=== PATIENT | female | born 1935 | race African-American/Black ===

== ENCOUNTER 2017-06-07 11:17 | Observation (INO) | payer OTHER ==
--- NOTE | 2017-06-07 11:45 | PDOC ---
History of Present Illness - General Stated Complaint: Weakness Time Seen by Provider: 06/07/17 11:44 - History of Present Illness Initial Comments: 80 year old female with PMH of HTN, dementia, and HLD presenting to the ED after a questionable syncopal episode. The patient was at a senior center and was standing for approximately two minutes from her chair then states that she missed her chair when she went to sit back into her seat. However, per the care center (after a phone call) she actually fell out of her chair after a seemingly unprovoked syncopal episode after which she was apparently disoriented. Denies any palpitations, SOB, LOC, head trauma or other symptoms. She states the she recalls the entire event as well. She was sent to the ED for evaluation by the [facility] because they believed she was slightly altered at the time of the incident. She personally has no current complaints. She was last admitted from 09/27/15-09/29/15 for a similar episode but with noted syncope. Carotid dopplers and echo were performed without notable findings that would cause hemodynamic change. Her PCP is Dr. Waddell. 06/07/17 12:41 Past History - Past Medical History Allergies/Adverse Reactions: Allergies Allergy/AdvReac Type Severity Reaction Status Date / Time No Known Allergies Allergy Verified 04/20/15 11:53 Home Medications: Ambulatory Orders Ezetimibe [Zetia -] 10 mg PO DAILY #0 tablet 03/20/12 Donepezil HCl [Aricept -] 5 mg PO DAILY 11/08/13 Esomeprazole Mag Trihydrate [Nexium] 40 mg PO DAILY 02/02/14 Atorvastatin Ca [Lipitor] 40 mg PO DAILY 09/27/15 Insulin NPH Hum/Reg Insulin Hm [Humulin 70-30 Vial] 20 unit SQ BID #0 09/30/15 Aspirin [ASA -] 81 mg PO DAILY 11/09/16 Atorvastatin Ca [Lipitor] 40 mg PO HS 11/09/16 Donepezil HCl [Aricept -] 5 mg PO DAILY 11/09/16 Esomeprazole Magnesium [Nexium 24Hr] 40 mg PO DAILY 11/09/16 Ezetimibe [Zetia] 10 mg PO DAILY 11/09/16 Insulin (Novolog 70/30) [Novolog Mix 70/30 Flexpen -] 20 units SQ BIDAC Lisinopril [Prinivil] 10 mg PO DAILY 11/09/16 Valsartan [Diovan] 160 mg PO DAILY 11/09/16 Metoprolol Tartrate 100 mg PO DAILY 06/07/17 Metoprolol Tartrate [Lopressor -] 50 mg PO DAILY 06/07/17 Montelukast Na [Singulair -] 10 mg PO HS 06/07/17 Valsartan [Diovan] 160 mg PO DAILY 06/07/17 Anemia: No Asthma: No Cancer: No Cardiac Disorders: No CVA: No COPD: No CHF: No Dementia: Yes Diabetes: Yes GI Disorders: Yes (DIARRHEA) Disorders: No HTN: Yes Hypercholesterolemia: Yes Liver Disease: No Seizures: No Thyroid Disease: No - Surgical History Abdominal Surgery: Yes Appendectomy: No Cardiac Surgery: No Cholecystectomy: No Lung Surgery: No Neurologic Surgery: No Orthopedic Surgery: No - Immunization History Td Vaccination: No TDAP Vaccination: No Immunization Up to Date: No - Suicide/Smoking/Psychosocial Hx Smoking Status: Yes Smoking History: Current every day smoker Years of Tobacco Use: 58 Have you smoked in the past 12 months: Yes Number of Cigarettes Smoked Daily: 3 Cigars Per Day: 0 'Breaking Loose' booklet given: 04/20/15 Hx Alcohol Use: No Drug/Substance Use Hx: No Substance Use Type: None Review of Systems - Review of Systems Constitutional: No: Chills, Diaphoresis, Night Sweats HEENTM: No: Eye Pain, Blurred Vision Respiratory: No: Cough, Shortness of Breath, Productive cough Cardiac (ROS): No: Chest Pain, Lightheadedness ABD/GI: No: Diarrhea, Nausea, Vomiting : No: Burning, Dysuria Musculoskeletal: No: Back Pain, Muscle Pain Integumentary: No: Bruising, Change in Color Neurological: No: Headache, Numbness, Weakness *Physical Exam - Physical Exam General Appearance: Yes: Nourished, Appropriately Dressed. No: Apparent Distress HEENT: positive: EOMI, NAVEEN, Normal Voice Neck: positive: Trachea midline, Normal Thyroid, Supple. negative: Tender, Rigid Respiratory/Chest: positive: Lungs Clear, Normal Breath Sounds. negative: Chest Tender, Respiratory Distress, Accessory Muscle Use Cardiovascular: positive: Regular Rhythm, Regular Rate Gastrointestinal/Abdominal: positive: Normal Bowel Sounds, Flat, Soft. negative : Tender Musculoskeletal: positive: Normal Inspection. negative: CVA Tenderness Extremity: positive: Normal Capillary Refill, Normal Inspection, Normal Range of Motion. negative: Tender Integumentary: positive: Normal Color, Dry, Warm Neurologic: positive: aluminum pourer II-XII NML intact, Fully Oriented, Alert, Normal Mood/ Affect, Normal Response, Motor Strength 11/03 ED Treatment Course - LABORATORY CBC & Chemistry Diagram: 06/09/17 05:45 06/09/17 05:45 Medical Decision Making - Medical Decision Making 82 year old female with questionable seizure vs. syncopal episode at her [facility]. Although patient is fully alert and AOx4 upon presentation to the ED, the report from the [facility] was concerning. Given her age, further workup is needed. 06/07/17 12:[address] unremarkable. However, Labs significant for elevated TSH (4.26) and elevated BNP (1200) with leukocytosis. Patient discussed with hospital [employer] ( Rojas) and she will be admitted for further syncopal workup including carotid dopplers, echo, and possible further cranial imaging. 06/07/17 14:41 *DC/Admit/Observation/Transfer Diagnosis at time of Disposition: Syncope Qualifiers: Syncope type: unspecified Qualified Code(s): R55 - Syncope and collapse - Discharge Dispostion Admit: Yes - Referrals - Patient Instructions - Post Discharge Activity
[2017-06-07] MEDS ORDERED: SODIUM CHLORIDE 0.9% 1000 ML INFUS.BAG IV ONE (12:24)
--- NOTE | 2017-06-07 14:05 | PDOC ---
Attending Attestation - Resident Resident Name: Stephen Rodriguez - ED Attending Attestation I have performed the following: I have examined & evaluated the patient, The case was reviewed & discussed with the resident, I agree w/resident's findings & plan, Exceptions are as noted - HPI HPI: 06/07/17 13:56 82 F with h/o HTN, HLD, DM presenting to ED with syncope. Per witness report, pt was seated in a chair and suddenly went unresponsive, falling out of the chair to the ground. She was picked up and helped back into her chair, where she was noted to be dozing off intermittently afterwards. Currently, pt denies any complaints. Daughter states that she appears back to baseline. The pt denies any recollection of fainting and states that she simply "fell out of her chair". However, daughter reports that she is not reliable due to her dementia. Pt denies KUMARI/N/V. Denies CP/SOB. Denies lightheadedness/palpitations. Denies F/ C. Denies abd pain/diarrhea. - Physicial Exam PE: 06/07/17 14:05 "GENERAL: Awake, alert, and fully oriented, in no acute distress HEAD: No signs of trauma EYES: PERRLA, EOMI, sclera anicteric, conjunctiva clear ENT: Auricles normal inspection, hearing grossly normal, nares patent, oropharynx clear without exudates. Moist mucosa NECK: Nontender, no stepoffs, Normal ROM, supple, no lymphadenopathy, JVD, or masses LUNGS: Breath sounds equal, clear to auscultation bilaterally. No wheezes, and no crackles HEART: Regular rate and rhythm, normal S1 and S2, no murmurs, rubs or gallops ABDOMEN: Soft, nontender, normoactive bowel sounds. No guarding, no rebound. No masses EXTREMITIES: Normal range of motion, no edema. No clubbing or cyanosis. No cords, erythema, or tenderness NEUROLOGICAL: Cranial nerves II through XII intact. 5/5 strength and sensation in all extremities, Normal speech, normal gait SKIN: Warm, Dry, normal turgor, no rashes or lesions noted. " - Medical Decision Making 06/07/17 14:05 82 F with likely syncopal episode. Concerning for cardiac syncope as pt was seated at the time. - Labs, trop, BNP - EKG - Admit tele
[2017-06-07 14:11] LABS: BASOPHIL 0.7 % (0-2.0); EOSINOPHIL 1.7 % (0-4.5); MCH 28.9 pg (25.7-33.7); MEAN CELL VOLUME 87.6 fl (80-96); MEAN PLT VOLUME 12.7 fl (7.5-11.1); NEUTROPHILS 82.9 % (42.8-82.8); PLATELET COUNT 168 K/MM3 (134-434); RDW 14.5 % (11.6-15.6); WHITE BLOOD COUNT 11.9 K/mm3 (4.0-10.0)
[2017-06-07 15:28] LABS: ALBUMIN 3.1 g/dl (3.4-5.0); ANION GAP 8 (8-16); BILIRUBIN,TOTAL 0.3 mg/dL (0.2-1.0); CALCIUM 8.6 mg/dL (8.5-10.1); CO2 29 mmol/L (21-32); CREATININE 1.3 mg/dL (0.55-1.02); GLUCOSE,RANDOM 251 mg/dL (74-106); SGOT/AST 10 U/L (15-37); SGPT/ALT 18 U/L (12-78); TOT PROT 6.4 g/dl (6.4-8.2)
[2017-06-07 15:37] LABS: ALK PHOS 132 U/L (45-117); CPK 44 IU/L (26-192); THYROID STIMULATING HORMONE 4.26 uIU/ml (0.358-3.74); TROPONIN I < 0.02 ng/ml (0.00-0.05)
[2017-06-07 15:42] LABS: URINE APPEARANCE CLOUDY; URINE BILIRUBIN NEGATIVE (NEGATIVE); URINE BLOOD 1+ (NEGATIVE); URINE COLOR YELLOW; URINE GLUCOSE (UA) 3+ (NEGATIVE); URINE KETONE TRACE (NEGATIVE); URINE NITRITE NEGATIVE (NEGATIVE); URINE UROBILINOGEN NEGATIVE mg/dL (0.2-1.0)
[2017-06-07 15:54] LABS: URINE LEUK ESTERASE 2+ (NEGATIVE); URINE PROTEIN 2+ (NEGATIVE)
[2017-06-07 16:32] LABS: URINE BACTERIA MODERATE /hpf (NONE SEEN); URINE MUCUS RARE; URINE RBC 3 /hpf (0-3); URINE WBC 71 /hpf (3-5)
--- NOTE | 2017-06-07 17:44 | HP ---
Admitting History and Physical - Admission Chief Complaint: syncope History of Present Illness: HPI: This 82 year old female with PMH of HTN, dementia, and HLD presented to the ED after syncopal episode. The patient said she was standing over her chair and then hit the ground and did not hit her head. She did no have an prodromal symptoms, came to and was at her baseline. Her daughter at the bedside. said the detention noted she fell out of her chair and was disoriented and mental status was altered after episode. Previous admissions for the same complaints. CD and echo without remarkable findings. Currently denies, cp, sob, abd pain, changes in urinary and bowel regimen, n/v, dizziness, kendall, blurry vision. 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 Cardiovascular: Yes: HTN, Hyperlipdemia Pulmonary: Yes: Asthma Endocrine: Yes: Diabetes Mellitus - Past Surgical History Past Surgical History: Yes: Hysterectomy - Smoking History Smoking history: Current every day smoker Have you smoked in the past 12 months: Yes Aproximately how many cigarettes per day: 3 - Alcohol/Substance Use Hx Alcohol Use: No History of Substance Use: reports: None - Social History Usual Living Arrangement: Yes: Assisted Living ADL: Support Services Home Medications - Allergies Allergies/Adverse Reactions: Allergies Allergy/AdvReac Type Severity Reaction Status Date / Time No Known Allergies Allergy Verified 04/20/15 11:53 - Home Medications Home Medications: Ambulatory Orders Ezetimibe [Zetia -] 10 mg PO DAILY #0 tablet 03/20/12 Donepezil HCl [Aricept -] 5 mg PO DAILY 11/08/13 Esomeprazole Mag Trihydrate [Nexium] 40 mg PO DAILY 02/02/14 Atorvastatin Ca [Lipitor] 40 mg PO DAILY 09/27/15 Insulin NPH Hum/Reg Insulin Hm [Humulin 70-30 Vial] 20 unit SQ BID #0 09/30/15 Metoprolol Tartrate 100 mg PO DAILY 06/07/17 Metoprolol Tartrate [Lopressor -] 50 mg PO DAILY 06/07/17 Montelukast Na [Singulair -] 10 mg PO HS 06/07/17 Valsartan [Diovan] 160 mg PO DAILY 06/07/17 Review of Systems - Review of Systems Constitutional: reports: No Symptoms Eyes: reports: No Symptoms HENT: reports: No Symptoms Neck: reports: No Symptoms Cardiovascular: reports: No Symptoms Respiratory: reports: No Symptoms Gastrointestinal: reports: No Symptoms Genitourinary: reports: No Symptoms Musculoskeletal: reports: No Symptoms Integumentary: reports: No Symptoms Neurological: reports: Change in LOC, Syncope Endocrine: reports: No Symptoms Hematology/Lymphatic: reports: No Symptoms Physical Examination Vital Signs: Vital Signs Temperature 98.7 F 06/07/17 11:45 Pulse Rate 61 06/07/17 11:45 Respiratory Rate 16 06/07/17 11:45 Blood Pressure 128/54 06/07/17 11:45 O2 Sat by Pulse Oximetry (%) 97 06/07/17 11:45 Constitutional: Yes: Calm Eyes: Yes: Other (R eye strabismus) HENT: Yes: WNL Neck: Yes: Supple Cardiovascular: Yes: Regular Rate and Rhythm, S1, S2 Respiratory: Yes: Regular, CTA Bilaterally Gastrointestinal: Yes: Normal Bowel Sounds, Soft Extremities: Yes: WNL Edema: No Neurological: Yes: Alert, Oriented, Cran Nerves II-XII Intact Psychiatric: Yes: Alert, Oriented Labs: CBC, BMP 06/07/17 11:54 06/07/17 14:17 Imaging - Results Cat Scan: Report Reviewed (Head CT: no acute pathology) Problem List - Problems (1) Diabetes mellitus Code(s): E11.9 - TYPE 2 DIABETES MELLITUS WITHOUT COMPLICATIONS (2) Hypertension Code(s): I10 - ESSENTIAL (PRIMARY) HYPERTENSION Qualifiers: Hypertension type: essential hypertension (3) Syncope Code(s): R55 - SYNCOPE AND COLLAPSE Qualifiers: Syncope type: vasovagal syncope Qualified Code(s): R55 - Syncope and collapse (4) Syncope and collapse Code(s): R55 - SYNCOPE AND COLLAPSE (5) Type 2 diabetes mellitus Code(s): E11.9 - TYPE 2 DIABETES MELLITUS WITHOUT COMPLICATIONS Qualifiers: Diabetes mellitus complication status: with kidney complications Diabetes mellitus complication detail: with chronic kidney disease Assessment/Plan Assessment: 80 year old female with DM II, HTN, HLD, CKD admitted with recurrent syncope. Plan: 1. Syncope, recurrent - ? vasovagal vs neuro vs cardiogenic - UA negative - Trops x1 negative, trend in AM - Check orthostatics - ECHO ordered - Previous CD unremarkable, no need to redo at this time - Telemetry monitoring - Neurology consulted 2. DM II - Continue novolog 70/30 15units BID before meals with sliding scale ACHS 3. HTN - Continue metoprolol 150mg daily - Continue Diovan 4. CKD - Cr at baseline - Does have proteinuria likely due to HTN/DM II, now +2 5. Hyperlipidemia - Lipitor 40mg 6. PPX - PT eval - DVT: Heparin q8h Visit type - Emergency Visit Emergency Visit: Yes ED Registration Date: 06/07/17 Care time: The patient presented to the Emergency Department on the above date and was hospitalized for further evaluation of their emergent condition. - New Patient This patient is new to me today: Yes Date on this admission: 06/07/17 - Critical Care Critical Care patient: No
[2017-06-07] MEDS ORDERED: INSULIN (NOVOLOG) ASPART 100 UNITS/ML 10ML VIAL SQ ONE ×2 (19:15→23:45)
[2017-06-07 19:32] LABS: URINE LEUK ESTERASE TRACE (NEGATIVE)
[2017-06-07] MEDS: DONEPEZIL HCL 5 MG TABLET (FP) PO SCH (21:38)
[2017-06-07] MEDS: ATORVASTATIN CA 40 MG TABLET (FP) PO SCH (21:38)
[2017-06-07] MEDS: METOPROLOL TARTRATE 50 MG TABLET (FP) PO SCH (21:38)
[2017-06-07] MEDS: MONTELUKAST NA 10 MG TABLET PO SCH (21:38)
[2017-06-07] MEDS: HEPARIN NA (PORCINE) 5,000 UNITS/ML 1ML VIAL SQ SCH (21:38)
[2017-06-07 21:46] VITALS: BMI 23.2
[2017-06-07] MEDS: INSULIN SLIDING SCALE (NOVOLOG) 1 VIAL SQ SCH (21:54)
[2017-06-08] MEDS: INSULIN (NOVOLOG MIX 70/30) 100 UNITS/ML MDV SQ SCH ×2 (06:45→17:19)
[2017-06-08] MEDS: HEPARIN NA (PORCINE) 5,000 UNITS/ML 1ML VIAL SQ SCH ×3 (06:45→21:11)
[2017-06-08] MEDS: INSULIN SLIDING SCALE (NOVOLOG) 1 VIAL SQ SCH ×4 (06:46→21:09)
[2017-06-08 07:25] LABS: BASOPHIL 0.6 % (0-2.0); EOSINOPHIL 3.2 % (0-4.5); MCH 28.7 pg (25.7-33.7); MCHC 33.1 g/dl (32.0-36.0); MEAN CELL VOLUME 86.8 fl (80-96); MEAN PLT VOLUME 12.9 fl (7.5-11.1); NEUTROPHILS 69.4 % (42.8-82.8); PLATELET COUNT 133 K/MM3 (134-434); RDW 14.1 % (11.6-15.6)
[2017-06-08 07:49] LABS: ALBUMIN 2.6 g/dl (3.4-5.0); ALK PHOS 112 U/L (45-117); ANION GAP 11 (8-16); BILIRUBIN,TOTAL 0.5 mg/dL (0.2-1.0); CALCIUM 8.2 mg/dL (8.5-10.1); CO2 24 mmol/L (21-32); CPK 72 IU/L (26-192); CREATININE 1.1 mg/dL (0.55-1.02); GLUCOSE,RANDOM 258 mg/dL (74-106); MAGNESIUM 1.8 mg/dL (1.8-2.4); PHOSPHOROUS 3.4 mg/dL (2.5-4.9); SGOT/AST 10 U/L (15-37); SGPT/ALT 14 U/L (12-78); TOT PROT 5.5 g/dl (6.4-8.2); TROPONIN I < 0.02 ng/ml (0.00-0.05)
--- NOTE | 2017-06-08 09:06 | CON.NEURO ---
Consult - History of Present Illness History of Present Illness: 82 year old female history of HTN, HLD, DM Presenting with syncope. Patient was at seniors living facility and collapsed and lost consiouness. It was very brief , there was no aura. No tonic clonic activity, no incontinence . She has similar episode in past and work up was negative in past. 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 Cardio/Vascular: Yes: HTN, Hyperlipdemia Pulmonary: Yes: Asthma Endocrine: Yes: Diabetes Mellitus - Past Surgical History Past Surgical History: Yes: Hysterectomy - Alcohol/Substance Use Hx Alcohol Use: No History of Substance Use: reports: None - Smoking History Smoking history: Current every day smoker Have you smoked in the past 12 months: Yes Aproximately how many cigarettes per day: 3 - Social History Usual Living Arrangement: With Child ADL: Support Services Home Medications - Allergies Allergies/Adverse Reactions: Allergies Allergy/AdvReac Type Severity Reaction Status Date / Time No Known Allergies Allergy Verified 04/20/15 11:53 - Home Medications Home Medications: Ambulatory Orders Ezetimibe [Zetia -] 10 mg PO DAILY #0 tablet 03/20/12 Donepezil HCl [Aricept -] 5 mg PO DAILY 11/08/13 Esomeprazole Mag Trihydrate [Nexium] 40 mg PO DAILY 02/02/14 Atorvastatin Ca [Lipitor] 40 mg PO DAILY 09/27/15 Insulin NPH Hum/Reg Insulin Hm [Humulin 70-30 Vial] 20 unit SQ BID #0 09/30/15 Metoprolol Tartrate 100 mg PO DAILY 06/07/17 Metoprolol Tartrate [Lopressor -] 50 mg PO DAILY 06/07/17 Montelukast Na [Singulair -] 10 mg PO HS 06/07/17 Valsartan [Diovan] 160 mg PO DAILY 06/07/17 Physical Exam-Neuro Vital Signs: Vital Signs Temperature 98.5 F 06/08/17 06:00 Pulse Rate 65 06/08/17 06:00 Respiratory Rate 20 06/08/17 06:00 Blood Pressure 151/76 06/08/17 06:00 O2 Sat by Pulse Oximetry (%) 97 06/07/17 19:40 Labs: CBC, BMP 06/08/17 05:05 06/08/17 05:05 Assessment/Plan cc episode of syncope HPI 82 year old female history of HTN, HLD, DM Presenting with syncope. Patient was at seniors living facility and collapsed and lost consiouness. It was very brief, there was no aura. No tonic clonic activity, no incontinence . She has similar episode in past and work up was negative in past. 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
[2017-06-08] MEDS ORDERED: PATIENT'S OWN MEDICATION (NON-FORMULARY) (Metoprolol Tartrate [Metoprolol Tartrate] 100 MG PO SCH (10:00)
[2017-06-08] MEDS ORDERED: METOPROLOL TARTRATE 50 MG TABLET (FP) PO SCH ×2 (10:00)
[2017-06-08] MEDS: METOPROLOL TARTRATE 50 MG TABLET (FP) PO SCH ×2 (10:37→21:09)
[2017-06-08] MEDS: EZETIMIBE 10 MG TABLET (FP) PO SCH (10:37)
[2017-06-08] MEDS: VALSARTAN 160 MG TABLET (UD) PO SCH (10:37)
--- NOTE | 2017-06-08 10:47 | EKG ---
Test Reason : Blood Pressure : / mmHG Vent. Rate : 070 BPM Atrial Rate : 070 BPM P-R Int : 144 ms QRS Dur : 076 ms QT Int : 406 ms P-R-T Axes : 062 053 090 degrees QTc Int : 438 ms NORMAL SINUS RHYTHM POSSIBLE LEFT ATRIAL ENLARGEMENT NONSPECIFIC T WAVE ABNORMALITY ABNORMAL ECG Confirmed by MD SEGUN, LAVERNE ([id number]) on 06/08/2017 10:46:47 AM Referred By: Confirmed By:LAVERNE CAST MD
[2017-06-08] MEDS: CEFTRIAXONE 1 G/50 ML PREMIX 50 ML IVPB SCH (14:14)
--- NOTE | 2017-06-08 14:39 | CON.CARD ---
Cardiology Consult (text) - Consultation Consultation Note: CC: presyncope/syncope History of Present Illness: 82 yo with PMH of HTN, HL, dm, asthma, dementia p/w syncope. Per report, patient fell out of her chair or fell while trying to get out of chair. Per report, patient was disoriented/altered after episode. Unclear if she had LOC. However, patient states that she simply lost her balance and fell and denies dizziness, confusion or other symptoms. States the same thing happened to her last year. s/p IVF Previous admissions in 2014 and 2016 for similar episodes. Work up unremarkable. denies chest pain, sob, palpitations, diaphoresis, orthopnea, PND or LE edema. pmhx/pshx: per hpi, additionally Hysterectomy social hx: Current every day smoker. lives in residential fam hx: no h/o premature cad. ros: per hpi. denies abd pain, recent decrease in po intake, f/c/s, n/v/d, cough, congestion, f/c/s, kendall, blurry vision. Ambulatory Orders Ezetimibe [Zetia -] 10 mg PO DAILY #0 tablet 03/20/12 Donepezil HCl [Aricept -] 5 mg PO DAILY 11/08/13 Esomeprazole Mag Trihydrate [Nexium] 40 mg PO DAILY 02/02/14 Atorvastatin Ca [Lipitor] 40 mg PO DAILY 09/27/15 Insulin NPH Hum/Reg Insulin Hm [Humulin 70-30 Vial] 20 unit SQ BID #0 09/30/15 Aspirin [ASA -] 81 mg PO DAILY 11/09/16 Atorvastatin Ca [Lipitor] 40 mg PO HS 11/09/16 Donepezil HCl [Aricept -] 5 mg PO DAILY 11/09/16 Esomeprazole Magnesium [Nexium 24Hr] 40 mg PO DAILY 11/09/16 Ezetimibe [Zetia] 10 mg PO DAILY 11/09/16 Insulin (Novolog 70/30) [Novolog Mix 70/30 Flexpen -] 20 units SQ BIDAC Lisinopril [Prinivil] 10 mg PO DAILY 11/09/16 Valsartan [Diovan] 160 mg PO DAILY 11/09/16 Metoprolol Tartrate 100 mg PO DAILY 06/07/17 Metoprolol Tartrate [Lopressor -] 50 mg PO DAILY 06/07/17 Montelukast Na [Singulair -] 10 mg PO HS 06/07/17 Valsartan [Diovan] 160 mg PO DAILY 06/07/17 Current Medications Atorvastatin Calcium (Lipitor -) 40 mg PO HS [facility] Last Admin: 06/07/17 21:38 Dose: 40 mg Donepezil HCl (Aricept -) 5 mg PO HS [facility] Last Admin: 06/07/17 21:38 Dose: 5 mg Ezetimibe (Zetia -) 10 mg PO DAILY [facility] Last Admin: 06/08/17 10:37 Dose: 10 mg Heparin Sodium (Porcine) (Heparin -) 5,000 unit SQ TID [facility] Last Admin: 06/08/17 14:14 Dose: 5,000 unit CEFTRIAXONE 1 G/50 ML PREMIX (Ceftriaxone 1 Gm-D5w Bag) 50 mls @ 100 mls/hr IVPB DAILY [facility] Last Admin: 06/08/17 14:14 Dose: 100 mls/hr Insulin Aspart (Novolog Mix 70/30 Vial) 20 units SQ BIDAC [facility] Last Admin: 06/08/17 06:45 Dose: 20 units Insulin Aspart (Novolog Vial Sliding Scale -) 1 vial SQ ACHS [facility] PRN Reason: Protocol Last Admin: 06/08/17 11:43 Dose: 10 units Metoprolol Tartrate (Lopressor -) 100 mg PO DAILY [facility] Last Admin: 06/08/17 10:37 Dose: 100 mg Metoprolol Tartrate (Lopressor -) 50 mg PO HS [facility] Last Admin: 06/07/17 21:38 Dose: 50 mg Montelukast Sodium (Singulair -) 10 mg PO HS [facility] Last Admin: 06/07/17 21:38 Dose: 10 mg Valsartan (Diovan -) 160 mg PO DAILY [facility] Last Admin: 06/08/17 10:37 Dose: 160 mg Vital Signs - 24 hr 06/07/17 06/07/17 06/07/17 18:17 18:50 19:40 Temperature 98.2 F 98.0 F 98.1 F Pulse Rate 84 75 Pulse Rate [ 69 Apical] Respiratory 16 18 18 Rate Blood Pressure 142/78 184/69 Blood Pressure 143/61 [Right] O2 Sat by Pulse 97 97 Oximetry (%) 06/07/17 06/08/17 06/08/17 23:00 02:00 06:00 Temperature 98.4 F 98.5 F Pulse Rate 66 67 65 Pulse Rate [ Apical] Respiratory 18 20 20 Rate Blood Pressure 148/68 143/76 151/76 Blood Pressure [Right] O2 Sat by Pulse Oximetry (%) 06/08/17 10:00 Temperature 97.8 F Pulse Rate 66 Pulse Rate [ Apical] Respiratory 22 Rate Blood Pressure 143/65 Blood Pressure [Right] O2 Sat by Pulse Oximetry (%) Intake & Output 06/06/17 06/07/17 06/08/17 06/09/17 07:59 07:59 07:59 07:59 Intake Total 360 Balance 360 Weight 139 lb 3.2 oz nad, calm jvd flat, neck supple ctab, nl effort RRR nl s1, s2 2/6 soft sys murmur at usb. 2/6 sys murmur at apex. + bs soft nt nd ext without e/c/c + dp/pt no carotid bruits no jaundice, diaphoresis. alert and oriented. CBC, BMP 06/08/17 05:05 06/08/17 05:05 Laboratory Tests 06/07/17 06/07/17 06/08/17 14:17 15:15 05:05 Creatinine 1.3 H Total Bilirubin 0.5 D AST 10 L ALT 14 D Alkaline Phosphatase 112 Troponin I < 0.02 < 0.02 B-Natriuretic Peptide 1209.07 H Albumin 2.6 L TSH 4.26 H Urine Ketones Trace H EKG: nsr, lateral twi (slightly more prominent than on priors) tele: wandering atrial pacemaker echo 06/2017: nl lv size/fn. 1+ lae. mod mac. mild-mod functional ms. 1+ mr/ tr. rvsp 40-50. head ct: moderate ventricular dilation. moderate to severe chronic microvascular changes. no infarct. calc of carotids. similar to priors. prior carotid u/s with moderate plaque 2015 and 50-70% rt common carotid stenosis in 2014. A/P 82 yo smoker with PMH of HTN, HL, dm, asthma, dementia p/w possible syncope. presyncope/syncope - echo without sig ab. ce's neg x 2. ekg with lateral twi (slighly more prom than on priors), but no acute ischemic changes - con't tele monitoring - repeat carotid u/s. (h/o plaque +/- stenosis). con't asa, statin, zetia. repeat lipid panel. - orthostatic vitals - h/o dementia and ventricular dilation on imaging. neuro following. - tsh elevated, eval/mgm't per pmd. infecitious work up per pmd. htn - reasonable control for age on current regimen. hl - plan as above. + tobacco - smoking cessation.
--- NOTE | 2017-06-08 15:39 | PN ---
Physical Exam: SUBJECTIVE: Patient seen and examined at bedside. Voices no complaints. OBJECTIVE: Vital Signs Period Temp Pulse Resp BP Sys/Richardson Pulse Ox Last 24 Hr 97.8 F-98.5 F 65-84 16-22 142-184/61-78 97-97 GENERAL: The patient is awake, alert, and fully oriented, in no acute distress. LUNGS: CTA HEART: RRR, S1, S2 ABDOMEN: Soft, nontender, nondistended, normoactive bowel sounds EXTREMITIES: 2+ pulses, warm, well-perfused, no edema. NEUROLOGICAL: Cranial nerves II through XII grossly intact. Normal speech, gait not observed. Laboratory Results - last 24 hr 06/07/17 06/07/17 06/07/17 14:17 15:15 15:50 WBC RBC Hgb Hct MCV MCH MCHC RDW Plt Count MPV Neutrophils % Lymphocytes % Monocytes % Eosinophils % Basophils % Sodium 138 Potassium 4.0 Chloride 101 Carbon Dioxide 29 Anion Gap 8 BUN 19 H D Creatinine 1.3 H Creat Clearance w eGFR 39.02 POC Glucometer Random Glucose 251 H Calcium 8.6 Phosphorus Magnesium Total Bilirubin 0.3 AST 10 L D ALT 18 D Alkaline Phosphatase 132 H D Creatine Kinase 44 Troponin I < 0.02 B-Natriuretic Peptide 1209.07 H Total Protein 6.4 Albumin 3.1 L D TSH 4.26 H Urine Color Yellow Urine Appearance Cloudy Urine pH 5.0 Ur Specific [place] 1.023 Urine Protein 2+ H Urine Glucose (UA) 3+ H Urine Ketones Trace H Urine Blood 1+ H Urine Nitrite Negative Urine Bilirubin Negative Urine Urobilinogen Negative Ur Leukocyte Esterase Trace H Urine WBC (Auto) 71 Urine RBC (Auto) 3 Ur Epithelial Cells Rare Urine Bacteria Moderate Urine Mucus Rare Acetone, Qual Negative L 06/07/17 06/07/17 06/07/17 18:40 21:32 23:12 WBC RBC Hgb Hct MCV MCH MCHC RDW Plt Count MPV Neutrophils % Lymphocytes % Monocytes % Eosinophils % Basophils % Sodium Potassium Chloride Carbon Dioxide Anion Gap BUN Creatinine Creat Clearance w eGFR POC Glucometer 583 494 360 Random Glucose Calcium Phosphorus Magnesium Total Bilirubin AST ALT Alkaline Phosphatase Creatine Kinase Troponin I B-Natriuretic Peptide Total Protein Albumin TSH Urine Color Urine Appearance Urine pH Ur Specific [place] Urine Protein Urine Glucose (UA) Urine Ketones Urine Blood Urine Nitrite Urine Bilirubin Urine Urobilinogen Ur Leukocyte Esterase Urine WBC (Auto) Urine RBC (Auto) Ur Epithelial Cells Urine Bacteria Urine Mucus Acetone, Qual 06/08/17 06/08/17 06/08/17 01:25 05:05 05:05 WBC 12.0 H RBC 4.02 Hgb 11.5 D Hct 34.9 MCV 86.8 MCH 28.7 MCHC 33.1 RDW 14.1 Plt Count 133 L D MPV 12.9 H Neutrophils % 69.4 Lymphocytes % 20.1 D Monocytes % 6.7 Eosinophils % 3.2 D Basophils % 0.6 Sodium 136 Potassium 3.8 Chloride 101 Carbon Dioxide 24 Anion Gap 11 BUN 22 H Creatinine 1.1 H Creat Clearance w eGFR 47.32 POC Glucometer 277 Random Glucose 258 H Calcium 8.2 L Phosphorus 3.4 Magnesium 1.8 Total Bilirubin 0.5 D AST 10 L ALT 14 D Alkaline Phosphatase 112 Creatine Kinase 72 Troponin I < 0.02 B-Natriuretic Peptide Total Protein 5.5 L Albumin 2.6 L TSH Urine Color Urine Appearance Urine pH Ur Specific [place] Urine Protein Urine Glucose (UA) Urine Ketones Urine Blood Urine Nitrite Urine Bilirubin Urine Urobilinogen Ur Leukocyte Esterase Urine WBC (Auto) Urine RBC (Auto) Ur Epithelial Cells Urine Bacteria Urine Mucus Acetone, Qual 06/08/17 06/08/17 06/08/17 05:05 06:23 11:36 WBC RBC Hgb Hct MCV MCH MCHC RDW Plt Count MPV Neutrophils % Lymphocytes % Monocytes % Eosinophils % Basophils % Sodium Potassium Chloride Carbon Dioxide Anion Gap BUN Creatinine Creat Clearance w eGFR POC Glucometer 267 357 Random Glucose Calcium Phosphorus Magnesium Total Bilirubin AST ALT Alkaline Phosphatase Creatine Kinase Cancelled Troponin I Cancelled B-Natriuretic Peptide Total Protein Albumin TSH Urine Color Urine Appearance Urine pH Ur Specific [place] Urine Protein Urine Glucose (UA) Urine Ketones Urine Blood Urine Nitrite Urine Bilirubin Urine Urobilinogen Ur Leukocyte Esterase Urine WBC (Auto) Urine RBC (Auto) Ur Epithelial Cells Urine Bacteria Urine Mucus Acetone, Qual Active Medications Generic Name Dose Route Start Last Admin Trade Name Freq PRN Reason Stop Dose Admin Atorvastatin Calcium 40 mg 06/07/17 22:00 06/07/17 21:38 Lipitor - PO 40 mg HS CROW Administration Donepezil HCl 5 mg 06/07/17 22:00 06/07/17 21:38 Aricept - PO 5 mg HS CROW Administration Ezetimibe 10 mg 06/08/17 10:00 06/08/17 10:37 Zetia - PO 10 mg DAILY CROW Administration Heparin Sodium (Porcine) 5,000 unit 06/07/17 22:00 06/08/17 14:14 Heparin - SQ 5,000 unit TID CROW Administration CEFTRIAXONE 1 G/50 ML PREMIX 50 mls @ 100 mls/hr 06/08/17 12:00 06/08/17 14: 14 Ceftriaxone 1 Gm-D5w Bag IVPB 100 mls/hr DAILY CROW Administration Insulin Aspart 20 units 06/08/17 07:00 06/08/17 06:45 Novolog Mix 70/30 Vial SQ 20 units BIDAC CROW Administration Insulin Aspart 1 vial 06/07/17 22:00 06/08/17 11:43 Novolog Vial Sliding Scale - SQ 10 units ACHS CROW Administration Protocol Metoprolol Tartrate 100 mg 06/08/17 10:00 06/08/17 10:37 Lopressor - PO 100 mg DAILY CROW Administration Metoprolol Tartrate 50 mg 06/07/17 22:00 06/07/17 21:38 Lopressor - PO 50 mg HS CROW Administration Montelukast Sodium 10 mg 06/07/17 22:00 06/07/17 21:38 Singulair - PO 10 mg HS CROW Administration Valsartan 160 mg 06/08/17 10:00 06/08/17 10:37 Diovan - PO 160 mg DAILY CROW Administration ASSESSMENT/PLAN: 82 year-old woman with a PMH significant for HTN, HLD, IDDM, and mild dementia. Placed on observation for a syncopal episode. Syncope --r/o neuro: ----CT head: no acute intracranial pathology; calcification of the cavernous carotid arteries ----US carotids in 08/2015 showed moderate bilateral plaques with no hemodynamically significant stenosis; repeat pending ----seen and evaluated by neuro, EEG ordered ----continue Lipitor --r/o cardiac ----troponins neg x 2 ----ECG not suggestive of ischemic event ----06/08 echo: LV systolic function normal; poor LV compliance (also seen on previous echo 09/28/15); RV normal; LAE; mild MR; mild TR, pHTN ----get orthostatics ----cardiology following UTI --UA with trace leuks, 71 WBCs --mild leukocytosis, afebrile --patient denies symptoms --start empiric ceftriaxone pending culture, if negative stop antibiotics Diastolic heart dysfunction --echo as above --appears euvolemic, not on diuretics --will get CXR NIDDM --serum glucose and fingersticks >200, no indication of hypoglycemia --continue Novolog 70/30 and sliding scale coverage Asthma --current everyday smoker --CXR pending Hypertension --BP controlled for age --continue Valsartan,metoprolol Hyperlipidemia --continue Lipitor Mild dementia --continue Aricept FEN Fluids: PO intake adequate Electrolytes: replete as indicated Nutrition: low sodium, diabetic DVT prophylaxis: subq heparin, oob, ambulation PT evaluation Dispo: continues to require observation. Full code. Visit type - Emergency Visit Emergency Visit: Yes ED Registration Date: 06/07/17 Care time: The patient presented to the Emergency Department on the above date and was hospitalized for further evaluation of their emergent condition. - New Patient This patient is new to me today: Yes Date on this admission: 06/08/17 - Critical Care Critical Care patient: No
[2017-06-08] MEDS: MONTELUKAST NA 10 MG TABLET PO SCH (21:09)
[2017-06-08] MEDS: ATORVASTATIN CA 40 MG TABLET (FP) PO SCH (21:09)
[2017-06-08] MEDS: DONEPEZIL HCL 5 MG TABLET (FP) PO SCH (21:09)
[2017-06-09] MEDS: HEPARIN NA (PORCINE) 5,000 UNITS/ML 1ML VIAL SQ SCH ×3 (06:35→22:00)
[2017-06-09] MEDS: INSULIN (NOVOLOG MIX 70/30) 100 UNITS/ML MDV SQ SCH ×2 (06:35→17:45)
[2017-06-09] MEDS: INSULIN SLIDING SCALE (NOVOLOG) 1 VIAL SQ SCH ×4 (06:35→22:00)
[2017-06-09 07:59] LABS: BASOPHIL 0.8 % (0-2.0); EOSINOPHIL 4.2 % (0-4.5); MCHC 33.4 g/dl (32.0-36.0); MEAN CELL VOLUME 86.9 fl (80-96); MEAN PLT VOLUME 13.1 fl (7.5-11.1); PLATELET COUNT 131 K/MM3 (134-434); WHITE BLOOD COUNT 10.9 K/mm3 (4.0-10.0)
[2017-06-09 08:50] LABS: ANION GAP 10 (8-16); CALCIUM 9.1 mg/dL (8.5-10.1); CHOLESTEROL 133 mg/dL (50-200); CO2 27 mmol/L (21-32); GLUCOSE,RANDOM 258 mg/dL (74-106); MAGNESIUM 1.7 mg/dL (1.8-2.4)
[2017-06-09] MEDS: EZETIMIBE 10 MG TABLET (FP) PO SCH (09:45)
[2017-06-09] MEDS: VALSARTAN 160 MG TABLET (UD) PO SCH (09:45)
[2017-06-09] MEDS: ASPIRIN 81 MG CHEWABLE TABLETS PO SCH (09:48)
[2017-06-09] MEDS: CEFTRIAXONE 1 G/50 ML PREMIX 50 ML IVPB SCH (09:48)
[2017-06-09] MEDS: METOPROLOL TARTRATE 50 MG TABLET (FP) PO SCH ×2 (09:48→22:00)
--- NOTE | 2017-06-09 12:56 | PN ---
Progress Note (short form) - Note Progress Note: cc episode of syncope HPI 82 year old female history of HTN, HLD, DM Presenting with syncope. [facility] at [facility] and collapsed and lost consiouness. It was very brief, there was no aura. No tonic clonic activity, no incontinence . She has similar episode in past and work up was negative in past. 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
[2017-06-09] MEDS ORDERED: MAGNESIUM SULF 50% (8.12 MEQ/2 ML-1 GM VIAL) IVPB ONE ×2 (18:10→23:00)
--- NOTE | 2017-06-09 18:10 | PN ---
Progress Note (short form) - Note Progress Note: CC: presyncope/syncope S: no cp, palps, dizziness, sob. patient ambulating without sx's. Current Medications Aspirin (Asa -) 81 mg PO DAILY [facility] Last Admin: 06/09/17 09:48 Dose: 81 mg Atorvastatin Calcium (Lipitor -) 40 mg PO HS [facility] Last Admin: 06/08/17 21:09 Dose: 40 mg Donepezil HCl (Aricept -) 5 mg PO HS [facility] Last Admin: 06/08/17 21:09 Dose: 5 mg Ezetimibe (Zetia -) 10 mg PO DAILY [facility] Last Admin: 06/09/17 09:45 Dose: 10 mg Heparin Sodium (Porcine) (Heparin -) 5,000 unit SQ TID [facility] Last Admin: 06/09/17 14:52 Dose: 5,000 unit CEFTRIAXONE 1 G/50 ML PREMIX (Ceftriaxone 1 Gm-D5w Bag) 50 mls @ 100 mls/hr IVPB DAILY [facility] Last Admin: 06/09/17 09:48 Dose: 100 mls/hr Insulin Aspart (Novolog Mix 70/30 Vial) 20 units SQ BIDAC [facility] Last Admin: 06/09/17 17:45 Dose: 20 units Insulin Aspart (Novolog Vial Sliding Scale -) 1 vial SQ ACHS [facility] PRN Reason: Protocol Last Admin: 06/09/17 17:45 Dose: 12 units Metoprolol Tartrate (Lopressor -) 100 mg PO DAILY [facility] Last Admin: 06/09/17 09:48 Dose: 100 mg Metoprolol Tartrate (Lopressor -) 50 mg PO HS [facility] Last Admin: 06/08/17 21:09 Dose: 50 mg Montelukast Sodium (Singulair -) 10 mg PO HS [facility] Last Admin: 06/08/17 21:09 Dose: 10 mg Valsartan (Diovan -) 160 mg PO DAILY [facility] Last Admin: 06/09/17 09:45 Dose: 160 mg Vital Signs - 24 hr 06/08/17 06/09/17 06/09/17 22:00 01:00 02:00 Temperature 98.9 F 98.9 F Pulse Rate 71 67 Respiratory 18 18 Rate Blood Pressure 154/52 138/61 O2 Sat by Pulse 96 Oximetry (%) 06/09/17 06/09/17 06/09/17 06:00 09:00 09:43 Temperature 97.6 F 98.8 F Pulse Rate 70 65 Respiratory 18 22 22 Rate Blood Pressure 153/76 126/54 O2 Sat by Pulse 97 Oximetry (%) 06/09/17 06/09/17 09:44 14:00 Temperature 98.4 F Pulse Rate 74 66 Respiratory 22 Rate Blood Pressure 150/59 136/78 O2 Sat by Pulse Oximetry (%) Intake & Output 06/07/17 06/08/17 06/09/17 06/10/17 07:59 07:59 07:59 07:59 Intake Total 360 1220 240 Balance 360 1220 240 Weight 139 lb 3.2 oz 139 lb 6.4 oz nad, calm jvd flat, neck supple ctab, nl effort RRR nl s1, s2 2/6 soft sys murmur at usb. 2/6 sys murmur at apex. + bs soft nt nd ext without e/c/c + dp/pt no carotid bruits no jaundice, diaphoresis. alert and oriented. CBC, BMP 06/09/17 05:45 06/09/17 05:45 Laboratory Tests 06/09/17 05:45 Magnesium 1.7 L Triglycerides 100 D Cholesterol 133 Total LDL Cholesterol 56 HDL Cholesterol 59 EKG: nsr, lateral twi (slightly more prominent than on priors) tele: wandering atrial pacemaker echo 06/2017: nl lv size/fn. 1+ lae. mod mac. mild-mod functional ms. 1+ mr/ tr. rvsp 40-50. head ct: moderate ventricular dilation. moderate to severe chronic microvascular changes. no infarct. calc of carotids. similar to priors. carotid u/s: no high grade stenosis. mod plaque. lt vert patent. rt vert not well visualized. Can consider further imaging. prior carotid u/s with moderate plaque 2015 and 50-70% rt common carotid stenosis in 2014. A/P 82 yo smoker with PMH of HTN, HL, dm, asthma, possible dementia p/w possible syncope. presyncope/syncope - History unclear. patient denies presyncope at the time of event (states she fell getting out of chair). per report, patient appeared confused. - echo without sig ab. ce's neg x 2. ekg with lateral twi (slighly more prom than on priors), but no acute ischemic changes - con't tele monitoring - repeat carotid u/s as above. plan for repeat head cta. con't asa, statin, zetia. - orthostatic vitals negative - h/o dementia and ventricular dilation on imaging. neuro following. - tsh elevated, eval/mgm't per pmd. infecitious work up per pmd. htn - reasonable control for age on current regimen. hl - plan as above. + tobacco - smoking cessation.
--- NOTE | 2017-06-09 20:10 | PN ---
Physical Exam: SUBJECTIVE: Patient seen and examined at bedside. Feels well. Voices no complaints. OBJECTIVE: Vital Signs Period Temp Pulse Resp BP Sys/Richardson Pulse Ox Last 24 Hr 97.6 F-98.9 F 65-74 18-22 126-154/52-78 96-97 GENERAL: The patient is awake, alert, and fully oriented, in no acute distress. LUNGS: CTA HEART: RRR, S1, S2 ABDOMEN: Soft, nontender, nondistended, normoactive bowel sounds EXTREMITIES: 2+ pulses, warm, well-perfused, no edema. NEUROLOGICAL: Cranial nerves II through XII grossly intact. Normal speech, gait not observed. Laboratory Results - last 24 hr 06/08/17 06/09/17 06/09/17 21:07 05:45 05:45 WBC 10.9 H RBC 4.08 Hgb 11.8 Hct 35.5 MCV 86.9 MCH 29.0 MCHC 33.4 RDW 14.0 Plt Count 131 L MPV 13.1 H Neutrophils % 63.0 Lymphocytes % 25.3 D Monocytes % 6.7 Eosinophils % 4.2 Basophils % 0.8 Sodium 141 Potassium 4.1 Chloride 104 Carbon Dioxide 27 Anion Gap 10 BUN 22 H Creatinine 1.0 POC Glucometer 355 Random Glucose 258 H Calcium 9.1 Magnesium 1.7 L Triglycerides 100 D Cholesterol 133 Total LDL Cholesterol 56 HDL Cholesterol 59 06/09/17 06/09/17 06:27 17:37 WBC RBC Hgb Hct MCV MCH MCHC RDW Plt Count MPV Neutrophils % Lymphocytes % Monocytes % Eosinophils % Basophils % Sodium Potassium Chloride Carbon Dioxide Anion Gap BUN Creatinine POC Glucometer 249 422 Random Glucose Calcium Magnesium Triglycerides Cholesterol Total LDL Cholesterol HDL Cholesterol Active Medications Generic Name Dose Route Start Last Admin Trade Name Otilioq PRN Reason Stop Dose Admin Aspirin 81 mg 06/09/17 10:00 06/09/17 09:48 Asa - PO 81 mg DAILY CROW Administration Atorvastatin Calcium 40 mg 06/07/17 22:00 06/08/17 21:09 Lipitor - PO 40 mg HS CROW Administration Donepezil HCl 5 mg 06/07/17 22:00 06/08/17 21:09 Aricept - PO 5 mg HS CROW Administration Ezetimibe 10 mg 06/08/17 10:00 06/09/17 09:45 Zetia - PO 10 mg DAILY CROW Administration Heparin Sodium (Porcine) 5,000 unit 06/07/17 22:00 06/09/17 14:52 Heparin - SQ 5,000 unit TID CROW Administration CEFTRIAXONE 1 G/50 ML PREMIX 50 mls @ 100 mls/hr 06/08/17 12:00 06/09/17 09: 48 Ceftriaxone 1 Gm-D5w Bag IVPB 100 mls/hr DAILY CROW Administration Insulin Aspart 20 units 06/08/17 07:00 06/09/17 17:45 Novolog Mix 70/30 Vial SQ 20 units BIDAC CROW Administration Insulin Aspart 1 vial 06/07/17 22:00 06/09/17 17:45 Novolog Vial Sliding Scale - SQ 12 units ACHS CROW Administration Protocol Metoprolol Tartrate 100 mg 06/08/17 10:00 06/09/17 09:48 Lopressor - PO 100 mg DAILY CROW Administration Metoprolol Tartrate 50 mg 06/07/17 22:00 06/08/17 21:09 Lopressor - PO 50 mg HS CROW Administration Montelukast Sodium 10 mg 06/07/17 22:00 06/08/17 21:09 Singulair - PO 10 mg HS CROW Administration Valsartan 160 mg 06/08/17 10:00 06/09/17 09:45 Diovan - PO 160 mg DAILY CROW Administration ASSESSMENT/PLAN: 82 year-old woman with a PMH significant for HTN, HLD, IDDM, and mild dementia. Placed on observation for a syncopal episode. Syncope --r/o neuro: ----CT head: no acute intracranial pathology; calcification of the cavernous carotid arteries ----US carotids: no evidence of high-grade carotid artery disease; right vertebral artery not well seen; CTA done pending read --r/o cardiac ----troponins neg x 2 ----ECG not suggestive of ischemic event ----06/08 echo: LV systolic function normal; poor LV compliance (also seen on previous echo 09/28/15); RV normal; LAE; mild MR; mild TR, pHTN ----cardiology following LFGNB UTI --continue ceftriaxone Diastolic heart dysfunction --Echo: LV normal; RV normal; LAE; mild MR; mild TR; pHTN --appears euvolemic, not on diuretics --CXR: borderline cardiomegaly NIDDM --serum glucose and fingersticks >200, no indication of hypoglycemia --continue Novolog 70/30 and sliding scale coverage Asthma --continue singulair Hypertension --BP controlled for age --continue Valsartan, metoprolol Hyperlipidemia --continue Lipitor Mild dementia --continue Aricept FEN Fluids: PO intake adequate Electrolytes: replete as indicated Nutrition: low sodium, diabetic DVT prophylaxis: subq heparin, oob, ambulation PT evaluation Dispo: continues to require observation. Full code. Visit type - Emergency Visit Emergency Visit: Yes ED Registration Date: 06/07/17 Care time: The patient presented to the Emergency Department on the above date and was hospitalized for further evaluation of their emergent condition. - New Patient This patient is new to me today: No - Critical Care Critical Care patient: No
[2017-06-09] MEDS: MONTELUKAST NA 10 MG TABLET PO SCH (22:00)
[2017-06-09] MEDS: DONEPEZIL HCL 5 MG TABLET (FP) PO SCH (22:00)
[2017-06-09] MEDS: ATORVASTATIN CA 40 MG TABLET (FP) PO SCH (22:00)
[2017-06-10] MEDS: INSULIN (NOVOLOG MIX 70/30) 100 UNITS/ML MDV SQ SCH (06:09)
[2017-06-10] MEDS: INSULIN SLIDING SCALE (NOVOLOG) 1 VIAL SQ SCH (06:09)
[2017-06-10] MEDS: HEPARIN NA (PORCINE) 5,000 UNITS/ML 1ML VIAL SQ SCH (06:09)
[2017-06-10 06:24] VITALS: BP 147/61; PULSE 85; TEMP 98
--- NOTE | 2017-06-10 08:31 | DS ---
Physical Exam: SUBJECTIVE: Patient seen and examined OBJECTIVE: Vital Signs Period Temp Pulse Resp BP Sys/Richardson Pulse Ox Last 24 Hr 98 F-98.9 F 65-85 17-22 126-150/54-78 97-97 PHYSICAL EXAM GENERAL: The patient is awake, alert, and fully oriented, in no acute distress. HEAD: Normal with no signs of trauma. EYES: PERRL, extraocular movements intact, sclera anicteric, conjunctiva clear. ENT: Ears normal, nares patent, oropharynx clear without exudates, moist mucous membranes. NECK: Trachea midline, full range of motion, supple. LUNGS: Breath sounds equal, clear to auscultation bilaterally, no wheezes, no crackles, no accessory muscle use. HEART: Regular rate and rhythm, S1, S2 without murmur, rub or gallop. ABDOMEN: Soft, nontender, nondistended, normoactive bowel sounds, no guarding, no rebound, no hepatosplenomegaly, no masses. EXTREMITIES: 2+ pulses, warm, well-perfused, no edema. NEUROLOGICAL: Cranial nerves II through XII grossly intact. Normal speech, gait not observed. PSYCH: Normal mood, normal affect. SKIN: Warm, dry, normal turgor, no rashes or lesions noted. LABS Laboratory Results - last 24 hr 06/09/17 06/09/17 06/09/17 05:45 17:37 21:05 Sodium 141 Potassium 4.1 Chloride 104 Carbon Dioxide 27 Anion Gap 10 BUN 22 H Creatinine 1.0 POC Glucometer 422 324 Random Glucose 258 H Calcium 9.1 Magnesium 1.7 L Triglycerides 100 D Cholesterol 133 Total LDL Cholesterol 56 HDL Cholesterol 59 06/10/17 05:38 Sodium Potassium Chloride Carbon Dioxide Anion Gap BUN Creatinine POC Glucometer 175 Random Glucose Calcium Magnesium Triglycerides Cholesterol Total LDL Cholesterol HDL Cholesterol HOSPITAL COURSE: Date of Admission:06/07/17 Date of Discharge: 06/10/17 Minutes to complete discharge: 35 Discharge Summary Reason For Visit: ELEVATED BRAIN NATRIURETIC PEPTIDE,SYNCOPE Current Active Problems Syncope (Acute) Condition: Improved - Instructions Diet, Activity, Other Instructions: A prescription has been sent to your pharmacy for augmentin which is an antibiotic to treat your urinary tract infection. Take this medication as directed and be sure to FINISH all the medication. You should follow up with your primary care provider in 2 weeks to have your urine checked to make sure you cleared the infection. ou should follo It is important that you take your insulin every day as prescribed. If you choose, you can receive outpatient care at the [facility] at [address] [place] [address], . Return to the emergency department for any new or worsening symptoms. Referrals: Johnna West MD [Primary Care Provider] - Disposition: HOME - Home Medications Comprehensive Discharge Medication List: Ambulatory Orders Donepezil HCl [Aricept -] 5 mg PO DAILY 11/08/13 Esomeprazole Mag Trihydrate [Nexium] 40 mg PO DAILY 02/02/14 Atorvastatin Ca [Lipitor] 40 mg PO DAILY 09/27/15 Insulin NPH Hum/Reg Insulin Hm [Humulin 70-30 Vial] 20 unit SQ BID #0 09/30/15 Aspirin [ASA -] 81 mg PO DAILY 11/09/16 Atorvastatin Ca [Lipitor] 40 mg PO HS 11/09/16 Donepezil HCl [Aricept -] 5 mg PO DAILY 11/09/16 Ezetimibe [Zetia] 10 mg PO DAILY 11/09/16 Insulin (Novolog 70/30) [Novolog Mix 70/30 Flexpen -] 20 units SQ BIDAC Lisinopril [Prinivil] 10 mg PO DAILY 11/09/16 Valsartan [Diovan] 160 mg PO DAILY 11/09/16 Metoprolol Tartrate 100 mg PO DAILY 06/07/17 Montelukast Na [Singulair -] 10 mg PO HS 06/07/17 Valsartan [Diovan] 160 mg PO DAILY 06/07/17 Amoxicillin/Potassium Clav [Augmentin 875-125 Tablet] 1 each PO BID #16 tablet 06/10/17 This patient is new to me today: No Emergency Visit: Yes ED Registration Date: 06/07/17 Care time: The patient presented to the Emergency Department on the above date and was hospitalized for further evaluation of their emergent condition. Critical Care patient: No - Discharge Referral Referred to [facility] Med P.C.: No
--- NOTE | 2017-06-10 08:40 | PN ---
Progress Note, Physician - Current Medication List Current Medications: Active Medications Aspirin (Asa -) 81 mg PO DAILY [facility] Last Admin: 06/09/17 09:48 Dose: 81 mg Atorvastatin Calcium (Lipitor -) 40 mg PO HS [facility] Last Admin: 06/09/17 22:00 Dose: 40 mg Donepezil HCl (Aricept -) 5 mg PO HS [facility] Last Admin: 06/09/17 22:00 Dose: 5 mg Ezetimibe (Zetia -) 10 mg PO DAILY [facility] Last Admin: 06/09/17 09:45 Dose: 10 mg Heparin Sodium (Porcine) (Heparin -) 5,000 unit SQ TID [facility] Last Admin: 06/10/17 06:09 Dose: 5,000 unit CEFTRIAXONE 1 G/50 ML PREMIX (Ceftriaxone 1 Gm-D5w Bag) 50 mls @ 100 mls/hr IVPB DAILY [facility] Last Admin: 06/09/17 09:48 Dose: 100 mls/hr Insulin Aspart (Novolog Mix 70/30 Vial) 20 units SQ BIDAC [facility] Last Admin: 06/10/17 06:09 Dose: 20 units Insulin Aspart (Novolog Vial Sliding Scale -) 1 vial SQ ACHS [facility] PRN Reason: Protocol Last Admin: 06/10/17 06:09 Dose: 2 units Metoprolol Tartrate (Lopressor -) 100 mg PO DAILY [facility] Last Admin: 06/09/17 09:48 Dose: 100 mg Metoprolol Tartrate (Lopressor -) 50 mg PO HS [facility] Last Admin: 06/09/17 22:00 Dose: 50 mg Montelukast Sodium (Singulair -) 10 mg PO [facility] Last Admin: 06/09/17 22:00 Dose: 10 mg Valsartan (Diovan -) 160 mg PO DAILY [facility] Last Admin: 06/09/17 09:45 Dose: 160 mg - Objective Vital Signs: Vital Signs Temperature 98 F 06/10/17 06:00 Pulse Rate 85 06/10/17 06:00 Respiratory Rate 17 06/10/17 06:00 Blood Pressure 147/61 06/10/17 06:00 O2 Sat by Pulse Oximetry (%) 97 06/10/17 01:00 Labs: CBC, BMP 06/09/17 05:45 06/09/17 05:45 Assessment/Plan echo 06/2017: nl lv size/fn. 1+ lae. mod mac. mild-mod functional ms. 1+ mr/ tr. rvsp 40-50. head ct: moderate ventricular dilation. moderate to severe chronic microvascular changes. no infarct. calc of carotids. similar to priors. carotid u/s: no high grade stenosis. mod plaque. lt vert patent. rt vert not well visualized. prior carotid u/s with moderate plaque 2015 and 50-70% rt common carotid stenosis in 2014. A/P 82 yo smoker with PMH of HTN, HL, dm, asthma, possible dementia p/w possible syncope. presyncope/syncope - History unclear. patient denies presyncope at the time of event (states she fell getting out of chair). per report, patient appeared confused. - echo without sig abn. ce's neg x 2. ekg with lateral twi slighly more prom than on priors--not c/w acute ischemia - carotid dopplers without signif stenosis - orthostatic vitals negative - h/o dementia and ventricular dilation on imaging. neuro following. - cont telemetry - tsh elevated, eval/mgm't per pmd. htn - reasonable control for age on current regimen. - same meds hl - plan as above. - con't statin, zetia per prior outpt regimen + tobacco - smoking cessation.
[2017-06-10] MEDS: METOPROLOL TARTRATE 50 MG TABLET (FP) PO SCH (09:30)
[2017-06-10] MEDS: ASPIRIN 81 MG CHEWABLE TABLETS PO SCH (09:30)
[2017-06-10] MEDS: VALSARTAN 160 MG TABLET (UD) PO SCH (09:30)
[2017-06-10] MEDS: EZETIMIBE 10 MG TABLET (FP) PO SCH (09:30)
[2017-06-10] MEDS: CEFTRIAXONE 1 G/50 ML PREMIX 50 ML IVPB SCH (09:30)
== END 2017-06-10 11:25 | disposition home or self-care (01) ==
LOC: JER 11:17 → JERBED 16:09 → J4W 18:20
PROVIDERS: ADMIT Hospitalist; ATTEND Nurse Practitioner Acute Care
PROC: 3E013VG Introduction of Insulin into Subcutaneous Tissue, Percutaneous Approach (ICD-10-PCS; principal; 2017-06-07)
PROC: 3E013VG Introduction of Insulin into Subcutaneous Tissue, Percutaneous Approach (ICD-10-PCS; 2017-06-07)
PROC: 3E013GC Introduction of Other Therapeutic Substance into Subcutaneous Tissue, Percutaneous Approach (ICD-10-PCS; 2017-06-07)
PROC: 3E013VG Introduction of Insulin into Subcutaneous Tissue, Percutaneous Approach (ICD-10-PCS; 2017-06-08)
DX: R55 Syncope and collapse (principal); R74.8 Abnormal levels of other serum enzymes; N39.0 Urinary tract infection, site not specified; B96.20 Unspecified Escherichia coli [E. coli] as the cause of diseases classified elsewhere; I10 Essential (primary) hypertension; E11.9 Type 2 diabetes mellitus without complications; Z79.4 Long term (current) use of insulin; F03.90 Unspecified dementia, unspecified severity, without behavioral disturbance, psychotic disturbance, mood disturbance, and anxiety; F17.210 Nicotine dependence, cigarettes, uncomplicated
CPT/HCPCS: 36415; 70450-TC; 70496-TC; 71010-TC; 80048; 80053; 80061; 81003; 81015; 82009; 82550; 83721; 83735; 83880; 84100; 84443; 84484; 85025; 87086; 87186; 93005; 93010; 93306-TC; 93880-TC; 95816; 96372; 97116-GP; 97161-GP; 99282-25; G0378; J1644

== ENCOUNTER 2017-09-14 20:04 | Inpatient (IN) | payer OTHER ==
--- NOTE | 2017-09-14 20:14 | PDOC ---
Rapid Medical Evaluation Time Seen by Provider: 09/14/17 20:13 Medical Evaluation: Allergies Allergy/AdvReac Type Severity Reaction Status Date / Time No Known Allergies Allergy Verified 04/20/15 11:53 09/14/17 20:14 I have performed a brief in-person evaluation of this patient. The patient presents with a chief complaint of:n/v/d w/ weakness x 2 days. Pt found on ground at @7am today, was on floor since 3am per daughter. No abd pain , f/c. H/o dementia, NIDDM, HTN, HLD. Pt resides alone Pertinent physical exam findings:Stable w/ clear chest/lungs and benign abd I have ordered the following:labs/ua/ekg/cxr The patient will proceed to the ED for further evaluation.
[2017-09-14 20:43] LABS: HEMATOCRIT 43.7 % (32.4-45.2); HEMOGLOBIN 14.5 GM/dL (10.7-15.3); MCH 29.1 pg (25.7-33.7); MCHC 33.2 g/dl (32.0-36.0); MEAN CELL VOLUME 87.5 fl (80-96); MEAN PLT VOLUME 13.5 fl (7.5-11.1); PLATELET COUNT 211 K/MM3 (134-434); RDW 14.1 % (11.6-15.6); WHITE BLOOD COUNT 24.4 K/mm3 (4.0-10.0)
[2017-09-14 21:06] LABS: ALBUMIN 2.9 g/dl (3.4-5.0); ALK PHOS 123 U/L (45-117); ANION GAP 22 (8-16); BILIRUBIN,TOTAL 0.5 mg/dL (0.2-1.0); BLOOD UREA NITROGEN 40 mg/dL (7-18); CALCIUM 9.5 mg/dL (8.5-10.1); CHLORIDE 97 mmol/L (98-107); CO2 18 mmol/L (21-32); CREATININE 3.1 mg/dL (0.55-1.02); POTASSIUM 3.5 mmol/L (3.5-5.1); SGOT/AST 25 U/L (15-37); SGPT/ALT 20 U/L (12-78); SODIUM 137 mmol/L (136-145); TOT PROT 7.3 g/dl (6.4-8.2)
[2017-09-14 21:07] LABS: LIPASE 206 U/L (73-393)
[2017-09-14 21:08] LABS: GLUCOSE,RANDOM 487 mg/dL (74-106)
[2017-09-14] MEDS ORDERED: INSULIN REGULAR HUMAN 100 UNITS/ML *VIAL IVPUSH ONE (21:08)
[2017-09-14] MEDS ORDERED: INSULIN REGULAR HUMAN 100 UNITS/ML *VIAL ONE (21:34)
[2017-09-14] MEDS ORDERED: SODIUM CHLORIDE 0.9% 500 ML INFUS.BAG IV ONE (21:40)
[2017-09-14] MEDS ORDERED: POTASSIUM CHLORIDE TABS 20 MEQ TABLET.ER (FP) PO ONE ×2 (21:41→22:02)
[2017-09-14] MEDS ORDERED: MAGNESIUM SULF 50% (8.12 MEQ/2 ML-1 GM VIAL) IVPB ONE (21:41)
[2017-09-14 21:43] LABS: PLATELET ESTIMATE ADEQUATE; SMUDGE CELLS FEW
[2017-09-14] MEDS ORDERED: MAGNESIUM SULF 50% (8.12 MEQ/2 ML-1 GM VIAL) ONE (22:03)
--- NOTE | 2017-09-14 22:07 | PDOC ---
History of Present Illness - General History Source: Family Exam Limitations: No Limitations - History of Present Illness Initial Comments: 09/14/17 22:21 The patient is an 82-year-old female, living alone at home, accompanied by daughter, with a significant past medical history of dementia, HTN, hyperlipidemia, who presents to the ED with 2 days of nausea, vomiting, diarrhea , and weakness. As per daughter, the patient has not been able to hold anything down for the past two days. Daughter states that she visits her mom in the morning to feed her breakfast and visits her at night to feed her dinner; the patient does not have a home health aide and daughter is unsure if her mother is preparing food for herself when she is not there. Patient began to vomit after drinking a glass of milk before dinner, which prompted her daughter to bring her into the ED. Daughter reports that there was a recent change made to the dosage of her mother's blood sugar medication, from 20 mg twice a day to 50 mg twice a day, however she gives the patient 20 mg twice a day. Daughter monitors the patient's blood sugar daily and noted it to be high over the past few weeks. The patient denies any fever, chills, or abdominal pain. Denies any chest pain or shortness of breath. Denies any recent travel or sick contacts. <Christiana Toney - Last Filed: 09/14/17 23:58> <Sara Galeano - Last Filed: 09/16/17 19:52> - General Chief Complaint: Nausea/Vomiting Stated Complaint: VOMITING Time Seen by Provider: 09/14/17 20:13 Past History <Christiana Toney - Last Filed: 09/14/17 23:58> - Past Medical History Anemia: No Asthma: No Cancer: No Cardiac Disorders: No CVA: No COPD: No CHF: No Dementia: Yes Diabetes: Yes GI Disorders: Yes (gerd) Disorders: No HTN: Yes Hypercholesterolemia: Yes Liver Disease: No Psychiatric Problems: Yes (dementia) Seizures: No Thyroid Disease: No - Surgical History Abdominal Surgery: Yes Appendectomy: No Cardiac Surgery: No Cholecystectomy: No Lung Surgery: No Neurologic Surgery: No Orthopedic Surgery: No - Immunization History Td Vaccination: No TDAP Vaccination: No Immunization Up to Date: No - Suicide/Smoking/Psychosocial Hx Smoking Status: Yes Smoking History: Never smoked Years of Tobacco Use: 60 Have you smoked in the past 12 months: No Number of Cigarettes Smoked Daily: 3 Cigars Per Day: 0 'Breaking Loose' booklet given: 04/20/15 Hx Alcohol Use: No Drug/Substance Use Hx: No Substance Use Type: None <Sara Galeano - Last Filed: 09/16/17 19:52> - Past Medical History Allergies/Adverse Reactions: Allergies Allergy/AdvReac Type Severity Reaction Status Date / Time No Known Allergies Allergy Verified 09/14/17 20:17 Home Medications: Ambulatory Orders Donepezil HCl [Aricept -] 5 mg PO DAILY 11/08/13 Esomeprazole Mag Trihydrate [Nexium] 40 mg PO DAILY 02/02/14 Atorvastatin Ca [Lipitor] 40 mg PO DAILY 09/27/15 Insulin NPH Hum/Reg Insulin Hm [Humulin 70-30 Vial] 20 unit SQ BID #0 09/30/15 Aspirin [ASA -] 81 mg PO DAILY 11/09/16 Ezetimibe [Zetia] 10 mg PO DAILY 11/09/16 Lisinopril [Prinivil] 10 mg PO DAILY 11/09/16 Metoprolol Tartrate 100 mg PO DAILY 06/07/17 Montelukast Na [Singulair -] 10 mg PO HS 06/07/17 Valsartan [Diovan] 160 mg PO DAILY 06/07/17 Review of Systems - Review of Systems Able to Perform ROS?: Yes Comments:: 09/14/17 22:23 CONSTITUTIONAL: Present: generalized weakness Absent: fever, chills, diaphoresis, malaise, loss of appetite HEENT: Absent: rhinorrhea, nasal congestion, throat pain, throat swelling, difficulty swallowing, mouth swelling, ear pain, eye pain, visual Changes CARDIOVASCULAR: Absent: chest pain, syncope, palpitations, irregular heart rate, lightheadedness , peripheral edema RESPIRATORY: Absent: cough, shortness of breath, dyspnea with exertion, orthopnea, wheezing, stridor, hemoptysis GASTROINTESTINAL: Present: nausea, vomiting, diarrhea Absent: abdominal pain, abdominal distension, constipation, melena, hematochezia GENITOURINARY: Absent: dysuria, frequency, urgency, hesitancy, hematuria, flank pain, genital pain MUSCULOSKELETAL: Absent: myalgia, arthralgia, joint swelling SKIN: Absent: rash, itching, pallor HEMATOLOGIC/IMMUNOLOGIC: Absent: easy bleeding, easy bruising, lymphadenopathy, frequent infections ENDOCRINE: Absent: unexplained weight gain, unexplained weight loss, heat intolerance, cold intolerance NEUROLOGIC: Absent: headache, focal weakness or paresthesias, dizziness, unsteady gait, seizure, mental status changes, bladder or bowel incontinence PSYCHIATRIC: Absent: anxiety, depression, suicidal or homicidal ideation, hallucinations. <Christiana Toney - Last Filed: 09/14/17 23:58> *Physical Exam - Vital Signs Last Vital Signs Temp Pulse Resp BP Pulse Ox 91 H 15 104/45 100 09/14/17 20:17 09/14/17 20:17 09/14/17 20:17 09/14/17 20:17 - Physical Exam Comments: 09/14/17 22:24 GENERAL: Well developed, well nourished. Awake and alert. No acute distress. HEENT: Normocephalic, atraumatic. PERRLA, EOMI. No conjunctival pallor. Sclera are non- icteric. Moist mucous membranes. Oropharynx is clear. NECK: Supple. Full ROM. No JVD. Carotid pulses 2+ and symmetric, without bruits. No thyromegaly. No lymphadenopathy. CARDIOVASCULAR: Regular rate and rhythm. No murmurs, rubs, or gallops. Distal pulses are 2+ and symmetric. PULMONARY: No evidence of respiratory distress. Lungs clear to auscultation bilaterally. No wheezing, rales or rhonchi. ABDOMINAL: Soft. Non-tender. Non-distended. No rebound or guarding. No organomegaly. Normoactive bowel sounds. MUSCULOSKELETAL Normal range of motion at all joints. No bony deformities or tenderness. No CVA tenderness. EXTREMITIES: No cyanosis. No clubbing. No edema. No calf tenderness. SKIN: Warm and dry. Normal capillary refill. No rashes. No jaundice. NEUROLOGICAL: Alert, awake, appropriate. Alert and oriented x3. Moving all extremities and following commands. PSYCHIATRIC: Cooperative. Good eye contact. Appropriate mood and affect. <Christiana Toney - Last Filed: 09/14/17 23:58> - Vital Signs Last Vital Signs Temp Pulse Resp BP Pulse Ox 91 H 15 104/45 100 09/14/17 20:17 09/14/17 20:17 09/14/17 20:17 09/14/17 20:17 <Sara Galeano - Last Filed: 09/16/17 19:52> ED Treatment Course - LABORATORY CBC & Chemistry Diagram: 09/14/17 20:30 09/14/17 20:30 - ADDITIONAL ORDERS Additional order review: Laboratory Results 09/14/17 09/14/17 20:30 20:26 Sodium 137 Potassium 3.5 Chloride 97 L Carbon Dioxide 18 L Anion Gap 22 H BUN 40 H Creatinine 3.1 H Creat Clearance w eGFR 14.31 Random Glucose 487 H* Calcium 9.5 Total Bilirubin 0.5 AST 25 ALT 20 Alkaline Phosphatase 123 H Creatine Kinase 544 H Creatine Kinase Index 0.9 CK-MB (CK-2) 5.027 H Total Protein 7.3 Albumin 2.9 L Lipase 206 09/14/17 20:30 RBC 5.00 D MCV 87.5 MCHC 33.2 RDW 14.1 MPV 13.5 H Neutrophils % No Result Required. Lymphocytes % No Result Required. - Medications Given in the ED: ED Medications Discontinued Medications Generic Name Dose Route Start Last Admin Trade Name Freq PRN Reason Stop Dose Admin Insulin Human Regular 6 units 09/14/17 21:08 09/14/17 21:54 Novolin R Vial *For Ivpush Or Iv Drip Only* IVPUSH 09/14/17 21:09 6 units ONCE ONE Administration Magnesium Sulfate 2 gm 09/14/17 21:41 09/14/17 22:12 Magnesium Sulfate IVPB 09/14/17 21:42 2 gm ONCE ONE Administration Potassium Chloride 40 meq 09/14/17 21:41 09/14/17 22:12 K-Dur - PO 09/14/17 21:42 40 meq ONCE ONE Administration Sodium Chloride 1,000 ml 09/14/17 21:40 09/14/17 21:55 Normal Saline - IV 09/14/17 21:41 1,000 ml ONCE ONE Administration <Christiana Toney - Last Filed: 09/14/17 23:58> - LABORATORY CBC & Chemistry Diagram: 09/16/17 07:20 09/16/17 07:20 - ADDITIONAL ORDERS Additional order review: Laboratory Results 09/14/17 09/14/17 20:30 20:26 Sodium 137 Potassium 3.5 Chloride 97 L Carbon Dioxide 18 L Anion Gap 22 H BUN 40 H Creatinine 3.1 H Creat Clearance w eGFR 14.31 Random Glucose 487 H* Calcium 9.5 Total Bilirubin 0.5 AST 25 ALT 20 Alkaline Phosphatase 123 H Creatine Kinase 544 H Creatine Kinase Index 0.9 CK-MB (CK-2) 5.027 H Total Protein 7.3 Albumin 2.9 L Lipase 206 09/14/17 20:30 RBC 5.00 D MCV 87.5 MCHC 33.2 RDW 14.1 MPV 13.5 H Neutrophils % No Result Required. Lymphocytes % No Result Required. - Medications Given in the ED: ED Medications Discontinued Medications Generic Name Dose Route Start Last Admin Trade Name Tana PRN Reason Stop Dose Admin Insulin Human Regular 6 units 09/14/17 21:08 09/14/17 21:54 Novolin R Vial *For Ivpush Or Iv Drip Only* IVPUSH 09/14/17 21:09 6 units ONCE ONE Administration Sodium Chloride 1,000 ml 09/14/17 21:40 09/14/17 21:55 Normal Saline - IV 09/14/17 21:41 1,000 ml ONCE ONE Administration <Sara Galeano - Last Filed: 09/16/17 19:52> Medical Decision Making - Medical Decision Making 09/16/17 19:49 Pt is elderly early dementia, lives with her daughter who works firmware test engineer and attempts to care for mom before and after work. Pt spends the whole workday on her own, and she rarely eats and cares for herself properly. Pt's PMD altered her dose of insulin, changed thge brand and the dose to acheive better control, however daughter insists on using up the old insulin, despite the fact that mom's blood glc has been running 300s to 500s. Pt comes today with increased weakness, elevated blood sugar, weakness, dehydration. Labs reveal many abnormalities. She was hydrated and treated in the ER, and she will be admitted for further treatment. <Sara Galeano - Last Filed: 09/16/17 19:52> *DC/Admit/Observation/Transfer - Attestations Scribe Attestion: 09/14/17 22:25 Documentation prepared by Christiana Toney, acting as durable medical equipment technician for Sara Galeano MD. <Christiana Toney - Last Filed: 09/14/17 23:58> - Discharge Dispostion Admit: Yes <Sara Galeano - Last Filed: 09/16/17 19:52> Diagnosis at time of Disposition: Hyperglycemia, Type 2 diabetes mellitus, Diarrhea in adult patient, Vomiting, Dementia - Discharge Dispostion Condition at time of disposition: Guarded
[2017-09-15] MEDS ORDERED: INSULIN REGULAR HUMAN 100 UNITS/ML *VIAL IVPUSH ONE (00:58)
--- NOTE | 2017-09-15 01:05 | HP ---
CHIEF COMPLAINT: n/v/d PCP: Dr. Randhawa? HISTORY OF PRESENT ILLNESS: This is a 82 year old female with a medical history of DM, dementia, presents to the emergency room with complaints of nausea, vomiting, diarrhea for the past few days. Patient states that she vomited 2 times yesterday, NBNB. She denies fever,chills, sick contact, change in diet, melena, hematochezia. She lives alone at home. Her daughter calls her daily to check in on her and told her she needed to go to ER today. As per ER, patient had change in diabetes medication (increase) and was not taking insulin properly as per daughter. ER course was notable for: (1)glucose >400; bicarb 18; (2)leukocytosis; tachy (3)DEEP; Cr 3.1 Recent Travel: no PAST MEDICAL HISTORY: Dementia, HTN, HL PAST SURGICAL HISTORY: Social History: Smokin cigs per day since age 15 Alcohol:no Drugs: no Family History: Allergies No Known Allergies Allergy (Verified 09/14/17 20:17) HOME MEDICATIONS: Home Medications Medication Instructions Recorded Donepezil HCl [Aricept -] 5 mg PO DAILY 11/08/13 Esomeprazole Mag Trihydrate 40 mg PO DAILY 02/02/14 [Nexium] Atorvastatin Ca [Lipitor] 40 mg PO DAILY 09/27/15 Insulin NPH Hum/Reg Insulin Hm 20 unit SQ BID #0 09/30/15 [Humulin 70-30 Vial] Aspirin [ASA -] 81 mg PO DAILY 11/09/16 Ezetimibe [Zetia] 10 mg PO DAILY 11/09/16 Lisinopril [Prinivil] 10 mg PO DAILY 11/09/16 Metoprolol Tartrate 100 mg PO DAILY 06/07/17 Montelukast Na [Singulair -] 10 mg PO HS 06/07/17 Valsartan [Diovan] 160 mg PO DAILY 06/07/17 REVIEW OF SYSTEMS As above PHYSICAL EXAMINATION Vital Signs - 24 hr 09/14/17 20:17 Pulse Rate 91 H Respiratory 15 Rate Blood Pressure 104/45 O2 Sat by Pulse 100 Oximetry (%) GENERAL: Awake, alert, and fully oriented, in no acute distress. LUNGS: Breath sounds equal, clear to auscultation bilaterally. No wheezes, and no crackles. No accessory muscle use. HEART: Regular rate and rhythm, normal S1 and S2 without murmur, rub or gallop. ABDOMEN: Soft, nontender, not distended, normoactive bowel sounds, no guarding, no rebound, no masses. No hepatomegaly or splenomegaly. MUSCULOSKELETAL: Normal range of motion at all joints. No bony deformities or tenderness. No CVA tenderness. UPPER EXTREMITIES: 2+ pulses, warm, well-perfused. No cyanosis. No clubbing. No peripheral edema. LOWER EXTREMITIES: 2+ pulses, warm, well-perfused. No calf tenderness. No peripheral edema. NEUROLOGICAL: Cranial nerves II-XII intact. Normal speech.. no facial droop; Motor; deltoid//hand pillow agent 5/5; dorsi/plantar foot flex/ext 5/5; sensation upper /lower extremities intact to light touch; reflexes; triceps/kneww/ 2+ b/l Laboratory Results - last 24 hr 09/14/17 09/14/17 09/14/17 20:26 20:30 20:30 WBC 24.4 H D RBC 5.00 D Hgb 14.5 D Hct 43.7 D MCV 87.5 MCH 29.1 MCHC 33.2 RDW 14.1 Plt Count 211 D MPV 13.5 H Total Counted No Result Required. Neutrophils % No Result Required. Neutrophils % (Manual) 59.0 Band Neutrophils % 24.0 Lymphocytes % No Result Required. Lymphocytes % (Manual) 8.0 Monocytes % (Manual) 5 Metamyelocytes 4 H Smudge Cells Few Platelet Estimate Adequate Platelet Comment No clumping noted Sodium 137 Potassium 3.5 Chloride 97 L Carbon Dioxide 18 L Anion Gap 22 H BUN 40 H Creatinine 3.1 H Creat Clearance w eGFR 14.31 Random Glucose 487 H* Calcium 9.5 Total Bilirubin 0.5 AST 25 ALT 20 Alkaline Phosphatase 123 H Creatine Kinase 544 H Creatine Kinase Index 0.9 CK-MB (CK-2) 5.027 H Troponin I 0.03 Total Protein 7.3 Albumin 2.9 L Lipase 206 ASSESSMENT/PLAN: This is a 82 year old female with a medical history of dementia, DM, HTN, HLD, presents with n/v/d/ hyperglycemia with recent changes to diabetes medication; according to family she was not taking the increase insulin dose. #N/V/D; leukocytosis ; may be related to gastroenteritis (bacterial/viral) vs leukemia (+ metamyelocytes on cbc); -afebrile; normotensive; normal HR; sating well on RA -IVF hydration; s/p 2 bolus in ER; now on 125mls NS -UA; UC; BC; CXR -zofran prn for nausea -cdiff if diarrhea persists; -flu swab -appreciate ID ; will hold off antibiotic until ID eval -heme/consult -ID consult #hyperglycemia; vs DKA -initial lab work with with elevated anion gap; improved with fluids and IV insulin -BGM/insulin SS -borderline bicarb; no urine or ABG -repeat bmp q2h; monitor gap; bicarb; f/u pH; if gap rise; monitor for DKA; if so will need transfer to ICU for fluids and insulin drip -monitor potassium; #DEEP: -Cr 3.1; elevated from previous visits -kidney bladder US #leukocytosis with metamyelocytes; may be viral or bacterial etiology r/o leukemia -may be elevated from infection -appreciate heme/onc #elevated CK; r/o rambdomyolysis -unknown if was down at home; not eating/drinking -IVF -repeat CK Problem List - Problem (1) Dementia Code(s): F03.90 - UNSPECIFIED DEMENTIA WITHOUT BEHAVIORAL DISTURBANCE (2) Hyperglycemia Code(s): R73.9 - HYPERGLYCEMIA, UNSPECIFIED (3) Type 2 diabetes mellitus Code(s): E11.9 - TYPE 2 DIABETES MELLITUS WITHOUT COMPLICATIONS (4) Vomiting Code(s): R11.10 - VOMITING, UNSPECIFIED (5) Acute renal failure Code(s): N17.9 - ACUTE KIDNEY FAILURE, UNSPECIFIED Qualifiers: Acute renal failure type: unspecified Qualified Code(s): N17.9 - Acute kidney failure, unspecified Visit type - Emergency Visit Emergency Visit: Yes ED Registration Date: 09/15/17 Care time: The patient presented to the Emergency Department on the above date and was hospitalized for further evaluation of their emergent condition. - New Patient This patient is new to me today: Yes Date on this admission: 09/15/17 - Critical Care Critical Care patient: No Hospitalist Screening - Colonoscopy Questionnaire Colonoscopy Questionnaire: Colonoscopy Questionnaire - Patient: 50 - 75 years old and never had a screening colonoscopy: No History of colon or rectal polyps, or CA: Unknown History of IBD, Crohn's disease or UC: Unknown History of abdominal radiation therapy as a child: Unknown - Relative: 1 with colon or rectal CA, or polyps at age 60 or younger: Unknown Colon or rectal CA diagnosed at age 45 or younger: Unknown Multiple relatives with colon or rectal CA: Unknown - Outcome: Screening Result: Negative Screen
[2017-09-15] MEDS ORDERED: SODIUM CHLORIDE 0.9% 500 ML INFUS.BAG IV ONE (01:06)
[2017-09-15] MEDS ORDERED: SODIUM CHLORIDE 1,000 ML with POTASSIUM CHLORIDE 40 MEQ IVPB STA (01:30)
[2017-09-15] MEDS ORDERED: POTASSIUM CHLORIDE 40 MEQ in SODIUM CHLORIDE 1,000 ML IVPB STA (01:41)
[2017-09-15 03:09] LABS: BASO % 0.2 % (0-2.0); EOS % 0.1 % (0-4.5); HEMATOCRIT 38.6 % (32.4-45.2); HEMOGLOBIN 12.8 GM/dL (10.7-15.3); LYMPH % 1.9 % (8-40); MCH 28.7 pg (25.7-33.7); MCHC 33.1 g/dl (32.0-36.0); MEAN CELL VOLUME 86.9 fl (80-96); MEAN PLT VOLUME 12.9 fl (7.5-11.1); MONO % 6.7 % (3.8-10.2); NEUT % 91.1 % (42.8-82.8); PLATELET COUNT 178 K/MM3 (134-434); RBC 4.44 M/mm3 (3.60-5.2); RDW 13.8 % (11.6-15.6); WHITE BLOOD COUNT 23.9 K/mm3 (4.0-10.0)
[2017-09-15 03:32] LABS: ANION GAP 17 (8-16); BLOOD UREA NITROGEN 42 mg/dL (7-18); CALCIUM 8.8 mg/dL (8.5-10.1); CHLORIDE 107 mmol/L (98-107); CO2 19 mmol/L (21-32); CREATININE 2.9 mg/dL (0.55-1.02); GLUCOSE,RANDOM 214 mg/dL (74-106); POTASSIUM 3.5 mmol/L (3.5-5.1); SODIUM 143 mmol/L (136-145)
[2017-09-15 04:03] VITALS: BMI 22.7
[2017-09-15] MEDS: SODIUM CHLORIDE 1,000 ML IV SCH ×2 (05:30→14:43)
[2017-09-15] MEDS: HEPARIN NA (PORCINE) 5,000 UNITS/ML 1ML VIAL SQ SCH ×3 (05:31→21:54)
--- NOTE | 2017-09-15 05:46 | PN ---
Teaching Attending Note Name of Resident: Kendra Roy ATTENDING PHYSICIAN STATEMENT I saw and evaluated the patient. I reviewed the resident's note and discussed the case with the resident. I agree with the resident's findings and plan as documented. SUBJECTIVE: OBJECTIVE: ASSESSMENT AND PLAN: This is a 82 year old female with a medical history of dementia, DM, HTN, HLD, presents with n/v/d/ hyperglycemia with recent changes to diabetes medication; according to family she was not taking the increase insulin dose. #N/V/D; 2/2 acidosis vs gastroenteritis with leukocytosis ; may be related to gastroenteritis (bacterial/viral) vs leukemia (+ metamyelocytes on cbc); -afebrile; normotensive; normal HR; sating well on RA -IVF hydration; s/p 2 bolus in ER; now on 125mls NS -UA; UC; BC; CXR -zofran prn for nausea -cdiff if diarrhea persists; -flu swab -appreciate ID ; will hold off antibiotic until ID eval -heme/consult -ID consult #hyperglycemia; vs DKA -initial lab work with with elevated anion gap; improved with fluids and IV insulin -BGM/insulin SS -borderline bicarb; no urine or ABG -repeat bmp q2h; monitor gap; bicarb; f/u pH; if gap rise; monitor for DKA; if so will need transfer to ICU for fluids and insulin drip -monitor potassium; #DEEP 2/2 to dehydration pre-renal picture due to decreased PO intake and diarrhea + vomiting : -Cr 3.1; elevated from previous visits -kidney bladder US - repeat after fluid hydration #leukocytosis with metamyelocytes; may be viral or bacterial etiology r/o leukemia -may be elevated from infection -appreciate heme/onc #elevated CK; r/o rambdomyolysis -unknown if was down at home; not eating/drinking -IVF -repeat CK
[2017-09-15] MEDS ORDERED: ONDANSETRON 4 MG/2 ML VIAL IVPUSH PRN (06:00)
[2017-09-15] MEDS: INSULIN SLIDING SCALE (NOVOLOG) 1 VIAL SQ SCH ×4 (06:05→21:54)
[2017-09-15 07:46] LABS: BASO % 0.2 % (0-2.0); EOS % 0.4 % (0-4.5); HEMATOCRIT 36.6 % (32.4-45.2); HEMOGLOBIN 12.1 GM/dL (10.7-15.3); LYMPH % 4.4 % (8-40); MCH 28.8 pg (25.7-33.7); MCHC 32.9 g/dl (32.0-36.0); MEAN CELL VOLUME 87.5 fl (80-96); MEAN PLT VOLUME 13.1 fl (7.5-11.1); MONO % 5.8 % (3.8-10.2); NEUT % 89.2 % (42.8-82.8); PLATELET COUNT 159 K/MM3 (134-434); RBC 4.18 M/mm3 (3.60-5.2); RDW 13.9 % (11.6-15.6); WHITE BLOOD COUNT 24.4 K/mm3 (4.0-10.0)
[2017-09-15 07:54] LABS: ALBUMIN 2.4 g/dl (3.4-5.0); ANION GAP 18 (8-16); BLOOD UREA NITROGEN 40 mg/dL (7-18); CALCIUM 8.4 mg/dL (8.5-10.1); CHLORIDE 109 mmol/L (98-107); CO2 16 mmol/L (21-32); CREATININE 2.7 mg/dL (0.55-1.02); GLUCOSE,RANDOM 200 mg/dL (74-106); MAGNESIUM 2.7 mg/dL (1.8-2.4); PHOSPHOROUS 3.4 mg/dL (2.5-4.9); POTASSIUM 3.7 mmol/L (3.5-5.1); SGOT/AST 24 U/L (15-37); SGPT/ALT 16 U/L (12-78); SODIUM 143 mmol/L (136-145)
[2017-09-15 07:55] LABS: ALK PHOS 96 U/L (45-117); BILIRUBIN,TOTAL 0.4 mg/dL (0.2-1.0); TOT PROT 5.8 g/dl (6.4-8.2)
--- NOTE | 2017-09-15 10:09 | HOSP ---
Subjective - Review of Symptoms Events since last encounter: Patient feels better with no acute distress. No chills, No fver. Vital Signs Temperature 99.4 F 09/15/17 06:46 Pulse Rate 80 09/15/17 06:46 Respiratory Rate 18 09/15/17 06:46 Blood Pressure 123/49 09/15/17 06:46 O2 Sat by Pulse Oximetry (%) 100 09/15/17 01:46 GENERAL: Awake, alert, and fully oriented, in no acute distress. LUNGS: Breath sounds equal, clear to auscultation bilaterally. No wheezes, and no crackles. No accessory muscle use. HEART: Regular rate and rhythm, normal S1 and S2 without murmur, rub or gallop. ABDOMEN: Soft, nontender, not distended, normoactive bowel sounds, no guarding, no rebound, no masses. No hepatomegaly or splenomegaly. MUSCULOSKELETAL: Normal range of motion at all joints. No bony deformities or tenderness. No CVA tenderness. EXTREMITIES: 2+ pulses, warm, well-perfused. No cyanosis. No clubbing. No peripheral edema. NEUROLOGICAL: Cranial nerves II-XII intact. Normal speech.. no facial droop CBCD WBC 24.4 K/mm3 (4.0-10.0) H 09/15/17 06:00 RBC 4.18 M/mm3 (3.60-5.2) 09/15/17 06:00 Hgb 12.1 GM/dL (10.7-15.3) 09/15/17 06:00 Hct 36.6 % (32.4-45.2) 09/15/17 06:00 MCV 87.5 fl (80-96) 09/15/17 06:00 MCHC 32.9 g/dl (32.0-36.0) 09/15/17 06:00 RDW 13.9 % (11.6-15.6) 09/15/17 06:00 Plt Count 159 K/MM3 (134-434) 09/15/17 06:00 MPV 13.1 fl (7.5-11.1) H 09/15/17 06:00 CMP Sodium 143 mmol/L (136-145) 09/15/17 06:00 Potassium 3.7 mmol/L (3.5-5.1) 09/15/17 06:00 Chloride 109 mmol/L (98-107) H 09/15/17 06:00 Carbon Dioxide 16 mmol/L (21-32) L 09/15/17 06:00 Anion Gap 18 (8-16) H 09/15/17 06:00 BUN 40 mg/dL (7-18) H 09/15/17 06:00 Creatinine 2.7 mg/dL (0.55-1.02) H 09/15/17 06:00 Creat Clearance w eGFR 16.79 (>60) 09/15/17 06:00 Random Glucose 200 mg/dL (74-106) H 09/15/17 06:00 Calcium 8.4 mg/dL (8.5-10.1) L 09/15/17 06:00 Total Bilirubin 0.4 mg/dL (0.2-1.0) 09/15/17 06:00 AST 24 U/L (15-37) 09/15/17 06:00 ALT 16 U/L (12-78) 09/15/17 06:00 Alkaline Phosphatase 96 U/L (45-117) 09/15/17 06:00 Total Protein 5.8 g/dl (6.4-8.2) L 09/15/17 06:00 Albumin 2.4 g/dl (3.4-5.0) L 09/15/17 06:00 CARDIAC ENZYMES Creatine Kinase 544 IU/L (26-192) H 09/14/17 20:26 Troponin I 0.03 ng/ml (0.00-0.05) 09/14/17 20:26 Current Medications Generic Name Dose Route Start Last Admin Trade Name Freq PRN Reason Stop Dose Admin Heparin Sodium (Porcine) 5,000 unit 09/15/17 06:00 09/15/17 05:31 Heparin - SQ 5,000 unit TID CROW Administration Sodium Chloride 1,000 mls @ 125 mls/hr 09/15/17 04:15 09/15/17 05:30 Normal Saline - IV Not Given ASDIR CROW Insulin Aspart 1 vial 09/15/17 07:00 09/15/17 06:05 Novolog Vial Sliding Scale - SQ 6 units ACHS CROW Administration Protocol Ondansetron HCl 4 mg 09/15/17 06:00 Zofran Injection IVPUSH Q6H PRN NAUSEA Home Medications Medication Instructions Recorded Donepezil HCl [Aricept -] 5 mg PO DAILY 11/08/13 Esomeprazole Mag Trihydrate 40 mg PO DAILY 02/02/14 [Nexium] Atorvastatin Ca [Lipitor] 40 mg PO DAILY 09/27/15 Insulin NPH Hum/Reg Insulin Hm 20 unit SQ BID #0 09/30/15 [Humulin 70-30 Vial] Aspirin [ASA -] 81 mg PO DAILY 11/09/16 Ezetimibe [Zetia] 10 mg PO DAILY 11/09/16 Lisinopril [Prinivil] 10 mg PO DAILY 11/09/16 Metoprolol Tartrate 100 mg PO DAILY 06/07/17 Montelukast Na [Singulair -] 10 mg PO HS 06/07/17 Valsartan [Diovan] 160 mg PO DAILY 06/07/17 A/P: This is a 82 year old female with a medical history of dementia, DM, HTN, HLD, presents with n/v/d/ hyperglycemia with recent changes to diabetes medication; according to family she was not taking the increase insulin dose. # Acute UTI with Leukocytosis urine growing E.coli sensitive to IV Rocephin , will give her 2gm now and continue wih 1gm daily , repeat CBC in am #elevated CK; urine for RBCs and myoglobin. r/o rambdomyolysis, patient is s/p fall and does not remember. #Acute Leukocytosis due to UTI on IV antibiotics #hyperglycemia;continue IVF #DEEP: with Cr 3.1--> 2.7 improving continue IVF , check kidney bladder US DVt Px: Heparin Physical Examination Vital Signs: Vital Signs Temperature 99.4 F 09/15/17 06:46 Pulse Rate 80 09/15/17 06:46 Respiratory Rate 18 09/15/17 06:46 Blood Pressure 123/49 09/15/17 06:46 O2 Sat by Pulse Oximetry (%) 100 09/15/17 01:46 Labs: CBC, BMP 09/15/17 06:00 09/15/17 06:00
[2017-09-15] MEDS ORDERED: CEFTRIAXONE IN IS-OSM DEXTROSE 2 GM/50 ML BAG IVPB ONE (10:15)
--- NOTE | 2017-09-15 11:55 | CONSULT ---
Consult - text type - Consultation Consultation Note: Renal Consult for DEEP This is a 82 year old woman with PMhx of Dementia, Hypertension, HLD, DM who presented from home with fall at home, Diarrhea and found to have DEEP with BUN/ Cr of 44/3.1. Pt with no acute complaints at this time. Had 1 episode of diarrhea this am. No fever, chills. Making uirne. Med list reports both FELICIANO and ARB but pt cannot recall any medications from home. No hx of kidney stones, flank pain. No CP, SOB, Abd pian. PMhx: as above Allergies: NDKA Family hx: NC Social hx: No T/A/D ROS: as per HPI, all other pertinent ros negative Home Medications Medication Instructions Recorded Donepezil HCl [Aricept -] 5 mg PO DAILY 11/08/13 Esomeprazole Mag Trihydrate 40 mg PO DAILY 02/02/14 [Nexium] Atorvastatin Ca [Lipitor] 40 mg PO DAILY 09/27/15 Insulin NPH Hum/Reg Insulin Hm 20 unit SQ BID #0 09/30/15 [Humulin 70-30 Vial] Aspirin [ASA -] 81 mg PO DAILY 11/09/16 Ezetimibe [Zetia] 10 mg PO DAILY 11/09/16 Lisinopril [Prinivil] 10 mg PO DAILY 11/09/16 Metoprolol Tartrate 100 mg PO DAILY 06/07/17 Montelukast Na [Singulair -] 10 mg PO HS 06/07/17 Valsartan [Diovan] 160 mg PO DAILY 06/07/17 Vital Signs Temperature 99.4 F 09/15/17 06:46 Pulse Rate 80 09/15/17 06:46 Respiratory Rate 18 09/15/17 06:46 Blood Pressure 123/49 09/15/17 06:46 O2 Sat by Pulse Oximetry (%) 100 09/15/17 01:46 Intake & Output 09/12/17 09/13/17 09/14/17 09/15/17 23:59 23:59 23:59 23:59 Intake Total 2199 Balance 220 Weight 68.039 kg 60.016 kg NAD awake and alert RRR, no M/R CTA, no rales or wheeze soft NT/ND No LE edema, clubbing or cyanosis CBC, BMP 09/15/17 06:00 09/15/17 06:00 Laboratory Tests 09/15/17 06:00 Calcium 8.4 L Phosphorus 3.4 Magnesium 2.7 H Albumin 2.4 L Current Medications Heparin Sodium (Porcine) (Heparin -) 5,000 unit SQ TID [facility] Last Admin: 09/15/17 05:31 Dose: 5,000 unit Sodium Chloride (Normal Saline -) 1,000 mls @ 125 mls/hr IV ASDIR CROW Last Admin: 09/15/17 05:30 Dose: Not Given Ceftriaxone Sodium 1 gm/ (Dextrose) 100 mls @ 200 mls/hr IVPB DAILY CROW Insulin Aspart (Novolog Vial Sliding Scale -) 1 vial SQ ACHS CROW PRN Reason: Protocol Last Admin: 09/15/17 06:05 Dose: 6 units Ondansetron HCl (Zofran Injection) 4 mg IVPUSH Q6H PRN PRN Reason: NAUSEA A/P 82 year old woman with PMhx of Dementia, Hypertension, HLD, DM who presented from home with fall at home, Diarrhea and found to have DEEP with BUN/Cr of 44/ 3.1. #Acute Kidney Injury secondary to volume depletion +/- ATN in setting of FELICIANO/ ARB and less likely pigment injury elevated CK Check urine studies for FeNa, UPCR, UA Kidney Us showed no obstruction agree with aggressive IVF hydration with monitoring of respiratory status Hold FELICIANO and ARB (pt ideally should not be on dual therapy because it is a higher risk for DEEP and hyperkalemia) No indication for MANAGER OF INTERNAL Trend Renal function daily #Leukocytosis continue empiric abx f/u cultures #Diarrhea supportive care continue IVF #Metabolic acidosis start oral sodium bicab 650mg Daily Thank you Will follow Miguel Angel Núñez DO
[2017-09-15 13:21] LABS: URINE APPEARANCE CLOUDY; URINE BILIRUBIN NEGATIVE (NEGATIVE); URINE BLOOD NEGATIVE (NEGATIVE); URINE COLOR DKYELLOW; URINE GLUCOSE (UA) 2+ (NEGATIVE); URINE KETONE NEGATIVE (NEGATIVE); URINE NITRITE NEGATIVE (NEGATIVE); URINE UROBILINOGEN NEGATIVE mg/dL (0.2-1.0)
[2017-09-15 13:25] LABS: URINE LEUK ESTERASE 3+ (NEGATIVE); URINE PROTEIN 2+ (NEGATIVE)
[2017-09-15 13:32] LABS: EPI CELLS MODERATE /HPF (FEW); URINE BACTERIA FEW /hpf (NONE SEEN); URINE HYALINE CAST 29 /lpf; URINE MUCUS RARE
--- NOTE | 2017-09-15 14:14 | CONSULT ---
Consult Consult Specialty:: Hematology Referred by:: Medicine Reason for Consultation:: Leukocytosis with metamyelocytes - History of Present Illness Chief Complaint: Patient admitted following fall at home. Noted to have WCC circa 24, with metamyelocytes noted on diff. History of Present Illness: As above. Prior CBCs reviewed - normal WCC in June 2017, but similarly elevated WCCs noted on prior occasions intermittently. Patient has no recollection of prior hematological issues, or prior abnormal CBCs. 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 Cardio/Vascular: Yes: HTN, Hyperlipdemia Pulmonary: Yes: Asthma Endocrine: Yes: Diabetes Mellitus - Past Surgical History Past Surgical History: Yes: Hysterectomy - Alcohol/Substance Use Hx Alcohol Use: No History of Substance Use: reports: None - Smoking History Smoking history: Never smoked Have you smoked in the past 12 months: No Aproximately how many cigarettes per day: 3 - Social History Usual Living Arrangement: With Child ADL: Support Services Home Medications - Allergies Allergies/Adverse Reactions: Allergies Allergy/AdvReac Type Severity Reaction Status Date / Time No Known Allergies Allergy Verified 09/14/17 20:17 - Home Medications Home Medications: Ambulatory Orders Donepezil HCl [Aricept -] 5 mg PO DAILY 11/08/13 Esomeprazole Mag Trihydrate [Nexium] 40 mg PO DAILY 02/02/14 Atorvastatin Ca [Lipitor] 40 mg PO DAILY 09/27/15 Insulin NPH Hum/Reg Insulin Hm [Humulin 70-30 Vial] 20 unit SQ BID #0 09/30/15 Aspirin [ASA -] 81 mg PO DAILY 11/09/16 Ezetimibe [Zetia] 10 mg PO DAILY 11/09/16 Lisinopril [Prinivil] 10 mg PO DAILY 11/09/16 Metoprolol Tartrate 100 mg PO DAILY 06/07/17 Montelukast Na [Singulair -] 10 mg PO HS 06/07/17 Valsartan [Diovan] 160 mg PO DAILY 06/07/17 Review of Systems - Review of Systems Constitutional: denies: Fever, Lethargy, Unintentional Wgt. Loss Eyes: denies: Blurred Vision HENT: denies: Epistaxis Neck: denies: Lumps, Swollen Glands Cardiovascular: denies: Chest Pain, Shortness of Breath Respiratory: denies: Cough, Exercise Intolerance, SOB Gastrointestinal: denies: Abdominal Pain, Constipation, Diarrhea, Vomiting Genitourinary: denies: Burning, Hematuria Musculoskeletal: denies: Back Pain Integumentary: denies: Rash Neurological: denies: Change in Speech, Confusion, Headache, Weakness Hematology/Lymphatic: denies: Easily Bruised, Excessive Bleeding, Swollen Glands Physical Exam Vital Signs: Vital Signs Temperature 98.8 F 09/15/17 10:00 Pulse Rate 83 09/15/17 10:00 Respiratory Rate 18 09/15/17 10:00 Blood Pressure 132/45 09/15/17 10:00 O2 Sat by Pulse Oximetry (%) 98 09/15/17 09:00 Constitutional: Yes: Well Nourished, No Distress HENT: No: Atraumatic, Normocephalic Neck: Yes: Trachea Midline. No: Decreased ROM, Lymphadenopathy Cardiovascular: Yes: Regular Rate and Rhythm, Murmur (Ejection systolic - outflow tract), S1, S2 Respiratory: Yes: Regular, CTA Bilaterally. No: Cough Gastrointestinal: Yes: Normal Bowel Sounds. No: Abdomen, Obese, Ascites, Hepatomegaly, Palpable Mass, Splenomegaly, Tenderness Extremities: Yes: WNL Edema: No Neurological: Yes: Alert, Oriented ...Motor Strength: WNL Psychiatric: Yes: WNL Labs: CBC, BMP 09/15/17 06:00 09/15/17 06:00 Assessment/Plan Elderly patient, apparently with mild dementia, admitted following fall (?LOC), noted to have leukocytosis (neutrophilia) with metamyelocytes. Review of records reveals similar presentations in the past with spontaneous resolution, which suggests that this is a non-specific secondary reactive leukocytosis that does not warrant further investigation at this time. No other cytopenias noted. If leukocytosis does not resolve during admission then may consider further workup. Will review peripheral smear to screen for atypical or unexpected morphology.
--- NOTE | 2017-09-15 18:44 | EKG ---
Test Reason : Blood Pressure : / mmHG Vent. Rate : 080 BPM Atrial Rate : 080 BPM P-R Int : 128 ms QRS Dur : 072 ms QT Int : 406 ms P-R-T Axes : 062 043 097 degrees QTc Int : 468 ms SINUS RHYTHM WITH PREMATURE ATRIAL COMPLEXES BIATRIAL ENLARGEMENT ABNORMAL ECG WHEN COMPARED WITH ECG OF 07-JUN-2017 14:24, PREMATURE ATRIAL COMPLEXES ARE NOW PRESENT NONSPECIFIC T WAVE ABNORMALITY, IMPROVED IN LATERAL LEADS Confirmed by VERNON RODRIGUEZ MD ([id number]) on 09/15/2017 6:43:43 PM Referred By: Confirmed By:VERNON RODRIGUEZ MD
[2017-09-15 19:45] LABS: URINE APPEARANCE SLCLOUDY; URINE BILIRUBIN NEGATIVE (NEGATIVE); URINE BLOOD 1+ (NEGATIVE); URINE COLOR YELLOW; URINE GLUCOSE (UA) 3+ (NEGATIVE); URINE KETONE NEGATIVE (NEGATIVE); URINE NITRITE NEGATIVE (NEGATIVE); URINE UROBILINOGEN NEGATIVE mg/dL (0.2-1.0)
[2017-09-15 19:57] LABS: URINE LEUK ESTERASE 2+ (NEGATIVE); URINE PROTEIN 2+ (NEGATIVE)
[2017-09-15 20:01] LABS: EPI CELLS RARE /HPF (FEW); URINE BACTERIA MANY /hpf (NONE SEEN); URINE HYALINE CAST 25 /lpf; URINE MUCUS RARE
[2017-09-16] MEDS: SODIUM CHLORIDE 1,000 ML IV SCH ×3 (00:55→22:20)
[2017-09-16] MEDS: HEPARIN NA (PORCINE) 5,000 UNITS/ML 1ML VIAL SQ SCH ×3 (06:32→22:19)
[2017-09-16] MEDS: INSULIN SLIDING SCALE (NOVOLOG) 1 VIAL SQ SCH ×4 (06:32→22:19)
[2017-09-16 08:19] LABS: BASO % 0.2 % (0-2.0); EOS % 1.5 % (0-4.5); HEMATOCRIT 32.8 % (32.4-45.2); HEMOGLOBIN 10.8 GM/dL (10.7-15.3); LYMPH % 8.6 % (8-40); MCH 28.8 pg (25.7-33.7); MCHC 32.9 g/dl (32.0-36.0); MEAN CELL VOLUME 87.4 fl (80-96); MEAN PLT VOLUME 13.1 fl (7.5-11.1); MONO % 4.6 % (3.8-10.2); NEUT % 85.1 % (42.8-82.8); PLATELET COUNT 133 K/MM3 (134-434); RBC 3.76 M/mm3 (3.60-5.2); RDW 13.9 % (11.6-15.6); WHITE BLOOD COUNT 18.6 K/mm3 (4.0-10.0)
[2017-09-16 08:36] LABS: ANION GAP 11 (8-16); BILIRUBIN,TOTAL 0.2 mg/dL (0.2-1.0); BLOOD UREA NITROGEN 33 mg/dL (7-18); CALCIUM 7.8 mg/dL (8.5-10.1); CHLORIDE 113 mmol/L (98-107); CO2 17 mmol/L (21-32); CREATININE 1.8 mg/dL (0.55-1.02); GLUCOSE,RANDOM 252 mg/dL (74-106); MAGNESIUM 2.1 mg/dL (1.8-2.4); PHOSPHOROUS 2.4 mg/dL (2.5-4.9); POTASSIUM 3.8 mmol/L (3.5-5.1); SGOT/AST 15 U/L (15-37); SGPT/ALT 15 U/L (12-78); SODIUM 141 mmol/L (136-145); TOT PROT 5.1 g/dl (6.4-8.2)
[2017-09-16 08:39] LABS: ALK PHOS 94 U/L (45-117)
[2017-09-16] MEDS ORDERED: PT OWN MED DRAWER 7, Y5N ONE ×3 (09:56→21:39)
[2017-09-16] MEDS: CEFTRIAXONE 1 GM in DEXTROSE 5%-WATER - 100 ML IVPB SCH (09:59)
--- NOTE | 2017-09-16 11:14 | PN ---
Progress Note (short form) - Note Progress Note: Renal Follow up for DEEP Pt seen and examined at the bedside awake and alert no acute complaints no sob, chest pain making urine on IVF Vital Signs Temperature 98.9 F 09/16/17 09:45 Pulse Rate 82 09/16/17 09:45 Respiratory Rate 20 09/16/17 09:45 Blood Pressure 110/40 09/16/17 09:45 O2 Sat by Pulse Oximetry (%) 95 09/15/17 21:00 Intake & Output 09/13/17 09/14/17 09/15/17 09/16/17 23:59 23:59 23:59 23:59 Intake Total 4310 1400 Output Total 15 Balance 4295 1400 Weight 68.039 kg 60.016 kg NAD awake and alert RRR no murmur or rub CTA soft NT/ND no LE edema CBC, BMP 09/16/17 07:20 09/16/17 07:20 Current Medications Heparin Sodium (Porcine) (Heparin -) 5,000 unit SQ TID CROW Last Admin: 09/16/17 06:32 Dose: 5,000 unit Sodium Chloride (Normal Saline -) 1,000 mls @ 125 mls/hr IV ASDIR CROW Last Admin: 09/16/17 09:58 Dose: 125 mls/hr Ceftriaxone Sodium 1 gm/ (Dextrose) 100 mls @ 200 mls/hr IVPB DAILY [facility] Last Admin: 09/16/17 09:59 Dose: 200 mls/hr Insulin Aspart (Novolog Vial Sliding Scale -) 1 vial SQ ACHS CROW PRN Reason: Protocol Last Admin: 09/16/17 06:32 Dose: 8 units Ondansetron HCl (Zofran Injection) 4 mg IVPUSH Q6H PRN PRN Reason: NAUSEA A/P 82 year old woman with PMhx of Dementia, Hypertension, HLD, DM who presented from home with fall at home, Diarrhea and found to have DEEP with BUN/Cr of 44/ 3.1. #Acute Kidney Injury secondary to volume depletion +/- ATN in setting of FELICIANO/ ARB and less likely pigment injury elevated CK Renal function improving with IVF would continue for additional 24 hours #Leukocytosis continue empiric abx f/u cultures #Diarrhea supportive care continue IVF #Metabolic acidosis start oral sodium bicab 650mg Daily Thank you Will follow Miguel Angel Núñez DO
[2017-09-16] MEDS ORDERED: INSULIN (NOVOLOG) ASPART 100 UNITS/ML 10ML VIAL ONE ×4 (11:41→21:38)
[2017-09-16] MEDS: SODIUM BICARBONATE 650 MG TABLET PO SCH (12:52)
--- NOTE | 2017-09-16 13:10 | PN ---
Progress Note (short form) - Note Progress Note: Seen in followup. [facility] ISQ. Meds reviewed. Current Medications Generic Name Dose Route Start Last Admin Trade Name Freq PRN Reason Stop Dose Admin Heparin Sodium (Porcine) 5,000 unit 09/15/17 06:00 09/16/17 06:32 Heparin - SQ 5,000 unit TID CROW Administration Sodium Chloride 1,000 mls @ 125 mls/hr 09/15/17 04:15 09/16/17 09:58 Normal Saline - IV 125 mls/hr ASDIR CROW Administration Ceftriaxone Sodium 1 gm/ 100 mls @ 200 mls/hr 09/16/17 10:00 09/16/17 09:59 Dextrose IVPB 200 mls/hr DAILY CROW Administration Insulin Aspart 1 vial 09/15/17 07:00 09/16/17 12:01 Novolog Vial Sliding Scale - SQ 8 units ACHS CROW Administration Protocol Ondansetron HCl 4 mg 09/15/17 06:00 Zofran Injection IVPUSH Q6H PRN NAUSEA Sodium Bicarbonate 650 mg 09/16/17 11:15 09/16/17 12:52 Sodium Bicarbonate - PO 650 mg DAILY CROW Administration Last Vital Signs Temp Pulse Resp BP Pulse Ox 98.9 F 82 20 110/40 95 09/16/17 09:45 09/16/17 09:45 09/16/17 09:45 09/16/17 09:45 09/15/17 21:00 CBC, BMP 09/16/17 07:20 09/16/17 07:20 Assessment: Elderly patient, apparently with mild dementia, admitted following fall (?LOC), noted to have leukocytosis (neutrophilia) with metamyelocytes. Review of records reveals similar presentations in the past with spontaneous resolution, which suggests that this is a non-specific secondary reactive leukocytosis that does not warrant further investigation at this time. No other cytopenias noted. Today WCC lower than yesterday, although may be a component of hemodilution. Peripheral smear reviewed, unremarkable, significant for significantly L shifted neutrophilia, with multiple bands, occasional metamyelocytes, and neutrophil vacuolization. No atypical or unexpected morphology.
--- NOTE | 2017-09-16 15:13 | PN ---
Physical Exam: SUBJECTIVE: Patient seen and examined. feels well, denies chest pain or SOB OBJECTIVE: Vital Signs Period Temp Pulse Resp BP Sys/Richardson Pulse Ox Last 24 Hr 97.9 F-99.2 F 82-96 18-20 110-133/40-74 95 GENERAL: The patient is awake, alert, and fully oriented, in no acute distress. HEAD: Normal with no signs of trauma. LUNGS: Breath sounds equal, clear to auscultation bilaterally, no wheezes, no crackles, no accessory muscle use. HEART: Regular rate and rhythm, S1, S2 without murmur, rub or gallop. ABDOMEN: Soft, nontender, nondistended, normoactive bowel sounds, no guarding, no rebound, no hepatosplenomegaly, no masses. EXTREMITIES: 2+ pulses, warm, well-perfused, no edema. NEUROLOGICAL: Cranial nerves II through XII grossly intact. Normal speech, gait not observed. PSYCH: Normal mood, normal affect. SKIN: Warm, dry, normal turgor, no rashes or lesions noted Laboratory Results - last 24 hr 09/15/17 09/15/17 09/15/17 16:38 19:20 19:20 WBC RBC Hgb Hct MCV MCH MCHC RDW Plt Count MPV Neutrophils % Lymphocytes % Monocytes % Eosinophils % Basophils % Sodium Potassium Chloride Carbon Dioxide Anion Gap BUN Creatinine Creat Clearance w eGFR POC Glucometer 313 Random Glucose Calcium Phosphorus Magnesium Total Bilirubin AST ALT Alkaline Phosphatase Creatine Kinase Creatine Kinase Index CK-MB (CK-2) Troponin I Total Protein Albumin Urine Color Yellow Urine Appearance Slcloudy Urine pH 5.0 Ur Specific [place] 1.014 Urine Protein 2+ H Urine Glucose (UA) 3+ H Urine Ketones Negative Urine Blood 1+ H Urine Nitrite Negative Urine Bilirubin Negative Urine Urobilinogen Negative Ur Leukocyte Esterase 2+ H Urine WBC (Auto) 9 Urine RBC (Auto) 6 Ur Epithelial Cells Rare Urine Bacteria Many Hyaline Casts 25 Urine Mucus Rare U Random Total Protein Ur Random Sodium 41 Urine Creatinine 09/15/17 09/15/17 09/15/17 19:20 19:20 21:13 WBC RBC Hgb Hct MCV MCH MCHC RDW Plt Count MPV Neutrophils % Lymphocytes % Monocytes % Eosinophils % Basophils % Sodium Potassium Chloride Carbon Dioxide Anion Gap BUN Creatinine Creat Clearance w eGFR POC Glucometer 380 Random Glucose Calcium Phosphorus Magnesium Total Bilirubin AST ALT Alkaline Phosphatase Creatine Kinase Creatine Kinase Index CK-MB (CK-2) Troponin I Total Protein Albumin Urine Color Urine Appearance Urine pH Ur Specific [place] Urine Protein Urine Glucose (UA) Urine Ketones Urine Blood Urine Nitrite Urine Bilirubin Urine Urobilinogen Ur Leukocyte Esterase Urine WBC (Auto) Urine RBC (Auto) Ur Epithelial Cells Urine Bacteria Hyaline Casts Urine Mucus U Random Total Protein 168 H Ur Random Sodium Urine Creatinine 158.0 09/16/17 09/16/17 09/16/17 06:11 07:20 07:20 WBC 18.6 H RBC 3.76 Hgb 10.8 D Hct 32.8 MCV 87.4 MCH 28.8 MCHC 32.9 RDW 13.9 Plt Count 133 L MPV 13.1 H Neutrophils % 85.1 H Lymphocytes % 8.6 D Monocytes % 4.6 Eosinophils % 1.5 D Basophils % 0.2 Sodium 141 Potassium 3.8 Chloride 113 H Carbon Dioxide 17 L Anion Gap 11 BUN 33 H Creatinine 1.8 H Creat Clearance w eGFR 26.81 POC Glucometer 330 Random Glucose 252 H Calcium 7.8 L Phosphorus 2.4 L Magnesium 2.1 Total Bilirubin 0.2 D AST 15 ALT 15 Alkaline Phosphatase 94 Creatine Kinase Creatine Kinase Index CK-MB (CK-2) Troponin I 0.36 H Total Protein 5.1 L Albumin 2.0 L Urine Color Urine Appearance Urine pH Ur Specific [place] Urine Protein Urine Glucose (UA) Urine Ketones Urine Blood Urine Nitrite Urine Bilirubin Urine Urobilinogen Ur Leukocyte Esterase Urine WBC (Auto) Urine RBC (Auto) Ur Epithelial Cells Urine Bacteria Hyaline Casts Urine Mucus U Random Total Protein Ur Random Sodium Urine Creatinine 09/16/17 09/16/17 07:20 11:47 WBC RBC Hgb Hct MCV MCH MCHC RDW Plt Count MPV Neutrophils % Lymphocytes % Monocytes % Eosinophils % Basophils % Sodium Potassium Chloride Carbon Dioxide Anion Gap BUN Creatinine Creat Clearance w eGFR POC Glucometer 329 Random Glucose Calcium Phosphorus Magnesium Total Bilirubin AST ALT Alkaline Phosphatase Creatine Kinase 232 H Creatine Kinase Index 1.7 CK-MB (CK-2) 3.951 H Troponin I Total Protein Albumin Urine Color Urine Appearance Urine pH Ur Specific [place] Urine Protein Urine Glucose (UA) Urine Ketones Urine Blood Urine Nitrite Urine Bilirubin Urine Urobilinogen Ur Leukocyte Esterase Urine WBC (Auto) Urine RBC (Auto) Ur Epithelial Cells Urine Bacteria Hyaline Casts Urine Mucus U Random Total Protein Ur Random Sodium Urine Creatinine Active Medications Generic Name Dose Route Start Last Admin Trade Name Freq PRN Reason Stop Dose Admin Heparin Sodium (Porcine) 5,000 unit 09/15/17 06:00 09/16/17 14:48 Heparin - SQ 5,000 unit TID CROW Administration Sodium Chloride 1,000 mls @ 125 mls/hr 09/15/17 04:15 09/16/17 09:58 Normal Saline - IV 125 mls/hr ASDIR CROW Administration Ceftriaxone Sodium 1 gm/ 100 mls @ 200 mls/hr 09/16/17 10:00 09/16/17 09:59 Dextrose IVPB 200 mls/hr DAILY CROW Administration Insulin Aspart 1 vial 09/15/17 07:00 09/16/17 12:01 Novolog Vial Sliding Scale - SQ 8 units ACHS CROW Administration Protocol Ondansetron HCl 4 mg 09/15/17 06:00 Zofran Injection IVPUSH Q6H PRN NAUSEA Sodium Bicarbonate 650 mg 09/16/17 11:15 09/16/17 12:52 Sodium Bicarbonate - PO 650 mg DAILY CROW Administration ASSESSMENT/PLAN: 82F with UTI sepsis, DEEP after intial presentation with a fall UTI: improving WBC with Abx DEEP also significant improvement, continue IVF, Kidney bladder US mild urinary retention but no hydronephrosis mild rhabdo - improving mild troponin elevation - without symptoms of an NE is likely from her dehydration and elevated CK, CKMB however will continue to trend, and have Cardiology evaluate Problem List - Problems (1) Acute renal failure Code(s): N17.9 - ACUTE KIDNEY FAILURE, UNSPECIFIED Qualifiers: Acute renal failure type: unspecified Qualified Code(s): N17.9 - Acute kidney failure, unspecified (2) Leukocytosis Code(s): D72.829 - ELEVATED WHITE BLOOD CELL COUNT, UNSPECIFIED Qualifiers: Qualified Code(s): D72.829 - Elevated white blood cell count, unspecified (3) Syncope Code(s): R55 - SYNCOPE AND COLLAPSE Qualifiers: Syncope type: unspecified Qualified Code(s): R55 - Syncope and collapse (4) UTI (urinary tract infection) Code(s): N39.0 - URINARY TRACT INFECTION, SITE NOT SPECIFIED Visit type - Emergency Visit Emergency Visit: Yes ED Registration Date: 09/15/17 Care time: The patient presented to the Emergency Department on the above date and was hospitalized for further evaluation of their emergent condition. - New Patient This patient is new to me today: Yes Date on this admission: 09/16/17 - Critical Care Critical Care patient: No
[2017-09-16] MEDS ORDERED: ASPIRIN 325 MG ENTERIC COATED TABLET (FP) PO ONE (16:25)
[2017-09-16] MEDS ORDERED: ATORVASTATIN CA 80 MG TABLET (FP) PO ONE (16:27)
--- NOTE | 2017-09-16 17:30 | EKG ---
Test Reason : Blood Pressure : / mmHG Vent. Rate : 074 BPM Atrial Rate : 074 BPM P-R Int : 120 ms QRS Dur : 082 ms QT Int : 402 ms P-R-T Axes : 067 056 114 degrees QTc Int : 446 ms SINUS RHYTHM WITH PREMATURE SUPRAVENTRICULAR COMPLEXES T WAVE ABNORMALITY, CONSIDER LATERAL ISCHEMIA ABNORMAL ECG WHEN COMPARED WITH ECG OF 14-SEP-2017 21:15, NONSPECIFIC T WAVE ABNORMALITY NOW EVIDENT IN INFERIOR LEADS T WAVE INVERSION NOW EVIDENT IN ANTEROLATERAL LEADS Confirmed by VERNON RODRIGUEZ MD ([id number]) on 09/16/2017 5:30:36 PM Referred By: Brenda JOLLY Confirmed By:VERNON RODRIGUEZ MD
[2017-09-17] MEDS: HEPARIN NA (PORCINE) 5,000 UNITS/ML 1ML VIAL SQ SCH ×3 (06:50→21:07)
[2017-09-17] MEDS: INSULIN SLIDING SCALE (NOVOLOG) 1 VIAL SQ SCH ×4 (06:50→21:13)
[2017-09-17 07:18] LABS: CHLORIDE 112 mmol/L (98-107); POTASSIUM 3.9 mmol/L (3.5-5.1); SODIUM 143 mmol/L (136-145)
[2017-09-17 07:34] LABS: BASO % 0.6 % (0-2.0); EOS % 2.7 % (0-4.5); HEMATOCRIT 34.5 % (32.4-45.2); HEMOGLOBIN 11.6 GM/dL (10.7-15.3); MCH 28.9 pg (25.7-33.7); MCHC 33.5 g/dl (32.0-36.0); MEAN CELL VOLUME 86.3 fl (80-96); MEAN PLT VOLUME 13.4 fl (7.5-11.1); MONO % 4.1 % (3.8-10.2); NEUT % 80.6 % (42.8-82.8); PLATELET COUNT 127 K/MM3 (134-434); RDW 14.2 % (11.6-15.6); WHITE BLOOD COUNT 14.3 K/mm3 (4.0-10.0)
[2017-09-17 07:46] LABS: ANION GAP 13 (8-16); BLOOD UREA NITROGEN 21 mg/dL (7-18); CALCIUM 8.2 mg/dL (8.5-10.1); CO2 18 mmol/L (21-32); CREATININE 1.2 mg/dL (0.55-1.02); GLUCOSE,RANDOM 222 mg/dL (74-106); MAGNESIUM 1.8 mg/dL (1.8-2.4); PHOSPHOROUS 2.1 mg/dL (2.5-4.9)
[2017-09-17] MEDS: ASPIRIN 81 MG CHEWABLE TABLETS PO SCH (10:31)
[2017-09-17] MEDS: SODIUM BICARBONATE 650 MG TABLET PO SCH ×2 (10:31→21:07)
[2017-09-17] MEDS: CEFTRIAXONE 1 GM in DEXTROSE 5%-WATER - 100 ML IVPB SCH (10:31)
[2017-09-17] MEDS ORDERED: MAGNESIUM OXIDE 400 MG TABLET (FP) PO ONE (11:19)
--- NOTE | 2017-09-17 11:25 | CON.CARD ---
Cardiology Consult (text) - Consultation Consultation Note: CC: presyncope/syncope/fall. History of Present Illness: 82 yo with PMH of HTN, HL, iddm, asthma, dementia presents with n/v, weakness/ fall and found to have DEEP with elevated CK to 500's. Hospital course complicated by elevated cardiac enzymes. Prior admissions for presyncopal/syncopal episodes/fall. Now with recurrence of fall in setting of n/v, weakness. States she does not remember falling, woke up on the floor. Does not know how long she was down. Was able to crawl to another room and call family to come and help her. Has been treated with IVF and abx with consistent improvement in Cr and normalization of ck --> troponin with slight bump to 1.01. BP has been stable off her anti-htn until today when her bp has increased up to the 190's. states that her daughter fills her pill bottles. home med list has both valsartan and lisinopril (unclear if she was actually taking both) denies chest pain, sob, palpitations, diaphoresis, orthopnea, PND or LE edema. denies abd pain, f/c/s, cough, congestion, kendall, blurry vision. pmhx/pshx: per hpi, additionally Hysterectomy social hx: . lives at home fam hx: no h/o premature cad. ros: per hpi. Ambulatory Orders Donepezil HCl [Aricept -] 5 mg PO DAILY 11/08/13 Esomeprazole Mag Trihydrate [Nexium] 40 mg PO DAILY 02/02/14 Atorvastatin Ca [Lipitor] 40 mg PO DAILY 09/27/15 Insulin NPH Hum/Reg Insulin Hm [Humulin 70-30 Vial] 20 unit SQ BID #0 09/30/15 Aspirin [ASA -] 81 mg PO DAILY 11/09/16 Ezetimibe [Zetia] 10 mg PO DAILY 11/09/16 Lisinopril [Prinivil] 10 mg PO DAILY 11/09/16 Metoprolol Tartrate 100 mg PO DAILY 06/07/17 Montelukast Na [Singulair -] 10 mg PO HS 06/07/17 Valsartan [Diovan] 160 mg PO DAILY 06/07/17 Current Medications Aspirin (Asa -) 81 mg PO DAILY [facility] Last Admin: 09/17/17 10:31 Dose: 81 mg Atorvastatin Calcium (Lipitor -) 80 mg PO HS [facility] Heparin Sodium (Porcine) (Heparin -) 5,000 unit SQ TID [facility] Last Admin: 09/17/17 06:50 Dose: 5,000 unit Sodium Chloride (Normal Saline -) 1,000 mls @ 125 mls/hr IV ASDIR [facility] Last Admin: 09/16/17 22:20 Dose: 125 mls/hr Ceftriaxone Sodium 1 gm/ (Dextrose) 100 mls @ 200 mls/hr IVPB DAILY [facility] Last Admin: 09/17/17 10:31 Dose: 200 mls/hr Insulin Aspart (Novolog Vial Sliding Scale -) 1 vial SQ ACHS [facility] PRN Reason: Protocol Last Admin: 09/17/17 06:50 Dose: 4 units Ondansetron HCl (Zofran Injection) 4 mg IVPUSH Q6H PRN PRN Reason: NAUSEA Sodium Bicarbonate (Sodium Bicarbonate -) 650 mg PO DAILY [facility] Last Admin: 09/17/17 10:31 Dose: 650 mg Vital Signs - 24 hr 09/16/17 09/16/17 09/16/17 14:42 18:31 21:00 Temperature 98.3 F 98.6 F Pulse Rate 76 88 Respiratory 20 20 Rate Blood Pressure 130/56 140/82 O2 Sat by Pulse 95 Oximetry (%) 09/16/17 09/17/17 09/17/17 22:00 02:00 04:00 Temperature 99 F 98.5 F Pulse Rate 83 81 Respiratory 16 20 Rate Blood Pressure 142/60 189/67 190/77 O2 Sat by Pulse Oximetry (%) 09/17/17 09/17/17 06:00 10:00 Temperature 98.5 F 98.8 F Pulse Rate 82 82 Respiratory 17 22 Rate Blood Pressure 197/87 185/92 O2 Sat by Pulse Oximetry (%) Intake & Output 09/15/17 09/16/17 09/17/17 09/18/17 07:59 07:59 07:59 07:59 Intake Total 2200 3410 3100 Output Total 15 Balance 2200 3395 3100 Weight 132 lb 5 oz nad, calm jvd flat, neck supple ctab, nl effort RRR nl s1, s2 2/6 soft sys murmur at usb. 2/6 sys murmur at apex. + bs soft nt nd ext without e/c/c + dp/pt no carotid bruits no jaundice, diaphoresis. alert and oriented. CBC, BMP 09/17/17 06:30 09/17/17 06:30 Laboratory Tests 09/14/17 09/14/17 09/16/17 20:26 20:30 07:20 Plt Count 133 L Creatinine 3.1 H Magnesium Total Bilirubin 0.5 AST 25 ALT 20 Alkaline Phosphatase 123 H Creatine Kinase 544 H Creatine Kinase Index 0.9 CK-MB (CK-2) 5.027 H Troponin I 0.03 Albumin 09/16/17 09/16/17 09/16/17 07:20 07:20 15:30 Plt Count Creatinine Magnesium Total Bilirubin AST ALT Alkaline Phosphatase Creatine Kinase 232 H 174 Creatine Kinase Index 1.7 CK-MB (CK-2) 3.951 H 5.654 H Troponin I 0.36 H 0.96 H* Albumin 2.0 L 09/16/17 09/17/17 21:05 06:30 Plt Count Creatinine Magnesium 1.8 Total Bilirubin AST ALT Alkaline Phosphatase Creatine Kinase 131 Creatine Kinase Index CK-MB (CK-2) Troponin I 1.01 H* 0.94 H* Albumin 06/09/17 05:45 Triglycerides 100 D Cholesterol 133 Total LDL Cholesterol 56 HDL Cholesterol 59 EKG: NSR, borderline short pr interval. inferolateral t wave flattening/ inversions. (new from 09/14, but present on prior 06/2017 ekg) tele: sr. echo 08/2017: nl lv/rv size/fn. impaired diastolic function (E/E' increased). 1 + lae. 1+ as. mod ms (mg 7 mmHg), 1+ mr. mod tr. echo 06/2017: nl lv size/fn. 1+ lae. mod mac. mild-mod functional ms. 1+ mr/ tr. rvsp 40-50. cxr: wnl A/P 82 yo with PMH of HTN, HL, iddm, asthma, dementia presents with n/v, weakness/ fall and found to have DEEP with elevated CK to 500's. Hospital course complicated by elevated cardiac enzymes. Troponin elevation/hl - mild troponin bump in setting of DEEP (cr up to 3.1 on presentation). EKG without acute ischemic changes. subtle changes in t wave morphology have been present on prior ekg's. low suspicion for ACS, likely demand in the setting of underlying cad. Echo without rwma. Already on medical management with asa, statin. - monitor thrombocytopenia on asa. 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 LDL 56 in June. HTN - Resume anti-htn regimen. Will restart toprol 100 mg/day to start and observe bp response. Unclear if patient was on both valsartan and lisinopril as listed in home med regimen. Will not resume acei or arb given recent deep. - CK normalized, Cr improved and no longer hypertensive. Will stop IVF. possible syncope - will check orthostatics tomorrow morning. - check tsh - infectious work up per pmd - echo wnl. con't tele monitoring, can consider event monitor as outpatient. - PT per pmd.
--- NOTE | 2017-09-17 12:26 | PN ---
Teaching Attending Note Name of Resident: Doug Berry ATTENDING PHYSICIAN STATEMENT I saw and evaluated the patient. I reviewed the resident's note and discussed the case with the resident. I agree with the resident's findings and plan as documented. SUBJECTIVE: Patient has no complaints. She denies CP, SOB. OBJECTIVE: Vital Signs Period Temp Pulse Resp BP Sys/Richardson Pulse Ox Last 24 Hr 98.3 F-99 F 76-88 16-22 130-197/56-92 95 HEART: S1S2, RRR, (+) 2/6 SM LUNGS: Clear ABDOMEN: Soft, non-tender, non-distended, normal BS EXTREMITIES: No edema Laboratory Results - last 24 hr 09/16/17 09/16/17 09/16/17 07:20 15:30 17:44 WBC RBC Hgb Hct MCV MCH MCHC RDW Plt Count MPV Neutrophils % Lymphocytes % Monocytes % Eosinophils % Basophils % Sodium Potassium Chloride Carbon Dioxide Anion Gap BUN Creatinine POC Glucometer 262 Random Glucose Calcium Phosphorus Magnesium Creatine Kinase 174 Creatine Kinase Index 1.7 3.2 CK-MB (CK-2) 3.951 H 5.654 H Troponin I 0.96 H* 09/16/17 09/16/17 09/17/17 21:05 22:18 05:47 WBC RBC Hgb Hct MCV MCH MCHC RDW Plt Count MPV Neutrophils % Lymphocytes % Monocytes % Eosinophils % Basophils % Sodium Potassium Chloride Carbon Dioxide Anion Gap BUN Creatinine POC Glucometer 244 227 Random Glucose Calcium Phosphorus Magnesium Creatine Kinase Creatine Kinase Index CK-MB (CK-2) Troponin I 1.01 H* 09/17/17 09/17/17 09/17/17 06:30 06:30 06:30 WBC 14.3 H RBC 4.00 Hgb 11.6 Hct 34.5 MCV 86.3 MCH 28.9 MCHC 33.5 RDW 14.2 Plt Count 127 L MPV 13.4 H Neutrophils % 80.6 Lymphocytes % 12.0 D Monocytes % 4.1 Eosinophils % 2.7 Basophils % 0.6 Sodium 143 Potassium 3.9 Chloride 112 H Carbon Dioxide 18 L Anion Gap 13 BUN 21 H Creatinine 1.2 H POC Glucometer Random Glucose 222 H Calcium 8.2 L Phosphorus 2.1 L Magnesium 1.8 Creatine Kinase 131 Cancelled Creatine Kinase Index CK-MB (CK-2) Troponin I 0.94 H* Cancelled 09/17/17 12:08 WBC RBC Hgb Hct MCV MCH MCHC RDW Plt Count MPV Neutrophils % Lymphocytes % Monocytes % Eosinophils % Basophils % Sodium Potassium Chloride Carbon Dioxide Anion Gap BUN Creatinine POC Glucometer 310 Random Glucose Calcium Phosphorus Magnesium Creatine Kinase Creatine Kinase Index CK-MB (CK-2) Troponin I Current Medications Generic Name Dose Route Start Last Admin Trade Name Freq PRN Reason Stop Dose Admin Aspirin 81 mg 09/17/17 10:00 09/17/17 10:31 Asa - PO 81 mg DAILY [facility] Administration Atorvastatin Calcium 40 mg 09/17/17 22:00 Lipitor - PO HS [facility] Heparin Sodium (Porcine) 5,000 unit 09/15/17 06:00 09/17/17 06:50 Heparin - SQ 5,000 unit TID [facility] Administration Ceftriaxone Sodium 1 gm/ 100 mls @ 200 mls/hr 09/16/17 10:00 09/17/17 10:31 Dextrose IVPB 200 mls/hr DAILY [facility] Administration Insulin Aspart 1 vial 09/15/17 07:00 09/17/17 12:16 Novolog Vial Sliding Scale - SQ 8 units ACHS [facility] Administration Protocol Metoprolol Succinate 100 mg 09/17/17 11:30 09/17/17 12:17 Toprol Xl - PO 100 mg DAILY [facility] Administration Ondansetron HCl 4 mg 09/15/17 06:00 Zofran Injection IVPUSH Q6H PRN NAUSEA Sodium Bicarbonate 650 mg 09/16/17 11:15 09/17/17 10:31 Sodium Bicarbonate - PO 650 mg DAILY [facility] Administration ASSESSMENT AND PLAN: This is an 82 year old woman with a history of dementia, type 2 DM, HTN, hyperlipidemia who presented to the ED with nausea, vomiting and diarrhea. 1. Possible UTI - On Rocephin - Afebrile, WBC improving - Urine culture was not done 2. Acute kidney injury secondary to dehydration, medication - Resolved with IV fluid and holding Lisinopril, Diovan 3. Stage 3 CKD 4. Possible rhabdomyolysis - CK improved with IV fluid 5. Demand ischemia 6. Type 2 DM - Continue Novolog sliding scale 7. HTN - Continue Toprol XL - Lisinopril, Diovan held secondary to DEEP 8. Hyperlipidemia - Continue Lipitor 9. Dementia
[2017-09-17 13:37] LABS: ALBUMIN 2.4 g/dl (3.4-5.0); BILIRUBIN,DIRECT < 0.2 mg/dL (0.0-0.2); BILIRUBIN,TOTAL 0.1 mg/dL (0.2-1.0); SGOT/AST 11 U/L (15-37); SGPT/ALT 15 U/L (12-78); TOT PROT 5.6 g/dl (6.4-8.2)
[2017-09-17 13:50] LABS: ALK PHOS 97 U/L (45-117)
--- NOTE | 2017-09-17 18:29 | PN ---
Physical Exam: SUBJECTIVE: Patient seen and examined at bedside. Patient feels better today. no new complaints. OBJECTIVE: Vital Signs Period Temp Pulse Resp BP Sys/Richardson Pulse Ox Last 24 Hr 98.4 F-99 F 75-88 16-22 140-197/60-92 95-97 GENERAL: The patient is awake, alert, and fully oriented, in no acute distress. HEAD: Normal with no signs of trauma. LUNGS: Breath sounds equal, crackles at the bases, no accessory muscle use. HEART: Regular rate and rhythm, S1, S2. Systolic ejection murmur heard at the right sternal border w/ radiation to the carotids. ABDOMEN: Soft, nontender, nondistended, normoactive bowel sounds, no guarding, no rebound, no hepatosplenomegaly, no masses. EXTREMITIES: 2+ pulses, warm, well-perfused, no edema. NEUROLOGICAL: Cranial nerves II through X grossly intact. Normal speech, gait not observed. Laboratory Results - last 24 hr 09/16/17 09/16/17 09/16/17 15:30 21:05 22:18 WBC RBC Hgb Hct MCV MCH MCHC RDW Plt Count MPV Neutrophils % Lymphocytes % Monocytes % Eosinophils % Basophils % Sodium Potassium Chloride Carbon Dioxide Anion Gap BUN Creatinine POC Glucometer 244 Random Glucose Calcium Phosphorus Magnesium Total Bilirubin Direct Bilirubin AST ALT Alkaline Phosphatase Creatine Kinase Creatine Kinase Index 3.2 CK-MB (CK-2) 5.654 H Troponin I 1.01 H* Total Protein Albumin [facility] 09/17/17 09/17/17 09/17/17 05:47 06:30 06:30 WBC 14.3 H RBC 4.00 Hgb 11.6 Hct 34.5 MCV 86.3 MCH 28.9 MCHC 33.5 RDW 14.2 Plt Count 127 L MPV 13.4 H Neutrophils % 80.6 Lymphocytes % 12.0 D Monocytes % 4.1 Eosinophils % 2.7 Basophils % 0.6 Sodium 143 Potassium 3.9 Chloride 112 H Carbon Dioxide 18 L Anion Gap 13 BUN 21 H Creatinine 1.2 H POC Glucometer 227 Random Glucose 222 H Calcium 8.2 L Phosphorus 2.1 L Magnesium 1.8 Total Bilirubin Direct Bilirubin AST ALT Alkaline Phosphatase Creatine Kinase 131 Creatine Kinase Index CK-MB (CK-2) Troponin I 0.94 H* Total Protein Albumin [facility] 09/17/17 09/17/17 09/17/17 06:30 12:08 12:50 WBC RBC Hgb Hct MCV MCH MCHC RDW Plt Count MPV Neutrophils % Lymphocytes % Monocytes % Eosinophils % Basophils % Sodium Potassium Chloride Carbon Dioxide Anion Gap BUN Creatinine POC Glucometer 310 Random Glucose Calcium Phosphorus Magnesium Total Bilirubin 0.1 L D Direct Bilirubin < 0.2 AST 11 L ALT 15 Alkaline Phosphatase 97 Creatine Kinase Cancelled 118 Creatine Kinase Index CK-MB (CK-2) Troponin I Cancelled 0.59 H Total Protein 5.6 L Albumin 2.4 L TSH 2.57 09/17/17 16:23 WBC RBC Hgb Hct MCV MCH MCHC RDW Plt Count MPV Neutrophils % Lymphocytes % Monocytes % Eosinophils % Basophils % Sodium Potassium Chloride Carbon Dioxide Anion Gap BUN Creatinine POC Glucometer 237 Random Glucose Calcium Phosphorus Magnesium Total Bilirubin Direct Bilirubin AST ALT Alkaline Phosphatase Creatine Kinase Creatine Kinase Index CK-MB (CK-2) Troponin I Total Protein Albumin TSH Active Medications Generic Name Dose Route Start Last Admin Trade Name Freq PRN Reason Stop Dose Admin Aspirin 81 mg 09/17/17 10:00 09/17/17 10:31 Asa - PO 81 mg DAILY [facility] Administration Atorvastatin Calcium 40 mg 09/17/17 22:00 Lipitor - PO HS [facility] Heparin Sodium (Porcine) 5,000 unit 09/15/17 06:00 09/17/17 14:04 Heparin - SQ 5,000 unit TID [facility] Administration Ceftriaxone Sodium 1 gm/ 100 mls @ 200 mls/hr 09/16/17 10:00 09/17/17 10:31 Dextrose IVPB 200 mls/hr DAILY [facility] Administration Insulin Aspart 1 vial 09/15/17 07:00 09/17/17 17:04 Novolog Vial Sliding Scale - SQ 4 units ACHS [facility] Administration Protocol Insulin Detemir 15 units 09/17/17 22:00 Levemir Vial SQ HS [facility] Metoprolol Succinate 100 mg 09/17/17 11:30 09/17/17 12:17 Toprol Xl - PO 100 mg DAILY [facility] Administration Ondansetron HCl 4 mg 09/15/17 06:00 Zofran Injection IVPUSH Q6H PRN NAUSEA Sodium Bicarbonate 650 mg 09/16/17 11:15 09/17/17 10:31 Sodium Bicarbonate - PO 650 mg DAILY [facility] Administration ASSESSMENT/PLAN: This is a 82 year old female with a medical history of dementia, DM, HTN, HLD, presents with n/v/d/ hyperglycemia with recent changes to diabetes medication; according to family she was not taking the increase insulin dose. #systolic ejection murmur likely 2/2 -echo #Troponemia w/ new nonspecific EKG changes -peak at 1.01 documented -downtrending -per cardio likely demand; no intervention at this time #hyperglycemia -anion gap closed -BGM ACHS -ISS ACHS -Patient required 34 u of coverage over last 24hrs; will begin 15u levemir HS #DEEP: -Cr 3.1 on admission -kidney bladder US shows kidney cysts and urinary retention -Cr. Improved to 1.2 today -crackles heard at lung bases + HTN over the weekend = holding IVF -monitor Creatinine #elevated CK r/o rambdomyolysis- resolved -RPT CK WNL #Leukocytosis w/ metamyelocyes -likely 2/2 infection -Heme/onc onboard -no investigation or intervention at this time #Nausea, vomiting, diarrhea likely 2/2 viral gastroenteritis- resolved -zofran prn for nausea -ID onboard #FEN -no fluids indicated -lytes WNL -diabetic diet #prophy -Hep SQ 5ku TID #Dispo -admit to tele -Discharge planning once sugars controlled, echo comes back and cardio in agreement Visit type - Emergency Visit Emergency Visit: Yes ED Registration Date: 09/15/17 Care time: The patient presented to the Emergency Department on the above date and was hospitalized for further evaluation of their emergent condition. - New Patient This patient is new to me today: Yes Date on this admission: 09/17/17 - Critical Care Critical Care patient: No
--- NOTE | 2017-09-17 18:35 | PN ---
Progress Note (short form) - Note Progress Note: Renal Follow up for DEEP Pt seen and examined at the bedside no acute complaints no sob, chest pain, abd pain no further diarrhea making urine tolerating oral diet Vital Signs Temperature 98.4 F 09/17/17 13:55 Pulse Rate 75 09/17/17 13:55 Respiratory Rate 18 09/17/17 13:55 Blood Pressure 160/73 09/17/17 13:55 O2 Sat by Pulse Oximetry (%) 97 09/17/17 09:00 Intake & Output 09/14/17 09/15/17 09/16/17 09/17/17 23:59 23:59 23:59 23:59 Intake Total 4310 3675 725 Output Total 15 Balance 4295 3675 725 Weight 68.039 kg 60.016 kg NAD awake and alert RRR no murmur or rub CTA soft NT/ND no LE edema CBC, BMP 09/17/17 06:30 09/17/17 06:30 Current Medications Aspirin (Asa -) 81 mg PO DAILY [facility] Last Admin: 09/17/17 10:31 Dose: 81 mg Atorvastatin Calcium (Lipitor -) 40 mg PO HS [facility] Heparin Sodium (Porcine) (Heparin -) 5,000 unit SQ TID [facility] Last Admin: 09/17/17 14:04 Dose: 5,000 unit Ceftriaxone Sodium 1 gm/ (Dextrose) 100 mls @ 200 mls/hr IVPB DAILY [facility] Last Admin: 09/17/17 10:31 Dose: 200 mls/hr Insulin Aspart (Novolog Vial Sliding Scale -) 1 vial SQ ACHS [facility] PRN Reason: Protocol Last Admin: 09/17/17 17:04 Dose: 4 units Insulin Detemir (Levemir Vial) 15 units SQ HS [facility] Metoprolol Succinate (Toprol Xl -) 100 mg PO DAILY [facility] Last Admin: 09/17/17 12:17 Dose: 100 mg Ondansetron HCl (Zofran Injection) 4 mg IVPUSH Q6H PRN PRN Reason: NAUSEA Sodium Bicarbonate (Sodium Bicarbonate -) 650 mg PO DAILY [facility] Last Admin: 09/17/17 10:31 Dose: 650 mg A/P 82 year old woman with PMhx of Dementia, Hypertension, HLD, DM who presented from home with fall at home, Diarrhea and found to have DEEP with BUN/Cr of 44/ 3.1. #Acute Kidney Injury secondary to volume depletion +/- ATN in setting of FELICIANO/ ARB and less likely pigment injury elevated CK Renal function is improved and stable continue to trend BUN/Cr as inpatient oral intake as tolerated #Leukocytosis continue empiric abx f/u cultures #Diarrhea improved #Metabolic acidosis Continue sodium bicarb, increase to BID goal bicarb is 22 #Hypertension BP is above goal add Amlodipine 5mg daily and titrate as needed Miguel Angel Núñez DO
[2017-09-17] MEDS: amLODIPine BESYLATE 5 MG TABLET (FP) PO SCH (20:39)
[2017-09-17] MEDS: ATORVASTATIN CA 40 MG TABLET (FP) PO SCH (21:07)
[2017-09-17] MEDS ORDERED: INSULIN DETEMIR 100 UNITS/ML MDV SQ SCH (22:00)
[2017-09-17] MEDS ORDERED: ATORVASTATIN CA 80 MG TABLET (FP) PO SCH (22:00)
--- NOTE | 2017-09-17 22:33 | PN ---
Progress Note (short form) - Note Progress Note: Patient seen and examined Feels better Last Vital Signs Temp Pulse Resp BP Pulse Ox 97.7 F 80 18 143/66 99 09/17/17 20:44 09/17/17 20:44 09/17/17 20:44 09/17/17 20:44 09/17/17 20:44 Cor: RSR, No murmurs, No gallops Lungs: Clear to P&A Abd: Soft, Normal bowel sounds, No organomegaly Ext:No significant edema Abnormal Lab Results 09/17/17 09/17/17 09/17/17 06:30 06:30 12:50 WBC 14.3 H Plt Count 127 L MPV 13.4 H Chloride 112 H Carbon Dioxide 18 L BUN 21 H Creatinine 1.2 H Random Glucose 222 H Calcium 8.2 L Phosphorus 2.1 L Total Bilirubin 0.1 L D AST 11 L Troponin I 0.94 H* 0.59 H Total Protein 5.6 L Albumin 2.4 L Active Medications Generic Name Dose Route Start Last Admin Trade Name Otilioq PRN Reason Stop Dose Admin Amlodipine Besylate 5 mg 09/17/17 18:45 09/17/17 20:39 Norvasc - PO 5 mg DAILY [facility] Administration Aspirin 81 mg 09/17/17 10:00 09/17/17 10:31 Asa - PO 81 mg DAILY [facility] Administration Atorvastatin Calcium 40 mg 09/17/17 22:00 09/17/17 21:07 Lipitor - PO 40 mg HS [facility] Administration Heparin Sodium (Porcine) 5,000 unit 09/15/17 06:00 09/17/17 21:07 Heparin - SQ 5,000 unit TID [facility] Administration Ceftriaxone Sodium 1 gm/ 100 mls @ 200 mls/hr 09/16/17 10:00 09/17/17 10:31 Dextrose IVPB 200 mls/hr DAILY [facility] Administration Insulin Aspart 1 vial 09/15/17 07:00 09/17/17 21:13 Novolog Vial Sliding Scale - SQ 8 units ACHS [facility] Administration Protocol Insulin Detemir 15 units 09/17/17 22:00 09/17/17 21:42 Levemir Vial SQ 15 units HS [facility] Administration Metoprolol Succinate 100 mg 09/17/17 11:30 09/17/17 12:17 Toprol Xl - PO 100 mg DAILY [facility] Administration Ondansetron HCl 4 mg 09/15/17 06:00 Zofran Injection IVPUSH Q6H PRN NAUSEA Sodium Bicarbonate 650 mg 09/17/17 22:00 09/17/17 21:07 Sodium Bicarbonate - PO 650 mg BID [facility] Administration A/P Elderly patient, apparently with mild dementia, admitted following fall (?LOC), noted to have leukocytosis (neutrophilia) with metamyelocytes. Review of records reveals similar presentations in the past with spontaneous resolution, No other cytopenias noted. On antibiotics for ?UTI WBC trending down
[2017-09-18] MEDS: HEPARIN NA (PORCINE) 5,000 UNITS/ML 1ML VIAL SQ SCH ×3 (05:03→21:26)
[2017-09-18] MEDS: INSULIN SLIDING SCALE (NOVOLOG) 1 VIAL SQ SCH ×4 (06:08→21:52)
[2017-09-18 07:12] LABS: BASO % 0.7 % (0-2.0); EOS % 3.4 % (0-4.5); HEMATOCRIT 37.1 % (32.4-45.2); HEMOGLOBIN 12.6 GM/dL (10.7-15.3); LYMPH % 25.2 % (8-40); MCHC 33.9 g/dl (32.0-36.0); MEAN CELL VOLUME 85.5 fl (80-96); MEAN PLT VOLUME 12.2 fl (7.5-11.1); MONO % 7.7 % (3.8-10.2); PLATELET COUNT 138 K/MM3 (134-434); RBC 4.34 M/mm3 (3.60-5.2); RDW 13.8 % (11.6-15.6)
[2017-09-18 07:31] LABS: ANION GAP 8 (8-16); BLOOD UREA NITROGEN 16 mg/dL (7-18); CHLORIDE 107 mmol/L (98-107); CO2 28 mmol/L (21-32); CREATININE 0.9 mg/dL (0.55-1.02); GLUCOSE,RANDOM 113 mg/dL (74-106); MAGNESIUM 1.3 mg/dL (1.8-2.4); PHOSPHOROUS 2.2 mg/dL (2.5-4.9); POTASSIUM 3.3 mmol/L (3.5-5.1); SODIUM 143 mmol/L (136-145)
[2017-09-18] MEDS: SODIUM BICARBONATE 650 MG TABLET PO SCH ×2 (09:28→21:27)
[2017-09-18] MEDS: ASPIRIN 81 MG CHEWABLE TABLETS PO SCH (09:28)
[2017-09-18] MEDS: amLODIPine BESYLATE 5 MG TABLET (FP) PO SCH (09:28)
[2017-09-18] MEDS ORDERED: PT OWN MED DRAWER 7, Y5N ONE (10:44)
[2017-09-18] MEDS: CEFTRIAXONE 1 GM in DEXTROSE 5%-WATER - 100 ML IVPB SCH (10:45)
[2017-09-18] MEDS ORDERED: POTASSIUM CHLORIDE TABS 10 MEQ TABLET.ER (FP) PO ONE (12:41)
[2017-09-18] MEDS ORDERED: MAGNESIUM 2GM/50ML STERILE WATER IVPB IVPB ONE (12:41)
--- NOTE | 2017-09-18 12:42 | PN ---
Progress Note (short form) - Note Progress Note: CC: presyncope/syncope/fall. S: + orthostatics this morning. confused this morning, improved by afternoon. no cp, palps, dizziness, sob. according to family, patient with very little po intake at home. Current Medications Amlodipine Besylate (Norvasc -) 5 mg PO DAILY [facility] Last Admin: 09/18/17 09:28 Dose: 5 mg Aspirin (Asa -) 81 mg PO DAILY [facility] Last Admin: 09/18/17 09:28 Dose: 81 mg Atorvastatin Calcium (Lipitor -) 40 mg PO HS [facility] Last Admin: 09/17/17 21:07 Dose: 40 mg Heparin Sodium (Porcine) (Heparin -) 5,000 unit SQ TID [facility] Last Admin: 09/18/17 05:03 Dose: 5,000 unit Ceftriaxone Sodium 1 gm/ (Dextrose) 100 mls @ 200 mls/hr IVPB DAILY [facility] Last Admin: 09/18/17 10:45 Dose: 200 mls/hr Insulin Aspart (Novolog Vial Sliding Scale -) 1 vial SQ ACHS [facility] PRN Reason: Protocol Last Admin: 09/18/17 12:30 Dose: 10 units Insulin Detemir (Levemir Vial) 15 units SQ HS [facility] Last Admin: 09/17/17 21:42 Dose: 15 units Metoprolol Succinate (Toprol Xl -) 100 mg PO DAILY [facility] Last Admin: 09/18/17 09:28 Dose: 100 mg Ondansetron HCl (Zofran Injection) 4 mg IVPUSH Q6H PRN PRN Reason: NAUSEA Sodium Bicarbonate (Sodium Bicarbonate -) 650 mg PO BID [facility] Last Admin: 09/18/17 09:28 Dose: 650 mg Vital Signs - 24 hr 09/17/17 09/17/17 09/17/17 13:55 17:00 20:44 Temperature 98.4 F 98.8 F 97.7 F Pulse Rate 75 76 80 Pulse Rate [ Right side Sitting] Pulse Rate [ Right side Standing] Pulse Rate [ Right side Supine] Respiratory 18 18 18 Rate Blood Pressure 160/73 157/93 143/66 Blood Pressure [Right side Sitting] Blood Pressure [Right side Standing] Blood Pressure [Right side Supine] O2 Sat by Pulse 99 Oximetry (%) 09/18/17 09/18/17 09/18/17 01:00 04:59 07:50 Temperature 98 F 97.8 F Pulse Rate 68 69 Pulse Rate [ 69 Right side Sitting] Pulse Rate [ 75 Right side Standing] Pulse Rate [ 68 Right side Supine] Respiratory 18 18 Rate Blood Pressure 139/87 159/71 Blood Pressure 160/79 [Right side Sitting] Blood Pressure 157/78 [Right side Standing] Blood Pressure 187/79 [Right side Supine] O2 Sat by Pulse Oximetry (%) Intake & Output 09/16/17 09/17/17 09/18/17 09/19/17 07:59 07:59 07:59 07:59 Intake Total 3410 3100 490 Output Total 15 Balance 3395 3100 490 Weight 135 lb 6 oz nad, calm jvd flat, neck supple ctab, nl effort RRR nl s1, s2 2/6 soft sys murmur at usb. 2/6 sys murmur at apex. + bs soft nt nd ext without e/c/c + dp/pt no carotid bruits no jaundice, diaphoresis. alert and oriented. CBC, BMP 09/18/17 06:45 09/18/17 06:45 Selected Entries 09/14/17 20:17 Blood Pressure 104/45 Laboratory Tests 09/17/17 09/18/17 12:50 06:45 Magnesium 1.3 L TSH 2.57 EKG: NSR, borderline short pr interval. inferolateral t wave flattening/ inversions. (new from 09/14, but present on prior 06/2017 ekg) tele: sr, occ pvc's. artifact. echo 08/2017: nl lv/rv size/fn. impaired diastolic function (E/E' increased). 1 + lae. 1+ as. mod ms (mg 7 mmHg), 1+ mr. mod tr. echo 06/2017: nl lv size/fn. 1+ lae. mod mac. mild-mod functional ms. 1+ mr/ tr. rvsp 40-50. cxr: wnl A/P 82 yo with PMH of HTN, HL, iddm, asthma, dementia presents with n/v, weakness/ fall and found to have DEEP with elevated CK to 500's. Hospital course complicated by elevated cardiac enzymes. Troponin elevation/hl - mild troponin bump in setting of DEEP (cr up to 3.1 on presentation). EKG without acute ischemic changes. subtle changes in t wave morphology have been present on prior ekg's. low suspicion for ACS, likely demand in the setting of underlying cad. Echo without rwma. Already on medical management with asa, statin. thrombocytopenia resolved. 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 LDL 56 in June. HTN - Resumed anti-htn regimen 09/17. restarted toprol 100 mg/day observe bp response. Unclear if patient was on both valsartan and lisinopril as listed in home med regimen. Will not resume acei or arb given recent deep. - Per renal norvasc added 09/17 as well. CK normalized, Cr improved and no longer hypotensive. Stopped IVF 09/17. - 09/18: con't toprol and norvasc. bp trending down but remains on higher end. monitor for need to uptitrate regimen. possible syncope/fall - PT per pmd. - tsh wnl. infectious work up per pmd - echo wnl. con't tele monitoring, can consider event monitor as outpatient, per outpatient process technician. - 09/18: Repeat orthostatics this morning still positive. Discussed with renal will give short course of IVF overnight after IV repletion completed. Monitor o2 sat/respiratory status carefully. aggressive lyte repletion. mg 1.3 and k 3.3 on 09/18. mod ms on echo here - con't toprol for HR control. remains asx. monitor with fluid repletion.
[2017-09-18] MEDS: POTASSIUM CHLORIDE 10 MEQ in SODIUM CHLORIDE 100 ML IVPB SCH ×3 (15:39→18:39)
--- NOTE | 2017-09-18 17:05 | PN ---
Teaching Attending Note Name of Resident: Doug Berry ATTENDING PHYSICIAN STATEMENT I saw and evaluated the patient. I reviewed the resident's note and discussed the case with the resident. I agree with the resident's findings and plan as documented. SUBJECTIVE: Patient has no complaints. OBJECTIVE: Vital Signs Period Temp Pulse Resp BP Sys/Richardson Pulse Ox Last 24 Hr 97.7 F-98.8 F 68-80 18-18 139-187/66-93 99 HEART: S1S2, RRR, (+) 2/6 SM LUNGS: Clear ABDOMEN: Soft, non-tender, non-distended, normal BS EXTREMITIES: No edema Laboratory Results - last 24 hr 09/17/17 09/18/17 09/18/17 21:08 05:03 06:45 WBC 11.0 H RBC 4.34 Hgb 12.6 Hct 37.1 MCV 85.5 MCH 29.0 MCHC 33.9 RDW 13.8 Plt Count 138 MPV 12.2 H Neutrophils % 63.0 D Lymphocytes % 25.2 D Monocytes % 7.7 D Eosinophils % 3.4 Basophils % 0.7 Sodium Potassium Chloride Carbon Dioxide Anion Gap BUN Creatinine POC Glucometer 345 124 Random Glucose Calcium Phosphorus Magnesium 09/18/17 09/18/17 09/18/17 06:45 11:46 14:57 WBC RBC Hgb Hct MCV MCH MCHC RDW Plt Count MPV Neutrophils % Lymphocytes % Monocytes % Eosinophils % Basophils % Sodium 143 Potassium 3.3 L Chloride 107 Carbon Dioxide 28 Anion Gap 8 BUN 16 Creatinine 0.9 POC Glucometer 391 299 Random Glucose 113 H Calcium 8.0 L Phosphorus 2.2 L Magnesium 1.3 L Current Medications Generic Name Dose Route Start Last Admin Trade Name Freq PRN Reason Stop Dose Admin Amlodipine Besylate 5 mg 09/17/17 18:45 09/18/17 09:28 Norvasc - PO 5 mg DAILY [facility] Administration Aspirin 81 mg 09/17/17 10:00 09/18/17 09:28 Asa - PO 81 mg DAILY [facility] Administration Atorvastatin Calcium 40 mg 09/17/17 22:00 09/17/17 21:07 Lipitor - PO 40 mg HS [facility] Administration Donepezil HCl 5 mg 09/19/17 22:00 Aricept - PO HS [facility] Heparin Sodium (Porcine) 5,000 unit 09/15/17 06:00 09/18/17 15:19 Heparin - SQ 5,000 unit TID [facility] Administration Ceftriaxone Sodium 1 gm/ 100 mls @ 200 mls/hr 09/16/17 10:00 09/18/17 10:45 Dextrose IVPB 200 mls/hr DAILY [facility] Administration Insulin Aspart 1 vial 09/15/17 07:00 09/18/17 12:30 Novolog Vial Sliding Scale - SQ 10 units ACHS [facility] Administration Protocol Insulin Detemir 15 units 09/18/17 16:30 Levemir Vial SQ BIDI [facility] Metoprolol Succinate 100 mg 09/17/17 11:30 09/18/17 09:28 Toprol Xl - PO 100 mg DAILY [facility] Administration Sodium Bicarbonate 650 mg 09/17/17 22:00 09/18/17 09:28 Sodium Bicarbonate - PO 650 mg BID [facility] Administration ASSESSMENT AND PLAN: This is an 82 year old woman with a history of dementia, type 2 DM, HTN, hyperlipidemia who presented to the ED with nausea, vomiting and diarrhea. 1. Possible UTI - On Rocephin (day 3) - Afebrile, WBC improving - Urine culture was not done 2. Acute kidney injury secondary to dehydration, medication - Resolved with IV fluid and holding Lisinopril, Diovan 3. Stage 3 CKD 4. Possible rhabdomyolysis - CK improved with IV fluid 5. Demand ischemia 6. Type 2 DM - Levemir started - Continue Novolog sliding scale 7. HTN - Continue Toprol XL - Lisinopril, Diovan held secondary to DEEP 8. Hyperlipidemia - Continue Lipitor 9. Dementia 10. Hypokalemia - Replete potassium 11. Hypomagnesemia - Supplement magnesium
[2017-09-18] MEDS: INSULIN DETEMIR 100 UNITS/ML MDV SQ SCH (17:29)
--- NOTE | 2017-09-18 17:46 | PN ---
Physical Exam: SUBJECTIVE: Patient seen and examined at bedside. Patient has no new complaints and wishes to go home. Was called by nurse this afternoon as patient was very confused. OBJECTIVE: Vital Signs Period Temp Pulse Resp BP Sys/Richardson Pulse Ox Last 24 Hr 97.7 F-98 F 68-80 18-18 139-187/66-87 99 GENERAL: The patient is awake, alert, and fully oriented, in no acute distress. HEAD: Normal with no signs of trauma. LUNGS: Breath sounds equal, clear to auscultation b/l, no accessory muscle use. HEART: Regular rate and rhythm, S1, S2. Systolic ejection murmur heard at the right sternal border w/ radiation to the carotids. ABDOMEN: Soft, nontender, nondistended, normoactive bowel sounds, no guarding, no rebound, no hepatosplenomegaly, no masses. EXTREMITIES: 2+ pulses, warm, well-perfused, no edema. NEUROLOGICAL: Cranial nerves II through X grossly intact. Normal speech, gait not observed. Laboratory Results - last 24 hr 09/17/17 09/18/17 09/18/17 21:08 05:03 06:45 WBC 11.0 H RBC 4.34 Hgb 12.6 Hct 37.1 MCV 85.5 MCH 29.0 MCHC 33.9 RDW 13.8 Plt Count 138 MPV 12.2 H Neutrophils % 63.0 D Lymphocytes % 25.2 D Monocytes % 7.7 D Eosinophils % 3.4 Basophils % 0.7 Sodium Potassium Chloride Carbon Dioxide Anion Gap BUN Creatinine POC Glucometer 345 124 Random Glucose Calcium Phosphorus Magnesium 09/18/17 09/18/17 09/18/17 06:45 11:46 14:57 WBC RBC Hgb Hct MCV MCH MCHC RDW Plt Count MPV Neutrophils % Lymphocytes % Monocytes % Eosinophils % Basophils % Sodium 143 Potassium 3.3 L Chloride 107 Carbon Dioxide 28 Anion Gap 8 BUN 16 Creatinine 0.9 POC Glucometer 391 299 Random Glucose 113 H Calcium 8.0 L Phosphorus 2.2 L Magnesium 1.3 L 09/18/17 17:21 WBC RBC Hgb Hct MCV MCH MCHC RDW Plt Count MPV Neutrophils % Lymphocytes % Monocytes % Eosinophils % Basophils % Sodium Potassium Chloride Carbon Dioxide Anion Gap BUN Creatinine POC Glucometer 280 Random Glucose Calcium Phosphorus Magnesium Active Medications Generic Name Dose Route Start Last Admin Trade Name Freq PRN Reason Stop Dose Admin Amlodipine Besylate 5 mg 09/17/17 18:45 09/18/17 09:28 Norvasc - PO 5 mg DAILY [facility] Administration Aspirin 81 mg 09/19/17 10:00 Asa - PO DAILY [facility] Atorvastatin Calcium 40 mg 09/17/17 22:00 09/17/17 21:07 Lipitor - PO 40 mg HS [facility] Administration Donepezil HCl 5 mg 09/19/17 22:00 Aricept - PO HS [facility] Ezetimibe 10 mg 09/19/17 10:00 Zetia - PO DAILY [facility] Heparin Sodium (Porcine) 5,000 unit 09/15/17 06:00 09/18/17 15:19 Heparin - SQ 5,000 unit TID [facility] Administration Insulin Aspart 1 vial 09/15/17 07:00 09/18/17 17:30 Novolog Vial Sliding Scale - SQ 6 units ACHS [facility] Administration Protocol Insulin Detemir 15 units 09/18/17 16:30 09/18/17 17:29 Levemir Vial SQ 15 units BIDI [facility] Administration Metoprolol Succinate 100 mg 09/17/17 11:30 09/18/17 09:28 Toprol Xl - PO 100 mg DAILY [facility] Administration Montelukast Sodium 10 mg 09/18/17 22:00 Singulair - PO HS [facility] Sodium Bicarbonate 650 mg 09/17/17 22:00 09/18/17 09:28 Sodium Bicarbonate - PO 650 mg BID [facility] Administration ASSESSMENT/PLAN: This is a 82 year old female with a medical history of dementia, DM, HTN, HLD admitted for n/v/d/ and hyperglycemia. #altered mental status likely 2/2 dementia -per nurse, the patient has been exhibiting similar symptoms nightly during her stay -CT head from 06/09/17 WNL -Patient was seen by neurology during her last admission -Patient spontaneously moving all our limbs, walks well w/ assistance -Patient alert and oriented to self and time -Patient a&o x3 during pre rounds and morning rounds -will monitor closely -BGM at time of episode 299 #hyperglycemia -Sugars difficult to control -BGM ACHS -ISS ACHS -Levemir 15u BID #DEEP: -Cr 3.1 on admission -kidney bladder US shows kidney cysts and urinary retention -Cr. Improved to 0.9 today -monitor Creatinine #UA indicative of UTI- resolved -s/p ceftriaxone x 3 days -asymptomatic #systolic ejection murmur likely 2/2 -echo shows moderate aortic stenosis and is unchanged from previous study #Troponemia w/ new nonspecific EKG changes- resolved -per cardio likely demand; no intervention at this time #elevated CK r/o rambdomyolysis- resolved -RPT CK WNL #Nausea, vomiting, diarrhea likely 2/2 viral gastroenteritis- resolved -zofran prn for nausea -ID onboard #FEN -no fluids indicated -replete K+, Mag. will trend -diabetic diet #prophy -Hep SQ 5ku TID #Dispo -admit to tele -patient lives alone; will need ALMOND CUTTING MACHINE TENDER or change in housing to better care for the patient Visit type - Emergency Visit Emergency Visit: Yes ED Registration Date: 09/15/17 Care time: The patient presented to the Emergency Department on the above date and was hospitalized for further evaluation of their emergent condition. - New Patient This patient is new to me today: No - Critical Care Critical Care patient: No
[2017-09-18] MEDS ORDERED: SODIUM CHLORIDE 1,000 ML IV SCH (19:45)
[2017-09-18] MEDS: MONTELUKAST NA 10 MG TABLET PO SCH (21:26)
[2017-09-18] MEDS: ATORVASTATIN CA 40 MG TABLET (FP) PO SCH (21:26)
[2017-09-18] MEDS: DONEPEZIL HCL 5 MG TABLET (FP) PO SCH (21:52)
[2017-09-19] MEDS: HEPARIN NA (PORCINE) 5,000 UNITS/ML 1ML VIAL SQ SCH ×3 (06:05→21:29)
[2017-09-19] MEDS: INSULIN DETEMIR 100 UNITS/ML MDV SQ SCH ×2 (06:09→16:44)
[2017-09-19] MEDS: INSULIN SLIDING SCALE (NOVOLOG) 1 VIAL SQ SCH ×4 (06:09→21:48)
[2017-09-19 08:14] LABS: CHLORIDE 108 mmol/L (98-107); SODIUM 142 mmol/L (136-145)
[2017-09-19 08:24] LABS: ANION GAP 10 (8-16); BLOOD UREA NITROGEN 19 mg/dL (7-18); CO2 24 mmol/L (21-32); CREATININE 0.9 mg/dL (0.55-1.02); GLUCOSE,RANDOM 180 mg/dL (74-106)
[2017-09-19] MEDS: ASPIRIN 81 MG CHEWABLE TABLETS PO SCH (09:00)
[2017-09-19] MEDS: amLODIPine BESYLATE 5 MG TABLET (FP) PO SCH (09:00)
[2017-09-19] MEDS: SODIUM BICARBONATE 650 MG TABLET PO SCH (09:00)
[2017-09-19] MEDS: EZETIMIBE 10 MG TABLET (FP) PO SCH (09:01)
[2017-09-19] MEDS ORDERED: DONEPEZIL HCL 5 MG TABLET (FP) PO SCH ×2 (10:00→22:00)
[2017-09-19] MEDS ORDERED: amLODIPine BESYLATE 5 MG TABLET (FP) PO SCH ×2 (10:22→10:32)
--- NOTE | 2017-09-19 11:27 | PN ---
Progress Note (short form) - Note Progress Note: CC: presyncope/syncope/fall S: no cp, palps, dizziness, sob. Current Medications Generic Name Dose Route Start Last Admin Trade Name Tana PRN Reason Stop Dose Admin Amlodipine Besylate 5 mg 09/19/17 10:32 Norvasc - PO DAILY [facility] Aspirin 81 mg 09/19/17 10:00 09/19/17 09:00 Asa - PO 81 mg DAILY [facility] Administration Atorvastatin Calcium 40 mg 09/17/17 22:00 09/18/17 21:26 Lipitor - PO 40 mg HS [facility] Administration Donepezil HCl 5 mg 09/18/17 22:00 09/18/17 21:52 Aricept - PO 5 mg HS [facility] Administration Ezetimibe 10 mg 09/19/17 10:00 09/19/17 09:01 Zetia - PO 10 mg DAILY [facility] Administration Heparin Sodium (Porcine) 5,000 unit 09/15/17 06:00 09/19/17 06:05 Heparin - SQ 5,000 unit TID [facility] Administration Insulin Aspart 1 vial 09/15/17 07:00 09/19/17 06:09 Novolog Vial Sliding Scale - SQ 2 units ACHS [facility] Administration Protocol Insulin Detemir 15 units 09/18/17 16:30 09/19/17 06:09 Levemir Vial SQ 15 units BIDI [facility] Administration Lisinopril 10 mg 09/19/17 10:45 Prinivil PO DAILY [facility] Metoprolol Succinate 100 mg 09/17/17 11:30 09/19/17 09:00 Toprol Xl - PO 100 mg DAILY [facility] Administration Montelukast Sodium 10 mg 09/18/17 22:00 09/18/17 21:26 Singulair - PO 10 mg HS [facility] Administration Vital Signs Period Temp Pulse Resp BP Sys/Richardson Pulse Ox Last 24 Hr 97.7 F-98.5 F 65-84 18-72 143-196/46-88 96-96 nad, calm jvd flat, neck supple ctab, nl effort RRR nl s1, s2 2/6 soft sys murmur at usb. 2/6 sys murmur at apex. + bs soft nt nd ext without e/c/c no jaundice, diaphoresis. alert and oriented. CBC, BMP 09/18/17 06:45 09/19/17 05:00 EKG: NSR, borderline short pr interval. inferolateral t wave flattening/ inversions. (new from 09/14, but present on prior 06/2017 ekg) tele: sr, occ pvc's echo 08/2017: nl lv/rv size/fn. impaired diastolic function (E/E' increased). 1 + lae. 1+ as. mod ms (mg 7 mmHg), 1+ mr. mod tr. echo 06/2017: nl lv size/fn. 1+ lae. mod mac. mild-mod functional ms. 1+ mr/ tr. rvsp 40-50. cxr: wnl A/P 82 yo with PMH of HTN, HL, iddm, asthma, dementia presents with n/v, weakness/ fall and found to have XIAO with elevated CK to 500's. Hospital course complicated by elevated cardiac enzymes. Troponin elevation - mild troponin bump in setting of XIAO (cr up to 3.1 on presentation). EKG without acute ischemic changes. subtle changes in t wave morphology have been present on prior ekg's. low suspicion for ACS, likely demand in the setting of underlying cad. Echo without rwma. Already on medical management with asa, statin. thrombocytopenia resolved. - can consider outpatient ischemic evaluation for risk stratification if it would price changer - decreased atorvastatin to outpatient dose of 40 mg/day. LDL 56 in June. HTN - Resumed anti-htn regimen 09/17. restarted toprol 100 mg/day observe bp response. Unclear if patient was on both valsartan and lisinopril as listed in home med regimen. Will not resume acei or arb given recent xiao. - Per renal norvasc added 09/17 as well. CK normalized, Cr improved and no longer hypotensive. Stopped IVF 09/17. - 09/18: con't toprol and norvasc. -09/19: increase norvasc to 10mg for better bp control possible syncope/fall - PT per pmd. - tsh wnl. infectious work up per pmd - echo wnl. tele benign. can consider event monitor as outpatient, per outpatient therapy assistant. mod ms on echo here - con't toprol for HR control. remains asx. monitor with fluid repletion.
[2017-09-19] MEDS ORDERED: amLODIPine BESYLATE 10 MG TABLET (FP) PO SCH (11:28)
[2017-09-19] MEDS: LISINOPRIL 10 MG TABLET (FP) PO SCH (12:10)
--- NOTE | 2017-09-19 12:59 | PN ---
Progress Note (short form) - Note Progress Note: Renal Follow up for DEEP Pt seen and examined at the bedside no acute complaints no sob, chest pain noted to be orthostatic yesterday, started on IVF making urine Vital Signs Temperature 98 F 09/19/17 12:00 Pulse Rate 64 09/19/17 12:00 Respiratory Rate 18 09/19/17 12:00 Blood Pressure 148/56 09/19/17 12:00 O2 Sat by Pulse Oximetry (%) 96 09/19/17 03:00 Intake & Output 09/16/17 09/17/17 09/18/17 09/19/17 23:59 23:59 23:59 23:59 Intake Total 3675 6661 702 8668 Balance 3675 1768 959 8497 Weight 61.405 kg 62.414 kg NAD awake and alert RRR no murmur or rub CTA soft NT/ND no LE edema CBC, BMP 09/18/17 06:45 09/19/17 05:00 Current Medications Amlodipine Besylate (Norvasc -) 10 mg PO DAILY [facility] Aspirin (Asa -) 81 mg PO DAILY [facility] Last Admin: 09/19/17 09:00 Dose: 81 mg Atorvastatin Calcium (Lipitor -) 40 mg PO HS [facility] Last Admin: 09/18/17 21:26 Dose: 40 mg Donepezil HCl (Aricept -) 5 mg PO HS [facility] Last Admin: 09/18/17 21:52 Dose: 5 mg Ezetimibe (Zetia -) 10 mg PO DAILY [facility] Last Admin: 09/19/17 09:01 Dose: 10 mg Heparin Sodium (Porcine) (Heparin -) 5,000 unit SQ TID [facility] Last Admin: 09/19/17 06:05 Dose: 5,000 unit Insulin Aspart (Novolog Vial Sliding Scale -) 1 vial SQ ACHS [facility] PRN Reason: Protocol Last Admin: 09/19/17 12:10 Dose: 4 units Insulin Detemir (Levemir Vial) 15 units SQ BIDI [facility] Last Admin: 09/19/17 06:09 Dose: 15 units Lisinopril (Prinivil) 10 mg PO DAILY [facility] Last Admin: 09/19/17 12:10 Dose: 10 mg Metoprolol Succinate (Toprol Xl -) 100 mg PO DAILY [facility] Last Admin: 09/19/17 09:00 Dose: 100 mg Montelukast Sodium (Singulair -) 10 mg PO HS [facility] Last Admin: 09/18/17 21:26 Dose: 10 mg A/P 82 year old woman with PMhx of Dementia, Hypertension, HLD, DM who presented from home with fall at home, Diarrhea and found to have DEEP with BUN/Cr of 44/ 3.1. #Acute Kidney Injury secondary to volume depletion +/- ATN in setting of FELICIANO/ ARB and less likely pigment injury elevated CK Renal function is stable pt appears evolemic can hold IVF trend labs and BP Miguel Angel Núñez DO
[2017-09-19] MEDS ORDERED: INSULIN (NOVOLOG) ASPART 100 UNITS/ML 10ML VIAL ONE ×2 (17:59→21:47)
--- NOTE | 2017-09-19 19:12 | PN ---
Teaching Attending Note Name of Resident: Doug Berry ATTENDING PHYSICIAN STATEMENT I saw and evaluated the patient. I reviewed the resident's note and discussed the case with the resident. I agree with the resident's findings and plan as documented. SUBJECTIVE: No fever or chills . No pain OBJECTIVE: NAD Cv: RRR, 3/6 SM at RUSB . 2/6 Sm at apex Lungs: CTAB ext : no edema ASSESSMENT AND PLAN: 82 y/o lady with h/o dementia, type 2 DM, HTN, hyperlipidemia who presented with N/V 1- Possible UTI: with leukocytosis, and positive urine. urine cx was not sent received 3 days of ceftriaxone and will cont with keflex to finish 7-10 day s 2- DEEP : resolved resume lisinopril due to uncontrolled HTN. monitor 3- uncontrolled HTN: no orthostatic drop today dc IVF resumed Lisinopril cont toprol norvasc increased 4- DM : cont SSI and levemir 5- elevated trop . ischemic w/u as out pt cont lipitor dispo : possible dc tomorrow
--- NOTE | 2017-09-19 19:16 | PN ---
Physical Exam: SUBJECTIVE: Patient seen and examined at bedside. NO further episodes of acute delerium. Patient feels well today. Episodes of hypertension this morning. OBJECTIVE: Vital Signs Period Temp Pulse Resp BP Sys/Richardson Pulse Ox Last 24 Hr 97.7 F-98.5 F 64-84 18-72 142-196/46-88 96-98 GENERAL: The patient is awake, alert, and fully oriented, in no acute distress. NECK: Trachea midline, full range of motion, supple. LUNGS: Breath sounds equal, clear to auscultation bilaterally, no wheezes, no crackles, no accessory muscle use. HEART: Regular rate and rhythm, S1, S2 heard. Systolic ejection murmur. ABDOMEN: Soft, nontender, nondistended, normoactive bowel sounds, no guarding, no rebound, no hepatosplenomegaly, no masses. EXTREMITIES: 2+ pulses, warm, well-perfused, no edema. NEUROLOGICAL: Cranial nerves II through X grossly intact. Normal speech, gait not observed. Laboratory Results - last 24 hr 09/18/17 09/19/17 09/19/17 21:21 05:00 05:59 Sodium 142 Potassium 4.0 Chloride 108 H Carbon Dioxide 24 Anion Gap 10 BUN 19 H Creatinine 0.9 POC Glucometer 328 170 Random Glucose 180 H Calcium 8.0 L Magnesium 2.0 09/19/17 09/19/17 12:08 16:40 Sodium Potassium Chloride Carbon Dioxide Anion Gap BUN Creatinine POC Glucometer 245 260 Random Glucose Calcium Magnesium Active Medications Generic Name Dose Route Start Last Admin Trade Name Freq PRN Reason Stop Dose Admin Amlodipine Besylate 10 mg 09/19/17 11:28 Norvasc - PO DAILY [facility] Aspirin 81 mg 09/19/17 10:00 09/19/17 09:00 Asa - PO 81 mg DAILY [facility] Administration Atorvastatin Calcium 40 mg 09/17/17 22:00 09/18/17 21:26 Lipitor - PO 40 mg HS [facility] Administration Donepezil HCl 5 mg 09/18/17 22:00 09/18/17 21:52 Aricept - PO 5 mg HS [facility] Administration Ezetimibe 10 mg 09/19/17 10:00 09/19/17 09:01 Zetia - PO 10 mg DAILY [facility] Administration Heparin Sodium (Porcine) 5,000 unit 09/15/17 06:00 09/19/17 13:54 Heparin - SQ 5,000 unit TID [facility] Administration Insulin Aspart 1 vial 09/15/17 07:00 09/19/17 16:44 Novolog Vial Sliding Scale - SQ 6 units ACHS [facility] Administration Protocol Insulin Detemir 15 units 09/18/17 16:30 09/19/17 16:44 Levemir Vial SQ 15 units BIDI [facility] Administration Lisinopril 10 mg 09/19/17 10:45 09/19/17 12:10 Prinivil PO 10 mg DAILY [facility] Administration Metoprolol Succinate 100 mg 09/17/17 11:30 09/19/17 09:00 Toprol Xl - PO 100 mg DAILY [facility] Administration Montelukast Sodium 10 mg 09/18/17 22:00 09/18/17 21:26 Singulair - PO 10 mg HS [facility] Administration ASSESSMENT/PLAN: This is a 82 year old female with a medical history of dementia, DM, HTN, HLD admitted for n/v/d/ and hyperglycemia. #hyperglycemia -Sugars difficult to control -BGM ACHS -ISS ACHS -Levemir 15u BID -will adjust regimen after observed a full 24hrs on current one. #HTN -increased norvasc 5mg to 10mg per cardio -resumed lisinopril to 10mg -d/c'd fluids #altered mental status likely 2/2 dementia -No further episodes overnight -CT head from 06/09/17 WNL -will monitor closely #DEEP- resolved -monitor Creatinine #UA indicative of UTI- resolved -s/p ceftriaxone x 3 days -asymptomatic #systolic ejection murmur 2/2 -echo shows moderate aortic stenosis and is unchanged from previous study #FEN -no fluids indicated -monitor lytes -diabetic diet #prophy -Hep SQ 5ku TID #Dispo -admit to tele -d/c planning to SNF in AM Visit type Visit type - Emergency Visit Emergency Visit: Yes ED Registration Date: 09/15/17 Care time: The patient presented to the Emergency Department on the above date and was hospitalized for further evaluation of their emergent condition. - New Patient This patient is new to me today: No - Critical Care Critical Care patient: No
[2017-09-19] MEDS: ATORVASTATIN CA 40 MG TABLET (FP) PO SCH (21:27)
[2017-09-19] MEDS: MONTELUKAST NA 10 MG TABLET PO SCH (21:28)
[2017-09-19] MEDS: CEPHALEXIN MONOHYDRATE 500 MG CAPSULE (UD) PO SCH (21:28)
[2017-09-19] MEDS: DONEPEZIL HCL 5 MG TABLET (FP) PO SCH (21:28)
[2017-09-20] MEDS: HEPARIN NA (PORCINE) 5,000 UNITS/ML 1ML VIAL SQ SCH ×2 (05:52→13:46)
[2017-09-20] MEDS: INSULIN SLIDING SCALE (NOVOLOG) 1 VIAL SQ SCH ×3 (06:07→17:41)
[2017-09-20 08:17] LABS: CHLORIDE 107 mmol/L (98-107); POTASSIUM 4.3 mmol/L (3.5-5.1); SODIUM 145 mmol/L (136-145)
[2017-09-20 08:28] LABS: ANION GAP 10 (8-16); BLOOD UREA NITROGEN 22 mg/dL (7-18); CALCIUM 8.8 mg/dL (8.5-10.1); CO2 28 mmol/L (21-32); CREATININE 1.1 mg/dL (0.55-1.02); GLUCOSE,RANDOM 137 mg/dL (74-106); PHOSPHOROUS 3.3 mg/dL (2.5-4.9)
[2017-09-20] MEDS: INSULIN DETEMIR 100 UNITS/ML MDV SQ SCH (08:33)
[2017-09-20] MEDS: ASPIRIN 81 MG CHEWABLE TABLETS PO SCH (09:29)
[2017-09-20] MEDS: CEPHALEXIN MONOHYDRATE 500 MG CAPSULE (UD) PO SCH (09:29)
[2017-09-20] MEDS: EZETIMIBE 10 MG TABLET (FP) PO SCH (09:30)
[2017-09-20] MEDS: LISINOPRIL 10 MG TABLET (FP) PO SCH (09:30)
--- NOTE | 2017-09-20 10:41 | PN ---
Progress Note (short form) - Note Progress Note: CC: presyncope/syncope/fall S: no cp, palps, dizziness, sob. Current Medications Generic Name Dose Route Start Last Admin Trade Name Tana PRN Reason Stop Dose Admin Amlodipine Besylate 10 mg 09/19/17 11:28 09/20/17 09:29 Norvasc - PO 10 mg DAILY [facility] Administration Aspirin 81 mg 09/19/17 10:00 09/20/17 09:29 Asa - PO 81 mg DAILY [facility] Administration Atorvastatin Calcium 40 mg 09/17/17 22:00 09/19/17 21:27 Lipitor - PO 40 mg HS [facility] Administration Cephalexin HCl 500 mg 09/19/17 22:00 09/20/17 09:29 Keflex - PO 500 mg BID [facility] Administration Donepezil HCl 5 mg 09/18/17 22:00 09/19/17 21:28 Aricept - PO 5 mg HS [facility] Administration Ezetimibe 10 mg 09/19/17 10:00 09/20/17 09:30 Zetia - PO 10 mg DAILY [facility] Administration Heparin Sodium (Porcine) 5,000 unit 09/15/17 06:00 09/20/17 05:52 Heparin - SQ 5,000 unit TID [facility] Administration Insulin Aspart 1 vial 09/15/17 07:00 09/20/17 06:07 Novolog Vial Sliding Scale - SQ Not Given [facility] Protocol Insulin Detemir 15 units 09/18/17 16:30 09/20/17 08:33 Levemir Vial SQ 15 units BIDI [facility] Administration Lisinopril 10 mg 09/19/17 10:45 09/20/17 09:30 Prinivil PO 10 mg DAILY [facility] Administration Metoprolol Succinate 100 mg 09/17/17 11:30 09/20/17 09:29 Toprol Xl - PO 100 mg DAILY [facility] Administration Montelukast Sodium 10 mg 09/18/17 22:00 09/19/17 21:28 Singulair - PO 10 mg HS [facility] Administration Vital Signs Period Temp Pulse Resp BP Sys/Richardson Pulse Ox Last 24 Hr 98 F-99.3 F 61-76 18-20 120-174/46-64 94-97 nad, calm jvd flat, neck supple ctab, nl effort RRR nl s1, s2 2/6 soft sys murmur at usb. 2/6 sys murmur at apex. + bs soft nt nd ext without e/c/c no jaundice, diaphoresis. alert and oriented. CBC, BMP 09/18/17 06:45 09/20/17 07:30 EKG: NSR, borderline short pr interval. inferolateral t wave flattening/ inversions. (new from 09/14, but present on prior 06/2017 ekg) tele: sr, occ pvc's echo 08/2017: nl lv/rv size/fn. impaired diastolic function (E/E' increased). 1 + lae. 1+ as. mod ms (mg 7 mmHg), 1+ mr. mod tr. echo 06/2017: nl lv size/fn. 1+ lae. mod mac. mild-mod functional ms. 1+ mr/ tr. rvsp 40-50. cxr: wnl A/P 82 yo with PMH of HTN, HL, iddm, asthma, dementia presents with n/v, weakness/ fall and found to have XIAO with elevated CK to 500's. Hospital course complicated by elevated cardiac enzymes. Troponin elevation - mild troponin bump in setting of XIAO (cr up to 3.1 on presentation). EKG without acute ischemic changes. subtle changes in t wave morphology have been present on prior ekg's. low suspicion for ACS, likely demand in the setting of underlying cad. Echo without rwma. Already on medical management with asa, statin. thrombocytopenia resolved. - can consider outpatient ischemic evaluation for risk stratification if it would project management analyst - decreased atorvastatin to outpatient dose of 40 mg/day. LDL 56 in June. HTN - Resumed anti-htn regimen 09/17. restarted toprol 100 mg/day observe bp response. Unclear if patient was on both valsartan and lisinopril as listed in home med regimen. Will not resume acei or arb given recent xiao. - Per renal norvasc added 09/17 as well. CK normalized, Cr improved and no longer hypotensive. Stopped IVF 09/17. - 09/18: con't toprol and norvasc. -09/19: increased norvasc to 10mg for better bp control possible syncope/fall - PT per pmd. - tsh wnl. infectious work up per pmd - echo wnl. tele benign. can consider event monitor as outpatient, per outpatient certified indoor environmentalist. mod ms on echo here - con't toprol for HR control. remains asx. monitor with fluid repletion.
--- NOTE | 2017-09-20 13:07 | PN ---
Teaching Attending Note Name of Resident: Doug Berry ATTENDING PHYSICIAN STATEMENT I saw and evaluated the patient. I reviewed the resident's note and discussed the case with the resident. I agree with the resident's findings and plan as documented. SUBJECTIVE: no pain, no SOB, feels better. OBJECTIVE: NAD CV: RRR, 3/6 SM at RUSB . 2/6 Sm at apex Lungs: CTAB Ext: no edema ASSESSMENT AND PLAN: 82 y/o lady with h/o dementia, type 2 DM, HTN, hyperlipidemia who presented with N/V 1- Possible complicated UTI: with leukocytosis, and positive urine. urine cx was not sent day 4 of Abx . will cont total of 10 days 2- DEEP : resolved cont lisinopril, monitor 3- uncontrolled HTN: Lisinopril resumed yesterday cont toprol norvasc at 10 mg 4- DM : cont SSI and levemir ( increae to 18 units BID ) 5- Elevated trop. ischemic w/u as out pt cont lipitor dispo : pending a bed at rehab
--- NOTE | 2017-09-20 15:58 | DS ---
Physical Exam: SUBJECTIVE: Patient seen and examined at bedside. She feels well and is eager to go home. OBJECTIVE: Vital Signs Period Temp Pulse Resp BP Sys/Richardson Pulse Ox Last 24 Hr 98.2 F-99.3 F 61-75 18-20 120-174/46-64 94-97 PHYSICAL EXAM GENERAL: The patient is awake, alert, and fully oriented, in no acute distress. NECK: Trachea midline, full range of motion, supple. LUNGS: Breath sounds equal, clear to auscultation bilaterally, no wheezes, no crackles, no accessory muscle use. HEART: Regular rate and rhythm, S1, S2. Systolic ejection murmur heard at the right sternal border. ABDOMEN: Soft, nontender, nondistended, normoactive bowel sounds, no guarding, no rebound, no hepatosplenomegaly, no masses. EXTREMITIES: 2+ pulses, warm, well-perfused, no edema. NEUROLOGICAL: Cranial nerves II through X grossly intact. Normal speech, gait not observed. SKIN: Warm, dry, normal turgor, no rashes or lesions noted. LABS Laboratory Results - last 24 hr 09/19/17 09/19/17 09/20/17 16:40 21:26 05:21 Sodium Potassium Chloride Carbon Dioxide Anion Gap BUN Creatinine POC Glucometer 260 307 87 Random Glucose Calcium Phosphorus Magnesium 09/20/17 09/20/17 07:30 11:43 Sodium 145 Potassium 4.3 Chloride 107 Carbon Dioxide 28 Anion Gap 10 BUN 22 H Creatinine 1.1 H POC Glucometer 278 Random Glucose 137 H Calcium 8.8 Phosphorus 3.3 Magnesium 2.0 HOSPITAL COURSE: Date of Admission:09/15/17 This is a 82 yo f w/ PMH of DM, dementia, HTN who presented to the ER c/o nausea, vomiting, diarrhea for the past few days. Patient stated that she vomited 2 times the day prior to admission. She denied fever,chills, sick contacts, change in diet, melena or hematochezia at the time. In the ED, the patient was found to have a glucose of 487, an anion gap of 22, leukocytosis to 24.4 and a creatinine of 3.1. She was also found to have a UA indicative of UTI. The patient was admitted for further management. A CXR was negative for acute processes. A renal and bladder ultrasound showed b/l renal cysts w/o hydronephrosis. The ultrasound also noted urinary retention. Nephrology was consulted. Hemotology-oncology was consulted. In light of previous elevated white counts and lack of overt infection, heme-onc viewed the leukocytosis to be reactive and non-specific. The patient was fond to be taking both and ACEI and ARB at home to control her HTN, which likely contributed to her elevated creatinine. The patient was treated with Levemir, a novolog sliding scale, zofran and ceftriaxone. The patient's hospital course was complaicted by troponemia to 1.01 and hypertension. Cardiology was consulted. A EKG showed sinus rhythm with PVCs and nonspecific t wave abnormalities. The troponemia was attributed to decreased clearance from the patient's DEEP. An echo showed mild aortic stenosis with no changes compared to previous studies. The patient was treated with norvasc and metoprolol. The patient improved clinically on the above treatment. Her blood sugar decreased into a safe range, her blood pressure stabilized, her creatinine normalized and her troponemia cleared. She was discharged to a rehab facility on Norvasc 10mg, Levemir 18units BID, a Novolog sliding scale, 100mg of Metoprolol XL daily, and a 1 week course of Cephalexin 500mg BID. She was advised to stop taking her home Losartan, but continue to take her home Lisinopril only. She was advised to follow up with her primary care physician as well as a manager search engine within 1 week of arriving home. Date of Discharge: 09/20/17 Minutes to complete discharge: 42 Discharge Summary Reason For Visit: ACUTE RENAL FAILURE , DEMENTIA, HYPERGLYCEMIA Current Active Problems Hyperglycemia (Acute) UTI (urinary tract infection) (Acute) Dementia (Chronic) Diabetes mellitus (Chronic) Hyperlipidemia (Chronic) Hypertension (Chronic) Leukocytosis (Chronic) Type 2 diabetes mellitus (Chronic) Condition: Improved - Instructions Diet, Activity, Other Instructions: You were admitted for the treatment of your high blood sugars. We are discharging you to a [facility] temporarily to help you exercise and get stronger. Please be advised, some of your medications have changed. Please STOP taking your valsartan (diovan). It is harmful to your kidneys. Your Norvasc (amlodipine) has been increased from 5mg to 10mg daily. Your metoprolol (toprol xl) has been increased from 50mg to 100mg daily. You may RESUME taking your lisinopril 10mg daily. We have changed your insulin regimen. Please take your blood sugars three times per day before meals and before going to bed. Keep these numbers in a book to show to your doctor. Please take 18 u of Levemir (long acting insulin) twice per day in the morning and at night. Please take novolog (short acting insulin) three times per day with meals. Use the following sliding scale to know how many units to inject: If your blood sugar is < 150, do NOT give yourself any insulin If your blood sugar is 150-200, give yourself 2 units of insulin If your blood sugar is 201-250, give yourself 4 units of insulin If your blood sugar is 251-300, give yourself 6 units of insulin If your blood sugar is 301-350, give yourself 8 units of insulin If your blood sugar is 351-400, give yourself 10 units of insulin If your blood sugar is > 400, give yourself 10 units of insulin and call your doctor. Please do NOT give yourself short acting insulin without eating. If you begin to experience symptoms of low blood sugar (sweating, dizziness, fatigue, trouble thinking straight) please drink some juice and call your doctor immediately. You are also being treated for a urinary tract infection; please take antibiotic as prescribed. You may resume taking your other home medications not listed above starting tonight. You should follow up with your primary care physician within one week of discharge home. You should also follow up with your manager search engine within 1 week of discharge home. If you begin to experience chest pain, shortness of breath, severe headaches or dizziness, please call your doctor or return to the emergency department. please visit cardiology dr. Boogie to get ischemic work up done ( rule out obstrucitve coronary artery disease ) you need BMP in 1 week . if renal functi is elevated then your doctor might consider stopping lisinopril and referring to a community outreach coordinator Dr. granados Referrals: Kami Boogie MD [Staff Physician] - 2 Weeks Miguel Angel Granados MD [Staff Physician] - Disposition: [facility] - Home Medications Comprehensive Discharge Medication List: Ambulatory Orders Donepezil HCl [Aricept -] 5 mg PO DAILY 11/08/13 Esomeprazole Mag Trihydrate [Nexium] 40 mg PO DAILY 02/02/14 Atorvastatin Ca [Lipitor] 40 mg PO DAILY 09/27/15 Aspirin [ASA -] 81 mg PO DAILY 11/09/16 Ezetimibe [Zetia] 10 mg PO DAILY 11/09/16 Lisinopril [Prinivil] 10 mg PO DAILY 11/09/16 Montelukast Na [Singulair -] 10 mg PO HS 06/07/17 Amlodipine Besylate [Norvasc -] 10 mg PO DAILY #30 tablet 09/20/17 Cephalexin Monohydrate [Keflex -] 500 mg PO BID #14 capsule 09/20/17 Insulin (Levemir) [Levemir Vial] 18 unit SQ BID #1 vial 09/20/17 Insulin (Novolog) [Novolog Flexpen] See Protocol SQ ACHS #2 pen 09/20/17 Metoprolol Succinate [Toprol XL -] 100 mg PO DAILY #30 tab.sr.24h 09/20/17 This patient is new to me today: No Emergency Visit: Yes ED Registration Date: 09/15/17 Care time: The patient presented to the Emergency Department on the above date and was hospitalized for further evaluation of their emergent condition. Critical Care patient: No - Discharge Referral Referred to [facility] No
[2017-09-20] MEDS ORDERED: INSULIN DETEMIR 100 UNITS/ML MDV SQ SCH (16:30)
[2017-09-20 20:00] VITALS: BP 136/60; PULSE 65; TEMP 98.8
== END 2017-09-20 19:22 | DRG 638 ==
LOC: JER 20:04 → JERBED 09-15 00:02 → J5S 09-15 01:50 → J4W 09-16 19:58
PROVIDERS: ADMIT Internal Medicine; ATTEND Internal Medicine
DX: E11.65 Type 2 diabetes mellitus with hyperglycemia (principal); N17.9 Acute kidney failure, unspecified; N39.0 Urinary tract infection, site not specified; E87.2 Acidosis; M62.82 Rhabdomyolysis; I24.8 Other forms of acute ischemic heart disease; B96.29 Other Escherichia coli [E. coli] as the cause of diseases classified elsewhere; N18.3 Chronic kidney disease, stage 3 (moderate); E11.22 Type 2 diabetes mellitus with diabetic chronic kidney disease; E87.5 Hyperkalemia; E83.42 Hypomagnesemia; E87.6 Hypokalemia; D72.829 Elevated white blood cell count, unspecified; E86.0 Dehydration; Z79.4 Long term (current) use of insulin; K21.9 Gastro-esophageal reflux disease without esophagitis; I34.2 Nonrheumatic mitral (valve) stenosis; F03.90 Unspecified dementia, unspecified severity, without behavioral disturbance, psychotic disturbance, mood disturbance, and anxiety; E78.5 Hyperlipidemia, unspecified; F17.210 Nicotine dependence, cigarettes, uncomplicated
CPT/HCPCS: 36415; 71045-TC-FY; 76775-TC; 76856-TC; 80048; 80053; 80076; 81003; 81015; 82550; 82553; 82570; 82962; 83690; 83735; 84100; 84156; 84300; 84443; 84484; 85025; 87324; 87449; 93005; 93010; 93306-TC; 94010; 97116-GP; 97161-GP; 99283-25; J1644; J7030

== ENCOUNTER 2019-01-08 19:19 | Inpatient (IN) | payer OTHER ==
--- NOTE | 2019-01-08 19:33 | PDOC ---
Rapid Medical Evaluation Time Seen by Provider: 01/08/19 19:31 Medical Evaluation: Allergies Allergy/AdvReac Type Severity Reaction Status Date / Time No Known Allergies Allergy Verified 09/14/17 20:17 01/08/19 19:32 HPI:diarrhea x4 days PE: no gross deficits ORDERS: Belly labs Discharge Disposition - Diagnosis Diarrhea - Referrals - Patient Instructions - Post Discharge Activity
[2019-01-08] MEDS ORDERED: SODIUM CHLORIDE 1,000 ML IV STA (21:26)
--- NOTE | 2019-01-08 21:32 | PDOC ---
History of Present Illness - General Chief Complaint: Diarrhea Stated Complaint: DIARRHEA Time Seen by Provider: 01/08/19 19:31 History Source: Patient, Family (daughter) Exam Limitations: No Limitations - History of Present Illness Initial Comments: 01/08/19 21:26 83yo F with PMH of DM, HTN, HLD, Dementia presenting to ED with daughter for diarrhea x1wk. Daughter states that when she visits pt in the morning and after work, she has to change the sheets every time bc pt does not seem to notice. Pt states she has the sensation that she is having a bowel movement or is urinating. She denies bloody or melenous stools, abdominal pain, nausea, vomiting, travel, antibiotic use, recent hospital admissions, fevers, decreased appetite, urinary symptoms, chest pain, sob. She goes to a [employer] [facility] during the day and does not know of anyone else having diarrhea. PMD: PMH: see hpi PSH: hysterectomy Meds: see med rec Allergies: nkda Past History - Past Medical History Allergies/Adverse Reactions: Allergies Allergy/AdvReac Type Severity Reaction Status Date / Time No Known Allergies Allergy Verified 09/14/17 20:17 Home Medications: Ambulatory Orders Donepezil HCl [Aricept -] 5 mg PO DAILY 11/08/13 Esomeprazole Mag Trihydrate [Nexium] 40 mg PO DAILY 02/02/14 Atorvastatin Ca [Lipitor] 40 mg PO DAILY 09/27/15 Aspirin [ASA -] 81 mg PO DAILY 11/09/16 Ezetimibe [Zetia] 10 mg PO DAILY 11/09/16 Lisinopril [Prinivil] 10 mg PO DAILY 11/09/16 Montelukast Na [Singulair -] 10 mg PO HS 06/07/17 Amlodipine Besylate [Norvasc -] 10 mg PO DAILY #30 tablet 09/20/17 Cephalexin Monohydrate [Keflex -] 500 mg PO BID #14 capsule 09/20/17 Insulin (Levemir) [Levemir Vial] 18 unit SQ BID #1 vial 09/20/17 Insulin (Novolog) [Novolog Flexpen] See Protocol SQ ACHS #2 pen 09/20/17 Metoprolol Succinate [Toprol XL -] 100 mg PO DAILY #30 tab.sr.24h 09/20/17 Anemia: No Asthma: No Cancer: No Cardiac Disorders: No CVA: No COPD: No CHF: No Dementia: Yes Diabetes: Yes GI Disorders: Yes (gerd) Disorders: No HTN: Yes Hypercholesterolemia: Yes Liver Disease: No Psychiatric Problems: Yes (dementia) Seizures: No Thyroid Disease: No - Surgical History Abdominal Surgery: Yes Appendectomy: No Cardiac Surgery: No Cholecystectomy: No Lung Surgery: No Neurologic Surgery: No Orthopedic Surgery: No - Immunization History Td Vaccination: No TDAP Vaccination: No Immunization Up to Date: No - Suicide/Smoking/Psychosocial Hx Smoking Status: Yes Smoking History: Unknown if ever smoked Years of Tobacco Use: 60 Have you smoked in the past 12 months: No Number of Cigarettes Smoked Daily: 3 Cigars Per Day: 0 Information on smoking cessation initiated: No 'Breaking Loose' booklet given: 04/20/15 Hx Alcohol Use: No Drug/Substance Use Hx: No Substance Use Type: None Review of Systems - Review of Systems Constitutional: No: Chills, Fever, Weakness HEENTM: No: Symptoms Reported Respiratory: No: Cough, Shortness of Breath Cardiac (ROS): No: Chest Pain, Lightheadedness, Palpitations, Syncope ABD/GI: Yes: Diarrhea. No: Abdominal Distended, Constipated, Nausea, Poor Appetite, Poor Fluid Intake, Rectal Bleeding, Vomiting, Abdominal cramping, Tarry Stools : No: Burning, Dysuria Musculoskeletal: No: Back Pain, Muscle Pain, Muscle Weakness Integumentary: No: Rash Neurological: No: Headache, Numbness, Tingling, Tremors, Weakness, Unsteady Gait , Ataxia, Dizziness *Physical Exam - Vital Signs Last Vital Signs Temp Pulse Resp BP Pulse Ox 98.8 F 68 16 138/41 L 100 01/08/19 19:34 01/08/19 19:34 01/08/19 19:34 01/08/19 19:34 01/08/19 19:34 - Physical Exam General Appearance: Yes: Nourished, Appropriately Dressed. No: Apparent Distress HEENT: positive: EOMI, NAVEEN, Pharynx Normal, Other (moist membranes) Neck: positive: Trachea midline, Supple Respiratory/Chest: positive: Lungs Clear, Normal Breath Sounds Cardiovascular: positive: Regular Rhythm, Regular Rate, S1, S2, Systolic Murmur. negative: Edema, JVD Vascular Pulses: Dorsalis-Pedis (R): 2+, Doralis-Pedis (L): 2+ Gastrointestinal/Abdominal: positive: Normal Bowel Sounds, Soft. negative: Tender, Distended, Guarding, Rebound, Tenderness Musculoskeletal: negative: CVA Tenderness Extremity: positive: Normal Capillary Refill. negative: Pedal Edema, Swelling Integumentary: positive: Normal Color, Dry, Warm. negative: Erythema, Cold, Clammy, Diaphoresis, Rash Neurologic: positive: ic designer gate arrays II-XII NML intact, Fully Oriented, Alert, Normal Mood/ Affect, Normal Response, Motor Strength 11/03 ED Treatment Course - LABORATORY CBC & Chemistry Diagram: 01/08/19 21:24 01/08/19 22:30 Medical Decision Making - Medical Decision Making 01/08/19 21:31 83yo F with PMH of DM, HTN, HLD, Dementia presenting to ED with daughter for diarrhea x1wk. Daughter states that when she visits pt in the morning and after work, she has to change the sheets every time bc pt does not seem to notice. Pt states she has the sensation that she is having a bowel movement or is urinating. She denies bloody or melenous stools, abdominal pain, nausea, vomiting, travel, antibiotic use, recent hospital admissions, fevers, decreased appetite, urinary symptoms, chest pain, sob. She goes to a senior center during the day and does not know of anyone else having diarrhea. Vitals: wnls PE: normal exam, no abdominal tenderness, heart murmur ddx includes but not limited to viral diarrhea, infectious diarrhea, ibd, malabsorption, uti labs ordered by rme will add fluids 01/09/19 00:43 labs significant for white count, elevated BUN in 40s, Cr 1.8 (above baseline), lipase elevated. UA shows 3+ LE with bacteria and wbc (could be contaminant from diarrhea). will hold off on abx for now given diarrhea. -c. diff, stool parasites and cultures ordered. -ctap with po contrast ordered. given diarrhea, white count, xiao, will admit pt. *DC/Admit/Observation/Transfer Diagnosis at time of Disposition: Diarrhea - Referrals Referrals: Johnna West MD [Primary Care Provider] - - Patient Instructions - Post Discharge Activity
[2019-01-08 21:49] LABS: BASO % 0.4 % (0-2.0); EOS % 1.9 % (0-4.5); HEMATOCRIT 31.5 % (32.4-45.2); HEMOGLOBIN 10.2 GM/dL (10.7-15.3); LYMPH % 8.2 % (8-40); MCH 28.1 pg (25.7-33.7); MCHC 32.5 g/dl (32.0-36.0); MEAN CELL VOLUME 86.6 fl (80-96); MEAN PLT VOLUME 12.6 fl (7.5-11.1); MONO % 9.1 % (3.8-10.2); NEUT % 80.4 % (42.8-82.8); PLATELET COUNT 328 K/MM3 (134-434); RBC 3.64 M/mm3 (3.60-5.2); RDW 14.7 % (11.6-15.6); WHITE BLOOD COUNT 17.5 K/mm3 (4.0-10.0)
[2019-01-08 22:06] LABS: URINE APPEARANCE TURBID; URINE BILIRUBIN NEGATIVE (NEGATIVE); URINE COLOR YELLOW; URINE GLUCOSE (UA) NEGATIVE (NEGATIVE); URINE KETONE NEGATIVE (NEGATIVE); URINE LEUK ESTERASE 3+ (NEGATIVE); URINE NITRITE NEGATIVE (NEGATIVE); URINE PROTEIN 2+ (NEGATIVE); URINE UROBILINOGEN 0.2 mg/dL (0.2-1.0)
[2019-01-08 22:48] LABS: EPI CELLS 3.6 /HPF (0-5/HPF); URINE BACTERIA 790 /hpf (NEGATIVE); URINE RBC 6.7 /hpf (0-4); URINE WBC 863.8 /hpf (0-5)
[2019-01-08 23:25] LABS: ALBUMIN 2.3 g/dl (3.4-5.0); BILIRUBIN,TOTAL 0.2 mg/dL (0.2-1); BLOOD UREA NITROGEN 45.5 mg/dL (7-18); CALCIUM 8.4 mg/dL (8.5-10.1); CREATININE 1.8 mg/dL (0.55-1.3); POTASSIUM 5.4 mmol/L (3.5-5.1); TOT PROT 6.4 g/dl (6.4-8.2)
[2019-01-09] MEDS ORDERED: CEFTRIAXONE 1 GM in DEXTROSE 5%-WATER - 100 ML IVPB ONE (01:07)
--- NOTE | 2019-01-09 01:17 | PDOC ---
Documentation entered by Christiana Toney SCRIBE, acting as scribe for Greg Cardona MD. Greg Cardona MD: This documentation has been prepared by the gloryibe, Christiana Toney SCRIBE, under my direction and personally reviewed by me in its entirety. I confirm that the documentation accurately reflects all work, treatment, procedures, and medical decision making performed by me. Attending Attestation - Resident Resident Name: Kayley Kemp - ED Attending Attestation I have performed the following: I have examined & evaluated the patient, The case was reviewed & discussed with the resident, I agree w/resident's findings & plan, Exceptions are as noted - HPI HPI: 01/08/19 21:44 The patient is an 83-year-old female, with a past medical history of HTN, HLD, DM, dementia, who presents to the ED for 1 week of diarrhea. Daughter states that she checks in on the patient in the morning and after work and has been needing to change the sheets more frequently because the patient does not notice that she is having bowel movements. No blood noted in the stool. - Physicial Exam PE: 01/09/19 01:14 Patient is awake and alert, well-nourished, in no distress Normocephalic, atraumatic PERRLA, EOMI Mucous membranes dry No JVD CTA RRR Abdomen is soft, nontender, nondistended - Medical Decision Making 01/09/19 01:15 Patient is an 83-year-old female with multiple comorbidities who presents with a beer motor numerous bouts of loose watery stools for the past week that has improved over the past several days and stopped shortly prior to presentation in the ER. On evaluation, patient is awake and alert, serial abdominal exams reveal no focal tenderness. CBC reveals leukocytosis of 17 with predominance of neutrophils. CMP reveals elevated BUN/creatinine consistent with acute renal insufficiency likely related to volume loss. Lipase is also noted to be mildly elevated. Urinalysis consistent with pyuria. Will fluid resuscitate patient at this time. Will obtain urine cultures. We'll also obtain stool studies for culture, ova and parasites and C. difficile. Will treat pyuria with IV ceftriaxone. Will admit
[2019-01-09] MEDS ORDERED: CEFTRIAXONE 1 GM/50 ML BAG ONE (01:25)
--- NOTE | 2019-01-09 01:35 | PN ---
Teaching Attending Note ATTENDING PHYSICIAN STATEMENT I saw and evaluated the patient. I reviewed the resident's note and discussed the case with the resident. I agree with the resident's findings and plan as documented. SUBJECTIVE: Seen and examined; please see resident note for HPI/PMH/PSH/FH/SH/ROS. Briefly , this is an 83 y/o female presenting with abdominal pain and 1 week of diarrhea and vague abdominal pain. OBJECTIVE: NAD, AAOx2, resting in bed Vague abd pain to palpation, slight distention, +BS Lungs CTAB, w/ sym exp RRR s1/2 no mgr CN2-12 wnl, no fnd Not agitated, some memory issues but responds appropriately and keenly EKG reviewed Echo 2018 reviewed; moderate MS (7mmHg) with normal LVEF and impaired diastolic function. ASSESSMENT AND PLAN: # Diarrhea/Abdominal Pain # Likely cystitis # DEEP on CKD # Elevated Lipase # Normocytic Anemia # Hx HTN # Hyperkalemia # Elevated Alk Phos # Hypoalbuminemia # Mod MS, mod TR # Diastolic Dysfunction # Diabetes # Dementia -Admit the patient to the medicine service; assuming possible infectious diarrhea vs. colitis given history (noted old + stool cx from 5 years ago, etc) . Trend CBC and followup CT abdomen/pelvis. Empiric levaquin/flagyl given concurrent cystitis (UA+, old cx's with ibarra-sn EColi) and followup urine, blood , and stool cultures. Checking lactoferrin and fecal WBC, as well. -Baseline Cr appears to be low 1's; assuming prerenal DEEP on CKD. Rechecking now after hydration (assuming hyperK resolves on repeat BMP no need for tele, etc-if still elevated can do insulin/d50). 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 Gaspar ensured she was off FELICIANO/ARB for her HTN management. Confirm home meds with pharmacy in AM. -Lipase isn't at pancreatitis levels but given suboptimal historian and clinical scenerio followup imaigng to insure no lisa-pancreatic inflammation. Bili and LFTs wnl; alk phos 120 but has been higher in past with GGT pending -Checking prealbumin and considering nutrition consult -Verify and continue home medications.
--- NOTE | 2019-01-09 02:38 | HP ---
CHIEF COMPLAINT: diarrhea PCP: Brett HISTORY OF PRESENT ILLNESS: Ms. Sapphire Vaughn is an 83yo female with HTN, HLD, DM, and dementia who presents with diarrhea x 5 days. She denies any abdominal pain, fecal incontinence, or hematochezia associated with it. The diarrhea began 4-5 times a day with watery stool, and it has gotten progressively firmer to a loose stool. She has not had a BM since arriving in the ED. She says she has not had any recent changes to her diet and has no decreased PO intake. She lives in an apartment by herself and attends a [employer] daycare during the day and no sick contacts are there. She denies nausea, vomiting, fever, chills, headache, and dizziness. She also denies any dysuria, frequency, or urinary incontinence. She was admitted in August 2017 after n/v/d and was negative for c. diff. History obtained by EMR and patient. ER course was notable for: (1) ceftriaxone (2) flagyl Recent Travel: none PAST MEDICAL HISTORY: 1. HTN 2. HLD 3. DM 4. dementia PAST SURGICAL HISTORY: denies Social History: Smokin-3 cigarettes a day since Alcohol: none Drugs: none Pt lives alone. Family History: denies Allergies No Known Allergies Allergy (Verified 09/14/17 20:17) HOME MEDICATIONS: Home Medications Medication Instructions Recorded Donepezil HCl [Aricept -] 5 mg PO DAILY 11/08/13 Esomeprazole Mag Trihydrate 40 mg PO DAILY 02/02/14 [Nexium] Atorvastatin Ca [Lipitor] 40 mg PO DAILY 09/27/15 Aspirin [ASA -] 81 mg PO DAILY 11/09/16 Ezetimibe [Zetia] 10 mg PO DAILY 11/09/16 Lisinopril [Prinivil] 10 mg PO DAILY 11/09/16 Montelukast Na [Singulair -] 10 mg PO HS 06/07/17 Amlodipine Besylate [Norvasc -] 10 mg PO DAILY #30 tablet 09/20/17 Cephalexin Monohydrate [Keflex -] 500 mg PO BID #14 capsule 09/20/17 Insulin (Levemir) [Levemir Vial] 18 unit SQ BID #1 vial 09/20/17 Insulin (Novolog) [Novolog Flexpen] See Protocol SQ ACHS #2 pen 09/20/17 Metoprolol Succinate [Toprol XL -] 100 mg PO DAILY #30 tab.sr.24h 09/20/17 *Not confirmed by pharmacy REVIEW OF SYSTEMS CONSTITUTIONAL: Absent: fever, chills, diaphoresis, generalized weakness, malaise, loss of appetite, weight change HEENT: Absent: rhinorrhea, nasal congestion, throat pain, visual changes CARDIOVASCULAR: Absent: chest pain, palpitations, irregular heart rate, peripheral edema RESPIRATORY: Absent: cough, shortness of breath GASTROINTESTINAL: Reports: diarrhea Absent: abdominal pain, abdominal distension, nausea, vomiting, constipation, melena, hematochezia GENITOURINARY: Absent: dysuria, frequency, urgency, hematuria MUSCULOSKELETAL: Absent: myalgia, arthralgia, joint swelling, back pain, neck pain SKIN: Absent: rash, itching, pallor HEMATOLOGIC/IMMUNOLOGIC: Absent: easy bleeding, easy bruising, lymphadenopathy, frequent infections ENDOCRINE: Absent: unexplained weight gain, unexplained weight loss, heat intolerance, cold intolerance NEUROLOGIC: Absent: headache, focal weakness or paresthesias, dizziness, bladder or bowel incontinence PSYCHIATRIC: Absent: anxiety, depression, suicidal or homicidal ideation, hallucinations. PHYSICAL EXAMINATION Vital Signs - 24 hr 01/08/19 19:34 Temperature 98.8 F Pulse Rate 68 Respiratory 16 Rate Blood Pressure 138/41 L O2 Sat by Pulse 100 Oximetry (%) GENERAL: Awake, alert, and fully oriented, in no acute distress. HEAD: Normal with no signs of trauma. EYES: Pupils equal, round and reactive to light, extraocular movements intact, sclera anicteric, conjunctiva clear. No lid lag. EARS, NOSE, THROAT: Ears normal, nares patent. Moist mucous membranes. NECK: Normal range of motion, supple without lymphadenopathy, JVD, or masses. LUNGS: Breath sounds equal, clear to auscultation bilaterally. No wheezes, and no crackles. No accessory muscle use. HEART: Regular rate and rhythm, 3/6 systolic murmur at left sternal border. ABDOMEN: Soft, nontender, not distended, hyperactive bowel sounds, no guarding, no rebound, no masses. No hepatomegaly or splenomegaly. MUSCULOSKELETAL: Normal range of motion at all joints. No bony deformities or tenderness. UPPER EXTREMITIES: warm, well-perfused. No cyanosis. No clubbing. No peripheral edema. LOWER EXTREMITIES: 2+ pulses, warm, well-perfused. No peripheral edema. NEUROLOGICAL: Cranial nerves II-XII intact. Normal speech. PSYCHIATRIC: Cooperative. Good eye contact. Appropriate mood and affect. SKIN: Warm, dry, normal turgor, no rashes or lesions noted, normal capillary refill. Laboratory Results - last 24 hr 01/08/19 01/08/19 01/08/19 21:24 21:24 21:45 WBC 17.5 H RBC 3.64 Hgb 10.2 L Hct 31.5 L D MCV 86.6 MCH 28.1 MCHC 32.5 RDW 14.7 Plt Count 328 D MPV 12.6 H Absolute Neuts (auto) 14.1 H Neutrophils % 80.4 D Lymphocytes % 8.2 D Monocytes % 9.1 Eosinophils % 1.9 Basophils % 0.4 Nucleated RBC % 0 Sodium Cancelled Potassium Cancelled Chloride Cancelled Carbon Dioxide Cancelled Anion Gap Cancelled BUN Cancelled Creatinine Cancelled Est GFR (CKD-EPI)AfAm Cancelled Est GFR (CKD-EPI)NonAf Cancelled Random Glucose Cancelled Calcium Cancelled Total Bilirubin Cancelled AST Cancelled ALT Cancelled Alkaline Phosphatase Cancelled Total Protein Cancelled Albumin Cancelled Lipase Cancelled Urine Color Yellow Urine Appearance Turbid Urine pH 5.0 Ur Specific [place] 1.009 L Urine Protein 2+ H Urine Glucose (UA) Negative Urine Ketones Negative Urine Blood 1+ H Urine Nitrite Negative Urine Bilirubin Negative Urine Urobilinogen 0.2 Ur Leukocyte Esterase 3+ H Urine WBC (Auto) 863.8 Urine RBC (Auto) 6.7 U Epithel Cells (Auto) 3.6 Urine Bacteria (Auto) 790 01/08/19 22:30 WBC RBC Hgb Hct MCV MCH MCHC RDW Plt Count MPV Absolute Neuts (auto) Neutrophils % Lymphocytes % Monocytes % Eosinophils % Basophils % Nucleated RBC % Sodium 141 Potassium 5.4 H Chloride 113 H Carbon Dioxide 21 Anion Gap 7 L BUN 45.5 H Creatinine 1.8 H Est GFR (CKD-EPI)AfAm 29.23 Est GFR (CKD-EPI)NonAf 25.22 Random Glucose 80 Calcium 8.4 L Total Bilirubin 0.2 AST 22 ALT 15 Alkaline Phosphatase 120 H Total Protein 6.4 Albumin 2.3 L Lipase 716 H Urine Color Urine Appearance Urine pH Ur Specific [place] Urine Protein Urine Glucose (UA) Urine Ketones Urine Blood Urine Nitrite Urine Bilirubin Urine Urobilinogen Ur Leukocyte Esterase Urine WBC (Auto) Urine RBC (Auto) U Epithel Cells (Auto) Urine Bacteria (Auto) ASSESSMENT/PLAN: The patient is an 83yo female with HTN, HLD, DM, and dementia who presents with diarrhea x 5 days. She is noted to have dementia in previous notes, and her daughter contributed to the interview. The patient denied any incontinence to me but it was reported by her daughter to have had bowel incontinence. 1. diarrhea The patient has had diarrhea for 5 days and has been improving each day. She was admitted in August 2017 for GI symptoms, UTI, and leukocytosis. She was c. diff negative at that time. She has had positive stool cultures in the past with diagnosis of colitis. She is not having any symptoms other than diarrhea today. She has leukocytosis 17.5. No sick contacts. No changes in food. It appears to be resolving. -stool studies ordered -CT abdomen 2. UTI The patient denies any urinary symptoms but does have hx of asymptomatic UTI. + 2 protein. +1 blood. +3 leukocyte esterase. SG 1.009. WBC 864. Given ceftriaxone in ED. -urine culture pending 3. leukocytosis History of leukocytosis on admission. Today WBC 17.5. Pt is having diarrhea and UTI, so either could elevate white count. She is normotensive and afebrile. -treating possible sources of infection -repeat CBC 4. hyperkalemia No recent history in EMR of hyperkalemia. Today is 5.4. Pt's K in August 2017 is 4.3 which is an increase. Cr 1.1-->1.8. This is indicative of kidney injury. This can be chronic or acute on chronic. -calcium carbonate 1g -hydrate and repeat CMP 5. elevated lipase Lipase has been elevated 832 in 2014. Today is 716. Was in normal range in 2018. Pt is not having any abdominal pain or ecchymosis suggestive of pancreatitis. -GGT ordered 6. normocytic anemia Hb is 10.2 today. 12.6 in 2018. MCV 86. Pt denies any bleeding or fatigue. -iron studies 7. DM BG 80 today. Well-controlled -switch insulin to SSI DVT prophylaxis herparin FEN IV fluids addressing hyperkalemia with calcium carbonate and repeating CMP Visit type - Emergency Visit Emergency Visit: Yes ED Registration Date: 01/09/19 Care time: The patient presented to the Emergency Department on the above date and was hospitalized for further evaluation of their emergent condition. - New Patient This patient is new to me today: Yes Date on this admission: 01/09/19 - Critical Care Critical Care patient: No ATTENDING PHYSICIAN STATEMENT I saw and evaluated the patient. I reviewed the resident's note and discussed the case with the resident. I agree with the resident's findings and plan as documented. SUBJECTIVE: OBJECTIVE: ASSESSMENT AND PLAN:
[2019-01-09] MEDS ORDERED: DEXTROSE 50%-WATER - 25 GM/50 ML VIAL IVPUSH ONE (03:35)
[2019-01-09] MEDS ORDERED: CALCIUM GLUCONATE 10% - 1,000 MG/10 ML VIAL IVPUSH ONE (03:35)
[2019-01-09] MEDS ORDERED: INSULIN REGULAR HUMAN 100 UNITS/ML *VIAL IVPUSH ONE (03:35)
[2019-01-09] MEDS ORDERED: CALCIUM GLUCONATE 10% - 1,000 MG/10 ML VIAL ONE (04:37)
[2019-01-09] MEDS ORDERED: DEXTROSE 50%-WATER 25 GM/50 ML DISP.SYRIN ONE (04:37)
[2019-01-09] MEDS ORDERED: INSULIN REGULAR HUMAN 100 UNITS/ML *VIAL ONE (04:38)
[2019-01-09 08:47] VITALS: BMI 25.7
[2019-01-09 09:30] LABS: BASO % 0.4 % (0-2.0); EOS % 1.6 % (0-4.5); HEMATOCRIT 28.7 % (32.4-45.2); HEMOGLOBIN 9.5 GM/dL (10.7-15.3); LYMPH % 5.4 % (8-40); MCH 28.5 pg (25.7-33.7); MEAN CELL VOLUME 86.3 fl (80-96); MEAN PLT VOLUME 11.8 fl (7.5-11.1); MONO % 7.6 % (3.8-10.2); RBC 3.32 M/mm3 (3.60-5.2); RDW 14.3 % (11.6-15.6); WHITE BLOOD COUNT 18.9 K/mm3 (4.0-10.0)
[2019-01-09 10:09] LABS: PLATELET COUNT 299 K/MM3 (134-434)
[2019-01-09 10:13] LABS: ALBUMIN 2.3 g/dl (3.4-5.0); BILIRUBIN,TOTAL 0.3 mg/dL (0.2-1); BLOOD UREA NITROGEN 38.7 mg/dL (7-18); CALCIUM 8.7 mg/dL (8.5-10.1); CREATININE 1.6 mg/dL (0.55-1.3); MAGNESIUM 1.9 mg/dL (1.8-2.4); POTASSIUM 4.8 mmol/L (3.5-5.1); TOT PROT 6.1 g/dl (6.4-8.2)
--- NOTE | 2019-01-09 13:37 | PN ---
Physical Exam: SUBJECTIVE: Patient seen and examined at bedside. pt has no acute complaints. pt states that she has not had episodes of diarrhea since shes been in the hospital. pt denies n/v/d. OBJECTIVE: Vital Signs Period Temp Pulse Resp BP Sys/Richardson Pulse Ox Last 24 Hr 98.2 F-98.8 F 68-89 16-20 131-180/41-72 97-100 GENERAL: The patient is awake, alert, and oriented, in no acute distress. HEAD: Normal with no signs of trauma. LUNGS: Breath sounds equal, clear to auscultation bilaterally, no wheezes, no crackles, no accessory muscle use. HEART: Regular rate and rhythm, S1, S2, systolic murmur LSB ABDOMEN: Soft, nontender, nondistended, normoactive bowel sounds, no guarding EXTREMITIES: 2+ pulses, warm, well-perfused, no edema. PSYCH: Normal mood, normal affect. SKIN: Warm, dry, normal turgor, no rashes or lesions noted Laboratory Last Values WBC 18.9 K/mm3 (4.0-10.0) H 01/09/19 08:50 RBC 3.32 M/mm3 (3.60-5.2) L 01/09/19 08:50 Hgb 9.5 GM/dL (10.7-15.3) L 01/09/19 08:50 Hct 28.7 % (32.4-45.2) L 01/09/19 08:50 MCV 86.3 fl (80-96) 01/09/19 08:50 MCH 28.5 pg (25.7-33.7) 01/09/19 08:50 MCHC 33.0 g/dl (32.0-36.0) 01/09/19 08:50 RDW 14.3 % (11.6-15.6) 01/09/19 08:50 Plt Count 299 K/MM3 (134-434) 01/09/19 08:50 MPV 11.8 fl (7.5-11.1) H 01/09/19 08:50 Absolute Neuts (auto) 16.1 K/mm3 (1.5-8.0) H 01/09/19 08:50 Neutrophils % 85.0 % (42.8-82.8) H 01/09/19 08:50 Lymphocytes % 5.4 % (8-40) L D 01/09/19 08:50 Monocytes % 7.6 % (3.8-10.2) 01/09/19 08:50 Eosinophils % 1.6 % (0-4.5) 01/09/19 08:50 Basophils % 0.4 % (0-2.0) 01/09/19 08:50 Nucleated RBC % 0 % (0-0) 01/09/19 08:50 Sodium 146 mmol/L (136-145) H 01/09/19 08:50 Potassium 4.8 mmol/L (3.5-5.1) 01/09/19 08:50 Chloride 118 mmol/L (98-107) H 01/09/19 08:50 Carbon Dioxide 22 mmol/L (21-32) 01/09/19 08:50 Anion Gap 6 MMOL/L (8-16) L 01/09/19 08:50 BUN 38.7 mg/dL (7-18) H 01/09/19 08:50 Creatinine 1.6 mg/dL (0.55-1.3) H 01/09/19 08:50 Est GFR (CKD-EPI)AfAm 33.70 01/09/19 08:50 Est GFR (CKD-EPI)NonAf 29.08 01/09/19 08:50 Random Glucose 158 mg/dL (74-106) H 01/09/19 08:50 Calcium 8.7 mg/dL (8.5-10.1) 01/09/19 08:50 Phosphorus 3.0 mg/dL (2.5-4.9) 01/09/19 08:50 Magnesium 1.9 mg/dL (1.8-2.4) 01/09/19 08:50 Ferritin 131.8 ng/ml (8-388) 01/09/19 08:50 Total Bilirubin 0.3 mg/dL (0.2-1) 01/09/19 08:50 GGT 25 U/L (5-85) 01/09/19 08:50 AST 9 U/L (15-37) L 01/09/19 08:50 ALT 13 U/L (13-61) 01/09/19 08:50 Alkaline Phosphatase 114 U/L (45-117) 01/09/19 08:50 Total Protein 6.1 g/dl (6.4-8.2) L 01/09/19 08:50 Albumin 2.3 g/dl (3.4-5.0) L 01/09/19 08:50 Lipase 716 U/L (73-393) H 01/08/19 22:30 Urine Color Yellow 01/08/19 21:45 Urine Appearance Turbid 01/08/19 21:45 Urine pH 5.0 (5.0-8.0) 01/08/19 21:45 Ur Specific [place] 1.009 (1.010-1.035) L 01/08/19 21:45 Urine Protein 2+ (NEGATIVE) H 01/08/19 21:45 Urine Glucose (UA) Negative (NEGATIVE) 01/08/19 21:45 Urine Ketones Negative (NEGATIVE) 01/08/19 21:45 Urine Blood 1+ (NEGATIVE) H 01/08/19 21:45 Urine Nitrite Negative (NEGATIVE) 01/08/19 21:45 Urine Bilirubin Negative (NEGATIVE) 01/08/19 21:45 Urine Urobilinogen 0.2 mg/dL (0.2-1.0) 01/08/19 21:45 Ur Leukocyte Esterase 3+ (NEGATIVE) H 01/08/19 21:45 Urine WBC (Auto) 863.8 /hpf (0-5) 01/08/19 21:45 Urine RBC (Auto) 6.7 /hpf (0-4) 01/08/19 21:45 U Epithel Cells (Auto) 3.6 /HPF (0-5/HPF) 01/08/19 21:45 Urine Bacteria (Auto) 790 /hpf (NEGATIVE) 01/08/19 21:45 Active Medications Generic Name Dose Route Start Last Admin Trade Name Freq PRN Reason Stop Dose Admin Heparin Sodium (Porcine) 5,000 unit 01/09/19 06:00 Heparin - SQ TID CROW Metronidazole 500 mg in 100 mls @ 100 mls/hr 01/09/19 02:00 01/09/19 11:28 Flagyl 500mg Premixed Ivpb - IVPB 100 mls/hr Q8H-IV CROW Administration ASSESSMENT/PLAN: pt is 83 yo F w/ PMH of HTN, HLD, DM, and dementia presented to the ED following diarrhea for 5 days. Pt states that the diarrhea initially presented as very loose watery stools, then progressively to less watery and more firm diarrhea. the diarrhea stopped x2 days. today, the pt denies abdominal pain and diarrhea. Diarrhea 2/2 infectious cause vs colitis. -continue trending CBC -awaiting stool cultures -awaiting lactoferrin -pending CT abdomen/pelvis DEEP 2/2 dehydration -BUN/Cr 45.5/1.8-->38.7/1.6 -baseline Cr around 1 -c/w gentle hydration -rpt BMP -ordering Urine Na, Cr, and eosinophils HTN -c/w home meds DM -sliding scale Systolic heart murmur -Echo 2018 WNL -pt states the murmur is chronic Visit type - Emergency Visit Emergency Visit: No - New Patient This patient is new to me today: Yes Date on this admission: 01/09/19 - Critical Care Critical Care patient: No - Discharge Referral Referred to [facility] No ATTENDING PHYSICIAN STATEMENT I saw and evaluated the patient. I reviewed the resident's note and discussed the case with the resident. I agree with the resident's findings and plan as documented. SUBJECTIVE: OBJECTIVE: ASSESSMENT AND PLAN:
--- NOTE | 2019-01-09 13:38 | CONSULT ---
Consult - text type - Consultation Consultation Note: Renal Consult for DEEP This is a 83 year old woman with PMhx of Dementia, Hypertension, HLD, DM who presented with diarrhea and noted to have Cr of 1.8. Pt was seen on prior admission for DEEP that resolved. Baseline Cr 0.9. Pt reports having loose stools (3-4x daily) for 5 days. Now resolved. No abd pain, no blood in stools. No recent Abx use or sick contacts. Appetite is preserved and was taking in fluids. Denies any NSAID use. No recent contrast exposure. No SOB, chest pain, fever, chills. No dyuria, hematuirea or flank pain. PMhx: as above Allergies: NDKA Family hx: NC Social hx: No T/A/D ROS: as per HPI, all other pertinent ros negative Home Medications Medication Instructions Recorded Donepezil HCl [Aricept -] 5 mg PO DAILY 11/08/13 Esomeprazole Mag Trihydrate 40 mg PO DAILY 02/02/14 [Nexium] Atorvastatin Ca [Lipitor] 40 mg PO DAILY 09/27/15 Aspirin [ASA -] 81 mg PO DAILY 11/09/16 Ezetimibe [Zetia] 10 mg PO DAILY 11/09/16 Lisinopril [Prinivil] 10 mg PO DAILY 11/09/16 Montelukast Na [Singulair -] 10 mg PO HS 06/07/17 Amlodipine Besylate [Norvasc -] 10 mg PO DAILY #30 tablet 09/20/17 Cephalexin Monohydrate [Keflex -] 500 mg PO BID #14 capsule 09/20/17 Insulin (Levemir) [Levemir Vial] 18 unit SQ BID #1 vial 09/20/17 Insulin (Novolog) [Novolog Flexpen] See Protocol SQ ACHS #2 pen 09/20/17 Metoprolol Succinate [Toprol XL -] 100 mg PO DAILY #30 tab.sr.24h 09/20/17 Vital Signs Temperature 98.8 F 01/09/19 05:02 Pulse Rate 89 01/09/19 05:02 Respiratory Rate 16 01/09/19 05:02 Blood Pressure 131/72 01/09/19 05:02 O2 Sat by Pulse Oximetry (%) 97 01/09/19 05:02 Intake & Output 07/02/1701/07/19 01/08/19 01/09/19 23:59 23:59 23:59 23:59 Weight 68.855 kg 70.171 kg NAD awake and alert neck supple, no JVD RRR, + systolic murmur CTA soft NT/ND BS + no LE edema, clubbing or cyanosis no focal neurologic deficits CBC, BMP 01/09/19 08:50 01/09/19 08:50 Laboratory Tests 01/08/19 01/09/19 21:45 08:50 Calcium 8.7 Phosphorus 3.0 Magnesium 1.9 Albumin 2.3 L Ur Specific [place] 1.009 L Urine Protein 2+ H Urine Blood 1+ H Ur Leukocyte Esterase 3+ H Urine WBC (Auto) 863.8 Urine RBC (Auto) 6.7 Current Medications Heparin Sodium (Porcine) (Heparin -) 5,000 unit SQ TID CROW Metronidazole (Flagyl 500mg Premixed Ivpb -) 500 mg in 100 mls @ 100 mls/hr IVPB Q8H-IV CROW Last Admin: 01/09/19 11:28 Dose: 100 mls/hr 83 year old woman with PMhx of Dementia, Hypertension, HLD, DM who presented with diarrhea and noted to have Cr of 1.8. Pt was seen on prior admission for DEEP that resolved. Baseline Cr 0.9. #DEEP #Diarrhea #Anemia #Hypernatremia #Hypertension #Hyperlipidemia #DM Differential for DEEP: volume depletion in setting of diarreha vs. normotensive ATN vs. AIN vs. obstruction Water deficit is: 0.6L Would maintain on isotonic saline at 75cc per hour until tomorrow morning Check urine stuides for FeNa, Urine eosinopils no acute need for imaging of the kidney check bladder scan to ensure pt is voiding as prior US showed mild urinary retention no acute need for [employer] Dose all meds for CrCl < 30 f/u officeal CT abd results continue Flagyl as per primary oral water intake as tolerated Thank you Will follow Miguel Angel Núñez DO
--- NOTE | 2019-01-09 13:51 | PN ---
Teaching Attending Note Name of Resident: Ivett Goodwin ATTENDING PHYSICIAN STATEMENT I saw and evaluated the patient. I reviewed the resident's note and discussed the case with the resident. I agree with the resident's findings and plan as documented. SUBJECTIVE:states abdominal pain resolved and diarrhea has resolved. states she had 3 episodes yesterday but has not had BM since. denies CP, SOB, fever, chills , N/V/C/D, reports no one else in the house is sick and no known sick contacts colonoscopy <5 years ago done for routine, reports it was normal OBJECTIVE: Last Vital Signs Temp Pulse Resp BP Pulse Ox 98.8 F 89 16 131/72 97 01/09/19 05:02 01/09/19 05:02 01/09/19 05:02 01/09/19 05:02 01/09/19 05:02 General NAD CV S1 S2 RRR +murmur 3/6 Lungs CTA B/L no wheezing/rales/rhonchi Abdomen soft NT/ND Extremities no pedal edema ASSESSMENT AND PLAN: 83yo F with PMH DM, dementia, diastolic chf presented to the ER with diarrhea and leukocytosis and found to have UTI 1. Diarrhea- self resolved but has significant leukocytosis, CT abdomen and pelvix done awaiting read. concerns for cdiff given risk factors however now diarrhea self resolved. received Levaquin/ceftriaxone/flagyl in the ER. will cont with flagyl and ceftriaxone at this time. check stool studies including cdiff once has another BM 2. UTI- started on ceftriaxone. already received abx and cx still not obtained. f/u cx 3. Acute on CKD- could be from dehydration vs UTI. cont with gentle hydration. avoid nephrotoxic agents. f/u renal imaging on CT scan. nephro consulted 4. Hyperkalemia- treated in the ER. resolved 5. anemia- no signs of bleeding. likely dilutional components. check iron studies. no indication for transfusion 6. +systolic murmur- echo from 2018 showing with valve area 1.6. will abilio routing surveillance 7. DM- hold oral agents. cont bgm and iss 8. Dementia 9. DVT ppx- hep sq
[2019-01-09] MEDS: CEFTRIAXONE 1 GM in DEXTROSE 5%-WATER - 50 ML IVPB SCH (13:57)
[2019-01-09] MEDS: HEPARIN NA (PORCINE) 5,000 UNITS/ML 1ML VIAL SQ SCH ×3 (14:00→21:59)
[2019-01-09] MEDS ORDERED: SODIUM CHLORIDE 1,000 ML IV SCH ×2 (14:15→15:14)
[2019-01-09] MEDS: ASPIRIN 81 MG CHEWABLE TABLETS PO SCH (15:58)
[2019-01-09] MEDS: amLODIPine BESYLATE 5 MG TABLET (FP) PO SCH (15:58)
[2019-01-09] MEDS: LISINOPRIL 10 MG TABLET (FP) PO SCH (15:58)
--- NOTE | 2019-01-09 17:05 | EKG ---
Test Reason : Blood Pressure : / mmHG Vent. Rate : 067 BPM Atrial Rate : 067 BPM P-R Int : 136 ms QRS Dur : 074 ms QT Int : 424 ms P-R-T Axes : 065 056 090 degrees QTc Int : 448 ms SINUS RHYTHM WITH PREMATURE ATRIAL COMPLEXES POSSIBLE LEFT ATRIAL ENLARGEMENT SEPTAL INFARCT , AGE UNDETERMINED ABNORMAL ECG WHEN COMPARED WITH ECG OF 16-SEP-2017 15:29, SEPTAL INFARCT IS NOW PRESENT NON-SPECIFIC CHANGE IN ST SEGMENT IN ANTERIOR LEADS T WAVE INVERSION NO LONGER EVIDENT IN ANTERIOR LEADS Confirmed by LADY CARTER MD ([id number]) on 01/09/2019 5:05:27 PM Referred By: Confirmed By:LADY CARTER MD
[2019-01-09] MEDS: INSULIN SLIDING SCALE (NOVOLOG) 1 VIAL SQ SCH ×2 (18:12→22:24)
[2019-01-09] MEDS: ATORVASTATIN CA 40 MG TABLET (FP) PO SCH (21:59)
[2019-01-09] MEDS ORDERED: MONTELUKAST NA 5 MG TAB.CHEW PO SCH (22:00)
[2019-01-09] MEDS ORDERED: PT OWN MED DRAWER 7, Y5N ONE (22:59)
[2019-01-09] MEDS: MONTELUKAST NA 10 MG TABLET PO SCH (23:39)
[2019-01-10] MEDS: HEPARIN NA (PORCINE) 5,000 UNITS/ML 1ML VIAL SQ SCH ×3 (06:15→22:17)
[2019-01-10] MEDS: INSULIN SLIDING SCALE (NOVOLOG) 1 VIAL SQ SCH ×4 (06:15→22:16)
[2019-01-10 06:39] LABS: BASO % 0.5 % (0-2.0); EOS % 2.4 % (0-4.5); HEMOGLOBIN 9.6 GM/dL (10.7-15.3); LYMPH % 6.8 % (8-40); MCH 28.7 pg (25.7-33.7); MCHC 33.1 g/dl (32.0-36.0); MEAN CELL VOLUME 86.7 fl (80-96); MEAN PLT VOLUME 11.9 fl (7.5-11.1); MONO % 6.4 % (3.8-10.2); NEUT % 83.9 % (42.8-82.8); PLATELET COUNT 294 K/MM3 (134-434); RBC 3.34 M/mm3 (3.60-5.2); RDW 14.5 % (11.6-15.6); WHITE BLOOD COUNT 18.2 K/mm3 (4.0-10.0)
[2019-01-10 06:54] LABS: ALBUMIN 2.2 g/dl (3.4-5.0); BILIRUBIN,TOTAL 0.3 mg/dL (0.2-1); BLOOD UREA NITROGEN 28.6 mg/dL (7-18); CALCIUM 8.6 mg/dL (8.5-10.1); CREATININE 1.2 mg/dL (0.55-1.3); MAGNESIUM 1.8 mg/dL (1.8-2.4); PHOSPHOROUS 2.3 mg/dL (2.5-4.9); POTASSIUM 4.6 mmol/L (3.5-5.1); TOT PROT 5.8 g/dl (6.4-8.2)
[2019-01-10 08:11] LABS: SERUM IRON SATURATION 12 % (15-55); TOTAL IRON BINDING CAPACITY 179 ug/dL (250-450)
[2019-01-10] MEDS ORDERED: NAPH,MB-DB/K PH,MBDB POWDER PACKET PO ONE (08:12)
[2019-01-10] MEDS ORDERED: cefTRIAXone SODIUM 1 GM VIAL ONE (10:57)
[2019-01-10] MEDS ORDERED: DEXTROSE 5%-WATER - 50 ML IVPB ONE (10:58)
[2019-01-10] MEDS: CEFTRIAXONE 1 GM in DEXTROSE 5%-WATER - 50 ML IVPB SCH (11:04)
[2019-01-10] MEDS: LISINOPRIL 10 MG TABLET (FP) PO SCH (11:05)
[2019-01-10] MEDS: ASPIRIN 81 MG CHEWABLE TABLETS PO SCH (11:05)
[2019-01-10] MEDS: amLODIPine BESYLATE 5 MG TABLET (FP) PO SCH (11:05)
[2019-01-10] MEDS: DONEPEZIL HCL 5 MG TABLET (FP) PO SCH (11:06)
[2019-01-10] MEDS: EZETIMIBE 10 MG TABLET (FP) PO SCH (11:07)
[2019-01-10] MEDS ORDERED: INSULIN (NOVOLOG) ASPART 100 UNITS/ML 10ML VIAL ONE (12:14)
--- NOTE | 2019-01-10 13:27 | PN ---
Physical Exam: SUBJECTIVE: Patient seen and examined at bedside. pt has no acute complaints and states she had a BM which was firm and not diarrhea OBJECTIVE: Vital Signs Period Temp Pulse Resp BP Sys/Richardson Pulse Ox Last 24 Hr 97.8 F-98.8 F 74-81 18-20 140-185/56-70 98 GENERAL: The patient is awake, alert, and fully oriented, in no acute distress. LUNGS: Breath sounds equal, clear to auscultation bilaterally, no wheezes, no crackles, no accessory muscle use. HEART: Regular rate and rhythm, S1, S2, systolic murmur ABDOMEN: Soft, nontender, nondistended, normoactive bowel sounds EXTREMITIES: 2+ pulses, warm, well-perfused, no edema. PSYCH: Normal mood, normal affect. SKIN: Warm, dry, normal turgor, no rashes or lesions noted Laboratory Last Values WBC 18.2 K/mm3 (4.0-10.0) H 01/10/19 05:41 RBC 3.34 M/mm3 (3.60-5.2) L 01/10/19 05:41 Hgb 9.6 GM/dL (10.7-15.3) L 01/10/19 05:41 Hct 29.0 % (32.4-45.2) L 01/10/19 05:41 MCV 86.7 fl (80-96) 01/10/19 05:41 MCH 28.7 pg (25.7-33.7) 01/10/19 05:41 MCHC 33.1 g/dl (32.0-36.0) 01/10/19 05:41 RDW 14.5 % (11.6-15.6) 01/10/19 05:41 Plt Count 294 K/MM3 (134-434) 01/10/19 05:41 MPV 11.9 fl (7.5-11.1) H 01/10/19 05:41 Absolute Neuts (auto) 15.3 K/mm3 (1.5-8.0) H 01/10/19 05:41 Neutrophils % 83.9 % (42.8-82.8) H 01/10/19 05:41 Lymphocytes % 6.8 % (8-40) L D 01/10/19 05:41 Monocytes % 6.4 % (3.8-10.2) 01/10/19 05:41 Eosinophils % 2.4 % (0-4.5) 01/10/19 05:41 Basophils % 0.5 % (0-2.0) 01/10/19 05:41 Nucleated RBC % 0 % (0-0) 01/10/19 05:41 Sodium 144 mmol/L (136-145) 01/10/19 05:41 Potassium 4.6 mmol/L (3.5-5.1) 01/10/19 05:41 Chloride 116 mmol/L (98-107) H 01/10/19 05:41 Carbon Dioxide 22 mmol/L (21-32) 01/10/19 05:41 Anion Gap 6 MMOL/L (8-16) L 01/10/19 05:41 BUN 28.6 mg/dL (7-18) H 01/10/19 05:41 Creatinine 1.2 mg/dL (0.55-1.3) 01/10/19 05:41 Est GFR (CKD-EPI)AfAm 47.72 01/10/19 05:41 Est GFR (CKD-EPI)NonAf 41.18 01/10/19 05:41 POC Glucometer 191 UNITS (80-120) 01/10/19 05:53 Random Glucose 219 mg/dL (74-106) H 01/10/19 05:41 Calcium 8.6 mg/dL (8.5-10.1) 01/10/19 05:41 Phosphorus 2.3 mg/dL (2.5-4.9) L 01/10/19 05:41 Magnesium 1.8 mg/dL (1.8-2.4) 01/10/19 05:41 Iron 22 ug/dL (27-139) L 01/09/19 08:50 TIBC 179 ug/dL (250-450) L 01/09/19 08:50 Iron Saturation 12 % (15-55) L 01/09/19 08:50 Unsaturated IBC 157 ug/dL (118-369) 01/09/19 08:50 Ferritin 131.8 ng/ml (8-388) 01/09/19 08:50 Total Bilirubin 0.3 mg/dL (0.2-1) 01/10/19 05:41 GGT 25 U/L (5-85) 01/09/19 08:50 AST 6 U/L (15-37) L 01/10/19 05:41 ALT 11 U/L (13-61) L 01/10/19 05:41 Alkaline Phosphatase 107 U/L (45-117) 01/10/19 05:41 Total Protein 5.8 g/dl (6.4-8.2) L 01/10/19 05:41 Albumin 2.2 g/dl (3.4-5.0) L 01/10/19 05:41 Lipase 716 U/L (73-393) H 01/08/19 22:30 Urine Color Yellow 01/08/19 21:45 Urine Appearance Turbid 01/08/19 21:45 Urine pH 5.0 (5.0-8.0) 01/08/19 21:45 Ur Specific [place] 1.009 (1.010-1.035) L 01/08/19 21:45 Urine Protein 2+ (NEGATIVE) H 01/08/19 21:45 Urine Glucose (UA) Negative (NEGATIVE) 01/08/19 21:45 Urine Ketones Negative (NEGATIVE) 01/08/19 21:45 Urine Blood 1+ (NEGATIVE) H 01/08/19 21:45 Urine Nitrite Negative (NEGATIVE) 01/08/19 21:45 Urine Bilirubin Negative (NEGATIVE) 01/08/19 21:45 Urine Urobilinogen 0.2 mg/dL (0.2-1.0) 01/08/19 21:45 Ur Leukocyte Esterase 3+ (NEGATIVE) H 01/08/19 21:45 Urine WBC (Auto) 863.8 /hpf (0-5) 01/08/19 21:45 Urine RBC (Auto) 6.7 /hpf (0-4) 01/08/19 21:45 U Epithel Cells (Auto) 3.6 /HPF (0-5/HPF) 01/08/19 21:45 Urine Bacteria (Auto) 790 /hpf (NEGATIVE) 01/08/19 21:45 Ur Random Creatinine 39.0 mg/dL (30-150) 01/09/19 16:55 U Random Total Protein 113.3 mg/dl (0-11.9) H 01/09/19 16:55 Ur Random Sodium 78 MMOL/L (40-220) 01/09/19 16:55 Current Medications Amlodipine Besylate (Norvasc -) 5 mg PO DAILY [facility] Last Admin: 01/10/19 11:05 Dose: 5 mg Aspirin (Asa -) 81 mg PO DAILY [facility] Last Admin: 01/10/19 11:05 Dose: 81 mg Atorvastatin Calcium (Lipitor -) 40 mg PO HS [facility] Last Admin: 01/09/19 21:59 Dose: 40 mg Donepezil HCl (Aricept -) 5 mg PO DAILY [facility] Last Admin: 01/10/19 11:06 Dose: 5 mg Ezetimibe (Zetia -) 10 mg PO DAILY [facility] Last Admin: 01/10/19 11:07 Dose: 10 mg Heparin Sodium (Porcine) (Heparin -) 5,000 unit SQ TID [facility] Last Admin: 01/10/19 06:15 Dose: 5,000 unit Metronidazole (Flagyl 500mg Premixed Ivpb -) 500 mg in 100 mls @ 100 mls/hr IVPB Q8H-IV [facility] Last Admin: 01/10/19 11:04 Dose: 100 mls/hr Ceftriaxone Sodium 1 gm/ (Dextrose) 50 mls @ 200 mls/hr IVPB DAILY [facility]; Protocol Last Admin: 01/10/19 11:04 Dose: 200 mls/hr Insulin Aspart (Novolog Vial Sliding Scale -) 1 vial SQ ACHS [facility]; Protocol Last Admin: 01/10/19 12:15 Dose: 4 units Lisinopril (Prinivil) 10 mg PO DAILY [facility] Last Admin: 01/10/19 11:05 Dose: 10 mg Metoprolol Succinate (Toprol Xl -) 50 mg PO DAILY [facility] Last Admin: 01/10/19 11:05 Dose: 50 mg Montelukast Sodium (Singulair -) 10 mg PO HS [facility] Last Admin: 01/09/19 23:39 Dose: [address] Abdomen/ pelvis Small hiatus hernia. No gross gallstones are identified 2. Hypodensities in the right kidney likely representing hyperdense cysts which correlation with renal ultrasound would be helpful for further evaluation. There is stranding of the perinephric fat , bilaterally likely chronic. There is no evidence of small bowel obstruction. Normal-appearing appendix. Nonvisualization of the uterus, status post hysterectomy. Air within the urinary bladder, likely iatrogenic ASSESSMENT/PLAN: pt is 83 yo F w/ PMH of HTN, HLD, DM, and dementia presented to the ED following diarrhea for 5 days. Pt states that the diarrhea initially presented as very loose watery stools, then progressively to less watery and more firm diarrhea. the diarrhea stopped x2 days. today, the pt denies abdominal pain and diarrhea. Diarrhea 2/2 infectious cause vs colitis. -continue trending CBC, WBC 18.2 -stool cultures negative for Giardia, negative for C Dif -awaiting lactoferrin -CT abdomen/pelvis: see above -s/p flagyl, ceftriaxone and Levaquin in ED DEEP 2/2 dehydration vs UTI -BUN/Cr 45.5/1.8-->28.6/1.2 -baseline Cr around 1 -rpt BMP -awaiting Urine Na, Cr, and eosinophils -c/w gentle hydration -nephrology recs appreciated Anemia -H/H stable UTI - f/u Urine Cx -pt received ceftriaxone --c/w flagyl HTN -c/w home meds DM -sliding scale Systolic heart murmur -Echo 2018 WNL, shows with valve area 1.6. -pt should f/u with cardiology outpt DVT ppx: -Heparin SQ Visit type - Emergency Visit Emergency Visit: No - New Patient This patient is new to me today: No - Critical Care Critical Care patient: No - Discharge Referral Referred to [facility] Med P.C.: No ATTENDING PHYSICIAN STATEMENT I saw and evaluated the patient. I reviewed the resident's note and discussed the case with the resident. I agree with the resident's findings and plan as documented. SUBJECTIVE: OBJECTIVE: ASSESSMENT AND PLAN:
--- NOTE | 2019-01-10 14:29 | PN ---
Progress Note (short form) - Note Progress Note: Renal follow up for DEEP Pt seen and examined at the bedside no acute complaints no longer having diarrhea tolerating oral diet was on IVF overnight Vital Signs Temperature 98.2 F 01/10/19 14:28 Pulse Rate 82 01/10/19 14:28 Respiratory Rate 20 01/10/19 14:28 Blood Pressure 178/73 H 01/10/19 14:28 O2 Sat by Pulse Oximetry (%) 98 01/09/19 20:27 Intake & Output 01/07/19 01/08/19 01/09/19 01/10/19 23:59 23:59 23:59 23:59 Intake Total 100 50 Balance 100 50 Weight 68.855 kg 70.171 kg NAD RRR, + systolic murmur CTA soft NT/ND BS + no LE edema, clubbing or cyanosis no focal neurologic deficits CBC, BMP 01/10/19 05:41 01/10/19 05:41 Current Medications Amlodipine Besylate (Norvasc -) 5 mg PO DAILY [facility] Last Admin: 01/10/19 11:05 Dose: 5 mg Aspirin (Asa -) 81 mg PO DAILY [facility] Last Admin: 01/10/19 11:05 Dose: 81 mg Atorvastatin Calcium (Lipitor -) 40 mg PO HS [facility] Last Admin: 01/09/19 21:59 Dose: 40 mg Donepezil HCl (Aricept -) 5 mg PO DAILY [facility] Last Admin: 01/10/19 11:06 Dose: 5 mg Ezetimibe (Zetia -) 10 mg PO DAILY [facility] Last Admin: 01/10/19 11:07 Dose: 10 mg Heparin Sodium (Porcine) (Heparin -) 5,000 unit SQ TID [facility] Last Admin: 01/10/19 14:37 Dose: 5,000 unit Ceftriaxone Sodium 1 gm/ (Dextrose) 50 mls @ 200 mls/hr IVPB DAILY [facility]; Protocol Last Admin: 01/10/19 11:04 Dose: 200 mls/hr Insulin Aspart (Novolog Vial Sliding Scale -) 1 vial SQ ACHS [facility]; Protocol Last Admin: 01/10/19 17:06 Dose: 6 units Lisinopril (Prinivil) 10 mg PO DAILY [facility] Last Admin: 01/10/19 11:05 Dose: 10 mg Metoprolol Succinate (Toprol Xl -) 50 mg PO DAILY [facility] Last Admin: 01/10/19 11:05 Dose: 50 mg Montelukast Sodium (Singulair -) 10 mg PO HS [facility] Last Admin: 01/09/19 23:39 Dose: 10 mg 83 year old woman with PMhx of Dementia, Hypertension, HLD, DM who presented with diarrhea and noted to have Cr of 1.8. Pt was seen on prior admission for DEEP that resolved. Baseline Cr 0.9. #DEEP #Diarrhea #Anemia #Hypernatremia #Hypertension #Hyperlipidemia #DM Renal function improved s/p IVF continue Flagyl as per primary oral water intake as tolerated trend renal function and electrolytes Thank you Will follow Miguel Angel Núñez DO
--- NOTE | 2019-01-10 14:33 | PN ---
Teaching Attending Note Name of Resident: Ivett Goodwin ATTENDING PHYSICIAN STATEMENT I saw and evaluated the patient. I reviewed the resident's note and discussed the case with the resident. I agree with the resident's findings and plan as documented. SUBJECTIVE:asymptomatic. denies Cp, SOB, fever, chills, N/V/C/D. tolerating diet diarrhea has resolved OBJECTIVE: Last Vital Signs Temp Pulse Resp BP Pulse Ox 98.8 F 77 20 146/70 98 01/10/19 07:25 01/10/19 07:25 01/10/19 07:25 01/10/19 07:25 01/09/19 20:27 General NAD CV S1 S2 RRR +murmur 3/6 Lungs CTA B/L no wheezing/rales/rhonchi Abdomen soft NT/ND Extremities no pedal edema ASSESSMENT AND PLAN: 83yo F with PMH DM, dementia, diastolic chf presented to the ER with diarrhea and leukocytosis and found to have UTI 1. Diarrhea- self resolved. BM more solid now. CT negative for acute pathology. stool studies negative thus far including cdiff. will d/c flagyl 2. Complicated cystits/pyleonephritis- afebrile. persistent leukocytosis. on ceftriaxone day 2. f/u cx. 3. Acute on CKD- could be from dehydration vs UTI. resolved. can d/c IVF. nephro consulted 4. Complicated Renal cyst- will need dedicated renal u/s to further evaluate 5. Hyperkalemia- treated in the ER. resolved 6. Iron def anemia- no signs of bleeding. likely dilutional components. will need iron supplementation. no indication for transfusion 7. +systolic murmur- echo from 2018 showing with valve area 1.6. will abilio routing surveillance 8. DM- hold oral agents. cont bgm and iss 9. Dementia 10. DVT ppx- hep sq
[2019-01-10] MEDS ORDERED: IRON SUCROSE INJECTION 200 MG in SODIUM CHLORIDE 90 ML IVPB ONE (16:00)
[2019-01-10] MEDS ORDERED: PT OWN MED DRAWER 7, Y5N ONE (16:23)
[2019-01-10] MEDS: MONTELUKAST NA 10 MG TABLET PO SCH (22:17)
[2019-01-10] MEDS: ATORVASTATIN CA 40 MG TABLET (FP) PO SCH (22:17)
[2019-01-11] MEDS: HEPARIN NA (PORCINE) 5,000 UNITS/ML 1ML VIAL SQ SCH ×3 (06:02→22:08)
[2019-01-11] MEDS: INSULIN SLIDING SCALE (NOVOLOG) 1 VIAL SQ SCH ×4 (06:03→22:08)
[2019-01-11 07:52] LABS: BLOOD UREA NITROGEN 20.7 mg/dL (7-18); CALCIUM 8.3 mg/dL (8.5-10.1); MAGNESIUM 1.6 mg/dL (1.8-2.4); POTASSIUM 4.5 mmol/L (3.5-5.1)
[2019-01-11 07:54] LABS: HEMATOCRIT 28.4 % (32.4-45.2); HEMOGLOBIN 9.6 GM/dL (10.7-15.3); MCH 28.9 pg (25.7-33.7); MCHC 33.8 g/dl (32.0-36.0); MEAN CELL VOLUME 85.6 fl (80-96); MEAN PLT VOLUME 11.7 fl (7.5-11.1); RBC 3.31 M/mm3 (3.60-5.2); RDW 14.3 % (11.6-15.6); WHITE BLOOD COUNT 14.8 K/mm3 (4.0-10.0)
[2019-01-11 08:34] LABS: PLATELET COUNT 287 K/MM3 (134-434)
[2019-01-11] MEDS ORDERED: cefTRIAXone SODIUM 1 GM VIAL ONE (10:08)
[2019-01-11] MEDS ORDERED: DEXTROSE 5%-WATER - 50 ML IVPB ONE (10:08)
[2019-01-11] MEDS: CEFTRIAXONE 1 GM in DEXTROSE 5%-WATER - 50 ML IVPB SCH (10:12)
[2019-01-11] MEDS: LISINOPRIL 10 MG TABLET (FP) PO SCH (10:13)
[2019-01-11] MEDS: DONEPEZIL HCL 5 MG TABLET (FP) PO SCH (10:13)
[2019-01-11] MEDS: EZETIMIBE 10 MG TABLET (FP) PO SCH (10:13)
[2019-01-11] MEDS: ASPIRIN 81 MG CHEWABLE TABLETS PO SCH (10:13)
[2019-01-11] MEDS: amLODIPine BESYLATE 5 MG TABLET (FP) PO SCH (10:13)
--- NOTE | 2019-01-11 11:36 | PN ---
Progress Note (short form) - Note Progress Note: asymptomatic. reports diarrhea has resolved. denies CP, SOB, fever, chills, N/V/ C/D, dysuria or urinary frequnecy Current Medications Generic Name Dose Route Start Last Admin Trade Name Tana PRN Reason Stop Dose Admin Amlodipine Besylate 5 mg 01/09/19 14:00 01/11/19 10:13 Norvasc - PO 5 mg DAILY [facility] Administration Aspirin 81 mg 01/09/19 14:00 01/11/19 10:13 Asa - PO 81 mg DAILY [facility] Administration Atorvastatin Calcium 40 mg 01/09/19 22:00 01/10/19 22:17 Lipitor - PO 40 mg HS [facility] Administration Donepezil HCl 5 mg 01/10/19 10:00 01/11/19 10:13 Aricept - PO 5 mg DAILY [facility] Administration Ezetimibe 10 mg 01/10/19 10:00 01/11/19 10:13 Zetia - PO 10 mg DAILY [facility] Administration Heparin Sodium (Porcine) 5,000 unit 01/09/19 06:00 01/11/19 06:02 Heparin - SQ 5,000 unit TID [facility] Administration Ceftriaxone Sodium 1 gm/ 50 mls @ 200 mls/hr 01/09/19 14:00 01/11/19 10:12 Dextrose IVPB 200 mls/hr DAILY [facility] Administration Protocol Insulin Aspart 1 vial 01/09/19 16:30 01/11/19 06:03 Novolog Vial Sliding Scale - SQ 2 units ACHS [facility] Administration Protocol Lisinopril 10 mg 01/09/19 14:00 01/11/19 10:13 Prinivil PO 10 mg DAILY [facility] Administration Metoprolol Succinate 50 mg 01/09/19 14:00 01/11/19 10:13 Toprol Xl - PO 50 mg DAILY [facility] Administration Montelukast Sodium 10 mg 01/09/19 23:15 01/10/19 22:17 Singulair - PO 10 mg HS [facility] Administration Last Vital Signs Temp Pulse Resp BP Pulse Ox 98.3 F 76 20 158/81 97 01/11/19 06:00 01/11/19 06:00 01/11/19 06:00 01/11/19 06:00 01/10/19 21:00 General NAD CV S1 S2 RRR +murmur 3/6 Lungs CTA B/L no wheezing/rales/rhonchi Abdomen soft NT/ND no CVA tenderness Extremities no pedal edema CBCD WBC 14.8 K/mm3 (4.0-10.0) H 01/11/19 06:30 RBC 3.31 M/mm3 (3.60-5.2) L 01/11/19 06:30 Hgb 9.6 GM/dL (10.7-15.3) L 01/11/19 06:30 Hct 28.4 % (32.4-45.2) L 01/11/19 06:30 MCV 85.6 fl (80-96) 01/11/19 06:30 MCHC 33.8 g/dl (32.0-36.0) 01/11/19 06:30 RDW 14.3 % (11.6-15.6) 01/11/19 06:30 Plt Count 287 K/MM3 (134-434) 01/11/19 06:30 MPV 11.7 fl (7.5-11.1) H 01/11/19 06:30 CMP Sodium 146 mmol/L (136-145) H 01/11/19 06:30 Potassium 4.5 mmol/L (3.5-5.1) 01/11/19 06:30 Chloride 115 mmol/L (98-107) H 01/11/19 06:30 Carbon Dioxide 24 mmol/L (21-32) 01/11/19 06:30 Anion Gap 8 MMOL/L (8-16) 01/11/19 06:30 BUN 20.7 mg/dL (7-18) H 01/11/19 06:30 Creatinine 1.0 mg/dL (0.55-1.3) 01/11/19 06:30 Calcium 8.3 mg/dL (8.5-10.1) L 01/11/19 06:30 Total Bilirubin 0.3 mg/dL (0.2-1) 01/10/19 05:41 AST 6 U/L (15-37) L 01/10/19 05:41 ALT 11 U/L (13-61) L 01/10/19 05:41 Alkaline Phosphatase 107 U/L (45-117) 01/10/19 05:41 Total Protein 5.8 g/dl (6.4-8.2) L 01/10/19 05:41 Albumin 2.2 g/dl (3.4-5.0) L 01/10/19 05:41 Microbiology 01/09/19 04:55 Urine Culture - Final Urine - Urine Clean Catch Group D Strep Or Entero Coccus 01/09/19 08:55 Blood Culture - Preliminary Blood - Peripheral Venous NO GROWTH OBTAINED AFTER 48 HOURS, INCUBATION TO CONTINUE FOR 3 DAYS. 01/09/19 08:50 Blood Culture - Preliminary Blood - Peripheral Venous NO GROWTH OBTAINED AFTER 48 HOURS, INCUBATION TO CONTINUE FOR 3 DAYS. 01/09/19 15:45 Gram Stain - Final Stool 01/09/19 15:45 Clostridioides difficile Antigen - Final Stool Clostridioides difficile Toxin Assay - Final 01/09/19 15:45 Cryptosporidium Antigen - Final Stool Giardia Antigen (LIZABETH) - Final ASSESSMENT AND PLAN: 83yo F with PMH DM, dementia, diastolic chf presented to the ER with diarrhea and leukocytosis and found to have UTI 1. Diarrhea- self resolved. BM more solid now. CT negative for acute pathology. stool studies negative thus far including cdiff. 2. Complicated cystits/pyleonephritis- afebrile. leukcoytosis trending down. Ucx not showing significant growth but was obtained after abx started. would cont with abx at this time. on ceftriaxone day 3. 3. Acute on CKD- could be from dehydration vs UTI. resolved. nephro consulted 4. Complicated Renal cyst- u/s showing multiple cyst. can be monitored as outpatient 5. Hyperkalemia- treated in the ER. resolved 6. Iron def anemia- no signs of bleeding. likely dilutional components. will need iron supplementation. no indication for transfusion 7. +systolic murmur- echo from 2018 showing with valve area 1.6. will abilio routing surveillance 8. DM- hold oral agents. cont bgm and iss 9. Dementia 10. DVT ppx- hep sq 11. will monitor for continued improvement in leukocytosis. anticipate discharge in next 24H. pt verbalized agreement with plan Visit type - Emergency Visit Emergency Visit: Yes ED Registration Date: 01/09/19 Care time: The patient presented to the Emergency Department on the above date and was hospitalized for further evaluation of their emergent condition. - New Patient This patient is new to me today: No - Critical Care Critical Care patient: No - Discharge Referral Referred to [facility] Med P.C.: No
[2019-01-11] MEDS ORDERED: INSULIN (NOVOLOG) ASPART 100 UNITS/ML 10ML VIAL ONE (12:18)
[2019-01-11] MEDS ORDERED: MAGNESIUM SULF 50% (8.12 MEQ/2 ML-1 GM VIAL) IVPB ONE (12:30)
[2019-01-11] MEDS: ATORVASTATIN CA 40 MG TABLET (FP) PO SCH (22:08)
[2019-01-11] MEDS: MONTELUKAST NA 10 MG TABLET PO SCH (22:08)
[2019-01-12] MEDS: HEPARIN NA (PORCINE) 5,000 UNITS/ML 1ML VIAL SQ SCH ×3 (06:14→22:15)
[2019-01-12] MEDS: INSULIN SLIDING SCALE (NOVOLOG) 1 VIAL SQ SCH ×4 (06:14→22:12)
[2019-01-12] MEDS ORDERED: INSULIN (NOVOLOG) ASPART 100 UNITS/ML 10ML VIAL ONE ×2 (06:55→12:08)
[2019-01-12 08:29] LABS: BASO % 0.7 % (0-2.0); HEMATOCRIT 26.5 % (32.4-45.2); HEMOGLOBIN 8.9 GM/dL (10.7-15.3); LYMPH % 14.1 % (8-40); MCH 28.7 pg (25.7-33.7); MCHC 33.6 g/dl (32.0-36.0); MEAN CELL VOLUME 85.4 fl (80-96); MEAN PLT VOLUME 11.6 fl (7.5-11.1); MONO % 7.1 % (3.8-10.2); NEUT % 75.1 % (42.8-82.8); RDW 14.6 % (11.6-15.6); WHITE BLOOD COUNT 14.8 K/mm3 (4.0-10.0)
[2019-01-12 08:46] LABS: PLATELET COUNT 271 K/MM3 (134-434)
[2019-01-12] MEDS ORDERED: DEXTROSE 5%-WATER - 50 ML IVPB ONE (09:38)
[2019-01-12] MEDS ORDERED: PT OWN MED DRAWER 7, Y5N ONE ×2 (09:38→14:35)
[2019-01-12] MEDS ORDERED: cefTRIAXone SODIUM 1 GM VIAL ONE (09:38)
[2019-01-12] MEDS: LISINOPRIL 10 MG TABLET (FP) PO SCH (09:42)
[2019-01-12] MEDS: amLODIPine BESYLATE 5 MG TABLET (FP) PO SCH (09:42)
[2019-01-12] MEDS: ASPIRIN 81 MG CHEWABLE TABLETS PO SCH (09:42)
[2019-01-12] MEDS: CEFTRIAXONE 1 GM in DEXTROSE 5%-WATER - 50 ML IVPB SCH (09:42)
[2019-01-12] MEDS: EZETIMIBE 10 MG TABLET (FP) PO SCH (09:42)
[2019-01-12] MEDS: DONEPEZIL HCL 5 MG TABLET (FP) PO SCH (09:43)
[2019-01-12 11:04] LABS: HEMATOCRIT 30.6 % (32.4-45.2); MCH 28.5 pg (25.7-33.7); MCHC 32.7 g/dl (32.0-36.0); MEAN CELL VOLUME 87.3 fl (80-96); MEAN PLT VOLUME 10.9 fl (7.5-11.1); RBC 3.51 M/mm3 (3.60-5.2); RDW 14.2 % (11.6-15.6); WHITE BLOOD COUNT 16.4 K/mm3 (4.0-10.0)
[2019-01-12 11:14] LABS: PLATELET COUNT 297 K/MM3 (134-434)
[2019-01-12] MEDS ORDERED: IRON SUCROSE INJECTION 200 MG in SODIUM CHLORIDE 90 ML IVPB ONE (12:00)
--- NOTE | 2019-01-12 12:10 | PN ---
Physical Exam: SUBJECTIVE: Patient seen and examined at bedside. pt has no acute complaints. pt stating she is ready to leave the hospital OBJECTIVE: Vital Signs Period Temp Pulse Resp BP Sys/Richardson Pulse Ox Last 24 Hr 98 F-98.6 F 79-85 18-20 131-160/55-71 97 GENERAL: The patient is awake, alert, and fully oriented, in no acute distress. LUNGS: Breath sounds equal, clear to auscultation bilaterally, no wheezes, no crackles, no accessory muscle use. HEART: regular rate and rhythm, S1, S2 +systolic murmur ABDOMEN: Soft, nontender, nondistended, normoactive bowel sounds EXTREMITIES: 2+ pulses, warm, well-perfused, no edema. PSYCH: Normal mood, normal affect. SKIN: Warm, dry, normal turgor, no rashes or lesions noted CBC, BMP 01/12/19 10:55 01/11/19 06:30 CT Abdomen/ pelvis Small hiatus hernia. No gross gallstones are identified 2. Hypodensities in the right kidney likely representing hyperdense cysts which correlation with renal ultrasound would be helpful for further evaluation. There is stranding of the perinephric fat , bilaterally likely chronic. There is no evidence of small bowel obstruction. Normal-appearing appendix. Nonvisualization of the uterus, status post hysterectomy. Air within the urinary bladder, likely iatrogenic Current Medications Amlodipine Besylate (Norvasc -) 5 mg PO DAILY [facility] Last Admin: 01/12/19 09:42 Dose: 5 mg Amlodipine Besylate (Norvasc -) 5 mg PO ONCE ONE Stop: 01/12/19 11:28 Aspirin (Asa -) 81 mg PO DAILY [facility] Last Admin: 01/12/19 09:42 Dose: 81 mg Atorvastatin Calcium (Lipitor -) 40 mg PO HS [facility] Last Admin: 01/11/19 22:08 Dose: 40 mg Donepezil HCl (Aricept -) 5 mg PO DAILY [facility] Last Admin: 01/12/19 09:43 Dose: 5 mg Ezetimibe (Zetia -) 10 mg PO DAILY [facility] Last Admin: 01/12/19 09:42 Dose: 10 mg Heparin Sodium (Porcine) (Heparin -) 5,000 unit SQ TID [facility] Last Admin: 01/12/19 06:14 Dose: 5,000 unit Ceftriaxone Sodium 1 gm/ (Dextrose) 50 mls @ 200 mls/hr IVPB DAILY [facility]; Protocol Last Admin: 01/12/19 09:42 Dose: 200 mls/hr Iron Sucrose 200 mg/ Sodium (Chloride) 100 mls @ 100 mls/hr IVPB ONCE ONE Stop: 01/12/19 12:59 Insulin Aspart (Novolog Vial Sliding Scale -) 1 vial SQ ACHS [facility]; Protocol Last Admin: 01/12/19 06:14 Dose: 4 units Lisinopril (Prinivil) 10 mg PO DAILY [facility] Last Admin: 01/12/19 09:42 Dose: 10 mg Metoprolol Succinate (Toprol Xl -) 50 mg PO DAILY [facility] Last Admin: 01/12/19 09:43 Dose: 50 mg Montelukast Sodium (Singulair -) 10 mg PO HS [facility] Last Admin: 01/11/19 22:08 Dose: 10 mg ASSESSMENT/PLAN: pt is 83 yo F w/ PMH of HTN, HLD, DM, and dementia presented to the ED following diarrhea for 5 days. Pt states that the diarrhea initially presented as very loose watery stools, then progressively to less watery and more firm diarrhea. the diarrhea stopped x2 days. today, the pt denies abdominal pain and diarrhea. Diarrhea 2/2 infectious cause vs colitis. -continue trending CBC -stool cultures negative for Giardia, negative for C Dif -CT abdomen/pelvis: see above -s/p flagyl, ceftriaxone and Levaquin in ED DEEP 2/2 dehydration vs UTI -resolved -BUN/Cr 45.5/1.8-->20.7/1.0 -baseline Cr around 0.9 -nephrology f/u outpt Anemia -H/H stable; 10.0/30.6 -no signs of bleeding -pt on venofer , pt will be d/c on feosol and should f/u outpt with PCP UTI - f/u Urine Cx -pt received ceftriaxone --c/w ceftriaxone day 4 HTN -c/w home meds DM -sliding scale Systolic heart murmur -Echo 2018 WNL, shows with valve area 1.6. -pt should f/u with cardiology outpt DVT ppx: -Heparin SQ DISPO: Rehab tomorrow Visit type - Emergency Visit Emergency Visit: No - New Patient This patient is new to me today: No - Critical Care Critical Care patient: No - Discharge Referral Referred to [facility] Med P.C.: No ATTENDING PHYSICIAN STATEMENT I saw and evaluated the patient. I reviewed the resident's note and discussed the case with the resident. I agree with the resident's findings and plan as documented. SUBJECTIVE: OBJECTIVE: ASSESSMENT AND PLAN:
[2019-01-12] MEDS ORDERED: amLODIPine BESYLATE 5 MG TABLET (FP) PO ONE (12:30)
--- NOTE | 2019-01-12 13:20 | PN ---
Teaching Attending Note Name of Resident: Ivett Goodwin ATTENDING PHYSICIAN STATEMENT I saw and evaluated the patient. I reviewed the resident's note and discussed the case with the resident. I agree with the resident's findings and plan as documented. SUBJECTIVE:asymptomatic. denies CP, SOB, fever, chills, N/V/C/D, dysuria and hematuria OBJECTIVE: Last Vital Signs Temp Pulse Resp BP Pulse Ox 98 F 79 18 160/65 97 01/12/19 10:00 01/12/19 10:00 01/12/19 10:00 01/12/19 10:00 01/12/19 09:00 General NAD Abdomen soft NT/ND ASSESSMENT AND PLAN: 83yo F with PMH DM, dementia, diastolic chf presented to the ER with diarrhea and leukocytosis and found to have UTI 1. Diarrhea- self resolved. normal BM. CT negative for acute pathology. stool studies negative thus far including cdiff. 2. Complicated cystits/pyleonephritis- afebrile. leukcoytosis trending down. Ucx not showing significant growth but was obtained after abx started. would cont with abx at this time. on ceftriaxone day 4. 3. Acute on CKD- could be from dehydration vs UTI. resolved. nephro consulted 4. Complicated Renal cyst- u/s showing multiple cyst. can be monitored as outpatient 5. Hyperkalemia- treated in the ER. resolved 6. Iron def anemia-slowly trending down. no signs of bleeding. will repeat CBC. will need iron supplementation. no indication for transfusion 7. +systolic murmur- echo from 2018 showing with valve area 1.6. will need routing surveillance 8. DM- hold oral agents. cont bgm and iss 9. Dementia 10. HTN- above goal. will increase norvasc to 10mg 11. DVT ppx- hep sq 12. pt lives alone and is unable to care for herself. family requesting placement at this time. PT srinathal
--- NOTE | 2019-01-12 21:34 | PN ---
Progress Note (short form) - Note Progress Note: #DEEP #Diarrhea #Anemia #Hypernatremia #Hypertension #Hyperlipidemia #DM Current Medications Amlodipine Besylate (Norvasc -) 10 mg PO DAILY [facility] Aspirin (Asa -) 81 mg PO DAILY [facility] Last Admin: 01/12/19 09:42 Dose: 81 mg Atorvastatin Calcium (Lipitor -) 40 mg PO HS [facility] Last Admin: 01/11/19 22:08 Dose: 40 mg Donepezil HCl (Aricept -) 5 mg PO DAILY [facility] Last Admin: 01/12/19 09:43 Dose: 5 mg Ezetimibe (Zetia -) 10 mg PO DAILY [facility] Last Admin: 01/12/19 09:42 Dose: 10 mg Heparin Sodium (Porcine) (Heparin -) 5,000 unit SQ TID [facility] Last Admin: 01/12/19 14:44 Dose: 5,000 unit Ceftriaxone Sodium 1 gm/ (Dextrose) 50 mls @ 200 mls/hr IVPB DAILY [facility]; Protocol Last Admin: 01/12/19 09:42 Dose: 200 mls/hr Insulin Aspart (Novolog Vial Sliding Scale -) 1 vial SQ ACHS [facility]; Protocol Last Admin: 01/12/19 17:46 Dose: 10 units Lisinopril (Prinivil) 10 mg PO DAILY [facility] Last Admin: 01/12/19 09:42 Dose: 10 mg Metoprolol Succinate (Toprol Xl -) 50 mg PO DAILY [facility] Last Admin: 01/12/19 09:43 Dose: 50 mg Montelukast Sodium (Singulair -) 10 mg PO HS [facility] Last Admin: 01/11/19 22:08 Dose: 10 mg Last Vital Signs Temp Pulse Resp BP Pulse Ox 98.3 F 67 18 108/51 L 97 01/12/19 16:30 01/12/19 16:30 01/12/19 16:30 01/12/19 16:30 01/12/19 09:00 lungs clear heart reg abd soft nontender Ext no edema CBC, BMP 01/12/19 10:55 01/11/19 06:30 IMP- hypernatremia trending but improved renal function less pronounced azotemia Plan- ensure hydration f/u labs
[2019-01-12] MEDS: ATORVASTATIN CA 40 MG TABLET (FP) PO SCH (22:11)
[2019-01-12] MEDS: MONTELUKAST NA 10 MG TABLET PO SCH (22:15)
[2019-01-13] MEDS: INSULIN SLIDING SCALE (NOVOLOG) 1 VIAL SQ SCH ×3 (06:03→17:18)
[2019-01-13] MEDS: HEPARIN NA (PORCINE) 5,000 UNITS/ML 1ML VIAL SQ SCH ×2 (06:04→15:20)
[2019-01-13] MEDS ORDERED: INSULIN (NOVOLOG) ASPART 100 UNITS/ML 10ML VIAL ONE (06:28)
[2019-01-13] MEDS ORDERED: amLODIPine BESYLATE 10 MG TABLET (FP) PO SCH (10:00)
--- NOTE | 2019-01-13 10:31 | PN ---
Progress Note, Physician Chief Complaint: The patient seen and examined in her room. Feeling beter. No more diarrhea. No chest pain, no shortness of breath. Maintains good urine output. History of Present Illness: This is a n 83yo F with past medical hx of DM2, CHF, dementia admitted with diarrhea, UTI and leukocytosis. Diarrhea has improved. . UTI- Cystits/? pyleonephritis- afebrile. leukcoytosis trending down. Acute on CKD- could be from dehydration and renal hypoperfusion. Renal functions close to her baseline. No labs from today. Complicated Renal cyst- u/s showing multiple cyst. can be monitored as outpatient Hyperkalemia- Resolved DM2 Monitor closely. HTN- relatively well controlled. - Current Medication List Current Medications: Active Medications Amlodipine Besylate (Norvasc -) 10 mg PO DAILY FOR[facility]LY [facility], [facility]1983 Aspirin (Asa -) 81 mg PO DAILY [facility], [facility] Last Admin: 01/12/19 09:42 Dose: 81 mg Atorvastatin Calcium (Lipitor -) 40 mg PO HS [facility], [facility] Last Admin: 01/12/19 22:11 Dose: 40 mg Donepezil HCl (Aricept -) 5 mg PO DAILY [facility], [facility] Last Admin: 01/12/19 09:43 Dose: 5 mg Ezetimibe (Zetia -) 10 mg PO DAILY FOR[facility], [facility] Last Admin: 01/12/19 09:42 Dose: 10 mg Heparin Sodium (Porcine) (Heparin -) 5,000 unit SQ TID [facility], [facility] Last Admin: 01/13/19 06:04 Dose: 5,000 unit Ceftriaxone Sodium 1 gm/ (Dextrose) 50 mls @ 200 mls/hr IVPB DAILY [facility], [facility]–1983; Protocol Last Admin: 01/12/19 09:42 Dose: 200 mls/hr Insulin Aspart (Novolog Vial Sliding Scale -) 1 vial SQ ACHS [facility], [facility]1983; Protocol Last Admin: 01/13/19 06:03 Dose: Not Given Lisinopril (Prinivil) 10 mg PO DAILY [facility] Last Admin: 01/12/19 09:42 Dose: 10 mg Metoprolol Succinate (Toprol Xl -) 50 mg PO DAILY [facility] Last Admin: 01/12/19 09:43 Dose: 50 mg Montelukast Sodium (Singulair -) 10 mg PO HS [facility] Last Admin: 01/12/19 22:15 Dose: 10 mg - Objective Vital Signs: Vital Signs Temperature 98.4 F 01/13/19 06:47 Pulse Rate 81 01/13/19 06:47 Respiratory Rate 16 01/13/19 06:47 Blood Pressure 144/55 L 01/13/19 06:47 O2 Sat by Pulse Oximetry (%) 97 01/12/19 21:00 Constitutional: Yes: No Distress Eyes: Yes: Conjunctiva Clear, EOM Intact HENT: Yes: Normocephalic Neck: Yes: Trachea Midline Cardiovascular: Yes: Regular Rate and Rhythm, S1, S2 Respiratory: Yes: CTA Bilaterally, Diminished Gastrointestinal: Yes: Normal Bowel Sounds, Soft Edema: No Neurological: Yes: Alert, Oriented Labs: CBC, BMP 01/12/19 10:55 01/11/19 06:30 Assessment/Plan This is an 83yo female with past medical hx of: DM2, CHF, dementia admitted with diarrhea, UTI and leukocytosis. Diarrhea has improved. . UTI- Cystits/? pyleonephritis- afebrile. leukcoytosis trending down. Acute on CKD- could be from dehydration and renal hypoperfusion. Renal functions close to her baseline. No labs from today. Will order for tomorrow. Complicated Renal cyst- u/s showing multiple cyst. can be monitored as outpatient Hyperkalemia- Resolved DM2 Monitor closely. HTN- relatively well controlled. Will monitor renal functions with you. Arielle Soriano MD
[2019-01-13] MEDS ORDERED: cefTRIAXone SODIUM 1 GM VIAL ONE (10:49)
[2019-01-13] MEDS ORDERED: DEXTROSE 5%-WATER - 50 ML IVPB ONE (10:49)
[2019-01-13] MEDS: LISINOPRIL 10 MG TABLET (FP) PO SCH (10:52)
[2019-01-13] MEDS: CEFTRIAXONE 1 GM in DEXTROSE 5%-WATER - 50 ML IVPB SCH (10:52)
[2019-01-13] MEDS: ASPIRIN 81 MG CHEWABLE TABLETS PO SCH (10:53)
[2019-01-13] MEDS: DONEPEZIL HCL 5 MG TABLET (FP) PO SCH (10:54)
[2019-01-13] MEDS: EZETIMIBE 10 MG TABLET (FP) PO SCH (10:55)
[2019-01-13 11:00] LABS: BASO % 0.6 % (0-2.0); EOS % 2.6 % (0-4.5); HEMATOCRIT 30.4 % (32.4-45.2); MCH 28.8 pg (25.7-33.7); MCHC 32.9 g/dl (32.0-36.0); MEAN CELL VOLUME 87.6 fl (80-96); MEAN PLT VOLUME 11.2 fl (7.5-11.1); MONO % 6.1 % (3.8-10.2); NEUT % 80.7 % (42.8-82.8); PLATELET COUNT 289 K/MM3 (134-434); RBC 3.47 M/mm3 (3.60-5.2); RDW 14.8 % (11.6-15.6); WHITE BLOOD COUNT 14.9 K/mm3 (4.0-10.0)
[2019-01-13 15:19] LABS: ANISOCYTOSIS 0; MACROCYTOSIS 0; PLATELET ESTIMATE NORMAL
--- NOTE | 2019-01-13 16:21 | PN ---
Teaching Attending Note Name of Resident: Ivett Goodwin ATTENDING PHYSICIAN STATEMENT I saw and evaluated the patient. I reviewed the resident's note and discussed the case with the resident. I agree with the resident's findings and plan as documented. SUBJECTIVE: OBJECTIVE: Last Vital Signs Temp Pulse Resp BP Pulse Ox 98.4 F 81 16 144/55 L 97 01/13/19 06:47 01/13/19 06:47 01/13/19 06:47 01/13/19 06:47 01/12/19 21:00 General NAD Abdomen soft NT/ND ASSESSMENT AND PLAN: 83yo F with PMH DM, dementia, diastolic chf presented to the ER with diarrhea and leukocytosis and found to have UTI 1. Diarrhea- self resolved. normal BM. CT negative for acute pathology. stool studies negative 2. Complicated cystits/pyleonephritis- afebrile. leukcoytosis trending down. Ucx not showing significant growth but was obtained after abx started. would cont with abx at this time. on ceftriaxone day 5. will d/c on cefpodiximine to complete 10 day course. 3. Acute on CKD- could be from dehydration vs UTI. resolved. nephro consulted 4. Complicated Renal cyst- u/s showing multiple cyst. can be monitored as outpatient 5. Hyperkalemia- treated in the ER. resolved 6. Iron def anemia-stable no signs of bleeding. no indication for transfusion 7. +systolic murmur- echo from 2018 showing with valve area 1.6. will need routing surveillance 8. DM- hold oral agents. cont bgm and iss 9. Dementia 10. HTN- improved. cont norvasc at 10mg. may need additional meds if remains above goal 11. DVT ppx- hep sq 12.d.c to [facility]
[2019-01-13 16:32] VITALS: BP 138/58; PULSE 82; TEMP 97.8
--- NOTE | 2019-01-13 18:25 | DS ---
Physical Exam: SUBJECTIVE: Patient seen and examined at bedside. pt has no acute complaints. pt is having solid BM. pt denies abdominal pain. OBJECTIVE: Vital Signs Period Temp Pulse Resp BP Sys/Richardson Pulse Ox Last 24 Hr 97.8 F-98.4 F 70-82 10-20 111-144/55-68 97 PHYSICAL EXAM GENERAL: The patient is awake, alert, and fully oriented, in no acute distress. HEAD: Normal with no signs of trauma. LUNGS: Breath sounds equal, clear to auscultation bilaterally, no wheezes, no crackles, no accessory muscle use. HEART: regular rate and rhythm, S1, S2 + systolic murmur ABDOMEN: Soft, nontender, nondistended, normoactive bowel sounds, no guarding EXTREMITIES: 2+ pulses, warm, well-perfused, no edema. PSYCH: Normal mood, normal affect. SKIN: Warm, dry, normal turgor, no rashes or lesions noted. Laboratory Last Values WBC 14.9 K/mm3 (4.0-10.0) H 01/13/19 10:45 RBC 3.47 M/mm3 (3.60-5.2) L 01/13/19 10:45 Hgb 10.0 GM/dL (10.7-15.3) L 01/13/19 10:45 Hct 30.4 % (32.4-45.2) L 01/13/19 10:45 MCV 87.6 fl (80-96) 01/13/19 10:45 MCH 28.8 pg (25.7-33.7) 01/13/19 10:45 MCHC 32.9 g/dl (32.0-36.0) 01/13/19 10:45 RDW 14.8 % (11.6-15.6) 01/13/19 10:45 Plt Count 289 K/MM3 (134-434) 01/13/19 10:45 MPV 11.2 fl (7.5-11.1) H 01/13/19 10:45 Absolute Neuts (auto) 12.0 K/mm3 (1.5-8.0) H 01/13/19 10:45 Neutrophils % 80.7 % (42.8-82.8) 01/13/19 10:45 Neutrophils % (Manual) 82.8 % (42.8-82.8) 01/13/19 10:45 Band Neutrophils % 0.0 % 01/13/19 10:45 Lymphocytes % 10.0 % (8-40) D 01/13/19 10:45 Lymphocytes % (Manual) 8.1 % (8-40) 01/13/19 10:45 Monocytes % 6.1 % (3.8-10.2) 01/13/19 10:45 Monocytes % (Manual) 1 % (3.8-10.2) L 01/13/19 10:45 Eosinophils % 2.6 % (0-4.5) 01/13/19 10:45 Eosinophils % (Manual) 5.1 % (0-4.5) H 01/13/19 10:45 Basophils % 0.6 % (0-2.0) 01/13/19 10:45 Basophils % (Manual) 1.0 % (0-2.0) 01/13/19 10:45 Myelocytes % (Man) 1 % (0-2) 01/13/19 10:45 Promyelocytes % (Man) 0 % (0-2) 01/13/19 10:45 Blast Cells % (Manual) 0 % (0-0) 01/13/19 10:45 Nucleated RBC % 0 % (0-0) 01/13/19 10:45 Metamyelocytes 1 % (0-2) D 01/13/19 10:45 Hypochromia 0 01/13/19 10:45 Platelet Estimate Normal 01/13/19 10:45 Polychromasia 0 01/13/19 10:45 Poikilocytosis 0 01/13/19 10:45 Anisocytosis 0 01/13/19 10:45 Microcytosis 0 01/13/19 10:45 Macrocytosis 0 01/13/19 10:45 Sodium 146 mmol/L (136-145) H 01/11/19 06:30 Potassium 4.5 mmol/L (3.5-5.1) 01/11/19 06:30 Chloride 115 mmol/L (98-107) H 01/11/19 06:30 Carbon Dioxide 24 mmol/L (21-32) 01/11/19 06:30 Anion Gap 8 MMOL/L (8-16) 01/11/19 06:30 BUN 20.7 mg/dL (7-18) H 01/11/19 06:30 Creatinine 1.0 mg/dL (0.55-1.3) 01/11/19 06:30 Est GFR (CKD-EPI)AfAm 59.49 01/11/19 06:30 Est GFR (CKD-EPI)NonAf 51.33 01/11/19 06:30 POC Glucometer 321 UNITS (80-120) 01/12/19 11:58 Random Glucose 182 mg/dL (74-106) H 01/11/19 06:30 Calcium 8.3 mg/dL (8.5-10.1) L 01/11/19 06:30 Phosphorus 3.0 mg/dL (2.5-4.9) 01/11/19 06:30 Magnesium 2.0 mg/dL (1.8-2.4) 01/12/19 07:28 Iron 22 ug/dL (27-139) L 01/09/19 08:50 TIBC 179 ug/dL (250-450) L 01/09/19 08:50 Iron Saturation 12 % (15-55) L 01/09/19 08:50 Unsaturated IBC 157 ug/dL (118-369) 01/09/19 08:50 Ferritin 131.8 ng/ml (8-388) 01/09/19 08:50 Total Bilirubin 0.3 mg/dL (0.2-1) 01/10/19 05:41 GGT 25 U/L (5-85) 01/09/19 08:50 AST 6 U/L (15-37) L 01/10/19 05:41 ALT 11 U/L (13-61) L 01/10/19 05:41 Alkaline Phosphatase 107 U/L (45-117) 01/10/19 05:41 Total Protein 5.8 g/dl (6.4-8.2) L 01/10/19 05:41 Albumin 2.2 g/dl (3.4-5.0) L 01/10/19 05:41 Lipase 716 U/L (73-393) H 01/08/19 22:30 Urine Color Yellow 01/08/19 21:45 Urine Appearance Turbid 01/08/19 21:45 Urine pH 5.0 (5.0-8.0) 01/08/19 21:45 Ur Specific [place] 1.009 (1.010-1.035) L 01/08/19 21:45 Urine Protein 2+ (NEGATIVE) H 01/08/19 21:45 Urine Glucose (UA) Negative (NEGATIVE) 01/08/19 21:45 Urine Ketones Negative (NEGATIVE) 01/08/19 21:45 Urine Blood 1+ (NEGATIVE) H 01/08/19 21:45 Urine Nitrite Negative (NEGATIVE) 01/08/19 21:45 Urine Bilirubin Negative (NEGATIVE) 01/08/19 21:45 Urine Urobilinogen 0.2 mg/dL (0.2-1.0) 01/08/19 21:45 Ur Leukocyte Esterase 3+ (NEGATIVE) H 01/08/19 21:45 Urine WBC (Auto) 863.8 /hpf (0-5) 01/08/19 21:45 Urine RBC (Auto) 6.7 /hpf (0-4) 01/08/19 21:45 U Epithel Cells (Auto) 3.6 /HPF (0-5/HPF) 01/08/19 21:45 Urine Bacteria (Auto) 790 /hpf (NEGATIVE) 01/08/19 21:45 Urine Eosinophils None seen % (.) 01/09/19 16:55 Ur Random Creatinine 39.0 mg/dL (30-150) 01/09/19 16:55 U Random Total Protein 113.3 mg/dl (0-11.9) H 01/09/19 16:55 Ur Random Sodium 78 MMOL/L (40-220) 01/09/19 16:55 CT Abdomen/ pelvis Small hiatus hernia. No gross gallstones are identified 2. Hypodensities in the right kidney likely representing hyperdense cysts which correlation with renal ultrasound would be helpful for further evaluation. There is stranding of the perinephric fat , bilaterally likely chronic. There is no evidence of small bowel obstruction. Normal-appearing appendix. Nonvisualization of the uterus, status post hysterectomy. Air within the urinary bladder, likely iatrogenic HOSPITAL COURSE: Date of Admission:01/09/19 pt is 83 yo F w/ PMH of HTN, HLD, DM, and dementia presented to the ED following diarrhea for 5 days. Pt states that the diarrhea initially presented as very loose watery stools, then progressively to less watery and more firm diarrhea. the diarrhea stopped x2 days. since admission, the pt denies abdominal pain and diarrhea. On admission, pt had leukocytosis. Pt had positive UA. U Cx , Blood cultures were sent. pt was empirically tx with flagyl, ceftriaxone and Levaquin in ED. Pt stool cultures were sent. stool cultures were negative. the pt was also found to be negative for C dif. the CT abdomen and pelvis results are above. there was an incidental finding of renal cysts which the pt can follow up outpt. The labs also showed DEEP. The pt had gentle hydration and DEEP resolved back to baseline. The pt CBC also showed anemia. she was treated with venofer and should continue feosol outpt. pt should have rpt cbc in 1 month with pcp. For the UTI/ Pyelo, ID was consulted and the pt was treated with ceftriaxone x 5 days. the pt is discharged with 5 days of cefpodoxime 200 mg bid. The pt BP is improved with increasing home norvasc to 10mg. pt should continue her home medications as prescribed. The pt is discharged to [facility] Date of Discharge: 01/13/19 Minutes to complete discharge: 37 Discharge Summary Reason For Visit: ACUTE KIDNEY INJURY, UTI, DIARRHEA OF INFECTIOUS Current Active Problems Diarrhea (Acute) Condition: Improved - Instructions Diet, Activity, Other Instructions: You were admitted to the hospital for an diarrhea. In the hospital, you were treated with antibiotics. Medication changes: Please continue to take the antibiotic, cefpodoxime 200mg two times a day for 5 days. Please continue to take Feosol 325mg daily We increased your dose of Amlodipine to 10 mg daily. Abnormal results: -You had an ultrasound showing a cyst on your kidneys. -You also have anemia. Your Primary care physician should repeat your blood work (CBC with differential, iron studies) to assess your anemia. -Please follow up with your Primary care physician in 1 week to monitor your improvement. -Please follow up with your Physical Therapy Instructor regarding your kidney function and cyst. -Please follow up with your finish painter regarding your heart function. -Please continue to take your other home medications as prescribed. -Please continue to eat a low sugar/ low carbohydrate diet. You are being discharged to a rehab facility to help your muscles grow stronger. Please return to the ER if you have any signs or symptoms of chest pain, shortness of breath, uncontrollable fever, chills, nausea, vomiting, numbness, tingling, or weakness in any part of your body, changes in vision, or slurred speech. Please return to the ER if symptoms persist, worsen, or new symptoms arise. Referrals: Arielle Soriano MD [Staff Physician] - Disposition: HOME - Home Medications Comprehensive Discharge Medication List: Ambulatory Orders Donepezil HCl [Aricept -] 5 mg PO DAILY 11/08/13 Esomeprazole Mag Trihydrate [Nexium] 40 mg PO DAILY 02/02/14 Atorvastatin Ca [Lipitor] 40 mg PO DAILY 09/27/15 Aspirin [ASA -] 81 mg PO DAILY 11/09/16 Ezetimibe [Zetia] 10 mg PO DAILY 11/09/16 Lisinopril [Prinivil] 10 mg PO DAILY 11/09/16 Montelukast Na [Singulair -] 10 mg PO HS 06/07/17 Insulin (Novolog) [Novolog Flexpen -] See Protocol SQ ACHS #2 pen 09/20/17 Ergocalciferol [Vitamin D2] 1 tab PO DAILY 01/09/19 Metoprolol Succinate [Toprol XL -] 50 mg PO DAILY 01/09/19 Sitagliptin Phosphate [Januvia] 50 mg PO DAILY 01/09/19 Amlodipine Besylate [Norvasc -] 10 mg PO DAILY 30 Days #30 tablet 01/13/19 Cefpodoxime Proxetil [Vantin -] 200 mg PO Q12H 5 Days #10 tablet 01/13/19 Ferrous Sulfate [Feosol] 325 mg PO DAILY #30 tablet 01/13/19 This patient is new to me today: No Emergency Visit: No Critical Care patient: No - Discharge Referral Referred to [facility] Med P.C.: No ATTENDING PHYSICIAN STATEMENT I saw and evaluated the patient. I reviewed the resident's note and discussed the case with the resident. I agree with the resident's findings and plan as documented. SUBJECTIVE: OBJECTIVE: ASSESSMENT AND PLAN:
== END 2019-01-13 19:41 | disposition home or self-care (01) | DRG 683 ==
LOC: JER 19:19 → JERBED 01-09 00:19 → J8W 01-09 06:27
PROVIDERS: ADMIT Internal Medicine; ATTEND Internal Medicine
DX: N17.9 Acute kidney failure, unspecified (principal); N39.0 Urinary tract infection, site not specified; I50.30 Unspecified diastolic (congestive) heart failure; E87.0 Hyperosmolality and hypernatremia; K52.9 Noninfective gastroenteritis and colitis, unspecified; R19.7 Diarrhea, unspecified; D72.829 Elevated white blood cell count, unspecified; F17.210 Nicotine dependence, cigarettes, uncomplicated; E87.5 Hyperkalemia; E11.9 Type 2 diabetes mellitus without complications; F03.90 Unspecified dementia, unspecified severity, without behavioral disturbance, psychotic disturbance, mood disturbance, and anxiety; E78.5 Hyperlipidemia, unspecified; K44.9 Diaphragmatic hernia without obstruction or gangrene; N28.1 Cyst of kidney, acquired; D50.9 Iron deficiency anemia, unspecified; E86.0 Dehydration; E88.09 Other disorders of plasma-protein metabolism, not elsewhere classified
CPT/HCPCS: 36415; 71045-TC-FY; 74176-TC; 76775-TC; 80048; 80053; 81003; 82565; 82728; 82962; 82977; 83540; 83550; 83631; 83690; 83735; 84100; 84156; 84300; 85025; 85027; 87040; 87045; 87046; 87077; 87086; 87205; 87324; 87328; 87329; 87449; 93005; 93010; 97116-GP; 97161-GP; 99281-25; J1644; J1756; J7030

== ENCOUNTER 2020-04-15 12:46 | Inpatient (IN) | payer OTHER, BC ==
--- NOTE | 2020-04-15 13:28 | PDOC ---
History of Present Illness - General Chief Complaint: Abnormal Lab Results (Outside) Stated Complaint: RENAL FAILURE Time Seen by Provider: 04/15/20 13:11 - History of Present Illness Initial Comments: HPI: 04/15/20 13:28 84 yo F PMH Alzheimer's dementia, HTN, HLD, DM, JEFF, GERD, sent from [facility] for elevated Cr at 2 despite increased PO fluids, also found to have WBC of 11.7. Here, patient has no complaints. Next of kin: daughter Shyann Vaughn ([phone]), here at bedside ROS: GENERAL/CONSTITUTIONAL: denies fever, chills, diaphoresis, generalized weakness HEAD, EYES, EARS, NOSE AND THROAT: denies rhinorrhea, nasal congestion NEUROLOGIC: denies headache, focal weakness, dizziness, mental status changes CARDIOVASCULAR: denies chest pain, syncope, palpitations, irregular heart rate, lightheadedness, peripheral edema RESPIRATORY: denies cough, shortness of breath, dyspnea with exertion, orthopnea, wheezing GASTROINTESTINAL: denies abdominal pain, abdominal distension, nausea, vomiting, diarrhea, constipation GENITOURINARY: denies dysuria, frequency, urgency MUSCULOSKELETAL: denies myalgia, arthralgia SKIN: denies rash, itching PE: Gen: well-developed, well-nourished, NAD Neuro: AAOX2 (name, location, does not know the year), CN II-XII intact HEENT: atraumatic, normocephalic Neck: trachea midline, supple CV: regular rate, regular rhythm, no murmurs, rubs, or gallops Pulm: CTA b/l, no wheezing Abd: soft, non-distended, non-tender MSK: full ROM, intact pulses Extr: no edema, no deformities MDM: Concern for potentially worsening CKD. - CBC, CMP - magnesium - EKG - reassess 04/15/20 14:40 WBC 14.7. Hgb 9.2. 04/15/20 15:08 Cr 2.1. Will give 500 ccs of LR, follow up UA, admit for DEEP. CXR without acute abnormality. 04/15/20 15:49 EKG normal sinus at 65 bpm, TN 138, QRS 72, QTc 451. Will admit patient. Past History - Medical History Allergies/Adverse Reactions: Allergies Allergy/AdvReac Type Severity Reaction Status Date / Time No Known Allergies Allergy Verified 01/09/19 04:18 Home Medications: Ambulatory Orders Montelukast Na [Singulair -] 10 mg PO HS 06/07/17 Insulin (Novolog) [Novolog Flexpen -] See Protocol SQ ACHS #2 pen 09/20/17 Ergocalciferol [Vitamin D2] 1 tab PO DAILY 01/09/19 Sitagliptin Phosphate [Januvia] 25 mg PO DAILY 01/09/19 Aa/Hydrolyzed Collagen, Whey [Lps 15-30 Liquid] 30 ml PO DAILY 04/15/20 Acetaminophen [8Hr Arthritis Pain Relief] 650 mg PO Q6H PRN 04/15/20 Amlodipine Besylate [Norvasc -] 2.5 mg PO DAILY 04/15/20 Ascorbic Acid [Vitamin C] 500 mg PO DAILY 04/15/20 Bimatoprost [Lumigan] 1 drop IO HS 04/15/20 Dorzolamide HCl/Pf [Dorzolamide 2% Eye Drop] 1 drop OP TID 04/15/20 Enoxaparin [Lovenox -] 40 mg SQ DAILY 04/15/20 Famotidine [Pepcid] 20 mg PO DAILY 04/15/20 Insulin Aspart [Novolog] 10 unit SQ BID 04/15/20 Insulin Detemir [Levemir Flextouch] 42 unit SQ DAILY 04/15/20 Metoprolol Tartrate [Lopressor] 100 mg PO BID 04/15/20 Polyethylene Glycol 3350 [Miralax (For Daily Use) -] 17 gm PO ONCE PRN 04/15/20 Thiamine Mononitrate [Vitamin B-1] 100 mg PO DAILY 04/15/20 Anemia: No Asthma: No Cancer: No Cardiac Disorders: No CVA: No COPD: No CHF: No Dementia: Yes Diabetes: Yes GI Disorders: Yes (gerd) Disorders: No HTN: Yes Hypercholesterolemia: Yes Liver Disease: No Psychiatric Problems: Yes (dementia) Seizures: No Thyroid Disease: No - Surgical History Abdominal Surgery: Yes Appendectomy: No Cardiac Surgery: No Cholecystectomy: No Lung Surgery: No Neurologic Surgery: No Orthopedic Surgery: No - Reproductive History Is Patient Now?: No - Immunization History Td Vaccination: No TDAP Vaccination: No Immunization Up to Date: No - Psycho-Social/Smoking History Smoking Status: Yes Smoking History: Smoker current status UNK Years of Tobacco Use: 60 Have you smoked in the past 12 months: No Number of Cigarettes Smoked Daily: 3 Cigars Per Day: 0 Information on smoking cessation initiated: No 'Breaking Loose' booklet given: 04/20/15 - Substance Abuse Hx (Audit-C & DAST Scrn) How often the patient has a drink containing alcohol: Never Score: In Men: 4 or > Positive; In Women: 3 or > Positive: 0 Screen Result (Pos requires Nsg. Audit-10AR): Negative In the last yr the pt used illegal drug/Rx for NonMed reason: No Score: Yes response is considered Positive: 0 Screen Result (Positive result requires Nsg. DAST-10): Negative *Physical Exam - Vital Signs Last Vital Signs Temp Pulse Resp BP Pulse Ox 97.8 F 66 18 170/57 L 98 04/15/20 12:57 04/15/20 12:57 04/15/20 12:57 04/15/20 12:57 04/15/20 12:57 ED Treatment Course - LABORATORY CBC & Chemistry Diagram: 04/17/20 07:31 04/17/20 07:31 Discharge - Discharge Information Problems reviewed: Yes Clinical Impression/Diagnosis: CKD (chronic kidney disease) Qualifiers: Chronic kidney disease stage: stage 2 (mild) Qualified Code(s): N18.2 - Chronic kidney disease, stage 2 (mild) Hypertension Qualifiers: Hypertension type: unspecified Qualified Code(s): I10 - Essential (primary) hypertension UTI (urinary tract infection) Qualifiers: Urinary tract infection type: acute cystitis Hematuria presence: without hematuria Qualified Code(s): N30.00 - Acute cystitis without hematuria - Follow up/Referral - Patient Discharge Instructions - Post Discharge Activity
--- OUTSIDE RECORDS SUMMARY | 2020-04-15 13:44 | XMS ---
:1935 Author Organization [facility] Support Name Relationship Address Phone RE Unavailable Unavailable Unavailable JOSE HICKMAN DAUGHTER [address] [phone] [place] [address] Re-disclosure Warning The records that you are about to access may contain information from federally- assisted alcohol or drug abuse programs. If such information is present, then the following federally mandated warning applies: This information has been disclosed to you from records protected by federal confidentiality rules (42 CFR part 2). The federal rules prohibit you from making any further disclosure of this information unless further disclosure is expressly permitted by the written consent of the person to whom it pertains or as otherwise permitted by 42 CFR part 2. A general authorization for the release of medical or other information is NOT sufficient for this purpose. The Federal rules restrict any use of the information to criminally investigate or prosecute any alcohol or drug abuse patient.The records that you are about to access may contain highly sensitive health information, the redisclosure of which is protected by Article 27-F of the [facility] Public Health law. If you continue you may haveaccess to information: Regarding HIV / AIDS; Provided by facilities licensed or operated by the [facility] Office of Mental Health; or Provided by the [facility] Office for People With Developmental Disabilities. If such information is present, then the following [facility] mandated warning applies: This information has been disclosed to you from confidential records which are protected by state law. State law prohibits you from making any further disclosure of this information without the specific written consent of the person to whom it pertains, or as otherwise permitted by law. Any unauthorized further disclosure in violation of state law may result in a fine or shelter sentence or both. A general authorization for the release of medical or other information is NOT sufficient authorization for further disclosure. Insurance Providers Payer name Policy type Policy ID Covered Covered democrat's Policy P john / Coverage democrat ID relationship to [facility] [employer] orm[employer] type brennan MEDICARE [id number] SP [id number] Results ID Date Data Source [id number] 11/19/2019 12:00:00 AM EDT [facility] Name Value Range Interpretation Code Description Data Caren rce(s) Supporting Document(s ) 2019-nCoV [facility] RNA XXX NIECY+probe- Imp This lab was ordered by [facility] and reported by [email or web address]. ID Date Data Source [id number] 11/04/2019 12:00:00 PM EDT [facility] Name Value Range Interpretation Description Data Sup porting Code Source(s) Document(s ) SARS CoV-2 [facility] Interpretation This lab was ordered by [facility] and reported by [facility]. Procedure
[2020-04-15 14:28] LABS: BASO % 0.7 % (0-2.0); EOS % 3.9 % (0-4.5); HEMOGLOBIN 9.2 GM/dL (10.7-15.3); LYMPH % 13.4 % (8-40); MCH 27.5 pg (25.7-33.7); MCHC 31.8 g/dl (32.0-36.0); MEAN CELL VOLUME 86.3 fl (80-96); MEAN PLT VOLUME 12.4 fl (7.5-11.1); MONO % 8.2 % (3.8-10.2); NEUT % 73.8 % (42.8-82.8); PLATELET COUNT 186 K/MM3 (134-434); RBC 3.37 M/mm3 (3.60-5.2); WHITE BLOOD COUNT 14.7 K/mm3 (4.0-10.0)
[2020-04-15 15:05] LABS: ALBUMIN 2.1 g/dl (3.4-5.0); BILIRUBIN,TOTAL 0.2 mg/dL (0.2-1); BLOOD UREA NITROGEN 41.1 mg/dL (7-18); CALCIUM 8.1 mg/dL (8.5-10.1); CREATININE 2.1 mg/dL (0.55-1.3); POTASSIUM 4.9 mmol/L (3.5-5.1); TOT PROT 5.8 g/dl (6.4-8.2)
[2020-04-15] MEDS ORDERED: LACTATED RINGERS SOLUTION 1000 ML INFUS.BAG IV ONE (15:23)
--- NOTE | 2020-04-15 15:26 | PDOC ---
Documentation entered by Man Berry SCRIBE, acting as scribe for Shannon Pardo MD. Shannon Pardo MD: This documentation has been prepared by the Jamal sanchez Angel, SCRIBE, under my direction and personally reviewed by me in its entirety. I confirm that the documentation accurately reflects all work, treatment, procedures, and medical decision making performed by me. Attending Attestation - Resident Resident Name: Davidson Chen - ED Attending Attestation I have performed the following: I have examined & evaluated the patient, The case was reviewed & discussed with the resident, I agree w/resident's findings & plan, Exceptions are as noted - HPI HPI: 04/15/20 14:37 The patient is an 84 year old female with a significant past medical history of HLD, HTN, DM, JEFF, alzheimers dementia, GERD and CKD (stage 2), presenting to the ED from [facility] with daughter at bedside for elevated CR at 2 even after increased PO fluids per the NH. The patient also has a WBC count of 11.7. The patient has no complaints here in the ED. - Physicial Exam PE: 04/15/20 14:11 Agree w resident exam - Medical Decision Making 04/15/20 15:24 84-year-old female with multiple medical problems presents emergency department with elevated creatinine at the detention despite attempts to hydrate patient. Patient states she has no symptoms. Patient is hypertensive on arrival, on my check her BP is 140/84. Remaining vitals within normal limits. Per daughter at bedside, patient is at baseline. Plan to check labs as patient has a history of CKD but previous creatinine here was 1. Will dispo accordingly. 04/15/20 17:44 Rectifying Attendant doubled to 2, pt admitted for further w/u UA pending Case discussed in detail with admitting physician including history, physical exam and ancillary studies. Admitting physician has assumed care for the patient, will follow all pending diagnostics and will complete the evaluation and treatment. Discharge - Discharge Information Problems reviewed: Yes Clinical Impression/Diagnosis: CKD (chronic kidney disease), Hypertension, UTI (urinary tract infection) - Follow up/Referral - Patient Discharge Instructions - Post Discharge Activity
[2020-04-15 16:22] LABS: EPI CELLS 6 /uL (0-25.1); HYALINE CASTS 3 /uL (0-3.1); URINE APPEARANCE CLEAR; URINE BACTERIA 164 /uL (0-1359); URINE BILIRUBIN NEGATIVE (NEGATIVE); URINE COLOR YELLOW; URINE GLUCOSE (UA) NEGATIVE (NEGATIVE); URINE KETONE NEGATIVE (NEGATIVE); URINE LEUK ESTERASE 2+ (NEGATIVE); URINE NITRITE NEGATIVE (NEGATIVE); URINE PROTEIN 3+ (NEGATIVE); URINE UROBILINOGEN 0.2 mg/dL (0.2-1.0); URINE WBC 294 /uL (0-25.8)
[2020-04-15 17:00] LABS: URINE RBC 86.4 /uL (0-23.9); YEAST NON SEEN (NEGATIVE)
--- OUTSIDE RECORDS SUMMARY | 2020-04-15 17:10 | XMS ---
:1935 Author Organization [facility] Support Name Relationship Address Phone RE, RETIRED Unavailable Unavailable Unavailable RE Unavailable Unavailable Unavailable JOSE HICKMAN DAUGHTER Mickie [address] [phone] [place] [address] Re-disclosure Warning The records that you are [...] is protected by Article 27-F of the [facility] Public Health law. If you continue you may haveaccess to information: Regarding HIV / AIDS; Provided by facilities licensed or operated by the [facility] Office of Mental Health; or Provided by the [facility] Office for People With Developmental Disabilities. If such information is present, then the following [facility] mandated warning applies: This information has been [...] law may result in a fine or mcc sentence or both. A general authorization for the release of medical or other information is NOT sufficient authorization for further disclosure. Insurance Providers Payer name Policy type Policy ID Covered Covered democrat's Policy P john / Coverage democrat ID relationship to [facility] ormation type brennan MEDICARE [id number] SP [id number] Results ID Date Data Source [id number] 11/19/2019 12:00:00 AM EDT [facility] Name Value Range Interpretation Code Description Data Caren rce(s) Supporting Document(s ) 2019-nCoV [facility] RNA XXX NIECY+probe- Imp This lab was ordered by [facility] and reported by [facility]. ID Date Data Source [id number] 11/04/2019 12:00:00 PM EDT [facility] Name Value Range Interpretation Description Data Sup porting Code Source(s) Document(s ) SARS CoV-2 [facility] Interpretation This lab [facility] and reported by [employer]. Procedure
[2020-04-15] MEDS ORDERED: METOPROLOL TARTRATE 5 MG/5 ML VIAL IVPUSH ONE (17:40)
--- NOTE | 2020-04-15 18:02 | PN ---
Teaching Attending Note Name of Resident: Cristian Germain ATTENDING PHYSICIAN STATEMENT I saw and evaluated the patient. I reviewed the resident's note and discussed the case with the resident. I agree with the resident's findings and plan as documented. SUBJECTIVE: Patient seen and examined at bedside, sent from [facility] for elevated CRE, otherwise feels "fine", VSS. OBJECTIVE: GENERAL: Awake, alert, and fully oriented, in no acute distress. HEAD: Proptosis. Difficulty w/ abduction in R eye EYES: Pupils equal, round and reactive to light, sclera anicteric, conjunctiva clear. No lid lag. EARS, NOSE, THROAT: Ears normal, nares patent, oropharynx clear without exudates. Moist mucous membranes. NECK: Normal range of motion, supple without lymphadenopathy, JVD, or masses. LUNGS: Breath sounds equal, clear to auscultation bilaterally. No wheezes, and no crackles. No accessory muscle use. HEART: Regular rate and rhythm, normal S1 and S2 3/6 systolic murmur heard throughout ABDOMEN: Soft, nontender, not distended, normoactive bowel sounds, no guarding MUSCULOSKELETAL: Normal range of motion at all joints. No bony deformities or te nderness. No CVA tenderness. UPPER EXTREMITIES: 2+ pulses, warm, well-perfused. No cyanosis. No clubbing. No peripheral edema. LOWER EXTREMITIES: Tinea Pedis. 2+ pulses, warm, well-perfused. No calf t enderness. No peripheral edema. NEUROLOGICAL: Cranial nerves II-XII intact. Normal speech. Normal gait. PSYCHIATRIC: Cooperative. Good eye contact. Appropriate mood and affect. SKIN: Warm, dry, normal turgor, no rashes or lesions noted, normal capillary refill. Vital Signs (72 hours) 04/15/20 04/15/20 04/15/20 12:57 17:29 18:38 Temperature 97.8 F 98.6 F Pulse Rate 66 Pulse Rate [ 65 Left Apical] Respiratory 18 16 Rate Blood Pressure 170/57 L 200/62 H Blood Pressure 211/68 H [Left Arm] O2 Sat by Pulse 98 98 Oximetry (%) 04/15/20 04/16/20 04/16/20 22:15 00:00 02:07 Temperature 98.0 F 98.1 F Pulse Rate 74 67 Pulse Rate [ 77 Left Apical] Respiratory 18 16 18 Rate Blood Pressure 187/61 H 179/59 H Blood Pressure 169/79 [Left Arm] O2 Sat by Pulse 98 100 93 L Oximetry (%) 04/16/20 04/16/20 04/16/20 02:42 06:14 09:39 Temperature 98.7 F 98.0 F Pulse Rate 60 59 L 61 Pulse Rate [ Left Apical] Respiratory 16 18 18 Rate Blood Pressure 152/60 163/67 137/51 L Blood Pressure [Left Arm] O2 Sat by Pulse 94 L 97 Oximetry (%) 04/16/20 04/16/20 04/16/20 10:00 15:00 18:00 Temperature 98.0 F 98.2 F Pulse Rate 66 61 Pulse Rate [ Left Apical] Respiratory 18 18 Rate Blood Pressure 192/65 H 195/65 H Blood Pressure [Left Arm] O2 Sat by Pulse 97 97 98 Oximetry (%) Laboratory Results - last 24 hr 04/15/20 04/15/20 04/16/20 15:12 18:55 06:29 WBC RBC Hgb Hct MCV MCH MCHC RDW Plt Count MPV Retic Count Sodium Potassium Chloride Carbon Dioxide Anion Gap BUN Creatinine Est GFR (CKD-EPI)AfAm Est GFR (CKD-EPI)NonAf POC Glucometer 107 Random Glucose Calcium Phosphorus Magnesium Iron TIBC Ferritin Total Bilirubin AST ALT Alkaline Phosphatase Total Protein Albumin Vitamin B12 Serum Folate TSH Thyroxine (T4) Ur Random Creatinine 32.0 U Random Total Protein 261.9 H Ur Random Sodium Protein/Creatinin Ratio 8.2 COVID-19 (NIECY) Not detected 04/16/20 04/16/20 04/16/20 08:15 08:15 08:15 WBC 12.8 H RBC 3.18 L Hgb 8.8 L Hct 27.4 L MCV 86.0 MCH 27.7 MCHC 32.2 RDW 15.0 Plt Count 184 MPV 12.3 H Retic Count 1.75 H Sodium 144 Potassium 4.5 Chloride 117 H Carbon Dioxide 21 Anion Gap 6 L BUN 39.7 H Creatinine 2.2 H Est GFR (CKD-EPI)AfAm 22.77 Est GFR (CKD-EPI)NonAf 19.65 POC Glucometer Random Glucose 102 Calcium 8.0 L Phosphorus 3.5 Magnesium 2.1 Iron 32 L TIBC 187 L Ferritin Total Bilirubin 0.3 AST 12 L ALT 16 Alkaline Phosphatase 104 Total Protein 5.6 L Albumin 2.0 L Vitamin B12 Serum Folate 11 TSH 3.99 H Thyroxine (T4) 8.3 Ur Random Creatinine U Random Total Protein Ur Random Sodium Protein/Creatinin Ratio COVID-19 (NIECY) 04/16/20 04/16/20 04/16/20 08:15 12:03 17:08 WBC RBC Hgb Hct MCV MCH MCHC RDW Plt Count MPV Retic Count Sodium Potassium Chloride Carbon Dioxide Anion Gap BUN Creatinine Est GFR (CKD-EPI)AfAm Est GFR (CKD-EPI)NonAf POC Glucometer 146 222 Random Glucose Calcium Phosphorus Magnesium Iron TIBC Ferritin 92.8 Total Bilirubin AST ALT Alkaline Phosphatase Total Protein Albumin Vitamin B12 589 Serum Folate TSH Thyroxine (T4) Ur Random Creatinine U Random Total Protein Ur Random Sodium Protein/Creatinin Ratio COVID-19 (NIECY) 04/16/20 04/16/20 17:40 21:06 WBC RBC Hgb Hct MCV MCH MCHC RDW Plt Count MPV Retic Count Sodium Potassium Chloride Carbon Dioxide Anion Gap BUN Creatinine Est GFR (CKD-EPI)AfAm Est GFR (CKD-EPI)NonAf POC Glucometer 200 Random Glucose Calcium Phosphorus Magnesium Iron TIBC Ferritin Total Bilirubin AST ALT Alkaline Phosphatase Total Protein Albumin Vitamin B12 Serum Folate TSH Thyroxine (T4) Ur Random Creatinine 33.0 U Random Total Protein 279.6 H Ur Random Sodium 94 Protein/Creatinin Ratio COVID-19 (NIECY) Home Medications Medication Instructions Recorded Montelukast Na [Singulair -] 10 mg PO HS 06/07/17 Insulin (Novolog) [Novolog Flexpen See Protocol SQ ACHS #2 pen 09/20/17 -] Ergocalciferol [Vitamin D2] 1 tab PO DAILY 01/09/19 Sitagliptin Phosphate [Januvia] 25 mg PO DAILY 01/09/19 Aa/Hydrolyzed Collagen, Whey [Lps 30 ml PO DAILY 04/15/20 15-30 Liquid] Acetaminophen [8Hr Arthritis Pain 650 mg PO Q6H PRN 04/15/20 Relief] Amlodipine Besylate [Norvasc -] 2.5 mg PO DAILY 04/15/20 Ascorbic Acid [Vitamin C] 500 mg PO DAILY 04/15/20 Bimatoprost [Lumigan] 1 drop IO HS 04/15/20 Dorzolamide HCl/Pf [Dorzolamide 2% 1 drop OP TID 10/15/20 Eye Drop] Enoxaparin [Lovenox -] 40 mg SQ DAILY 04/15/20 Famotidine [Pepcid] 20 mg PO DAILY 04/15/20 Insulin Aspart [Novolog] 10 unit SQ BID 04/15/20 Insulin Detemir [Levemir Flextouch] 42 unit SQ DAILY 04/15/20 Metoprolol Tartrate [Lopressor] 100 mg PO BID 04/15/20 Polyethylene Glycol 3350 [Miralax 17 gm PO ONCE PRN 04/15/20 (For Daily Use) -] Thiamine Mononitrate [Vitamin B-1] 100 mg PO DAILY 04/15/20 Current Medications Generic Name Dose Route Start Last Admin Trade Name Freq PRN Reason Stop Dose Admin Amlodipine Besylate 2.5 mg 04/16/20 10:00 04/16/20 10:42 Norvasc - PO 2.5 mg DAILY CROW Administration Aspirin 81 mg 04/16/20 10:00 04/16/20 10:42 Ecotrin - PO 81 mg DAILY CROW Administration Atorvastatin Calcium 40 mg 04/15/20 22:00 04/16/20 22:00 Lipitor - PO 40 mg HS CROW Administration Donepezil HCl 5 mg 04/15/20 22:00 04/16/20 22:00 Aricept - PO 5 mg HS CROW Administration Ezetimibe 10 mg 04/16/20 10:00 04/16/20 10:41 Zetia - PO 10 mg DAILY CROW Administration Famotidine 20 mg 04/16/20 10:00 04/16/20 10:42 Pepcid - PO 20 mg DAILY CROW Administration Heparin Sodium (Porcine) 5,000 unit 04/16/20 06:00 04/16/20 22:00 Heparin - SQ 5,000 unit TID CROW Administration Hydralazine HCl 25 mg 04/16/20 17:24 04/16/20 22:00 Apresoline - PO 25 mg TID CROW Administration Ceftriaxone Sodium 1 gm/ 50 mls @ 200 mls/hr 04/16/20 08:30 04/16/20 10:41 Dextrose IVPB 200 mls/hr DAILY CROW Administration Protocol Sodium Chloride 1,000 mls @ 83 mls/hr 04/16/20 16:30 04/16/20 17:05 Normal Saline - IV 04/17/20 16:29 83 mls/hr ASDIR CROW Administration Insulin Aspart 1 vial 04/15/20 22:00 04/16/20 22:01 Novolog Vial Sliding Scale - SQ Not Given ACHS CROW Protocol Insulin Detemir 10 units 04/15/20 22:00 04/16/20 22:00 Levemir Vial SQ 10 units BID CROW Administration Metoprolol Tartrate 100 mg 04/16/20 10:00 04/16/20 22:01 Lopressor - PO 100 mg BID CROW Administration ASSESSMENT AND PLAN: 84 F DEEP on CKD HTN HLD T2DM CAD Dementia Glaucoma Plan: Gentle IVF Renal/Bladder US Avoid nephrotoxins Trend chem Restart BP meds Check UA, treat for UTI DVT ppx: Heparin SC
[2020-04-15] MEDS ORDERED: amLODIPine BESYLATE 5 MG TABLET (FP) PO ONE (18:38)
[2020-04-15] MEDS ORDERED: amLODIPine BESYLATE 2.5 MG TABLET (FP) PO ONE (18:38)
[2020-04-15] MEDS ORDERED: amLODIPine BESYLATE 2.5 MG TABLET (FP) ONE (18:51)
[2020-04-15] MEDS ORDERED: amLODIPine BESYLATE 5 MG TABLET (FP) ONE (18:52)
--- NOTE | 2020-04-15 19:55 | HP ---
CHIEF COMPLAINT: Elevated Cr. 2.0 from [place]. Ptn endorses no complaints PCP: HISTORY OF PRESENT ILLNESS: 84 yo F w/ PMHx of HLD, HTN, IDDM, Iron Deficiency Anemia, ?Alzheimers dementia, ?GERD and ?CKD, presents to the ED from [facility] with daughter at bedside for elevated CR at 2. According to ptn, labs were drawn at intermediate. Ptn was given oral fluid while at the [place]. Additionally ptn had a WBC of 11.7. Per the patient, she has not been drinking much water. ROS was negative for any F/C, KUMARI, changes in vision, CP/SoB, abdominal pain, changes in urinary frequency or dysuria, changes in bowel habits, nausea or vomiting. ER course was notable for: (1)BP: Elevated at 140/84 --> 200/60 (2)UA, UCx (3)500ml NS Bolus Recent Travel: None PAST MEDICAL HISTORY: As above PAST SURGICAL HISTORY: None Social History: Smokin-2 cigarettes/day 50+ years Alcohol: Socially Drugs: Never Allergies No Known Allergies Allergy (Verified 01/09/19 04:18) HOME MEDICATIONS: Home Medications Medication Instructions Recorded Montelukast Na [Singulair -] 10 mg PO HS 06/07/17 Insulin (Novolog) [Novolog Flexpen See Protocol SQ ACHS #2 pen 09/20/17 -] Ergocalciferol [Vitamin D2] 1 tab PO DAILY 01/09/19 Sitagliptin Phosphate [Januvia] 25 mg PO DAILY 01/09/19 Aa/Hydrolyzed Collagen, Whey [Lps 30 ml PO DAILY 04/15/20 15-30 Liquid] Acetaminophen [8Hr Arthritis Pain 650 mg PO Q6H PRN 04/15/20 Relief] Amlodipine Besylate [Norvasc -] 2.5 mg PO DAILY 04/15/20 Ascorbic Acid [Vitamin C] 500 mg PO DAILY 04/15/20 Bimatoprost [Lumigan] 1 drop IO HS 04/15/20 Dorzolamide HCl/Pf [Dorzolamide 2% 1 drop OP TID 04/15/20 Eye Drop] Enoxaparin [Lovenox -] 40 mg SQ DAILY 04/15/20 Famotidine [Pepcid] 20 mg PO DAILY 04/15/20 Insulin Aspart [Novolog] 10 unit SQ BID 04/15/20 Insulin Detemir [Levemir Flextouch] 42 unit SQ DAILY 04/15/20 Metoprolol Tartrate [Lopressor] 100 mg PO BID 04/15/20 Polyethylene Glycol 3350 [Miralax 17 gm PO ONCE PRN 04/15/20 (For Daily Use) -] Thiamine Mononitrate [Vitamin B-1] 100 mg PO DAILY 04/15/20 REVIEW OF SYSTEMS CONSTITUTIONAL: Absent: fever, chills, diaphoresis, generalized weakness, malaise, loss of appetite, weight change HEENT: Absent: rhinorrhea, nasal congestion, throat pain, throat swelling, difficulty swallowing, mouth swelling, ear pain, eye pain, visual changes CARDIOVASCULAR: Absent: chest pain, syncope, palpitations, irregular heart rate, lightheadedness, peripheral edema RESPIRATORY: Absent: cough, shortness of breath, dyspnea with exertion, orthopnea, wheezing, stridor, hemoptysis GASTROINTESTINAL: Absent: abdominal pain, abdominal distension, nausea, vomiting, diarrhea, constipation, melena, hematochezia GENITOURINARY: Absent: dysuria, frequency, urgency, hesitancy, hematuria, flank pain, genital pain MUSCULOSKELETAL: Absent: myalgia, arthralgia, joint swelling, back pain, neck pain SKIN: Absent: rash, itching, pallor HEMATOLOGIC/IMMUNOLOGIC: Absent: easy bleeding, easy bruising, lymphadenopathy, frequent infections ENDOCRINE: Absent: unexplained weight gain, unexplained weight loss, heat intolerance, cold intolerance NEUROLOGIC: Absent: headache, focal weakness or paresthesias, dizziness, unsteady gait, seizure, mental status changes, bladder or bowel incontinence PSYCHIATRIC: Absent: anxiety, depression, suicidal or homicidal ideation, hallucinations. PHYSICAL EXAMINATION Vital Signs - 24 hr 04/15/20 04/15/20 04/15/20 12:57 17:29 18:38 Temperature 97.8 F 98.6 F Pulse Rate 66 Pulse Rate [ 65 Left Apical] Respiratory 18 16 Rate Blood Pressure 170/57 L 200/62 H Blood Pressure 211/68 H [Left Arm] O2 Sat by Pulse 98 98 Oximetry (%) GENERAL: Awake, alert, and fully oriented, in no acute distress. HEAD: Proptosis. Difficulty w/ abduction in R eye EYES: Pupils equal, round and reactive to light, sclera anicteric, conjunctiva clear. No lid lag. EARS, NOSE, THROAT: Ears normal, nares patent, oropharynx clear without exudates. Moist mucous membranes. NECK: Normal range of motion, supple without lymphadenopathy, JVD, or masses. LUNGS: Breath sounds equal, clear to auscultation bilaterally. No wheezes, and no crackles. No accessory muscle use. HEART: Regular rate and rhythm, normal S1 and S2 3/6 systolic murmur heard throughout ABDOMEN: Soft, nontender, not distended, normoactive bowel sounds, no guarding MUSCULOSKELETAL: Normal range of motion at all joints. No bony deformities or tenderness. No CVA tenderness. UPPER EXTREMITIES: 2+ pulses, warm, well-perfused. No cyanosis. No clubbing. No peripheral edema. LOWER EXTREMITIES: Tinea Pedis. 2+ pulses, warm, well-perfused. No calf tenderness. No peripheral edema. NEUROLOGICAL: Cranial nerves II-XII intact. Normal speech. Normal gait. PSYCHIATRIC: Cooperative. Good eye contact. Appropriate mood and affect. SKIN: Warm, dry, normal turgor, no rashes or lesions noted, normal capillary refill. Laboratory Results - last 24 hr 04/15/20 04/15/20 04/15/20 14:00 14:00 15:30 WBC 14.7 H RBC 3.37 L Hgb 9.2 L Hct 29.0 L MCV 86.3 MCH 27.5 MCHC 31.8 L RDW 16.0 H Plt Count 186 D MPV 12.4 H D Absolute Neuts (auto) 10.9 H Neutrophils % 73.8 Lymphocytes % 13.4 D Monocytes % 8.2 Eosinophils % 3.9 Basophils % 0.7 Nucleated RBC % 0 Sodium 143 Potassium 4.9 Chloride 115 H Carbon Dioxide 22 Anion Gap 6 L BUN 41.1 H Creatinine 2.1 H Est GFR (CKD-EPI)AfAm 24.09 Est GFR (CKD-EPI)NonAf 20.79 Random Glucose 128 H Calcium 8.1 L Magnesium 2.0 Total Bilirubin 0.2 AST 23 ALT 19 Alkaline Phosphatase 110 Total Protein 5.8 L Albumin 2.1 L Urine Color Yellow Urine Appearance Clear Urine pH 6.0 Ur Specific [place] 1.010 Urine Protein 3+ H Urine Glucose (UA) Negative Urine Ketones Negative Urine Blood Negative Urine Nitrite Negative Urine Bilirubin Negative Urine Urobilinogen 0.2 Ur Leukocyte Esterase 2+ H Urine WBC (Auto) 294 Urine RBC (Auto) 86.4 Urine Casts (Auto) 3 U Epithel Cells (Auto) 6 Urine Bacteria (Auto) 164 Urine Yeast (Auto) Non seen Active Medications Generic Name Dose Route Start Last Admin Trade Name Freq PRN Reason Stop Dose Admin Amlodipine Besylate 2.5 mg 04/16/20 10:00 Norvasc - PO DAILY [facility] Aspirin 81 mg 04/16/20 10:00 Ecotrin - PO DAILY [facility] Atorvastatin Calcium 40 mg 04/15/20 22:00 Lipitor - PO HS CROW Donepezil HCl 5 mg 04/15/20 22:00 Aricept - PO HS [facility] Ezetimibe 10 mg 04/16/20 10:00 Zetia - PO DAILY [facility] Heparin Sodium (Porcine) 5,000 unit 04/16/20 06:00 Heparin - SQ TID [facility] Ceftriaxone Sodium 1 gm/ 50 mls @ 200 mls/hr 04/15/20 19:[address] [facility] Protocol Insulin Aspart 1 vial 04/15/20 22:00 Novolog Vial Sliding Scale - SQ ACHS [facility] Protocol Insulin Detemir 10 units 04/15/20 22:[address]Q [address] [facility] Metoprolol Tartrate 100 mg 04/16/20 10:00 Lopressor - PO BID [facility] ASSESSMENT/PLAN: 84 yo F w/ PMHx of HLD, HTN, IDDM, Iron Deficiency Anemia, Alzheimers dementia, GERD and CKD, presents to the ED from [facility] with daughter at bedside for elevated CR at 2. Admitted for possible DEEP vs UTI. UTI W/ HISTORY OF PERSISTENT LEUKOCYSTOSIS -UA:2+ LE, 164 Bacteria -WBC 14.7 (11.7 at [place]); Baseline WBC: 10-14 -Afebrile -FU Blood Cx -FU Urine Cx -Start Rocephin 1gm Daily - Day 1 -Consider consulting heme/onc regarding peristent leukocytosis. DEEP ON POSSIBLE CKD -Cr. 2.1 (2.0 at [facility]); Baseline 1-2+ -FU Renal US -FU Pelvic/Bladder US -FU Urine Protein/Cr Ratio HISTORY OF IRON DEFICIENCY ANEMIA -FU Ferritin -FU TIBC -FU Iron -FU B12/Folate -FU Retic Count -Restart home iron as indicated by panel -Transfuse < 7 HYPERLIPIDEMIA -c/w Lipitor 40mg HS -c/w Zetia 10mg HYPERTENSION -BP in ED 200/60 - 7.5mg Norvasc given -Start Metoprolol 100mg BID -Start Norvasc 2.5mg Daily INSULIN DEPENDENT DIABETES MELLITUS -FU Hba1C -ISS, ACHS -Start Levemir 10 units BID -Hold home Lópezuvtaylor ALZHEIMER'S DEMENTIA -Start Donepezil 5mg HS GERD -Start Pepcid 20mg daily RULE OUT THYROID DISEASE -Proptosis -HTN -FU TSH w/ FT4 FEN -No Standing Fluids -Lytes -Diabetic Diet PPx: -DVT: Heparin TID -GI: Pepcid 20mg DISPO -Admit to med surg Family Medical History Family History: As Documented Visit type - Medication Review Med list reviewed for High Risk Meds patients 65 and older: Yes - Emergency Visit Emergency Visit: Yes ED Registration Date: 04/15/20 Care time: The patient presented to the Emergency Department on the above date and was hospitalized for further evaluation of their emergent condition. - New Patient This patient is new to me today: Yes Date on this admission: 04/15/20 - Critical Care Critical Care patient: No ATTENDING PHYSICIAN STATEMENT I saw and evaluated the patient. I reviewed the resident's note and discussed the case with the resident. I agree with the resident's findings and plan as documented. SUBJECTIVE: OBJECTIVE: ASSESSMENT AND PLAN:
[2020-04-15] MEDS ORDERED: ATORVASTATIN CA 40 MG TABLET (FP) ONE (22:28)
[2020-04-15] MEDS ORDERED: DONEPEZIL HCL 5 MG TABLET (FP) ONE (22:28)
[2020-04-15] MEDS: ATORVASTATIN CA 40 MG TABLET (FP) PO SCH (22:35)
[2020-04-15] MEDS: DONEPEZIL HCL 5 MG TABLET (FP) PO SCH (22:35)
[2020-04-15] MEDS ORDERED: INSULIN (LEVEMIR) 100 UNITS/ML UNITS SQ ONE (22:37)
[2020-04-15] MEDS ORDERED: INSULIN SLIDING SCALE (NOVOLOG) 1 VIAL SQ ONE (22:37)
[2020-04-15] MEDS: INSULIN (LEVEMIR) 100 UNITS/ML UNITS SQ SCH (22:39)
[2020-04-15] MEDS: INSULIN SLIDING SCALE (NOVOLOG) 1 VIAL SQ SCH (22:40)
[2020-04-16] MEDS ORDERED: METOPROLOL TARTRATE 50 MG TABLET (FP) PO ONE (00:13)
[2020-04-16 03:22] VITALS: BMI 24.5
[2020-04-16] MEDS ORDERED: INSULIN (NOVOLOG) ASPART 100 UNITS/ML 10ML VIAL ONE ×2 (05:39→11:47)
[2020-04-16] MEDS: HEPARIN NA (PORCINE) 5,000 UNITS/ML 1ML VIAL SQ SCH ×3 (06:32→22:00)
[2020-04-16] MEDS: INSULIN SLIDING SCALE (NOVOLOG) 1 VIAL SQ SCH ×4 (06:33→22:01)
[2020-04-16 09:02] LABS: HEMATOCRIT 27.4 % (32.4-45.2); HEMOGLOBIN 8.8 GM/dL (10.7-15.3); MCH 27.7 pg (25.7-33.7); MCHC 32.2 g/dl (32.0-36.0); MEAN PLT VOLUME 12.3 fl (7.5-11.1); PLATELET COUNT 184 K/MM3 (134-434); RBC 3.18 M/mm3 (3.60-5.2); WHITE BLOOD COUNT 12.8 K/mm3 (4.0-10.0)
[2020-04-16 09:25] LABS: BILIRUBIN,TOTAL 0.3 mg/dL (0.2-1); BLOOD UREA NITROGEN 39.7 mg/dL (7-18); CREATININE 2.2 mg/dL (0.55-1.3); MAGNESIUM 2.1 mg/dL (1.8-2.4); PHOSPHOROUS 3.5 mg/dL (2.5-4.9); POTASSIUM 4.5 mmol/L (3.5-5.1); TOT PROT 5.6 g/dl (6.4-8.2)
[2020-04-16] MEDS ORDERED: cefTRIAXone SODIUM 1 GM VIAL ONE (10:08)
[2020-04-16] MEDS ORDERED: DEXTROSE 5%-WATER - 50 ML IVPB ONE (10:08)
[2020-04-16] MEDS: EZETIMIBE 10 MG TABLET (FP) PO SCH (10:41)
[2020-04-16] MEDS: CEFTRIAXONE 1 GM in DEXTROSE 5%-WATER - 50 ML IVPB SCH (10:41)
[2020-04-16] MEDS: METOPROLOL TARTRATE 50 MG TABLET (FP) PO SCH ×2 (10:41→22:01)
[2020-04-16] MEDS: FAMOTIDINE 20 MG TABLET PO SCH (10:42)
[2020-04-16] MEDS: ASPIRIN COATED 81 MG TABLET.EC PO SCH (10:42)
[2020-04-16] MEDS: amLODIPine BESYLATE 2.5 MG TABLET (FP) PO SCH (10:42)
[2020-04-16] MEDS: INSULIN (LEVEMIR) 100 UNITS/ML UNITS SQ SCH ×2 (11:04→22:00)
--- NOTE | 2020-04-16 11:49 | PN ---
Progress Note, Physician History of Present Illness: pt seen/ examined. chart reviewed awake/ comfortable no complains offered denies cp/sob/abd pain afebrile - Current Medication List Current Medications: Active Medications Amlodipine Besylate (Norvasc -) 2.5 mg PO DAILY [facility] Last Admin: 04/16/20 10:42 Dose: 2.5 mg Documented by: Aspirin (Ecotrin -) 81 mg PO DAILY [facility] Last Admin: 04/16/20 10:42 Dose: 81 mg Documented by: Atorvastatin Calcium (Lipitor -) 40 mg PO HS [facility] Last Admin: 04/15/20 22:35 Dose: 40 mg Documented by: Donepezil HCl (Aricept -) 5 mg PO HS [facility] Last Admin: 04/15/20 22:35 Dose: 5 mg Documented by: Ezetimibe (Zetia -) 10 mg PO DAILY [facility] Last Admin: 04/16/20 10:41 Dose: 10 mg Documented by: Famotidine (Pepcid -) 20 mg PO DAILY [facility] Last Admin: 04/16/20 10:42 Dose: 20 mg Documented by: Heparin Sodium (Porcine) (Heparin -) 5,000 unit SQ TID [facility] Last Admin: 04/16/20 06:32 Dose: 5,000 unit Documented by: Ceftriaxone Sodium 1 gm/ (Dextrose) 50 mls @ 200 mls/hr IVPB DAILY [facility]; Protocol Last Admin: 04/16/20 10:41 Dose: 200 mls/hr Documented by: Dextrose/Sodium Chloride (D5-1/2ns -) 1,000 mls @ 83 mls/hr IV ASDIR [facility] Insulin Aspart (Novolog Vial Sliding Scale -) 1 vial SQ ACHS [facility]; Protocol Last Admin: 04/16/20 06:33 Dose: Not Given Documented by: Insulin Detemir (Levemir Vial) 10 units SQ BID [facility] Last Admin: 04/16/20 11:04 Dose: Not Given Documented by: Metoprolol Tartrate (Lopressor -) 100 mg PO BID [facility] Last Admin: 04/16/20 10:41 Dose: 100 mg Documented by: - Objective Vital Signs: Vital Signs Temperature 98.0 F 04/16/20 09:39 Pulse Rate 61 04/16/20 09:39 Respiratory Rate 18 04/16/20 09:39 Blood Pressure 137/51 L 10/16/20 09:39 O2 Sat by Pulse Oximetry (%) 97 04/16/20 10:00 Constitutional: Yes: No Distress, Calm Neck: Yes: Supple Cardiovascular: Yes: Regular Rate and Rhythm Respiratory: Yes: CTA Bilaterally Gastrointestinal: Yes: Soft Edema: No Neurological: Yes: Alert Labs: CBC, BMP 04/16/20 08:15 04/16/20 08:15 Problem List - Problems (1) UTI (urinary tract infection) Code(s): N39.0 - URINARY TRACT INFECTION, SITE NOT SPECIFIED (2) CKD (chronic kidney disease) Code(s): N18.9 - CHRONIC KIDNEY DISEASE, UNSPECIFIED (3) Hypertension Code(s): I10 - ESSENTIAL (PRIMARY) HYPERTENSION (4) Diabetes mellitus Code(s): E11.9 - TYPE 2 DIABETES MELLITUS WITHOUT COMPLICATIONS Assessment/Plan Mild hydration Cultures pending abx monitor labs oob-chair PT Monitor BP will follow
[2020-04-16] MEDS ORDERED: DEXTROSE 5%-0.45% SALINE 1,000 ML IV SCH (12:00)
--- NOTE | 2020-04-16 13:52 | EKG ---
Test Reason : Blood Pressure : / mmHG Vent. Rate : 065 BPM Atrial Rate : 065 BPM P-R Int : 138 ms QRS Dur : 072 ms QT Int : 434 ms P-R-T Axes : 050 021 106 degrees QTc Int : 451 ms NORMAL SINUS RHYTHM NONSPECIFIC T WAVE ABNORMALITY ABNORMAL ECG Confirmed by LAILA BLAS MD ([id number]) on 04/16/2020 1:52:00 PM Referred By: Confirmed By:LAILA BLAS MD
--- NOTE | 2020-04-16 14:10 | CON.NEP ---
Consult Consult Specialty:: Neprologhy Referred by:: Dr. Bundy Reason for Consultation:: DEEP on CKD - History of Present Illness Chief Complaint: Abnormal renal function History of Present Illness: This is a 80 year old woman with history of CKD, hypertension, hyperlipidemia, Anemia, dementia, GERD who presented from [place] with elevated serum Cr and admitted for acute kidney injury with Cr of 2. Seen and examined at the bedside. She is awake and alert and offers no complaints. Denies any N/V/D, abdominal pain, fever, chills, SOB or chest pain. - History Source History Provided By: Patient Limitations to Obtaining History: No Limitations - Past Medical History [employer]: Yes: Dementia Cardio/Vascular: Yes: HTN, Hyperlipdemia Pulmonary: Yes: Asthma ...: No Endocrine: Yes: Diabetes Mellitus - Past Surgical History Past Surgical History: Yes: Hysterectomy - Alcohol/Substance Use Hx Alcohol Use: No History of Substance Use: reports: None - Smoking History Smoking history: Smoker current status UNK Have you smoked in the past 12 months: Yes Aproximately how many cigarettes per day: 3 - Social History Usual Living Arrangement: With Child ADL: Support Services Home Medications - Allergies Allergies/Adverse Reactions: Allergies Allergy/AdvReac Type Severity Reaction Status Date / Time No Known Allergies Allergy Verified 01/09/19 04:18 - Home Medications Home Medications: Ambulatory Orders Montelukast Na [Singulair -] 10 mg PO HS 06/07/17 Insulin (Novolog) [Novolog Flexpen -] See Protocol SQ ACHS #2 pen 09/20/17 Ergocalciferol [Vitamin D2] 1 tab PO DAILY 01/09/19 Sitagliptin Phosphate [Januvia] 25 mg PO DAILY 01/09/19 Aa/Hydrolyzed Collagen, Whey [Lps 15-30 Liquid] 30 ml PO DAILY 04/15/20 Acetaminophen [8Hr Arthritis Pain Relief] 650 mg PO Q6H PRN 04/15/20 Amlodipine Besylate [Norvasc -] 2.5 mg PO DAILY 04/15/20 Ascorbic Acid [Vitamin C] 500 mg PO DAILY 04/15/20 Bimatoprost [Lumigan] 1 drop IO HS 04/15/20 Dorzolamide HCl/Pf [Dorzolamide 2% Eye Drop] 1 drop OP TID 04/15/20 Enoxaparin [Lovenox -] 40 mg SQ DAILY 04/15/20 Famotidine [Pepcid] 20 mg PO DAILY 04/15/20 Insulin Aspart [Novolog] 10 unit SQ BID 04/15/20 Insulin Detemir [Levemir Flextouch] 42 unit SQ DAILY 04/15/20 Metoprolol Tartrate [Lopressor] 100 mg PO BID 04/15/20 Polyethylene Glycol 3350 [Miralax (For Daily Use) -] 17 gm PO ONCE PRN 04/15/20 Thiamine Mononitrate [Vitamin B-1] 100 mg PO DAILY 04/15/20 Family Medical History Family History: Unremarkable Review of Systems - Review of Systems Constitutional: reports: No Symptoms Eyes: reports: No Symptoms HENT: reports: No Symptoms Neck: reports: No Symptoms Cardiovascular: reports: No Symptoms Respiratory: reports: No Symptoms Gastrointestinal: reports: No Symptoms Genitourinary: reports: No Symptoms Musculoskeletal: reports: No Symptoms Endocrine: reports: No Symptoms Nephrology Consult - Height Height: 5 ft 5 in - Weight Weight: 66.814 kg - BMI Body Mass Index (BMI): 24.5 - Lab Results CBC,BMP: CBC, BMP 04/16/20 08:15 04/16/20 08:15 Anion Gap: Anion Gap Anion Gap 6 MMOL/L (8-16) L 04/16/20 08:15 - Physical Examination Vital Signs: Vital Signs Temperature 98.0 F 04/16/20 09:39 Pulse Rate 61 04/16/20 09:39 Respiratory Rate 18 04/16/20 09:39 Blood Pressure 137/51 L 04/16/20 09:39 O2 Sat by Pulse Oximetry (%) 97 04/16/20 10:00 Constitutional: Yes: No Distress, Calm Eyes: Yes: Conjunctiva Clear HENT: Yes: Atraumatic Neck: Yes: Supple Cardiovascular: Yes: Regular Rate and Rhythm Respiratory: Yes: Regular, CTA Bilaterally Gastrointestinal: Yes: Soft. No: Tenderness Renal/: No: Bladder Distention, CVA Tenderness - Left, CVA Tenderness - Right Extremities: No: Cyanosis Edema: No Assessment/Plan 80 year old woman with history of CKD, hypertension, hyperlipidemia, Anemia, dementia, GERD who presented from [place] with elevated serum Cr and admitted for acute kidney injury with Cr of 2. 1. Acute kidney injury 2. Hypertension 3. Hyperlipidemia 4. Anemia 5. Dementia 5. GERD 7. Cystitis Differential for acute kidney injury: volume depletion vs. ATN vs. AIN vs. GN (less likely) Check urine studies for FeUrea, UPCR and urine eosinophis Renal US showed renal cysts but no obstruction noted Continue isotonic saline for now hold any diuretics or FELICIANO/ARB Avoid IV contrast or NSAID use There is no acute need for renal replacement therapy Trend H/H, check iron studies oral intake as tolerated F/u urine culture, empiric antibiotics as per primary team Thank you Miguel Angel Núñez DO
[2020-04-16] MEDS ORDERED: amLODIPine BESYLATE 5 MG TABLET (FP) PO ONE (15:00)
[2020-04-16] MEDS ORDERED: SODIUM CHLORIDE 1,000 ML IV SCH (16:30)
[2020-04-16] MEDS: hydrALAZINE HCL 25 MG TABLET (FP) PO SCH ×2 (17:33→22:00)
[2020-04-16] MEDS: DONEPEZIL HCL 5 MG TABLET (FP) PO SCH (22:00)
[2020-04-16] MEDS: ATORVASTATIN CA 40 MG TABLET (FP) PO SCH (22:00)
[2020-04-17] MEDS: HEPARIN NA (PORCINE) 5,000 UNITS/ML 1ML VIAL SQ SCH ×3 (06:25→21:00)
[2020-04-17] MEDS: hydrALAZINE HCL 25 MG TABLET (FP) PO SCH ×3 (06:25→21:00)
[2020-04-17] MEDS: INSULIN SLIDING SCALE (NOVOLOG) 1 VIAL SQ SCH ×4 (06:37→21:02)
[2020-04-17 07:53] LABS: BASO % 0.7 % (0-2.0); EOS % 5.6 % (0-4.5); HEMATOCRIT 30.5 % (32.4-45.2); HEMOGLOBIN 10.1 GM/dL (10.7-15.3); LYMPH % 10.3 % (8-40); MCH 28.4 pg (25.7-33.7); MEAN CELL VOLUME 86.1 fl (80-96); MEAN PLT VOLUME 12.2 fl (7.5-11.1); MONO % 8.5 % (3.8-10.2); NEUT % 74.9 % (42.8-82.8); PLATELET COUNT 173 K/MM3 (134-434); RBC 3.54 M/mm3 (3.60-5.2); RDW 15.5 % (11.6-15.6)
[2020-04-17 08:26] LABS: ALBUMIN 2.1 g/dl (3.4-5.0); BILIRUBIN,TOTAL 0.2 mg/dL (0.2-1); BLOOD UREA NITROGEN 38.5 mg/dL (7-18); CALCIUM 8.4 mg/dL (8.5-10.1); CREATININE 2.1 mg/dL (0.55-1.3); PHOSPHOROUS 3.4 mg/dL (2.5-4.9); POTASSIUM 4.4 mmol/L (3.5-5.1); TOT PROT 5.9 g/dl (6.4-8.2)
[2020-04-17] MEDS ORDERED: DEXTROSE 5%-WATER - 50 ML IVPB ONE (09:46)
[2020-04-17] MEDS ORDERED: cefTRIAXone SODIUM 1 GM VIAL ONE (09:46)
[2020-04-17] MEDS: CEFTRIAXONE 1 GM in DEXTROSE 5%-WATER - 50 ML IVPB SCH (09:50)
[2020-04-17] MEDS: ASPIRIN COATED 81 MG TABLET.EC PO SCH (09:53)
[2020-04-17] MEDS: EZETIMIBE 10 MG TABLET (FP) PO SCH (09:53)
[2020-04-17] MEDS: FAMOTIDINE 20 MG TABLET PO SCH (09:53)
[2020-04-17] MEDS: amLODIPine BESYLATE 2.5 MG TABLET (FP) PO SCH (09:53)
[2020-04-17] MEDS: METOPROLOL TARTRATE 50 MG TABLET (FP) PO SCH ×2 (09:53→21:02)
[2020-04-17] MEDS: INSULIN (LEVEMIR) 100 UNITS/ML UNITS SQ SCH ×2 (09:57→21:02)
[2020-04-17] MEDS ORDERED: INSULIN (NOVOLOG) ASPART 100 UNITS/ML 10ML VIAL ONE (11:38)
[2020-04-17] MEDS: DONEPEZIL HCL 5 MG TABLET (FP) PO SCH (21:00)
[2020-04-17] MEDS: ATORVASTATIN CA 40 MG TABLET (FP) PO SCH (21:02)
--- NOTE | 2020-04-17 23:39 | PN ---
Progress Note (short form) - Note Progress Note: No complaints events noted admitted for renal failure Vital Signs - 24 hr 04/17/20 04/17/20 04/17/20 00:12 09:00 10:00 Temperature 97.9 F Pulse Rate 67 62 Respiratory 18 18 Rate Blood Pressure 179/71 H 160/87 O2 Sat by Pulse 97 97 Oximetry (%) 04/17/20 04/17/20 04/17/20 15:35 18:00 21:00 Temperature 98.7 F 98.9 F Pulse Rate 62 65 Respiratory 18 18 Rate Blood Pressure 154/75 147/62 O2 Sat by Pulse 98 98 Oximetry (%) 04/17/20 22:00 Temperature 98.8 F Pulse Rate 70 Respiratory 18 Rate Blood Pressure 181/73 H O2 Sat by Pulse 98 Oximetry (%) Current Medications Generic Name Dose Route Start Last Admin Trade Name Freq PRN Reason Stop Dose Admin Amlodipine Besylate 2.5 mg 04/16/20 10:00 04/17/20 09:53 Norvasc - PO 2.5 mg DAILY CROW Administration Aspirin 81 mg 04/16/20 10:00 04/17/20 09:53 Ecotrin - PO 81 mg DAILY CROW Administration Atorvastatin Calcium 40 mg 04/15/20 22:00 04/17/20 21:02 Lipitor - PO 40 mg HS CROW Administration Donepezil HCl 5 mg 04/15/20 22:00 04/17/20 21:00 Aricept - PO 5 mg HS CROW Administration Ezetimibe 10 mg 04/16/20 10:00 04/17/20 09:53 Zetia - PO 10 mg DAILY CROW Administration Famotidine 20 mg 04/16/20 10:00 04/17/20 09:53 Pepcid - PO 20 mg DAILY CROW Administration Heparin Sodium (Porcine) 5,000 unit 04/16/20 06:00 04/17/20 21:00 Heparin - SQ 5,000 unit TID CROW Administration Hydralazine HCl 25 mg 04/16/20 17:24 04/17/20 21:00 Apresoline - PO 25 mg TID CROW Administration Ceftriaxone Sodium 1 gm/ 50 mls @ 200 mls/hr 04/16/20 08:30 04/17/20 09:50 Dextrose IVPB 200 mls/hr DAILY CROW Administration Protocol Insulin Aspart 1 vial 04/15/20 22:00 04/17/20 21:02 Novolog Vial Sliding Scale - SQ 2 units ACHS CROW Administration Protocol Insulin Detemir 10 units 04/15/20 22:00 04/17/20 21:02 Levemir Vial SQ 10 units BID CROW Administration Metoprolol Tartrate 100 mg 04/16/20 10:00 04/17/20 21:02 Lopressor - PO 100 mg BID CROW Administration Laboratory Results - last 24 hr 04/17/20 04/17/20 04/17/20 06:02 07:31 07:31 WBC 12.0 H RBC 3.54 L Hgb 10.1 L Hct 30.5 L MCV 86.1 MCH 28.4 MCHC 33.0 RDW 15.5 Plt Count 173 MPV 12.2 H Absolute Neuts (auto) 9.0 H Neutrophils % 74.9 Lymphocytes % 10.3 D Monocytes % 8.5 Eosinophils % 5.6 H Basophils % 0.7 Nucleated RBC % 0 Sodium 145 Potassium 4.4 Chloride 116 H Carbon Dioxide 22 Anion Gap 8 BUN 38.5 H Creatinine 2.1 H Est GFR (CKD-EPI)AfAm 24.09 Est GFR (CKD-EPI)NonAf 20.79 POC Glucometer 105 Random Glucose 100 Calcium 8.4 L Phosphorus 3.4 Magnesium 2.0 Total Bilirubin 0.2 AST 12 L ALT 15 Alkaline Phosphatase 110 Total Protein 5.9 L Albumin 2.1 L 04/17/20 04/17/20 04/17/20 11:13 16:16 20:47 WBC RBC Hgb Hct MCV MCH MCHC RDW Plt Count MPV Absolute Neuts (auto) Neutrophils % Lymphocytes % Monocytes % Eosinophils % Basophils % Nucleated RBC % Sodium Potassium Chloride Carbon Dioxide Anion Gap BUN Creatinine Est GFR (CKD-EPI)AfAm Est GFR (CKD-EPI)NonAf POC Glucometer 205 229 181 Random Glucose Calcium Phosphorus Magnesium Total Bilirubin AST ALT Alkaline Phosphatase Total Protein Albumin S1 S2 RRR Lungs clear Abd- soft, NT No edema PLAN Monitor BP monitor renal function will need iv fluids renal and bladder sono noted Nephrology eval noted iv antibiotics for UTI Problem List - Problems (1) UTI (urinary tract infection) Code(s): N39.0 - URINARY TRACT INFECTION, SITE NOT SPECIFIED Qualifiers: Urinary tract infection type: acute cystitis Hematuria presence: without h ematuria Qualified Code(s): N30.00 - Acute cystitis without hematuria (2) CKD (chronic kidney disease) Code(s): N18.9 - CHRONIC KIDNEY DISEASE, UNSPECIFIED Qualifiers: Chronic kidney disease stage: stage 2 (mild) Qualified Code(s): N18.2 - Chronic kidney disease, stage 2 (mild) (3) Hypertension Code(s): I10 - ESSENTIAL (PRIMARY) HYPERTENSION Qualifiers: Hypertension type: unspecified Qualified Code(s): I10 - Essential (primary) hypertension (4) Hyperglycemia Code(s): R73.9 - HYPERGLYCEMIA, UNSPECIFIED (5) Dementia Code(s): F03.90 - UNSPECIFIED DEMENTIA WITHOUT BEHAVIORAL DISTURBANCE (6) Diabetes mellitus Code(s): E11.9 - TYPE 2 DIABETES MELLITUS WITHOUT COMPLICATIONS
[2020-04-18] MEDS: hydrALAZINE HCL 25 MG TABLET (FP) PO SCH (06:47)
[2020-04-18] MEDS: HEPARIN NA (PORCINE) 5,000 UNITS/ML 1ML VIAL SQ SCH ×3 (06:47→21:13)
[2020-04-18] MEDS: INSULIN SLIDING SCALE (NOVOLOG) 1 VIAL SQ SCH ×4 (06:47→21:14)
[2020-04-18 09:17] LABS: POTASSIUM 4.1 mmol/L (3.5-5.1)
[2020-04-18 09:18] LABS: CALCIUM 8.3 mg/dL (8.5-10.1)
[2020-04-18 09:22] LABS: CREATININE 2.2 mg/dL (0.55-1.3)
[2020-04-18] MEDS ORDERED: cefTRIAXone SODIUM 1 GM VIAL ONE (09:39)
[2020-04-18] MEDS ORDERED: DEXTROSE 5%-WATER - 50 ML IVPB ONE (09:40)
[2020-04-18] MEDS: ASPIRIN COATED 81 MG TABLET.EC PO SCH (09:48)
[2020-04-18] MEDS: FAMOTIDINE 20 MG TABLET PO SCH (09:48)
[2020-04-18] MEDS: METOPROLOL TARTRATE 50 MG TABLET (FP) PO SCH ×2 (09:48→21:12)
[2020-04-18] MEDS: EZETIMIBE 10 MG TABLET (FP) PO SCH (09:48)
[2020-04-18] MEDS: amLODIPine BESYLATE 2.5 MG TABLET (FP) PO SCH (09:48)
[2020-04-18] MEDS: INSULIN (LEVEMIR) 100 UNITS/ML UNITS SQ SCH ×2 (10:00→21:16)
[2020-04-18] MEDS: CEFTRIAXONE 1 GM in DEXTROSE 5%-WATER - 50 ML IVPB SCH ×2 (10:25→14:58)
[2020-04-18] MEDS: SODIUM CHLORIDE 0.45% 1,000 ML IV SCH ×2 (10:58→14:59)
--- NOTE | 2020-04-18 11:26 | PN ---
Progress Note (short form) - Note Progress Note: unable to get iv line she feels well no complaints no SOB Vital Signs - 24 hr 04/17/20 04/17/20 04/17/20 15:35 18:00 21:00 Temperature 98.7 F 98.9 F Pulse Rate 62 65 Respiratory 18 18 Rate Blood Pressure 154/75 147/62 O2 Sat by Pulse 98 98 Oximetry (%) 04/17/20 04/18/20 04/18/20 22:00 06:00 09:00 Temperature 98.8 F 98.2 F 98.2 F Pulse Rate 70 66 64 Respiratory 18 18 18 Rate Blood Pressure 181/73 H 182/83 H 143/72 O2 Sat by Pulse 98 97 97 Oximetry (%) Current Medications Generic Name Dose Route Start Last Admin Trade Name Freq PRN Reason Stop Dose Admin Amlodipine Besylate 2.5 mg 04/16/20 10:00 04/18/20 09:48 Norvasc - PO 2.5 mg DAILY CROW Administration Aspirin 81 mg 04/16/20 10:00 04/18/20 09:48 Ecotrin - PO 81 mg DAILY CROW Administration Atorvastatin Calcium 40 mg 04/15/20 22:00 04/17/20 21:02 Lipitor - PO 40 mg HS CROW Administration Donepezil HCl 5 mg 04/15/20 22:00 04/17/20 21:00 Aricept - PO 5 mg HS CROW Administration Ezetimibe 10 mg 04/16/20 10:00 04/18/20 09:48 Zetia - PO 10 mg DAILY CROW Administration Famotidine 20 mg 04/16/20 10:00 04/18/20 09:48 Pepcid - PO 20 mg DAILY CROW Administration Heparin Sodium (Porcine) 5,000 unit 04/16/20 06:00 04/18/20 06:47 Heparin - SQ 5,000 unit TID CROW Administration Hydralazine HCl 25 mg 04/16/20 17:24 04/18/20 06:47 Apresoline - PO 25 mg TID CROW Administration Ceftriaxone Sodium 1 gm/ 50 mls @ 200 mls/hr 04/16/20 08:30 04/17/20 09:50 Dextrose IVPB 200 mls/hr DAILY CROW Administration Protocol Sodium Chloride 1,000 mls @ 83 mls/hr 04/18/20 10:30 1/2 Normal Saline IV ASDIR CROW Insulin Aspart 1 vial 04/15/20 22:00 04/18/20 11:18 Novolog Vial Sliding Scale - SQ 4 units ACHS CROW Administration Protocol Insulin Detemir 12 units 04/17/20 23:40 04/18/20 10:00 Levemir Vial SQ 12 units BID CROW Administration Metoprolol Tartrate 100 mg 04/16/20 10:00 04/18/20 09:48 Lopressor - PO 100 mg BID CROW Administration Laboratory Results - last 24 hr 04/17/20 04/17/20 04/18/20 16:16 20:47 06:44 Sodium Potassium Chloride Carbon Dioxide Anion Gap BUN Creatinine Est GFR (CKD-EPI)AfAm Est GFR (CKD-EPI)NonAf POC Glucometer 229 181 101 Random Glucose Hemoglobin A1c % Calcium 04/18/20 04/18/20 04/18/20 08:37 08:37 11:05 Sodium 145 Potassium 4.1 Chloride 115 H Carbon Dioxide 21 Anion Gap 8 BUN 38.0 H Creatinine 2.2 H Est GFR (CKD-EPI)AfAm 22.77 Est GFR (CKD-EPI)NonAf 19.65 POC Glucometer 235 Random Glucose 99 Hemoglobin A1c % 7.4 H Calcium 8.3 L S1 S2 RRR Lungs clear Abd- soft, NT No edema PLAN Increase Hydralazine for better BP control monitor renal function will need iv fluids renal and bladder sono noted Problem List - Problems (1) UTI (urinary tract infection) Code(s): N39.0 - URINARY TRACT INFECTION, SITE NOT SPECIFIED Qualifiers: Urinary tract infection type: acute cystitis Hematuria presence: without hematuria Qualified Code(s): N30.00 - Acute cystitis without hematuria (2) CKD (chronic kidney disease) Code(s): N18.9 - CHRONIC KIDNEY DISEASE, UNSPECIFIED Qualifiers: Chronic kidney disease stage: stage 2 (mild) Qualified Code(s): N18.2 - Chronic kidney disease, stage 2 (mild) (3) Hypertension Code(s): I10 - ESSENTIAL (PRIMARY) HYPERTENSION Qualifiers: Hypertension type: unspecified Qualified Code(s): I10 - Essential (primary) hypertension (4) Hyperglycemia Code(s): R73.9 - HYPERGLYCEMIA, UNSPECIFIED (5) Dementia Code(s): F03.90 - UNSPECIFIED DEMENTIA WITHOUT BEHAVIORAL DISTURBANCE (6) Diabetes mellitus Code(s): E11.9 - TYPE 2 DIABETES MELLITUS WITHOUT COMPLICATIONS
[2020-04-18] MEDS ORDERED: hydrALAZINE HCL 25 MG TABLET (FP) PO SCH (11:28)
[2020-04-18] MEDS ORDERED: INSULIN (LEVEMIR) 100 UNITS/ML UNITS SQ ONE (11:30)
[2020-04-18] MEDS: hydrALAZINE HCL 50 MG TABLET (FP) PO SCH ×2 (14:33→21:13)
[2020-04-18] MEDS ORDERED: INSULIN (NOVOLOG) ASPART 100 UNITS/ML 10ML VIAL ONE (20:50)
[2020-04-18] MEDS: DONEPEZIL HCL 5 MG TABLET (FP) PO SCH (21:12)
[2020-04-18] MEDS: ATORVASTATIN CA 40 MG TABLET (FP) PO SCH (21:13)
[2020-04-19] MEDS: SODIUM CHLORIDE 0.45% 1,000 ML IV SCH ×4 (02:07→16:04)
[2020-04-19] MEDS: INSULIN SLIDING SCALE (NOVOLOG) 1 VIAL SQ SCH ×4 (06:17→21:37)
[2020-04-19] MEDS: HEPARIN NA (PORCINE) 5,000 UNITS/ML 1ML VIAL SQ SCH ×3 (06:17→21:37)
[2020-04-19] MEDS: hydrALAZINE HCL 50 MG TABLET (FP) PO SCH ×3 (06:17→21:38)
[2020-04-19 08:32] LABS: POTASSIUM 4.1 mmol/L (3.5-5.1)
[2020-04-19 08:34] LABS: CALCIUM 8.5 mg/dL (8.5-10.1)
[2020-04-19 08:35] LABS: BLOOD UREA NITROGEN 38.9 mg/dL (7-18)
[2020-04-19 08:37] LABS: CREATININE 2.1 mg/dL (0.55-1.3)
[2020-04-19] MEDS ORDERED: cefTRIAXone SODIUM 1 GM VIAL ONE (09:25)
[2020-04-19] MEDS ORDERED: DEXTROSE 5%-WATER - 50 ML IVPB ONE (09:26)
[2020-04-19] MEDS: CEFTRIAXONE 1 GM in DEXTROSE 5%-WATER - 50 ML IVPB SCH (10:01)
[2020-04-19] MEDS: INSULIN (LEVEMIR) 100 UNITS/ML UNITS SQ SCH ×2 (10:03→21:37)
[2020-04-19] MEDS: ASPIRIN COATED 81 MG TABLET.EC PO SCH (10:03)
[2020-04-19] MEDS: FAMOTIDINE 20 MG TABLET PO SCH (10:04)
[2020-04-19] MEDS: METOPROLOL TARTRATE 50 MG TABLET (FP) PO SCH ×2 (10:04→21:38)
[2020-04-19] MEDS: amLODIPine BESYLATE 2.5 MG TABLET (FP) PO SCH (10:05)
[2020-04-19] MEDS: EZETIMIBE 10 MG TABLET (FP) PO SCH (10:06)
--- NOTE | 2020-04-19 11:48 | PN ---
Progress Note, Physician History of Present Illness: Pt seen/ examined Chart reviewed Awake/ Comfortable BP runs high No distress - Current Medication List Current Medications: Active Medications Aspirin (Ecotrin -) 81 mg PO DAILY [facility] Last Admin: 04/19/20 10:03 Dose: 81 mg Documented by: Atorvastatin Calcium (Lipitor -) 40 mg PO HS [facility] Last Admin: 04/18/20 21:13 Dose: 40 mg Documented by: Donepezil HCl (Aricept -) 5 mg PO HS [facility] Last Admin: 04/18/20 21:12 Dose: 5 mg Documented by: Ezetimibe (Zetia -) 10 mg PO DAILY [facility] Last Admin: 04/19/20 10:06 Dose: 10 mg Documented by: Famotidine (Pepcid -) 20 mg PO DAILY [facility] Last Admin: 04/19/20 10:04 Dose: 20 mg Documented by: Heparin Sodium (Porcine) (Heparin -) 5,000 unit SQ TID [facility] Last Admin: 04/19/20 06:17 Dose: 5,000 unit Documented by: Hydralazine HCl (Apresoline -) 50 mg PO TID [facility] Last Admin: 04/19/20 06:17 Dose: 50 mg Documented by: Ceftriaxone Sodium 1 gm/ (Dextrose) 50 mls @ 200 mls/hr IVPB DAILY [facility]; Protocol Last Admin: 04/19/20 10:01 Dose: 200 mls/hr Documented by: Sodium Chloride (1/2 Normal Saline) 1,000 mls @ 83 mls/hr IV ASDIR [facility] Last Admin: 04/19/20 02:07 Dose: 83 mls/hr Documented by: Insulin Aspart (Novolog Vial Sliding Scale -) 1 vial SQ ACHS [facility]; Protocol Last Admin: 04/19/20 06:17 Dose: Not Given Documented by: Insulin Detemir (Levemir Vial) 12 units SQ BID [facility] Last Admin: 04/19/20 10:03 Dose: 12 units Documented by: Metoprolol Tartrate (Lopressor -) 100 mg PO BID [facility] Last Admin: 04/19/20 10:04 Dose: 100 mg Documented by: Nifedipine (Procardia Xl -) 30 mg PO DAILY [facility] - Objective Vital Signs: Vital Signs Temperature 98.3 F 04/19/20 06:00 Pulse Rate 65 04/19/20 06:00 Respiratory Rate 18 04/19/20 06:00 Blood Pressure 179/66 H 04/19/20 06:00 O2 Sat by Pulse Oximetry (%) 98 04/19/20 06:00 Constitutional: Yes: No Distress, Calm Neck: Yes: Supple Cardiovascular: Yes: Regular Rate and Rhythm Respiratory: Yes: CTA Bilaterally Gastrointestinal: Yes: Soft Edema: No Neurological: Yes: Alert Labs: CBC, BMP 04/17/20 07:31 04/19/20 07:08 Problem List - Problems (1) UTI (urinary tract infection) Code(s): N39.0 - URINARY TRACT INFECTION, SITE NOT SPECIFIED Qualifiers: Urinary tract infection type: acute cystitis Hematuria presence: without hematuria Qualified Code(s): N30.00 - Acute cystitis without hematuria (2) CKD (chronic kidney disease) Code(s): N18.9 - CHRONIC KIDNEY DISEASE, UNSPECIFIED Qualifiers: Chronic kidney disease stage: stage 2 (mild) Qualified Code(s): N18.2 - Chronic kidney disease, stage 2 (mild) (3) Hypertension Code(s): I10 - ESSENTIAL (PRIMARY) HYPERTENSION Qualifiers: Hypertension type: unspecified Qualified Code(s): I10 - Essential (primary) hypertension (4) Diabetes mellitus Code(s): E11.9 - TYPE 2 DIABETES MELLITUS WITHOUT COMPLICATIONS Assessment/Plan Overall stable cr -- 2.1 Baseline ? BP very high Meds reviewed D/c Amlodipine Start on Procardia. Monitor today Will follow Renal also following
[2020-04-19] MEDS: NIFEdipine E.R. 30 MG TABLET PO SCH (12:44)
--- NOTE | 2020-04-19 12:53 | PN ---
Progress Note, Physician History of Present Illness: Seen and examined at the bedside awake and alert offers no acute complaints denies any sob, cp, abd pain, fever, chills, N/V/D making urine appetite is good on IV fluids - Current Medication List Current Medications: Active Medications Aspirin (Ecotrin -) 81 mg PO DAILY [facility] Last Admin: 04/19/20 10:03 Dose: 81 mg Documented by: Atorvastatin Calcium (Lipitor -) 40 mg PO HS [facility] Last Admin: 04/18/20 21:13 Dose: 40 mg Documented by: Donepezil HCl (Aricept -) 5 mg PO HS [facility] Last Admin: 04/18/20 21:12 Dose: 5 mg Documented by: Ezetimibe (Zetia -) 10 mg PO DAILY [facility] Last Admin: 04/19/20 10:06 Dose: 10 mg Documented by: Famotidine (Pepcid -) 20 mg PO DAILY [facility] Last Admin: 04/19/20 10:04 Dose: 20 mg Documented by: Heparin Sodium (Porcine) (Heparin -) 5,000 unit SQ TID [facility] Last Admin: 04/19/20 06:17 Dose: 5,000 unit Documented by: Hydralazine HCl (Apresoline -) 50 mg PO TID [facility] Last Admin: 04/19/20 06:17 Dose: 50 mg Documented by: Ceftriaxone Sodium 1 gm/ (Dextrose) 50 mls @ 200 mls/hr IVPB DAILY [facility]; Protoco l Last Admin: 04/19/20 10:01 Dose: 200 mls/hr Documented by: Sodium Chloride (1/2 Normal Saline) 1,000 mls @ 42 mls/hr IV ASDIR [facility] Insulin Aspart (Novolog Vial Sliding Scale -) 1 vial SQ ACHS [facility]; Protocol Last Admin: 04/19/20 12:08 Dose: 4 units Documented by: Insulin Detemir (Levemir Vial) 12 units SQ BID [facility] Last Admin: 04/19/20 10:03 Dose: 12 units Documented by: Metoprolol Tartrate (Lopressor -) 100 mg PO BID [facility] Last Admin: 04/19/20 10:04 Dose: 100 mg Documented by: Nifedipine (Procardia Xl -) 30 mg PO DAILY [facility] Last Admin: 04/19/20 12:44 Dose: 30 mg Documented by: - Objective Vital Signs: Vital Signs Temperature 98.3 F 04/19/20 06:00 Pulse Rate 65 04/19/20 06:00 Respiratory Rate 18 04/19/20 06:00 Blood Pressure 179/66 H 04/19/20 06:00 O2 Sat by Pulse Oximetry (%) 98 04/19/20 06:00 Constitutional: Yes: No Distress HENT: Yes: Atraumatic Neck: Yes: Supple Cardiovascular: Yes: Regular Rate and Rhythm Respiratory: Yes: Regular, CTA Bilaterally Gastrointestinal: Yes: Soft Extremities: No: Cold, Cool, Cyanosis Neurological: Yes: Alert, Oriented Labs: CBC, BMP 04/17/20 07:31 04/19/20 07:08 Assessment/Plan 80 year old woman with history of CKD, hypertension, hype rlipidemia, Anemia, dementia, GERD who presented from [place] with elevated serum Cr and admitted for acute kidney injury with Cr of 2. 1. Acute kidney injury 2. Hypertension 3. Hyperlipidemia 4. Anemia 5. Dementia 5. GERD 7. Cystitis Renal function is stable but not improved. There is no overt electrolyte or acid/base disturbance. Urine studies showed UPCR of 8 (nephrotic range), FeNa was 4.4% indicating tubular injury, Eosinophils pending. Renal US showed renal cysts but no obstruction noted Pt appears euvolemic, decrease IV fluids to 1L daily. hold any diuretics or FELICIANO/ARB Avoid IV contrast or NSAID use There is no acute need for renal replacement therapy Trend H/H, check iron studies oral intake as tolerated Continue antibiotics per primary team If renal function stable, can plan for discharge and trend recovery as an outpatient. Thank you Miguel Angel Núñez DO
[2020-04-19] MEDS: hydrALAZINE HCL 25 MG TABLET (FP) PO SCH (13:48)
[2020-04-19] MEDS ORDERED: INSULIN (NOVOLOG) ASPART 100 UNITS/ML 10ML VIAL ONE (21:20)
[2020-04-19] MEDS: ATORVASTATIN CA 40 MG TABLET (FP) PO SCH (21:38)
[2020-04-19] MEDS: DONEPEZIL HCL 5 MG TABLET (FP) PO SCH (21:38)
[2020-04-20] MEDS: HEPARIN NA (PORCINE) 5,000 UNITS/ML 1ML VIAL SQ SCH ×2 (05:59→13:36)
[2020-04-20] MEDS: hydrALAZINE HCL 50 MG TABLET (FP) PO SCH ×2 (05:59→13:36)
[2020-04-20] MEDS: INSULIN SLIDING SCALE (NOVOLOG) 1 VIAL SQ SCH ×2 (06:00→12:30)
[2020-04-20 07:54] LABS: POTASSIUM 4.2 mmol/L (3.5-5.1)
[2020-04-20 08:00] LABS: CALCIUM 8.5 mg/dL (8.5-10.1)
[2020-04-20 08:01] LABS: BLOOD UREA NITROGEN 31.7 mg/dL (7-18)
[2020-04-20] MEDS ORDERED: DEXTROSE 5%-WATER - 50 ML IVPB ONE (11:59)
[2020-04-20] MEDS ORDERED: cefTRIAXone SODIUM 1 GM VIAL ONE (11:59)
--- NOTE | 2020-04-20 12:04 | DS ---
Physical Examination Vital Signs: Vital Signs Temperature 98.3 F 04/20/20 06:43 Pulse Rate 65 04/20/20 06:43 Respiratory Rate 18 04/20/20 06:43 Blood Pressure 174/70 H 04/20/20 06:43 O2 Sat by Pulse Oximetry (%) 95 04/20/20 06:43 Constitutional: Yes: No Distress, Calm Cardiovascular: Yes: Regular Rate and Rhythm Respiratory: Yes: CTA Bilaterally Gastrointestinal: Yes: Normal Bowel Sounds, Soft. No: Tenderness Edema: No Labs: CBC, BMP 04/17/20 07:31 04/20/20 06:32 Discharge Summary Problems reviewed: Yes Reason For Visit: ACUTE KIDNEY INJURY Current Active Problems UTI (urinary tract infection) (Acute) CKD (chronic kidney disease) (Chronic) Hypertension (Chronic) Health Concerns: HISTORY OF PRESENT ILLNESS: 84 yo F w/ PMHx of HLD, HTN, IDDM, Iron Deficiency Anemia, ?Alzheimers dementia, ?GERD and ?CKD, presents to the ED from [facility] with jef shah at bedside for elevated CR at 2. According to ptn, labs were drawn at halfway. Ptn was given oral fluid while at the [place]. Additionally ptn had a WBC of 11.7. Per the patient, she has not been drinking much water. ROS was negative for any F/C, KUMARI, changes in vision, CP/SoB, abdominal pain, changes in urinary frequency or dysuria, changes in bowel habits, nausea or vomiting. ER course was notable for: (1)BP: Elevated at 140/84 --> 200/60 (2)UA, UCx (3)500ml NS Bolus Seen by Renal -- was on iv fluids started on iv antibiotics for UTI she completed iv antibiotics Renal sono-- B/L renal cysts with no hydronephrosis Per Nephrology-- Dr Núñez Urine studies showed UPCR of 8 (nephrotic range), FeNa was 4.4% indicating tubular injury, Eosinophils pending. Renal US showed renal cysts but no obstruction noted Pt appears euvolemic, decrease IV fluids to 1L daily. hold any diuretics or FELICIANO/ARB Avoid IV contrast or NSAID use There is no acute need for renal replacement therapy Creatinine now improved to 2 She is encouraged po fluid intake slow improvement of renal function Stable for dc to [place] - Instructions Referrals: Johnna West MD [Primary Care Provider] - - Home Medications Comprehensive Discharge Medication List: Ambulatory Orders Montelukast Na [Singulair -] 10 mg PO HS 06/07/17 Insulin (Novolog) [Novolog Flexpen -] See Protocol SQ ACHS #2 pen 09/20/17 Ergocalciferol [Vitamin D2] 1 tab PO DAILY 01/09/19 Sitagliptin Phosphate [Januvia] 25 mg PO DAILY 01/09/19 Aa/Hydrolyzed Collagen, Whey [Lps 15-30 Liquid] 30 ml PO DAILY 04/15/20 Acetaminophen [8Hr Arthritis Pain Relief] 650 mg PO Q6H PRN 04/15/20 Amlodipine Besylate [Norvasc -] 2.5 mg PO DAILY 04/15/20 Ascorbic Acid [Vitamin C] 500 mg PO DAILY 04/15/20 Bimatoprost [Lumigan] 1 drop IO HS 04/15/20 Dorzolamide HCl/Pf [Dorzolamide 2% Eye Drop] 1 drop OP TID 04/15/20 Enoxaparin [Lovenox -] 40 mg SQ DAILY 04/15/20 Famotidine [Pepcid] 20 mg PO DAILY 04/15/20 Insulin Aspart [Novolog] 10 unit SQ BID 04/15/20 Insulin Detemir [Levemir Flextouch] 42 unit SQ DAILY 04/15/20 Metoprolol Tartrate [Lopressor] 100 mg PO BID 04/15/20 Polyethylene Glycol 3350 [Miralax (For Daily Use) -] 17 gm PO ONCE PRN 04/15/20 Thiamine Mononitrate [Vitamin B-1] 100 mg PO DAILY 04/15/20
[2020-04-20] MEDS: NIFEdipine E.R. 30 MG TABLET PO SCH (12:29)
[2020-04-20] MEDS: METOPROLOL TARTRATE 50 MG TABLET (FP) PO SCH (12:29)
[2020-04-20] MEDS: EZETIMIBE 10 MG TABLET (FP) PO SCH (12:30)
[2020-04-20] MEDS: CEFTRIAXONE 1 GM in DEXTROSE 5%-WATER - 50 ML IVPB SCH (12:30)
[2020-04-20] MEDS: ASPIRIN COATED 81 MG TABLET.EC PO SCH (12:30)
[2020-04-20] MEDS: FAMOTIDINE 20 MG TABLET PO SCH (12:30)
[2020-04-20] MEDS: INSULIN (LEVEMIR) 100 UNITS/ML UNITS SQ SCH (12:30)
--- NOTE | 2020-04-20 12:47 | PN ---
Progress Note, Physician History of Present Illness: Seen and examined at the bedside awake and alert offers no acute complaints denies any sob, cp, abd pain, fever, chills, N/V/D making urine appetite is good on IV fluids - Current Medication List Current Medications: Active Medications Aspirin (Ecotrin -) 81 mg PO DAILY [facility] Last Admin: 04/20/20 12:30 Dose: 81 mg Documented by: Atorvastatin Calcium (Lipitor -) [address] [facility] Last Admin: 04/19/20 21:38 Dose: 40 mg Documented by: Donepezil HCl (Aricept -) 5 mg PO HS [facility] Last Admin: 04/19/20 21:38 Dose: 5 mg Documented by: Ezetimibe (Zetia -) 10 mg PO DAILY [facility] Last Admin: 04/20/20 12:30 Dose: 10 mg Documented by: Famotidine (Pepcid -) 20 mg PO DAILY [facility] Last Admin: 04/20/20 12:30 Dose: 20 mg Documented by: Heparin Sodium (Porcine) (Heparin -) 5,000 unit SQ TID [facility] Last Admin: 04/20/20 05:59 Dose: 5,000 unit Documented by: Hydralazine HCl (Apresoline -) 50 mg PO TID [facility] Last Admin: 04/20/20 05:59 Dose: 50 mg Documented by: Ceftriaxone Sodium 1 gm/ (Dextrose) 50 mls @ 200 mls/hr IVPB DAILY [facility]; Protoco l Last Admin: 04/20/20 12:30 Dose: 200 mls/hr Documented by: Insulin Aspart (Novolog Vial Sliding Scale -) 1 vial SQ ACHS [facility]; Protocol Last Admin: 04/20/20 12:30 Dose: 2 units Documented by: Insulin Detemir (Levemir Vial) 12 units SQ BID [facility] Last Admin: 04/20/20 12:30 Dose: 12 units Documented by: Metoprolol Tartrate (Lopressor -) 100 mg PO BID [facility] Last Admin: 04/20/20 12:29 Dose: 100 mg Documented by: Nifedipine (Procardia Xl -) 30 mg PO DAILY [facility] Last Admin: 04/20/20 12:29 Dose: 30 mg Documented by: - Objective Vital Signs: Vital Signs Temperature 98.3 F 04/20/20 06:43 Pulse Rate 65 04/20/20 06:43 Respiratory Rate 18 04/20/20 06:43 Blood Pressure 174/70 H 04/20/20 06:43 O2 Sat by Pulse Oximetry (%) 95 04/20/20 06:43 Constitutional: Yes: No Distress, Calm HENT: Yes: Atraumatic Neck: Yes: Supple Cardiovascular: Yes: Regular Rate and Rhythm Respiratory: Yes: Regular, CTA Bilaterally Gastrointestinal: Yes: Soft Genitourinary: No: Bladder Distention Extremities: Yes: Cyanosis Edema: No Neurological: Yes: Alert Labs: CBC, BMP 04/17/20 07:31 04/20/20 06:32 Assessment/Plan 80 year old woman with history of CKD, hypertension, hyperlipidemia, Anemia, dementia, GERD who presented from [place] with elevated serum Cr and admitted for acute kidney injury with Cr of 2. 1. Acute kidney injury 2. Hypertension 3. Hyperlipidemia 4. Anemia 5. Dementia 5. GERD 7. Cystitis Renal function is stable, has not improved to baseline. There is no overt electrolyte or acid/base disturbance. Urine studies showed UPCR of 8 (nephrotic range), FeNa was 4.4% indicating tubular injury, Eosinophils pending. Renal US showed renal cysts but no obstruction noted will discontinue IV fluids hold any diuretics or FELICIANO/ARB Avoid IV contrast or NSAID use There is no acute need for renal replacement therapy Trend H/H, check iron studies oral intake as tolerated Continue antibiotics per primary team Stable for discharge with outpatient follow up in our office in 1-2 weeks. Thank you Miguel Angel Núñez DO
[2020-04-20 15:34] VITALS: BP 140/52; PULSE 67; TEMP 99
== END 2020-04-20 16:19 | DRG 683 ==
LOC: JER 12:46 → JERBED 15:19 → J5S 23:33
PROVIDERS: ATTEND Internal Medicine
DX: N17.0 Acute kidney failure with tubular necrosis (principal); N39.0 Urinary tract infection, site not specified; Q61.3 Polycystic kidney, unspecified; F02.80 Dementia in other diseases classified elsewhere, unspecified severity, without behavioral disturbance, psychotic disturbance, mood disturbance, and anxiety; G30.9 Alzheimer's disease, unspecified; I10 Essential (primary) hypertension; E78.5 Hyperlipidemia, unspecified; K21.9 Gastro-esophageal reflux disease without esophagitis; D50.9 Iron deficiency anemia, unspecified; N18.2 Chronic kidney disease, stage 2 (mild); E11.65 Type 2 diabetes mellitus with hyperglycemia; D72.829 Elevated white blood cell count, unspecified
CPT/HCPCS: 36415; 71045-TC-FY; 76775-TC; 76856-TC; 80048; 80053; 81003; 82565; 82607; 82728; 82746; 82962; 83036; 83540; 83550; 83735; 84100; 84156; 84300; 84436; 84443; 85025; 85027; 85045; 87040; 87086; 87205; 93005; 93010; 97116-GP; 97161-GP; 99285-25; C9803; J1644; U0003

== ENCOUNTER 2020-05-12 10:35 | Inpatient (IN) | payer OTHER, BC ==
[2020-05-12 12:03] LABS: BASO % 0.6 % (0-2.0); EOS % 0.2 % (0-4.5); HEMOGLOBIN 7.2 GM/dL (10.7-15.3); LYMPH % 5.8 % (8-40); MCH 26.9 pg (25.7-33.7); MCHC 31.3 g/dl (32.0-36.0); MEAN CELL VOLUME 85.9 fl (80-96); MEAN PLT VOLUME 12.3 fl (7.5-11.1); MONO % 9.5 % (3.8-10.2); NEUT % 83.9 % (42.8-82.8); PLATELET COUNT 182 K/MM3 (134-434); RBC 2.68 M/mm3 (3.60-5.2); RDW 16.1 % (11.6-15.6); WHITE BLOOD COUNT 19.7 K/mm3 (4.0-10.0)
[2020-05-12 12:11] LABS: INR 1.25 (0.83-1.09); PROTHROMBIN TIME (PATIENT) 15.3 SEC (9.7-13.0)
[2020-05-12 12:14] LABS: EPI CELLS >36 /uL (0-25.1); HYALINE CASTS 3 /uL (0-3.1); URINE APPEARANCE CLOUDY; URINE BACTERIA 76 /uL (0-1359); URINE BILIRUBIN NEGATIVE (NEGATIVE); URINE COLOR YELLOW; URINE GLUCOSE (UA) NEGATIVE (NEGATIVE); URINE KETONE NEGATIVE (NEGATIVE); URINE LEUK ESTERASE NEGATIVE (NEGATIVE); URINE NITRITE NEGATIVE (NEGATIVE); URINE PROTEIN 3+ (NEGATIVE); URINE RBC 2 /uL (0-23.9); URINE UROBILINOGEN 0.2 mg/dL (0.2-1.0); URINE WBC 11 /uL (0-25.8)
[2020-05-12 12:18] LABS: BLOOD UREA NITROGEN 66.4 mg/dL (7-18); CALCIUM 8.3 mg/dL (8.5-10.1)
[2020-05-12 12:21] LABS: CREATININE 4.7 mg/dL (0.55-1.3)
[2020-05-12 12:23] LABS: BILIRUBIN,TOTAL 0.3 mg/dL (0.2-1)
[2020-05-12] MEDS ORDERED: PIPERACILLIN/TAZOB 2.25 GM 2.25 GM in DEXTROSE 5%-WATER - 50 ML IVPB ONE (13:55)
[2020-05-12] MEDS ORDERED: VANCOMYCIN 1 GM in D5W (PRE-DOCKED) 1,000 MG/250 ML IVPB ONE (13:57)
[2020-05-12] MEDS ORDERED: PIPERACILLIN/TAZOB 2.25 GM 2.25 GM/50 ML BAG IVPB ONE (14:05)
[2020-05-12] MEDS ORDERED: VANCOMYCIN 1 GRAM (PRE-DOCKED) 1,000 MG/250 ML BAG IVPB ONE ×2 (14:05→14:27)
[2020-05-12] MEDS ORDERED: SODIUM CHLORIDE 0.45% 1,000 ML IV SCH ×2 (18:45→21:14)
[2020-05-12 19:01] VITALS: BMI 31.1
[2020-05-12 21:23] LABS: BASO % 0.4 % (0-2.0); EOS % 0.5 % (0-4.5); HEMATOCRIT 22.6 % (32.4-45.2); LYMPH % 5.8 % (8-40); MCH 27.2 pg (25.7-33.7); MCHC 30.9 g/dl (32.0-36.0); MEAN CELL VOLUME 87.8 fl (80-96); MEAN PLT VOLUME 13.1 fl (7.5-11.1); MONO % 8.9 % (3.8-10.2); NEUT % 84.4 % (42.8-82.8); PLATELET COUNT 197 K/MM3 (134-434); RBC 2.58 M/mm3 (3.60-5.2); WHITE BLOOD COUNT 20.6 K/mm3 (4.0-10.0)
[2020-05-12] MEDS: HEPARIN NA (PORCINE) 5,000 UNITS/ML 1ML VIAL SQ SCH (22:03)
[2020-05-12] MEDS ORDERED: DEXTROSE 50%-WATER 25 GM/50 ML DISP.SYRIN ONE (22:26)
[2020-05-12] MEDS ORDERED: DEXTROSE 50%-WATER - 25 GM/50 ML VIAL IVPUSH ONE (22:27)
[2020-05-12] MEDS: METOPROLOL TARTRATE 50 MG TABLET (FP) PO SCH (22:40)
[2020-05-12] MEDS: DORZOLAMIDE 2% HCL OPHTHALMIC SOLUTION 10 ML BOTTLE OU SCH (22:40)
[2020-05-12] MEDS: LATANOPROST 0.005% OPHTH SOLN 2.5ML BOTTLE OU SCH (22:40)
[2020-05-12] MEDS: ATORVASTATIN CA 40 MG TABLET (FP) PO SCH (22:40)
[2020-05-12] MEDS: hydrALAZINE HCL 50 MG TABLET (FP) PO SCH (22:40)
[2020-05-12] MEDS: MONTELUKAST NA 10 MG TABLET PO SCH (22:40)
[2020-05-12] MEDS: DONEPEZIL HCL 5 MG TABLET (FP) PO SCH (22:41)
[2020-05-12 23:09] LABS: ANISOCYTOSIS 1+; MACROCYTOSIS 0; PLATELET ESTIMATE NORMAL
[2020-05-12] MEDS ORDERED: DEXTROSE 5%-0.45% SALINE 1,000 ML IV SCH (23:45)
[2020-05-13] MEDS ORDERED: PIPERACILLIN/TAZOBACTAM 2.25 GM VIAL IVPB ONE ×3 (01:12→17:58)
[2020-05-13] MEDS ORDERED: DEXTROSE 5%-WATER - 50 ML IVPB ONE ×3 (01:12→17:58)
[2020-05-13] MEDS: PIPERACILLIN/TAZOB 2.25 GM 2.25 GM in DEXTROSE 5%-WATER - 50 ML IVPB SCH ×3 (01:19→18:06)
[2020-05-13] MEDS ORDERED: ACETAMINOPHEN 325 MG TABLET (FP) PO PRN (01:50)
[2020-05-13] MEDS ORDERED: DEXTROSE 50%-WATER - 25 GM/50 ML VIAL IVPUSH ONE (05:55)
[2020-05-13] MEDS ORDERED: DEXTROSE 50%-WATER 25 GM/50 ML DISP.SYRIN ONE (06:00)
[2020-05-13] MEDS: DORZOLAMIDE 2% HCL OPHTHALMIC SOLUTION 10 ML BOTTLE OU SCH ×3 (06:01→22:49)
[2020-05-13] MEDS: hydrALAZINE HCL 50 MG TABLET (FP) PO SCH ×3 (06:01→21:03)
[2020-05-13] MEDS: INSULIN SLIDING SCALE (NOVOLOG) 1 VIAL SQ SCH ×3 (06:01→18:06)
[2020-05-13 07:40] LABS: BASO % 0.4 % (0-2.0); EOS % 1.7 % (0-4.5); HEMATOCRIT 24.4 % (32.4-45.2); HEMOGLOBIN 7.4 GM/dL (10.7-15.3); LYMPH % 5.2 % (8-40); MCH 27.4 pg (25.7-33.7); MCHC 30.3 g/dl (32.0-36.0); MEAN CELL VOLUME 90.4 fl (80-96); MEAN PLT VOLUME 13.3 fl (7.5-11.1); MONO % 9.3 % (3.8-10.2); NEUT % 83.4 % (42.8-82.8); PLATELET COUNT 178 K/MM3 (134-434); RDW 16.9 % (11.6-15.6); WHITE BLOOD COUNT 18.6 K/mm3 (4.0-10.0)
[2020-05-13 07:51] LABS: POTASSIUM 5.1 mmol/L (3.5-5.1)
[2020-05-13 08:02] LABS: ALBUMIN 1.9 g/dl (3.4-5.0); CALCIUM 8.6 mg/dL (8.5-10.1)
[2020-05-13 08:03] LABS: BLOOD UREA NITROGEN 66.4 mg/dL (7-18)
[2020-05-13 08:06] LABS: CREATININE 4.5 mg/dL (0.55-1.3)
[2020-05-13 08:07] LABS: BILIRUBIN,TOTAL 0.4 mg/dL (0.2-1); TOT PROT 5.9 g/dl (6.4-8.2)
[2020-05-13] MEDS ORDERED: EZETIMIBE 10 MG TABLET (FP) PO SCH (10:00)
[2020-05-13] MEDS ORDERED: INSULIN (LEVEMIR) 100 UNITS/ML UNITS SQ SCH (10:00)
[2020-05-13] MEDS ORDERED: FAMOTIDINE 20 MG TABLET PO SCH (10:00)
[2020-05-13] MEDS ORDERED: NIFEdipine E.R. 30 MG TABLET PO SCH (10:00)
[2020-05-13 10:31] LABS: EPI CELLS >36 /uL (0-25.1); HYALINE CASTS 61 /uL (0-3.1); URINE APPEARANCE TURBID; URINE BILIRUBIN NEGATIVE (NEGATIVE); URINE COLOR YELLOW; URINE GLUCOSE (UA) NEGATIVE (NEGATIVE); URINE KETONE NEGATIVE (NEGATIVE); URINE LEUK ESTERASE 1+ (NEGATIVE); URINE NITRITE NEGATIVE (NEGATIVE); URINE PROTEIN 3+ (NEGATIVE); URINE RBC 9 /uL (0-23.9); URINE UROBILINOGEN 0.2 mg/dL (0.2-1.0); URINE WBC 218 /uL (0-25.8)
[2020-05-13 10:39] LABS: URINE BACTERIA 14.3 /uL (0-1359)
[2020-05-13] MEDS: METOPROLOL TARTRATE 50 MG TABLET (FP) PO SCH (10:50)
[2020-05-13] MEDS: HEPARIN NA (PORCINE) 5,000 UNITS/ML 1ML VIAL SQ SCH (10:50)
[2020-05-13] MEDS: INSULIN (LEVEMIR) 100 UNITS/ML UNITS SQ SCH (13:30)
[2020-05-13] MEDS ORDERED: SODIUM CHLORIDE 1,000 ML IV SCH (13:30)
[2020-05-13] MEDS ORDERED: DEXTROSE 50%-WATER - 25 GM/50 ML VIAL IVPUSH PRN (13:50)
[2020-05-13] MEDS ORDERED: ALBUTEROL SO4 2.5/IPRATROPIUM 0.5 INH SOL 3 ML VIAL.NEB. NEB PRN (15:49)
[2020-05-13 17:01] LABS: ARTERIAL BLOOD GAS BASE EXCESS -12.6 mmol/L (-2-2); ARTERIAL BLOOD GAS PO2 65.9 mmHg (80-100); ARTERIAL BLOOD GAS pH 7.243 (7.350-7.450)
[2020-05-13 17:02] LABS: ALLENS TEST POSITIVE
[2020-05-13] MEDS ORDERED: SODIUM CHLORIDE 500 ML IV STA (20:55)
[2020-05-13] MEDS: DONEPEZIL HCL 5 MG TABLET (FP) PO SCH (21:03)
[2020-05-13] MEDS: ATORVASTATIN CA 40 MG TABLET (FP) PO SCH (21:28)
[2020-05-13] MEDS: MONTELUKAST NA 10 MG TABLET PO SCH (21:28)
[2020-05-13] MEDS: LATANOPROST 0.005% OPHTH SOLN 2.5ML BOTTLE OU SCH (22:49)
[2020-05-13] MEDS: MUPIROCIN 2% TOPICAL OINTMENT FOR DECOLONIZATION NS SCH (22:49)
[2020-05-13] MEDS: CHLORHEXIDINE GLUCONATE 4% CLEANSER FOR DECOLONIZATION TP SCH (22:49)
[2020-05-14] MEDS: HEPARIN NA (PORCINE) 5,000 UNITS/ML 1ML VIAL SQ SCH ×3 (00:17→21:40)
[2020-05-14] MEDS ORDERED: PIPERACILLIN/TAZOBACTAM 2.25 GM VIAL IVPB ONE ×3 (00:19→17:42)
[2020-05-14] MEDS ORDERED: DEXTROSE 5%-WATER - 50 ML IVPB ONE ×3 (00:20→17:42)
[2020-05-14] MEDS: PIPERACILLIN/TAZOB 2.25 GM 2.25 GM in DEXTROSE 5%-WATER - 50 ML IVPB SCH ×3 (03:25→17:59)
[2020-05-14] MEDS: hydrALAZINE HCL 50 MG TABLET (FP) PO SCH ×3 (07:02→21:39)
[2020-05-14] MEDS: DORZOLAMIDE 2% HCL OPHTHALMIC SOLUTION 10 ML BOTTLE OU SCH ×3 (07:02→21:42)
[2020-05-14] MEDS: INSULIN SLIDING SCALE (NOVOLOG) 1 VIAL SQ SCH ×3 (07:02→16:41)
[2020-05-14] MEDS: INSULIN (LEVEMIR) 100 UNITS/ML UNITS SQ SCH (07:02)
[2020-05-14 07:51] LABS: POTASSIUM 5.3 mmol/L (3.5-5.1)
[2020-05-14 07:55] LABS: ALBUMIN 1.9 g/dl (3.4-5.0); BLOOD UREA NITROGEN 67.7 mg/dL (7-18)
[2020-05-14 07:56] LABS: MAGNESIUM 2.4 mg/dL (1.8-2.4)
[2020-05-14 07:58] LABS: CREATININE 4.7 mg/dL (0.55-1.3); PHOSPHOROUS 7.1 mg/dL (2.5-4.9)
[2020-05-14 08:00] LABS: BILIRUBIN,TOTAL 0.7 mg/dL (0.2-1); TOT PROT 6.1 g/dl (6.4-8.2)
[2020-05-14] MEDS ORDERED: ALBUTEROL SO4 2.5/IPRATROPIUM 0.5 INH SOL 3 ML VIAL.NEB. NEB PRN (08:04)
[2020-05-14] MEDS ORDERED: SODIUM CHLORIDE 1,000 ML IV SCH (08:04)
[2020-05-14] MEDS ORDERED: DEXTROSE 50%-WATER - 25 GM/50 ML VIAL IVPUSH PRN (08:04)
[2020-05-14] MEDS ORDERED: ACETAMINOPHEN 325 MG TABLET (FP) PO PRN (08:04)
[2020-05-14 08:16] LABS: BASO % 0.2 % (0-2.0); EOS % 0.5 % (0-4.5); HEMATOCRIT 22.3 % (32.4-45.2); HEMOGLOBIN 7.1 GM/dL (10.7-15.3); LYMPH % 4.8 % (8-40); MCH 27.7 pg (25.7-33.7); MCHC 31.9 g/dl (32.0-36.0); MEAN PLT VOLUME 13.5 fl (7.5-11.1); MONO % 7.1 % (3.8-10.2); NEUT % 87.4 % (42.8-82.8); PLATELET COUNT 212 K/MM3 (134-434); RBC 2.57 M/mm3 (3.60-5.2); RDW 16.4 % (11.6-15.6); WHITE BLOOD COUNT 18.4 K/mm3 (4.0-10.0)
[2020-05-14] MEDS: MUPIROCIN 2% TOPICAL OINTMENT FOR DECOLONIZATION NS SCH ×2 (09:51→21:39)
[2020-05-14] MEDS: METOPROLOL TARTRATE 50 MG TABLET (FP) PO SCH ×2 (09:56→21:40)
[2020-05-14] MEDS ORDERED: FAMOTIDINE 20 MG TABLET PO SCH (10:00)
[2020-05-14] MEDS ORDERED: EZETIMIBE 10 MG TABLET (FP) PO SCH (10:00)
[2020-05-14] MEDS ORDERED: NIFEdipine E.R. 30 MG TABLET PO SCH (10:00)
[2020-05-14] MEDS ORDERED: SODIUM CHLORIDE 0.45% 1,000 ML with SODIUM BICARBONATE 8.4% - 75 MEQ IV SCH (17:45)
[2020-05-14] MEDS: SODIUM BICARBONATE 8.4% - 75 MEQ in SODIUM CHLORIDE 0.45% 1,000 ML IV SCH (18:05)
[2020-05-14] MEDS ORDERED: PT OWN MED DRAWER 7, Y5N ONE (21:20)
[2020-05-14] MEDS: CHLORHEXIDINE GLUCONATE 4% CLEANSER FOR DECOLONIZATION TP SCH (21:38)
[2020-05-14] MEDS ORDERED: LATANOPROST 0.005% OPHTH SOLN 2.5ML BOTTLE OU SCH (22:00)
[2020-05-14] MEDS ORDERED: ATORVASTATIN CA 40 MG TABLET (FP) PO SCH (22:00)
[2020-05-14] MEDS ORDERED: MONTELUKAST NA 10 MG TABLET PO SCH (22:00)
[2020-05-14] MEDS ORDERED: DONEPEZIL HCL 5 MG TABLET (FP) PO SCH (22:00)
[2020-05-15] MEDS ORDERED: HALOPERIDOL LACTATE 5 MG/ML IV ONE (00:15)
[2020-05-15] MEDS ORDERED: DEXTROSE 5%-WATER - 50 ML IVPB ONE ×2 (01:29→10:40)
[2020-05-15] MEDS ORDERED: PIPERACILLIN/TAZOBACTAM 2.25 GM VIAL IVPB ONE ×2 (01:29→10:40)
[2020-05-15] MEDS: PIPERACILLIN/TAZOB 2.25 GM 2.25 GM in DEXTROSE 5%-WATER - 50 ML IVPB SCH ×3 (01:38→17:31)
[2020-05-15] MEDS ORDERED: DEXTROSE 50%-WATER - 25 GM/50 ML VIAL IVPUSH PRN ×2 (02:13→23:28)
[2020-05-15] MEDS ORDERED: ALBUTEROL SO4 2.5/IPRATROPIUM 0.5 INH SOL 3 ML VIAL.NEB. NEB PRN (02:13)
[2020-05-15] MEDS ORDERED: ACETAMINOPHEN 325 MG TABLET (FP) PO PRN (02:13)
[2020-05-15] MEDS: hydrALAZINE HCL 50 MG TABLET (FP) PO SCH ×4 (05:40→21:07)
[2020-05-15] MEDS: DORZOLAMIDE 2% HCL OPHTHALMIC SOLUTION 10 ML BOTTLE OU SCH ×3 (05:41→21:09)
[2020-05-15] MEDS: INSULIN SLIDING SCALE (NOVOLOG) 1 VIAL SQ SCH ×3 (06:31→17:30)
[2020-05-15] MEDS ORDERED: INSULIN (LEVEMIR) 100 UNITS/ML UNITS SQ SCH ×2 (07:00)
[2020-05-15 07:11] LABS: BASO % 0.1 % (0-2.0); EOS % 0.2 % (0-4.5); HEMATOCRIT 21.5 % (32.4-45.2); MCH 27.1 pg (25.7-33.7); MCHC 31.9 g/dl (32.0-36.0); MEAN CELL VOLUME 84.8 fl (80-96); MEAN PLT VOLUME 12.9 fl (7.5-11.1); NEUT % 89.7 % (42.8-82.8); PLATELET COUNT 259 K/MM3 (134-434); RBC 2.54 M/mm3 (3.60-5.2); RDW 16.2 % (11.6-15.6); WHITE BLOOD COUNT 17.3 K/mm3 (4.0-10.0)
[2020-05-15 07:12] LABS: POTASSIUM 5.5 mmol/L (3.5-5.1)
[2020-05-15 07:14] LABS: ALBUMIN 2.1 g/dl (3.4-5.0); CALCIUM 8.5 mg/dL (8.5-10.1)
[2020-05-15 07:15] LABS: BLOOD UREA NITROGEN 78.9 mg/dL (7-18); MAGNESIUM 2.5 mg/dL (1.8-2.4)
[2020-05-15 07:17] LABS: PHOSPHOROUS 7.1 mg/dL (2.5-4.9)
[2020-05-15 07:19] LABS: BILIRUBIN,TOTAL 0.3 mg/dL (0.2-1); TOT PROT 6.3 g/dl (6.4-8.2)
[2020-05-15 07:47] LABS: HEMOGLOBIN 6.9 GM/dL (10.7-15.3)
[2020-05-15] MEDS ORDERED: NIFEdipine E.R. 30 MG TABLET PO SCH (10:00)
[2020-05-15] MEDS ORDERED: FAMOTIDINE 20 MG TABLET PO SCH (10:00)
[2020-05-15] MEDS ORDERED: EZETIMIBE 10 MG TABLET (FP) PO SCH (10:00)
[2020-05-15] MEDS: MUPIROCIN 2% TOPICAL OINTMENT FOR DECOLONIZATION NS SCH ×2 (10:52→21:07)
[2020-05-15] MEDS: HEPARIN NA (PORCINE) 5,000 UNITS/ML 1ML VIAL SQ SCH ×2 (10:53→21:08)
[2020-05-15] MEDS: METOPROLOL TARTRATE 50 MG TABLET (FP) PO SCH ×2 (10:54→21:11)
[2020-05-15] MEDS: SODIUM BICARBONATE 8.4% - 75 MEQ in SODIUM CHLORIDE 0.45% 1,000 ML IV SCH ×2 (13:19→17:30)
[2020-05-15] MEDS ORDERED: DONEPEZIL HCL 5 MG TABLET (FP) PO SCH (22:00)
[2020-05-15] MEDS ORDERED: LATANOPROST 0.005% OPHTH SOLN 2.5ML BOTTLE OU SCH (22:00)
[2020-05-15] MEDS ORDERED: ATORVASTATIN CA 40 MG TABLET (FP) PO SCH (22:00)
[2020-05-15] MEDS ORDERED: MONTELUKAST NA 10 MG TABLET PO SCH (22:00)
[2020-05-15] MEDS ORDERED: SODIUM BICARBONATE 8.4% - 75 MEQ in SODIUM CHLORIDE 0.45% 1,000 ML IV SCH (23:28)
[2020-05-16] MEDS ORDERED: PIPERACILLIN/TAZOBACTAM 2.25 GM VIAL IVPB ONE ×3 (02:11→17:00)
[2020-05-16] MEDS ORDERED: DEXTROSE 5%-WATER - 50 ML IVPB ONE ×3 (02:11→17:01)
[2020-05-16] MEDS: PIPERACILLIN/TAZOB 2.25 GM 2.25 GM in DEXTROSE 5%-WATER - 50 ML IVPB SCH ×4 (02:14→17:08)
[2020-05-16] MEDS: hydrALAZINE HCL 50 MG TABLET (FP) PO SCH ×3 (06:52→23:03)
[2020-05-16] MEDS: INSULIN (LEVEMIR) 100 UNITS/ML UNITS SQ SCH (06:54)
[2020-05-16] MEDS: INSULIN SLIDING SCALE (NOVOLOG) 1 VIAL SQ SCH ×3 (07:08→17:08)
[2020-05-16] MEDS: DORZOLAMIDE 2% HCL OPHTHALMIC SOLUTION 10 ML BOTTLE OU SCH ×3 (07:52→23:15)
[2020-05-16] MEDS: ALBUTEROL SO4 2.5/IPRATROPIUM 0.5 INH SOL 3 ML VIAL.NEB. NEB PRN ×2 (08:00→20:08)
[2020-05-16] MEDS ORDERED: METOPROLOL TARTRATE 50 MG TABLET (FP) PO SCH (10:00)
[2020-05-16] MEDS ORDERED: MUPIROCIN 2% TOPICAL OINTMENT FOR DECOLONIZATION NS SCH (10:00)
[2020-05-16] MEDS: HEPARIN NA (PORCINE) 5,000 UNITS/ML 1ML VIAL SQ SCH ×2 (10:06→23:02)
[2020-05-16] MEDS: EZETIMIBE 10 MG TABLET (FP) PO SCH (10:10)
[2020-05-16] MEDS: METOPROLOL TARTRATE 50 MG TABLET (FP) PO SCH ×2 (10:10→23:03)
[2020-05-16] MEDS: FAMOTIDINE 20 MG TABLET PO SCH (10:10)
[2020-05-16] MEDS: NIFEdipine E.R. 30 MG TABLET PO SCH (10:10)
[2020-05-16] MEDS: ACETAMINOPHEN 325 MG TABLET (FP) PO PRN ×2 (10:10→23:05)
[2020-05-16] MEDS ORDERED: SODIUM BICARBONATE 8.4% - 75 MEQ in SODIUM CHLORIDE 0.45% 1,000 ML IV SCH (11:58)
[2020-05-16] MEDS ORDERED: PT OWN MED DRAWER 7, Y5N ONE (15:11)
[2020-05-16] MEDS ORDERED: LATANOPROST 0.005% OPHTH SOLN 2.5ML BOTTLE OU SCH (22:00)
[2020-05-16] MEDS ORDERED: DONEPEZIL HCL 5 MG TABLET (FP) PO SCH (22:00)
[2020-05-16] MEDS ORDERED: MONTELUKAST NA 10 MG TABLET PO SCH (22:00)
[2020-05-16] MEDS ORDERED: ATORVASTATIN CA 40 MG TABLET (FP) PO SCH (22:00)
[2020-05-17] MEDS ORDERED: PIPERACILLIN/TAZOBACTAM 2.25 GM VIAL IVPB ONE ×2 (00:47→09:30)
[2020-05-17] MEDS ORDERED: DEXTROSE 5%-WATER - 50 ML IVPB ONE ×2 (00:48→09:31)
[2020-05-17] MEDS: PIPERACILLIN/TAZOB 2.25 GM 2.25 GM in DEXTROSE 5%-WATER - 50 ML IVPB SCH ×2 (02:12→09:51)
[2020-05-17] MEDS: hydrALAZINE HCL 50 MG TABLET (FP) PO SCH ×2 (06:17→13:51)
[2020-05-17] MEDS: INSULIN SLIDING SCALE (NOVOLOG) 1 VIAL SQ SCH ×2 (06:17→12:34)
[2020-05-17] MEDS: DORZOLAMIDE 2% HCL OPHTHALMIC SOLUTION 10 ML BOTTLE OU SCH ×2 (06:18→13:51)
[2020-05-17] MEDS: INSULIN (LEVEMIR) 100 UNITS/ML UNITS SQ SCH (06:19)
[2020-05-17] MEDS ORDERED: INSULIN (NOVOLOG) ASPART 100 UNITS/ML 10ML VIAL ONE (06:37)
[2020-05-17] MEDS: ACETAMINOPHEN 325 MG TABLET (FP) PO PRN (09:50)
[2020-05-17] MEDS: NIFEdipine E.R. 30 MG TABLET PO SCH ×2 (09:50→11:11)
[2020-05-17] MEDS: HEPARIN NA (PORCINE) 5,000 UNITS/ML 1ML VIAL SQ SCH (09:50)
[2020-05-17] MEDS: EZETIMIBE 10 MG TABLET (FP) PO SCH ×2 (09:51→11:12)
[2020-05-17] MEDS: FAMOTIDINE 20 MG TABLET PO SCH ×2 (09:51→11:11)
[2020-05-17 10:55] LABS: BASO % 0.1 % (0-2.0); HEMATOCRIT 24.1 % (32.4-45.2); HEMOGLOBIN 7.7 GM/dL (10.7-15.3); LYMPH % 4.9 % (8-40); MCH 27.9 pg (25.7-33.7); MCHC 31.8 g/dl (32.0-36.0); MEAN CELL VOLUME 87.7 fl (80-96); MEAN PLT VOLUME 13.3 fl (7.5-11.1); MONO % 8.2 % (3.8-10.2); NEUT % 86.8 % (42.8-82.8); PLATELET COUNT 234 K/MM3 (134-434); RBC 2.75 M/mm3 (3.60-5.2); RETICULOCYTES 2.91 % (0.5-1.5); WHITE BLOOD COUNT 18.2 K/mm3 (4.0-10.0)
[2020-05-17] MEDS ORDERED: ZINC OXIDE/PANTHENOL/VITAMIN E 56 GM TUBE TP PRN (11:01)
[2020-05-17 11:24] LABS: CALCIUM 8.2 mg/dL (8.5-10.1)
[2020-05-17 11:25] LABS: ALBUMIN 2.1 g/dl (3.4-5.0); BLOOD UREA NITROGEN 101.8 mg/dL (7-18)
[2020-05-17 11:27] LABS: CREATININE 6.3 mg/dL (0.55-1.3)
[2020-05-17 11:29] LABS: BILIRUBIN,TOTAL 0.9 mg/dL (0.2-1); TOT PROT 6.1 g/dl (6.4-8.2)
[2020-05-17] MEDS ORDERED: SODIUM BICARBONATE 8.4% - 150 MEQ in DEXTROSE 5%-WATER - 1,000 ML IV SCH (11:45)
[2020-05-17 11:50] LABS: POTASSIUM 6.4 mmol/L (3.5-5.1)
[2020-05-17] MEDS ORDERED: MORPHINE SULFATE 2 MG/ML VIAL IVPUSH PRN (12:29)
[2020-05-17 12:44] LABS: ANISOCYTOSIS 0; MACROCYTOSIS 0; PLATELET ESTIMATE NORMAL
[2020-05-17 15:15] VITALS: BP 115/50; PULSE 44; TEMP 96.5
[2020-05-17] MEDS ORDERED: METOPROLOL TARTRATE 50 MG TABLET (FP) PO SCH (22:00)
[2020-05-18 18:07] LABS: FREE KAPPA,SERUM 227.4 mg/L (3.3-19.4)
== END 2020-05-17 17:13 | disposition expired | DRG 871 ==
LOC: JER 10:35 → JERBED 15:21 → J4S 18:17 → JICU 05-13 20:31 → J8W 05-15 23:03
PROVIDERS: ADMIT Internal Medicine; ATTEND Internal Medicine
PROC: 30233N1 Transfusion of Nonautologous Red Blood Cells into Peripheral Vein, Percutaneous Approach (ICD-10-PCS; principal; 2020-05-15)
DX: A41.89 Other specified sepsis (principal); G93.41 Metabolic encephalopathy; K72.00 Acute and subacute hepatic failure without coma; J96.01 Acute respiratory failure with hypoxia; J18.9 Pneumonia, unspecified organism; N17.9 Acute kidney failure, unspecified; E87.2 Acidosis; N30.00 Acute cystitis without hematuria; G30.9 Alzheimer's disease, unspecified; F02.80 Dementia in other diseases classified elsewhere, unspecified severity, without behavioral disturbance, psychotic disturbance, mood disturbance, and anxiety; E78.5 Hyperlipidemia, unspecified; I12.9 Hypertensive chronic kidney disease with stage 1 through stage 4 chronic kidney disease, or unspecified chronic kidney disease; E11.22 Type 2 diabetes mellitus with diabetic chronic kidney disease; N18.2 Chronic kidney disease, stage 2 (mild); K21.9 Gastro-esophageal reflux disease without esophagitis; D64.9 Anemia, unspecified; E66.9 Obesity, unspecified; Z68.31 Body mass index [BMI] 31.0-31.9, adult; J45.909 Unspecified asthma, uncomplicated; L89.300 Pressure ulcer of unspecified buttock, unstageable; L89.891 Pressure ulcer of other site, stage 1; D72.829 Elevated white blood cell count, unspecified; R00.1 Bradycardia, unspecified; I48.0 Paroxysmal atrial fibrillation; E87.5 Hyperkalemia; Z66 Do not resuscitate
CPT/HCPCS: 36415; 36430; 36600; 70450-TC; 71045-TC-FY; 76775-TC; 76856-TC; 80053; 81003; 82272; 82550; 82553; 82565; 82728; 82803; 82962; 83010; 83540; 83550; 83605; 83615; 83735; 83883; 84100; 84155; 84165; 84300; 84484; 85025; 85045; 85610; 85730; 86850; 86900; 86901; 86922; 87040; 87086; 87205; 87804; 87899; 93005; 93010; 93970-TC; 94640; 94660; 99285-25; C9803; J1644; P9058; U0003